=== PATIENT | female | born 1985 | race Caucasian/White ===

== ENCOUNTER 2017-04-08 12:40 | Outpatient (CLI) | payer MEDICAID, SELFPAY ==
[2017-04-08 13:14] VITALS: BMI 26.6
[2017-04-08] MEDS: Dextrose 5%-Lactated Ringers 1,000 ML 999 ML IV (13:25)
[2017-04-08 13:38] LABS: Hematocrit 35.8 % (37-47); Mean Corp Hgb Conc 33.5 g/gl (32-36); Mean Corpuscular Hgb 29.9 pg (27.0-32.0); Mean Corpuscular Volume 89.1 fL (81-99); Mean Platelet Vol. 11.6 fl (6.2-12.0); Platelet Count 160 K/mm3 (150-450); RBC Distribution Width CV 13.7 % (11.6-14.6); RBC Distribution Width SD 44.3 fl (35.1-43.9); Red Blood Count 4.02 M/mm3 (4.2-5.4); White Blood Count 9.1 K/mm3 (4.4-11.0)
[2017-04-08 13:39] LABS: Scan Indicated on CBC? Y/N NO
[2017-04-08 14:25] LABS: ALB/GLOB Ratio 0.8 RATIO (0.9-2.4); AST(SGOT) 38 U/L (15-37); Alanine Aminotransfer ALT/SGPT 42 U/L (12-78); Albumin, Serum 2.8 g/dL (3.4-5.0); Alkaline Phosphatase 114 U/L (45-117); Anion Gap 12 (5-15); BUN 8 mg/dL (7-18); Calcium,Total 9.3 mg/dL (8.5-10.1); Chloride 104 mmol/L (98-107); Creatinine, Serum 0.53 mg/dL (0.55-1.02); EST Glomerular Filtration Rate 141 mL/min (>60); Est Glom Filt Rate - Afr Amer 171 mL/min (>60); Globulin 3.7 g/dL (2.2-4.2); Glucose 72 mg/dL (70-110); Potassium 3.9 mmol/L (3.5-5.1); Protein, Total 6.5 g/dL (6.4-8.2); Sodium Level 135 mmol/L (136-145)
--- NOTE | 2017-04-08 21:15 | OB.TRI.NOTE ---
History of Present Illness Date of Service: 04/08/17 Was patient seen by the physician?: No Reason For Visit: FLUIDS Date of Service: 04/08/17 Final HARLEY: 04/21/17 Final HARLEY Source: US <20 weeks Gestational age: 38.1 History of Present Illness: 31yo para 3 with nausea and dehydration sent to for IV fluids. Home Medications Medication Instructions Recorded Ranitidine HCl [Zantac 75] 300 mg PO DAILY PRN 01/04/16 Vit No.130/Iron/FA 1 ea PO DAILY 10/13/16 [ Tablet] Calcium Carbonate [Tums] 750 mg PO Q6H PRN PRN 04/08/17 Ibuprofen 800 mg PO TID PRN #30 tab 04/19/17 Senna/Docusate Sodium [Senokot-S] 1 - 2 tablet PO DAILY PRN PRN 04/19/17 tablet Allergies pantoprazole [From Protonix] Adverse Reaction (Verified 04/18/17 13:30) HEADACHE NST - FHR Rate Baby A Baseline: 120 Variability:: Moderate Accelerations:: 15 x 15 Decelerations:: None NST Reactive:: Yes FHR Category:: Category I Uterine Activity:: 0/10 Impression/Plan Dx nausea without vomiting -Reactive NST -d/c home
== END 2017-04-08 15:05 | disposition home or self-care (01) ==
LOC: WPOUT 12:51 → WP 12:52
PROVIDERS: Family Provider Family Medicine; PCP Family Medicine; Visit Provider Obstetrics & Gynecology
DX: O26.893 Other specified pregnancy related conditions, third trimester (principal); O99.283 Endocrine, nutritional and metabolic diseases complicating pregnancy, third trimester; Z3A.38 38 weeks gestation of pregnancy
CPT/HCPCS: 96360; 36415; 59025; 59050; 80053; 85027; 99218; A4216; G0378

== ENCOUNTER → 2017-04-11 13:53 | Outpatient (CLI) | payer MEDICAID, SELFPAY ==
[2017-04-11 16:02] LABS: Hematocrit 38.5 % (37-47); Hemoglobin 12.9 g/dl (12.0-15.0); Mean Corp Hgb Conc 33.5 g/gl (32-36); Mean Corpuscular Hgb 30.3 pg (27.0-32.0); Mean Corpuscular Volume 90.4 fL (81-99); Mean Platelet Vol. 12.2 fl (6.2-12.0); Platelet Count 159 K/mm3 (150-450); RBC Distribution Width SD 45.4 fl (35.1-43.9); Red Blood Count 4.26 M/mm3 (4.2-5.4); White Blood Count 9.9 K/mm3 (4.4-11.0)
[2017-04-11 16:03] LABS: Protein, Urine (Random) 23.2 mg/dL (<11.9)
[2017-04-11 16:04] LABS: Scan Indicated on CBC? Y/N NO
[2017-04-11 16:14] LABS: ALB/GLOB Ratio 0.7 RATIO (0.9-2.4); AST(SGOT) 27 U/L (15-37); Alanine Aminotransfer ALT/SGPT 35 U/L (13-56); Albumin, Serum 2.8 g/dL (3.2-5.0); Alkaline Phosphatase 121 U/L (45-117); Amylase 59 U/L (25-115); Anion Gap 8 (5-15); BUN 8 mg/dL (7-18); BUN/Creat Ratio 12.1 RATIO (10-20); Calcium,Total 8.8 mg/dL (8.5-10.1); Chloride 107 mmol/L (98-107); Creatinine, Serum 0.66 mg/dL (0.55-1.02); EST Glomerular Filtration Rate 110 mL/min (>60); Est Glom Filt Rate - Afr Amer 134 mL/min (>60); Globulin 4.1 g/dL (2.2-4.2); Glucose 70 mg/dL (70-110); Lipase 132 U/L (73-393); Protein, Total 6.9 g/dL (6.4-8.2); Sodium Level 137 mmol/L (136-145); Uric Acid 5.7 mg/dL (2.6-6.0)
== END ==
PROVIDERS: Visit Provider Obstetrics & Gynecology
DX: O21.9 Vomiting of pregnancy, unspecified (principal); Z3A.00 Weeks of gestation of pregnancy not specified
CPT/HCPCS: 80053; 82150; 82570; 83690; 84156; 84550; 85027

== ENCOUNTER 2017-04-18 03:42 | Inpatient (IN) | payer MEDICAID, SELFPAY ==
[2017-04-18 04:14] VITALS: BMI 27.5
[2017-04-18] MEDS: Lactated Ringers 1,000 ML 50 ML IV (04:30)
[2017-04-18 04:51] LABS: Hematocrit 37.7 % (37-47); Hemoglobin 13.2 g/dl (12.0-15.0); Mean Corpuscular Hgb 30.8 pg (27.0-32.0); Mean Corpuscular Volume 88.1 fL (81-99); Mean Platelet Vol. 12.1 fl (6.2-12.0); Platelet Count 162 K/mm3 (150-450); RBC Distribution Width CV 13.6 % (11.6-14.6); RBC Distribution Width SD 42.4 fl (35.1-43.9); Red Blood Count 4.28 M/mm3 (4.2-5.4); White Blood Count 11.8 K/mm3 (4.4-11.0)
[2017-04-18 04:52] LABS: Scan Indicated on CBC? Y/N NO
--- NOTE | 2017-04-18 07:26 | PCM.PN.BLA ---
Progress Note LABOR PROGRESS NOTE Comfortable with epidural. No complaints. AVSS GEN - NAD, AAO x 3 FHR 120, moderate variability, + accelerations, no decelerations TOCO 2/10 min SVE 4/90/-2 A/P: 31yo @ 39 4/7wga in latent labor, Cat I FHR - status reassuring -Amniotomy performed with blood tinged fluid -Repeat exam in approximately 2 hours, continue in labor
[2017-04-18] MEDS: Acetaminophen 325 MG Tablet PO (07:35)
[2017-04-18] MEDS: Oxytocin 30 units/NS 500 ml 30 UNITS/500 ML IV.SOLN 334 UNITS IV (14:25)
--- NOTE | 2017-04-18 14:36 | PCM.OB.VAG ---
- Problem List (1) (spontaneous vaginal delivery) Status: Acute (2) 39 weeks gestation of Status: Acute Vaginal Delivery Maternal Presentation: - - Latent labor Amniotic Membrane Rupture Type: Artificial Rupture of Membrane time: 0725h 04/18/17 Amniotic Fluid Description: Clear Final HARLEY: 04/21/17 Final HARLEY Source: US <20 weeks Gestational age: 39 Weeks and 4 Days Date of Procedure: 04/18/17 Pre-Operative Diagnosis: 39 4/7wga, labor Post-Operative Diagnosis: 39 4/7wga, labor Surgery/ Procedure Performed: Spontaneous Vaginal Delivery Anesthesiologist: Wayne Apple Type of Anesthesia: Epidural Description of Procedure: Cervix FD/+3 on my arrival. Patient pushed with excellent maternal effort to deliver a vigorous male infant in direct OA over an intact perineum. The infant was placed on the maternal abdomen and further attended by nursery personnel. The cord was doubly clamped and cut at approximately 3 minutes of life. The placenta delivered spontaneously and appeared intact on inspection. An intrauterine exam was performed for training membranes with good uterine tone following. No evidence of hemorrhage. Sponge counts were correct x 2. Presentation: Vertex Placental Delivery Description: Spontaneous Placenta Disposition: [facility] Cord Vessel Description: 3 Vessels Nuchal Cord Compression: Without compression Cord Gases drawn per routine: ABG, VBG Cord Entanglement: None Drain: [place] to straight drain Estimated Blood Loss: 250 mL Infant A gender: Male (1 minute): 9 (5 minute): 9 Episiotomy Description: None Laceration: None Medications given after delivery: IV Pitocin Complications: None
--- NOTE | 2017-04-18 14:44 | DCINST_ITS ---
Discharge Diet: No Restrictions Discharge Activity: Return to Normal Activity, May not drive while taking narcotic pain medications., May Shower May resume sexual activity in: 6 weeks Call your doctor if your incision/area has: Continuous Slow Oozing, Sudden Increased Bleeding, Increased Pain/ Swelling, Increased Redness, Foul Smelling Discharge Additional Instructions: If you experience any of the following, contact your healthcare provider. * Bleeding that soaks a pad every hour for 2 hours * Fever 100.4 or higher * Unrelieved incision or abdominal pain * Swelling, redness, discharge or bleeding from your incision or episiotomy site * Your incision begins to separate * Problems urinating (including inability to urinate or burning while urinating) . * Visual changes * Severe headache * Flu-like symptoms * Pain or redness in one of both of your breasts * Pain, warmth, tenderness or swelling in your legs, especially the calf area * Frequent nausea and vomiting * Symptoms of depression or anxiety If you experience any of the following, call 911 or go to the nearest Emergency Room. * Chest pain * Problems breathing * Seizure activity * Partial or complete paralysis of a body part, slurred speech, weakness or drooping of the face, or a sudden inability to walk or hold your balance Allergies/Adverse Reactions: Allergies pantoprazole [From Protonix] Adverse Reaction (Verified 04/18/17 13:30) HEADACHE Medications to take at Discharge Ranitidine HCl [Zantac 75] 300 mg PO DAILY PRN 01/04/16 Vit No.130/Iron/FA [ Tablet] 1 ea PO DAILY 10/13/16 Calcium Carbonate [Tums] 750 mg PO Q6H PRN PRN 04/08/17 Ibuprofen 800 mg PO TID PRN #30 tab 04/19/17 Senna/Docusate Sodium [Senokot-S] 1 - 2 tablet PO DAILY PRN PRN tablet The following prescriptions were given: Ibuprofen 800 mg PO TID PRN #30 tab PRN Reason: Pain Orders to be completed after discharge: Electric breast pump Location: None Selected Please Follow Up With: Marsha Chanel MD When: 5-6 weeks for visit Primary Care Physician: Nestor Power III, MD [Primary Care Provider] -
[2017-04-18] MEDS: Oxytocin 30 units/NS 500 ml 30 UNITS/500 ML IV.SOLN 167 UNITS IV (15:42)
[2017-04-18 19:30] VITALS: BP 110/59; PULSE 83; RESP 14; TEMP 36.7
[2017-04-18 23:40] VITALS: BP 98/52; PULSE 80; RESP 14; TEMP 36.7
[2017-04-19] MEDS: Ibuprofen 600 MG Tablet PO ×3 (01:12→15:47)
[2017-04-19 02:15] VITALS: BP 98/52; PULSE 80; RESP 14; TEMP 36.7
[2017-04-19] MEDS: Senna/Docusate Sodium 1 Tablet PO (04:53)
[2017-04-19 05:00] VITALS: BP 126/73; PULSE 63; RESP 16; TEMP 36.8
[2017-04-19 07:00] VITALS: BP 130/67; PULSE 69; RESP 16; TEMP 37.3; O2SAT 98
--- NOTE | 2017-04-19 08:30 | PCM.PN.OB ---
Subjective: No complaints. Objective: avss - Physical Exam General: Alert, Oriented x3, Cooperative, No apparent distress HEENT: Atraumatic, Normocephalic Lungs: Normal air movement Cardiovascular: Regular rate, Regular Rhythm, Normal S1, Normal S2 Abdomen: Soft, Non Tender, Non-Distended, - - Fundus firm, nontender, lochia scant Extremities: No edema, No Calf Tenderness Neurological: Neuro grossly intact Psych/Mental Status: Normal Affect, Appropriate, Alert and oriented to time, place, person, mood and affect Vital Signs Temp Pulse Resp BP Pulse Ox 98.5 F 70 16 116/70 97 04/20/17 07:47 04/20/17 07:47 04/20/17 07:47 04/20/17 07:47 04/20/17 07:47 Oxygen Delivery Method Room Air Weight: 68.2 kg Body Mass Index (BMI) 27.5 Assessment/Plan 31yo PPD#1 s/p doing well. -A negative, infant Rh positive - for Rhogam -Rubella immune -Routine care
[2017-04-19] MEDS: Prenatal Vits Tablet 1 TABLET PO (11:31)
[2017-04-19 11:39] VITALS: BP 116/65; PULSE 80; RESP 20; TEMP 36.8
[2017-04-19 15:39] VITALS: BP 120/69; PULSE 77; RESP 17; TEMP 37.2; O2SAT 98
--- NOTE | 2017-04-19 16:45 | NURSING ---
1600 Mom requesting an electric breast pump and is insurance qualified. Pump given and instructed on it's use. Mom encouraged to call if any needs she may have with feeding. Pravin ESPINOZA
[2017-04-19 19:35] VITALS: BP 112/61; PULSE 88; RESP 18; TEMP 36.8; O2SAT 98
[2017-04-20 02:00] VITALS: BP 97/55; PULSE 82; RESP 16; TEMP 36.7
[2017-04-20] MEDS: Ibuprofen 600 MG Tablet PO (05:50)
[2017-04-20] MEDS: Senna/Docusate Sodium 1 Tablet PO (05:50)
[2017-04-20 07:47] VITALS: BP 116/70; PULSE 70; RESP 16; TEMP 36.9; O2SAT 97
--- NOTE | 2017-04-20 08:32 | PCM.PN.OB ---
Patient Problems: Active and Suspected Problems (Last Updated 04/18/17 @ 13:36 by Fernandez Moreno) 39 weeks gestation of (Acute) (spontaneous vaginal delivery) (Acute) Subjective: PPD#2 Doing well. Plans to go home today. Nursing and inc cramping when nursing. no concerns voiced otherwise. Objective: Sitting up on couch nursing. Spouse in room. - Physical Exam General: Alert, Oriented x3, Cooperative, No apparent distress HEENT: Atraumatic Neck: Supple Neurological: Cranial nerves II-XII grossly intact Psych/Mental Status: Normal Affect Vital Signs Temp Pulse Resp BP Pulse Ox 98.5 F 70 16 116/70 97 04/20/17 07:47 04/20/17 07:47 04/20/17 07:47 04/20/17 07:47 04/20/17 07:47 Oxygen Delivery Method Room Air Weight: 68.2 kg Body Mass Index (BMI) 27.5 Intake and Output for Last 24 Hours 04/18/17 04/19/17 04/20/17 23:59 23:59 23:59 Output Total 1100 / 1100 Balance -1100 / -1100 Assessment/Plan Active and Suspected Problems (Last Updated 04/18/17 @ 13:36 by Fernandez Moreno) 39 weeks gestation of (Acute) (spontaneous vaginal delivery) (Acute) PPD#2 Stable pp. Dischg home. RTO in 6 wk for pp check.
--- NOTE | 2017-04-20 11:16 | NURSING ---
1115 While rounding, Mom has her home pump paperwork completed and pump instructions given to parents. Mom encouraged to call if any questions or concerns with feedings following discharge. Pravin ESPINOZA
== END 2017-04-20 10:20 | disposition home or self-care (01) | DRG 373 ==
PROVIDERS: Admitting Provider Obstetrics & Gynecology; Family Provider Family Medicine; PCP Family Medicine; Visit Provider Obstetrics & Gynecology
DX: O26.23 Pregnancy care for patient with recurrent pregnancy loss, third trimester (principal); O23.43 Unspecified infection of urinary tract in pregnancy, third trimester; O99.62 Diseases of the digestive system complicating childbirth; K21.9 Gastro-esophageal reflux disease without esophagitis; O99.52 Diseases of the respiratory system complicating childbirth; J45.909 Unspecified asthma, uncomplicated; O99.113 Other diseases of the blood and blood-forming organs and certain disorders involving the immune mechanism complicating pregnancy, third trimester; R23.3 Spontaneous ecchymoses; O99.89 Other specified diseases and conditions complicating pregnancy, childbirth and the puerperium; R51 Headache; Z37.0 Single live birth; Z3A.39 39 weeks gestation of pregnancy
CPT/HCPCS: 59025; 59050; 85027; 85461; 86850; 86900; 90384; 99218; J7120; G0378; J2790

== ENCOUNTER → 2017-05-23 15:16 | Outpatient (CLI) | payer MEDICAID, SELFPAY ==
[2017-05-27 08:10] LABS: HPV APTIMA, High Risk Negative (Negative)
== END ==
PROVIDERS: Family Provider Family Medicine; PCP Family Medicine; Visit Provider Obstetrics & Gynecology
DX: Z12.4 Encounter for screening for malignant neoplasm of cervix (principal)
CPT/HCPCS: 88175; G0145

== ENCOUNTER 2017-06-09 05:28 | Day surgery (SDC) | payer MEDICAID, SELFPAY ==
--- NOTE | 2017-06-07 14:50 | EKG12_ITS ---
Test Reason : PRE OP Blood Pressure : / mmHG Vent. Rate : 055 BPM Atrial Rate : 055 BPM P-R Int : 130 ms QRS Dur : 096 ms QT Int : 424 ms P-R-T Axes : 060 044 058 degrees QTc Int : 405 ms Sinus bradycardia with sinus arrhythmia Incomplete right bundle branch block Borderline ECG Confirmed by TERRY FERRERA, GREG ([id number]), pictures editor DARY AMES ([id number]) on 06/09/2017 3:19:49 PM Referred By: Marsha Chanel Confirmed By:GREG STEWART MD
[2017-06-07 15:07] LABS: International Normalized Ratio 0.9; Prothrombin Time (Protime)PT. 12.6 SECONDS (11.7-14.9)
[2017-06-07 15:08] LABS: Partial Thromboplast Time 27.2 Seconds (24.1-36.2)
[2017-06-07 15:14] LABS: Hematocrit 41.3 % (37-47); Hemoglobin 13.5 g/dl (12.0-15.0); Mean Corp Hgb Conc 32.7 g/gl (32-36); Mean Corpuscular Hgb 29.3 pg (27.0-32.0); Mean Corpuscular Volume 89.6 fL (81-99); Platelet Count 245 K/mm3 (150-450); RBC Distribution Width CV 12.5 % (11.6-14.6); RBC Distribution Width SD 40.8 fl (35.1-43.9); Red Blood Count 4.61 M/mm3 (4.2-5.4)
[2017-06-07 15:15] LABS: Scan Indicated on CBC? Y/N NO
[2017-06-07 15:34] LABS: AST(SGOT) 43 U/L (15-37); Alanine Aminotransfer ALT/SGPT 89 U/L (13-56); Albumin, Serum 3.9 g/dL (3.2-5.0); Alkaline Phosphatase 60 U/L (45-117); Anion Gap 7 (5-15); BUN 15 mg/dL (7-18); Chloride 107 mmol/L (98-107); Creatinine, Serum 0.71 mg/dL (0.55-1.02); EST Glomerular Filtration Rate 100 mL/min (>60); Est Glom Filt Rate - Afr Amer 122 mL/min (>60); Globulin 3.5 g/dL (2.2-4.2); Glucose 77 mg/dL (74-106); Potassium 3.9 mmol/L (3.5-5.1); Protein, Total 7.4 g/dL (6.4-8.2); Sodium Level 140 mmol/L (136-145)
[2017-06-09] VITALS (8 sets, daily range): BP systolic 101–106; BP diastolic 62–75; PULSE 54–71; RESP 16; TEMP 36.1–36.7; O2SAT 99–100; BMI 23.2
[2017-06-09 05:45] LABS: Internal QC Validated? YES +Cl - CLEAR BKGD; Pregnancy, Urine Negative Negative
--- NOTE | 2017-06-09 07:15 | FALS_PTH ---
PATIENT: GABRIEL YUSUF LOC: [facility] – [place] U#:[id number] AGE/SX: 31/F ROOM: RE06/09/[address]: Dr. Marsha Lewis MD : [id number] BED: DIS: 06/09/2017 SPEC #: [id number] RECD: 06/09/17 10:32 STATUS: NEGRITO REClari #: [id number] ORESTES: 06/09/17 07:[address]: Marsha Meade DEPT: SURGICAL PATHOLOGY RECD BY: Juan Carlos Cuevas ENTERED: 06/09/17 11:32 SP TYPE: FALL TUBES OTHR DR: Dr. Nestor Power III, MD Tissues: Fallopian tube Procedures: Surgery Specimen Level II HEADER OPERATION: Laparoscopic salpingectomy PRE-OP DIAGNOSIS: Desire for sterilization TISSUE SUBMITTED: Bilateral fallopian tubes MICROSCOPIC DIAGNOSIS Bilateral fallopian tubes, salpingectomy: Bilateral fallopian tubes including fimbrial ends, no pathologic diagnosis. SJ:roby 06/10/17 MICROSCOPIC DESCRIPTION Slides are reviewed. GROSS DESCRIPTION Received is one container labeled with the patient's name and designated bilateral fallopian tubes. The specimen consists of two tubular pieces of pink-mir soft tissue consistent with bilateral fallopian tubes including fimbrial ends with the right identified with a suture. The average fallopian tube measures 5.5 cm in length and 0.5 cm in diameter. One fallopian tube is inked in black ink. Labor Relations Teacher sections of both fallopian tubes are submitted in one cassette. / RON/sp TC: 4 CPT: 01451 x2
[2017-06-09] MEDS: Bupivacaine 0.25% 30 ML Vial (07:58)
--- NOTE | 2017-06-09 08:01 | PCM.IMDPSTOP ---
Problem List (1) Sterilization Status: Acute (2) Status post bilateral salpingectomy Status: Acute Immediate Post-Op Note Date of Procedure: 06/09/17 Primary Surgeon/Physician: Marsha Chanel, typewriter ribbon winder: Vince Griffin Pre-Operative Diagnosis: multiparous, sterilization request Post-Operative Diagnosis: multiparous, sterilization request Surgery/Procedure Performed:: Laparoscopic bilateral salpingectomy Description of Surgical Findings:: Normal-appearing ovaries and tubes bilaterally. Normal uterus. Estimated Blood Loss: 3 cc Specimen's removed: Bilateral tubes Type of Anesthesia:: General, Local ASA Class: ASA1 Normal Healthy Patient - Admit VTE Documentation VTE Present on Admission: No VTE Mechan Device Prophylaxis: SCD's VTE Pharm Prophylaxis ordered?: No
--- NOTE | 2017-06-09 08:04 | PCM.OPRPT ---
Problem List (1) Sterilization Status: Acute (2) Status post bilateral salpingectomy Status: Acute Report of Operation Date of Procedure: 06/09/17 Pre-Operative Diagnosis: multiparous, sterilization request Post-Operative Diagnosis: multiparous, sterilization request Surgery/Procedure Performed:: Laparoscopic bilateral salpingectomy Description of Surgical Findings:: Normal-appearing ovaries and tubes bilaterally. Normal uterus. locomotive lubricating systems clerk: Vince Griffin Type of Anesthesia:: General, Local Anesthesiologist: eDrek Gao Specimen's removed: Bilateral tubes Estimated Blood Loss (mL): 3 cc Fluids Replaced: 100 mL Description of Procedure: Indications: Ms. Singh is a 31-year-old 7 para 4034 requesting sterilization. She is status post vaginal delivery approximately 7 weeks ago. She was counseled regarding contraception including male and female sterilization as well as reversible methods. Following discussion she opted to proceed with laparoscopic bilateral salpingectomy and declined other tubal procedure. Risks, benefits, indications were reviewed at length. Procedure: The patient was taken to the operating room and signed and was performed. She is placed in the dorsal supine position and induced under general anesthesia and intubated. She was then placed into dorsal lithotomy in the arms tucked at her sides. Examination under anesthesia was performed. The perineum and abdomen were prepped and draped in sterile fashion. Straight catheterization of the bladder was performed. She was placed into high lithotomy and a weighted speculum placed into the vagina. The cervix was grasped at the anterior cervical lip using a single-tooth tenaculum. The uterus sounded to 7 cm and a con uterine manipulator was placed and secured to the tenaculum. The speculum was removed. The patient was placed into low lithotomy and attention turned to the abdomen. A 1cm incision was made at the inferior umbilicus. Needle place with no aspirate however the hanging drop test was unsuccessful. The Veress needle was removed and trocar placed under laparoscopic guidance confirming entry into the abdomen. The abdomen was insufflated to 14 mmHg and the patient placed into Trendelenburg. Right and left lower quadrant incisions were made under transillumination and followed by 5 mm port placement at each site. The abdomen and pelvis were inspected and normal-appearing. Attention was turned to the left adnexa. The tube with fimbria was identified. the left mesosalpinx was clamped, coagulated and transected to the level of the uterine cornua and salpingectomy performed using the Enseal device. In similar fashion right salpingectomy was also performed. The tubes were removed via the ports. There was excellent hemostasis. The abdomen was desufflated the patient was given several deep breaths for further desufflation. The trochars were removed from the abdomen. The skin was closed using 4-0 Monocryl. 20 cc of quarter percent Sensorcaine was placed for additional analgesia. Steri-Strips were placed over the incision and followed by OpSite dressing. The patient was placed in high lithotomy and the tenaculum removed from the cervix along with a uterine manipulator. The patient was then placed into dorsal supine position, cans, extubated and transferred to the recovery room without complication. Sponge and needle counts were correct ?2. - Complications None - Admit VTE Documentation VTE Present on Admission: No VTE Mechan Device Prophylaxis: SCD's VTE Pharm Prophylaxis ordered?: No
--- NOTE | 2017-06-09 08:17 | PCM.DC ---
- Discharge Diagnoses Current Active Problems: Current Active and Chronic Problems Sterilization (Acute) Status post bilateral salpingectomy (Acute) Reason(s) for Visit for Discharge Instructions: Laparoscopic bilateral salpingectomy You will use the following diet at home:: No restrictions Discharge Activity: Return to Normal Activity, May not drive while taking narcotic pain medications., May Shower, - - No driving for 48-72 hours. May resume sexual activity in: 4 weeks Lifting Restrictions: 10 lb x 2 weeks Call your doctor if you observe: Fever of 101 or Higher, Inability to urinate, Inability to have a bowel movement, Using more than one pad per hour, Shortness of breath, Chest pain, Uncontrolled pain Remove Dressing in (days):: 1 - remove 24 hours after procedure. Remove steri strips after 3 days Cleanse incision/area with: Soap & Water Allergies/Adverse Reactions: Allergies pantoprazole [From Protonix] Adverse Reaction (Verified 06/02/17 13:07) HEADACHE Medications to take at Discharge Ranitidine HCl [Zantac 75] 300 mg PO DAILY PRN 01/04/16 Vit No.130/Iron/FA [ Tablet] 1 ea PO DAILY 10/13/16 Albuterol Inhaler [Ventolin Hfa (SP)] 1 - 2 puff INHALATION Q6H PRN PRN 06/02/17 Phenazopyridine HCl [Pyridium] 100 mg PO PRN PRN 06/02/17 Docusate Sodium [Colace] 100 mg PO BID PRN PRN #60 cap 06/09/17 Ibuprofen 600 mg PO TID PRN #30 tab 06/09/17 Oxycodone [Oxyir] 5 mg PO Q4H PRN PRN 4 Days #20 tablet 06/09/17 The following prescriptions were given: Oxycodone [Oxyir] 5 mg PO Q4H PRN PRN 4 Days #20 tablet PRN Reason: Pain Docusate Sodium [Colace] 100 mg PO BID PRN PRN #60 cap PRN Reason: Constipation Ibuprofen 600 mg PO TID PRN #30 tab PRN Reason: Pain Primary Care Physician: Nestor Power III, MD [Primary Care Provider] - Please Follow Up With: Marsha Chanel MD When: 2-4 weeks
== END 2017-06-09 10:07 | disposition home or self-care (01) ==
LOC: SDC 05:28 → AC 05:29
PROVIDERS: Anesthesiology; Family Provider Family Medicine; PCP Family Medicine; Visit Provider Obstetrics & Gynecology
PROC: (CPT 58661; principal; 2017-06-09 07:00)
DX: Z30.2 Encounter for sterilization (principal); I45.10 Unspecified right bundle-branch block; I47.1 Supraventricular tachycardia; J45.990 Exercise induced bronchospasm; K21.9 Gastro-esophageal reflux disease without esophagitis; Z86.69 Personal history of other diseases of the nervous system and sense organs; E16.2 Hypoglycemia, unspecified; N30.10 Interstitial cystitis (chronic) without hematuria; Z79.899 Other long term (current) drug therapy
CPT/HCPCS: 58661; 36415; 80048; 80076; 81025; 85027; 85610; 85730; 86850; 86870; 86900; 88302; 93005; J7120; C1760; J2405

== ENCOUNTER → 2017-06-17 13:53 | Outpatient (CLI) | payer MEDICAID, SELFPAY ==
[2017-06-17 16:20] LABS: ALB/GLOB Ratio 1.1 RATIO (0.9-2.4); AST(SGOT) 40 U/L (15-37); Alanine Aminotransfer ALT/SGPT 77 U/L (13-56); Albumin, Serum 3.9 g/dL (3.2-5.0); Alkaline Phosphatase 66 U/L (45-117); Anion Gap 9 (5-15); BUN 15 mg/dL (7-18); BUN/Creat Ratio 16.6 RATIO (10-20); Chloride 109 mmol/L (98-107); Creatinine, Serum 0.91 mg/dL (0.55-1.02); EST Glomerular Filtration Rate 76 mL/min (>60); Est Glom Filt Rate - Afr Amer 92 mL/min (>60); Globulin 3.6 g/dL (2.2-4.2); Glucose 89 mg/dL (74-106); Potassium 3.8 mmol/L (3.5-5.1); Protein, Total 7.5 g/dL (6.4-8.2); Sodium Level 144 mmol/L (136-145)
[2017-06-19 10:17] LABS: HEPATITIS B SURFACE AG Negative (Negative); Hep C Antibodies 0.1 s/co ratio (0.0-0.9)
== END ==
PROVIDERS: Visit Provider Obstetrics & Gynecology
DX: R74.0 Nonspecific elevation of levels of transaminase and lactic acid dehydrogenase [LDH] (principal)
CPT/HCPCS: 36415; 80053; 86803; 87340

== ENCOUNTER → 2017-07-26 11:03 | Outpatient (CLI) | payer MEDICAID, SELFPAY ==
--- NOTE | 2017-07-26 14:56 | PFTCOMP_ITS ---
COMPLETE PULMONARY FUNCTION TEST INTERPRETATION Brief HPI: Patient is a 31 year old female, currently under the care of Dr. Dinero, who presents to [facility] for complete pulmonary function tests secondary to diagnosis of cough. Respiratory therapist reports good effort and reproducible results. Interpretation: Forced expiration spirometry shows no large airways obstructive ventilatory defect with an FEV1 of 103% predicted. There is no significant bronchodilator response by ATS criteria. Spirograms are of good quality and plateau normally. The respiratory flow volume loop shows a normal pattern. Lung volumes by body plethysmography show a normal total lung capacity at 4.86 L , 105% predicted. All other lung volumes are within normal limits. Diffusion capacity by carbon monoxide is normal at 85% predicted. The airway resistance is normal. No previous pulmonary function tests were available for review. Impression: These pulmonary function tests are within normal limits. Consider bronchoprovocation study if asthma is a consideration.
== END ==
PROVIDERS: Family Provider Family Medicine; PCP Family Medicine; Visit Provider Otolaryngology Otolaryngology/Facial Plastic Surgery
DX: R06.02 Shortness of breath (principal); R05 Cough
CPT/HCPCS: 94060; 94726; 94729

== ENCOUNTER → 2017-09-28 12:25 | Outpatient (CLI) | payer MEDICAID, SELFPAY ==
[2017-09-28 14:23] LABS: Absolute Lymphocyte Count 2.41 X10^3/ul (0.83-4.51); Absolute Neutrophil Count 3.2 X10^3/uL (2.0-7.7); Basophil# 0.02 X10^3/uL; Basophil% 0.3 % (0-1); Eosinophil# 0.19 X10^3/uL; Hematocrit 41.1 % (37-47); Hemoglobin 14.1 g/dl (12.0-15.0); Lymphocyte # 2.41 X10^3/ul (4.0); Lymphocyte % 38.6 % (19-41); Mean Corp Hgb Conc 34.3 g/gl (32-36); Mean Corpuscular Hgb 29.5 pg (27.0-32.0); Mean Platelet Vol. 10.6 fl (6.2-12.0); Monocyte# 0.43 X10^3/uL; Monocyte% 6.9 % (0-10); Neutrophil # 3.18 X10^3/uL (2.7-7.7); Platelet Count 223 K/mm3 (150-450); RBC Distribution Width CV 12.3 % (11.6-14.6); RBC Distribution Width SD 38.4 fl (35.1-43.9); Red Blood Count 4.78 M/mm3 (4.2-5.4); White Blood Count 6.2 K/mm3 (4.4-11.0)
[2017-09-28 14:35] LABS: POSITIVE COUNT NO; POSITIVE DIFFERENTIAL NO; POSITIVE MORPHOLOGY NO
[2017-09-28 14:43] LABS: ALB/GLOB Ratio 1.1 RATIO (0.9-2.4); AST(SGOT) 20 U/L (15-37); Alanine Aminotransfer ALT/SGPT 26 U/L (13-56); Albumin, Serum 3.8 g/dL (3.2-5.0); Alkaline Phosphatase 56 U/L (45-117); Anion Gap 8 (5-15); BUN 19 mg/dL (7-18); BUN/Creat Ratio 28.4 RATIO (10-20); Calcium,Total 8.5 mg/dL (8.5-10.1); Chloride 108 mmol/L (98-107); Creatinine, Serum 0.67 mg/dL (0.55-1.02); EST Glomerular Filtration Rate 108 mL/min (>60); Est Glom Filt Rate - Afr Amer 131 mL/min (>60); Globulin 3.4 g/dL (2.2-4.2); Glucose 102 mg/dL (74-106); Potassium 3.6 mmol/L (3.5-5.1); Protein, Total 7.2 g/dL (6.4-8.2); Sodium Level 143 mmol/L (136-145)
== END ==
PROVIDERS: Family Provider Family Medicine; PCP Family Medicine; Visit Provider Family Medicine
DX: R94.5 Abnormal results of liver function studies (principal); J45.990 Exercise induced bronchospasm
CPT/HCPCS: 36415; 80053; 85025

== ENCOUNTER → 2017-11-22 10:19 | Outpatient (CLI) | payer MEDICAID, SELFPAY ==
[2017-11-22 12:18] LABS: Erythrocyte Sedimentation Rate 9 mm/hr (0-20)
[2017-11-22 12:34] LABS: CRP < 2.90 mg/L (0.0-3.0); Rheumatoid Factor < 10.0 IU/mL (<15); Thyroid Stim Hormone (TSH) 1.36 uIU/mL (0.358-3.74)
[2017-11-22 13:59] LABS: ALB/GLOB Ratio 1.1 RATIO (0.9-2.4); AST(SGOT) 20 U/L (15-37); Alanine Aminotransfer ALT/SGPT 26 U/L (13-56); Alkaline Phosphatase 52 U/L (45-117); Anion Gap 11 (5-15); BUN 17 mg/dL (7-18); BUN/Creat Ratio 24.4 RATIO (10-20); Chloride 109 mmol/L (98-107); EST Glomerular Filtration Rate 103 mL/min (>60); Est Glom Filt Rate - Afr Amer 124 mL/min (>60); Globulin 3.5 g/dL (2.2-4.2); Glucose 81 mg/dL (74-106); Potassium 4.2 mmol/L (3.5-5.1); Protein, Total 7.5 g/dL (6.4-8.2); Sodium Level 142 mmol/L (136-145)
[2017-11-22 14:25] LABS: Hematocrit 41.9 % (37-47); Hemoglobin 13.9 g/dl (12.0-15.0); Mean Corp Hgb Conc 33.2 g/gl (32-36); Mean Corpuscular Hgb 28.8 pg (27.0-32.0); Mean Corpuscular Volume 86.7 fL (81-99); Mean Platelet Vol. 10.3 fl (6.2-12.0); Platelet Count 247 K/mm3 (150-450); RBC Distribution Width CV 12.9 % (11.6-14.6); RBC Distribution Width SD 41.3 fl (35.1-43.9); Red Blood Count 4.83 M/mm3 (4.2-5.4); White Blood Count 6.5 K/mm3 (4.4-11.0)
[2017-11-22 14:30] LABS: Scan Indicated on CBC? Y/N NO
[2017-11-24 08:24] LABS: ANTINUCLEAR ANTIBODIES DIRECT Negative (Negative)
== END ==
PROVIDERS: Family Provider Family Medicine; PCP Family Medicine; Visit Provider Family Medicine
DX: M25.50 Pain in unspecified joint (principal); R94.5 Abnormal results of liver function studies
CPT/HCPCS: 36415; 80053; 84443; 85027; 85652; 86038; 86140; 86431

== ENCOUNTER → 2018-01-03 11:51 | Outpatient (CLI) | payer MEDICAID, SELFPAY ==
--- NOTE | 2018-01-03 11:59 | RAD_ITS ---
STUDY: X-RAY - SACRUM/COCCYX REASON FOR EXAM: Female, 32 years old. chronic back pain, has gotten worse since delivering last child 8 months ago TECHNIQUE: 3 view(s) of the sacrum and coccyx were obtained. COMPARISON: None. FINDINGS: Normal bilateral sacroiliac joints. Normal visualized sacral ala and fused sacral bodies. Normal sacrococcygeal junction with a normal angulation. Normal coccygeal segments. The presacral soft tissue structures are unremarkable. RAD/Sacrum-Coccyx min 2 Views IMPRESSION: Normal x-rays of the sacrum and coccyx. Electronically Signed: Rickey Lozano MD at 17:49 EDT , Service support ,
--- NOTE | 2018-01-03 12:00 | RAD_ITS ---
STUDY: X-RAY - LUMBAR SPINE REASON FOR EXAM: Female, 32 years old. chronic back pain, has gotten worse since delivering last child 8 months ago TECHNIQUE: 5 view(s) of the lumbar spine were obtained. COMPARISON: None FINDINGS: There is straightening of the normal lumbar lordosis. There is no substantial scoliosis. There is a normal alignment of the vertebrae. Normal vertebral bodies and endplates. Normal disc space heights. The soft tissue structures are unremarkable. RAD/L/S Spine Min 4 Views IMPRESSION: There is mild straightening of the normal lumbar lordosis. This can suggest back strain. Electronically Signed: Rickey Lozano MD at 16:48 EDT , Service support ,
== END ==
PROVIDERS: Family Provider Family Medicine; PCP Family Medicine; Referring Provider Family Medicine; Visit Provider Family Medicine
DX: M54.16 Radiculopathy, lumbar region (principal); M53.3 Sacrococcygeal disorders, not elsewhere classified
CPT/HCPCS: 72110; 72220

== ENCOUNTER → 2018-05-12 08:28 | Outpatient (CLI) | payer MEDICAID, SELFPAY ==
[2018-05-12 08:27] VITALS: BMI 27.5
== END ==
PROVIDERS: Family Provider Family Medicine; PCP Family Medicine; Referring Provider Otolaryngology Otolaryngology/Facial Plastic Surgery; Visit Provider Otolaryngology Otolaryngology/Facial Plastic Surgery
DX: J32.9 Chronic sinusitis, unspecified (principal)
CPT/HCPCS: 87070; 87077; 87205

== ENCOUNTER → 2018-05-30 15:21 | Outpatient (CLI) | payer MEDICAID, SELFPAY ==
[2018-05-12 08:27] VITALS: BMI 27.5
--- NOTE | 2018-05-30 16:00 | MRI_ITS ---
STUDY: MRI LUMBAR SPINE WITH AND WITHOUT CONTRAST REASON FOR EXAM: Female, 32 years old. LBP, RIGHT leg pain, episodes of bladder incontinence. TECHNIQUE: Standardized fat and water weighted pulse sequences were obtained in the sagittal and axial planes. Dotarem 10 IV was administered for the contrast portion of the examination. COMPARISON: January 03, 2018 lumbar spine x-ray FINDINGS: T12-L1: There is minimal disc space narrowing and endplate spondylosis. There is no significant disc herniation, central canal or foraminal stenosis. There is straightening of the normal lumbar lordosis. There is no substantial scoliosis. Normal conus medullaris that terminates at the T12 L1-2: There is minimal disc space narrowing and endplate spondylosis. There is no significant disc herniation, central canal or foraminal stenosis. L2-3: There is minimal disc space narrowing and endplate spondylosis. There is no significant disc herniation, central canal or foraminal stenosis. L3-4: There is minimal disc space narrowing and endplate spondylosis. There is no significant disc herniation, central canal or foraminal stenosis. L4-5: There is minimal disc space narrowing and endplate spondylosis. There is no significant disc herniation, central canal or foraminal stenosis. L5-S1: There is mild disc space narrowing and endplates spondylosis. There is a mild disc bulge with posterior annular fissure without significant central canal or foraminal stenosis. There is mild facet arthropathy. Normal visualized sacral ala. Normal visualized paraspinous soft tissue structures. MRI/Spine Lumbar W/WO Contrast IMPRESSION: L5/S1: Mild disc bulging and annular fissure. Electronically Signed: Norma Driver MD at 14:06 EDT Tel , Service support ,
== END ==
PROVIDERS: Family Provider Family Medicine; PCP Family Medicine; Referring Provider Family Medicine; Visit Provider Family Medicine
DX: R53.1 Weakness (principal)
CPT/HCPCS: 72158; A9575

== ENCOUNTER → 2018-07-11 | Outpatient (CLI) | payer MEDICAID, SELFPAY ==
[2018-06-27 08:45] VITALS: BMI 21.0
[2018-07-11 18:25] LABS: Vitamin B12 1336 pg/mL (211-911); Vitamin D,25 Hydroxy 17.1 ng/mL (29.95-100.01)
[2018-07-18 17:22] LABS: Vitamin B1, Thiamine 121.1 nmol/L (66.5-200.0)
== END | disposition home or self-care (01) ==
LOC: MFPLAB 16:29
PROVIDERS: Family Provider Family Medicine; PCP Family Medicine; Referring Provider Family Medicine; Visit Provider Family Medicine
DX: G62.9 Polyneuropathy, unspecified (principal); R53.83 Other fatigue
CPT/HCPCS: 36415; 82306; 82607; 84425

== ENCOUNTER → 2018-07-14 | Outpatient (CLI) | payer MEDICAID, SELFPAY ==
[2018-06-27 08:45] VITALS: BMI 21.0
== END | disposition home or self-care (01) ==
LOC: LABSPEC 17:05
PROVIDERS: Family Provider Family Medicine; PCP Family Medicine; Referring Provider Otolaryngology Otolaryngology/Facial Plastic Surgery; Visit Provider Otolaryngology Otolaryngology/Facial Plastic Surgery
DX: J02.9 Acute pharyngitis, unspecified (principal)
CPT/HCPCS: 87070; 87077

== ENCOUNTER → 2018-08-08 | Outpatient (CLI) | payer MEDICAID, SELFPAY ==
[2018-06-27 08:45] VITALS: BMI 21.0
[2018-08-08 14:45] LABS: Thyroid Stim Hormone (TSH) 2.52 uIU/mL (0.358-3.74)
== END | disposition home or self-care (01) ==
LOC: MFPLAB 12:23
PROVIDERS: Family Provider Family Medicine; PCP Family Medicine; Referring Provider Family Medicine; Visit Provider Family Medicine
DX: R23.2 Flushing (principal)
CPT/HCPCS: 36415; 84443

== ENCOUNTER → 2018-08-25 | Outpatient (CLI) | payer MEDICAID, SELFPAY ==
[2018-06-27 08:45] VITALS: BMI 21.0
--- NOTE | 2018-08-25 18:15 | MRI_ITS ---
HISTORY: Pain. Dislocation. Change in memory for 2 months. Left facial numbness. Right limb Numbness for 2 years. Pain urinating. Incontinence. Pain in head. Left cheek. Dyspareunia. N 94.1 Technique: Sagittal T1, coronal T2, coronal T1, and many axial series were obtained through the brain. 12 series. 335 images. No comparisons Findings: Brain volume is normal. No acute ischemia. Lazo-white white differentiation is normal. Ventricle size is normal. Flow is present within major central intracranial arteries. The left vertebral artery is dominant over the right. Paranasal sinuses and mastoid air cells are free of disease. No acute intracranial hemorrhage is perceived. MRI/Brain W/WO Contrast IMPRESSION: Normal. at 2009 Reported and signed by: Fede Magallon MD Electronically Signed: Fede Magallon MD at 20:08 EDT Tel , Service support ,
== END | disposition home or self-care (01) ==
LOC: MRI 17:35
PROVIDERS: Family Provider Family Medicine; PCP Family Medicine; Referring Provider Family Medicine; Visit Provider Family Medicine
DX: N94.10 Unspecified dyspareunia (principal)
CPT/HCPCS: 70553; A9575

== ENCOUNTER → 2018-10-10 | Outpatient (CLI) | payer MEDICAID, SELFPAY ==
[2018-06-27 08:45] VITALS: BMI 21.0
[2018-10-14 03:06] LABS: HPV Genotype 16, Aptima Negative (Negative)
[2018-10-16 08:20] LABS: HPV APTIMA, High Risk Positive (Negative); HPV Genotype 18,45 Aptima Negative (Negative)
== END | disposition home or self-care (01) ==
LOC: LABSPEC 13:36
PROVIDERS: Visit Provider Obstetrics & Gynecology
DX: Z12.4 Encounter for screening for malignant neoplasm of cervix (principal)
CPT/HCPCS: 87624; 88175; G0145

== ENCOUNTER → 2019-01-25 14:11 | Outpatient (CLI) | payer MEDICAID, SELFPAY ==
[2018-10-14 09:28] VITALS: BMI 21.0
--- NOTE | 2019-01-25 14:14 | BI_ITS ---
MAMMOGRAPHY - BILATERAL DIAGNOSTIC REASON FOR EXAM: Female, 33 years old. Right breast pain. Right milky discharge. PERTINENT HISTORY: Grandmother with breast cancer. TECHNIQUE: Digital bilateral breast jw (3D mammographic acquisition) in the CC and MLO projections. 2-D mediolateral oblique (MLO) and craniocaudad (CC) views of both breasts were obtained. CAD: Full Field Digital Mammography with Computer Added Detection was performed. COMPARISON: None. Baseline examination. FINDINGS: Breast Composition: The breasts are heterogeneously dense, which may obscure small masses. There are no dominant masses or suspicious calcifications. No other significant abnormalities are identified. BI/DIAG MAMM W/CAD, BILAT IMPRESSION: Negative diagnostic mammogram. With the patient's history of pain and discharge in the right breast, correlation with ultrasound is recommended. ASSESSMENT CATEGORY: BIRADS Category 0: Incomplete. Need additional imaging evaluation. A letter regarding these results will be sent to the patient by the facility within 30 days. Approximately 10% of breast cancers are not detected by mammography. A normal mammogram should not delay biopsy of a clinically suspicious abnormality. Electronically Signed: Santiago Pulido, at 15:41 EST , Service support ,
--- NOTE | 2019-01-25 14:14 | US_ITS ---
STUDY: ULTRASOUND BREAST - RIGHT REASON FOR EXAM: Female, 33 years old. Right breast lump and pain. TECHNIQUE: Axial and longitudinal images of the RIGHT breast were performed with a high resolution ultrasound transducer. # OF IMAGES: 55 COMPARISON: Comparison is made with prior mammogram done earlier today. FINDINGS: RIGHT Breast: There is a 6 mm x 7 mm x 5 mm hypoechoic nodule with echogenic hilum. This is at the 8:00 position the breast. This is in keeping with a small lymph node. There is also evidence of a 2 cm x 0.8 cm x 0.8 cm hypoechoic nodule with central echogenic hilum suggestive of an enlarged lymph node. This is at the 10:00 position in the breast. US/Breast Limited Unilateral IMPRESSION: The findings suggest left to benign-appearing lymph nodes at the 8:00 and 10:00 position respectively. ASSESSMENT CATEGORY: BIRADS Category 2: Benign. A letter regarding these results will be sent to the patient by the facility within 30 days. Electronically Signed: Santiago Pulido, at 15:54 EST , Service support ,
== END ==
PROVIDERS: Family Provider Family Medicine; PCP Family Medicine; Referring Provider Obstetrics & Gynecology; Visit Provider Obstetrics & Gynecology
DX: N63.11 Unspecified lump in the right breast, upper outer quadrant (principal)
CPT/HCPCS: 76642; 77062; 77066; G0279

== ENCOUNTER → 2019-01-27 10:57 | Outpatient (CLI) | payer MEDICAID, SELFPAY ==
[2018-10-14 09:28] VITALS: BMI 21.0
--- NOTE | 2019-01-27 11:19 | RAD_ITS ---
STUDY: X-RAY CHEST REASON FOR EXAM: Female, 33 years old. Cough TECHNIQUE: Frontal and lateral views of the chest COMPARISON: 06/26/2016 FINDINGS: The lungs are clear. There are no pleural effusions. There is no pneumothorax. The heart is normal in size. The visualized osseous structures are within normal limits. RAD/Chest PA and Lateral IMPRESSION: No acute thoracic pathology. Electronically Signed: Jonnathan Abel, at 12:02 EST Tel , Service support ,
[2019-01-27 11:32] LABS: Erythrocyte Sedimentation Rate 4 mm/hr (0-20)
[2019-01-27 11:33] LABS: Absolute Lymphocyte Count 2.03 X10^3/uL (0.83-4.51); Basophil# 0.04 X10^3/uL; Basophil% 0.5 % (0-1); Eosinophil# 0.28 X10^3/uL; Eosinophils% 3.6 % (0-5); Hematocrit 41.7 % (37-47); Hemoglobin 14.1 g/dL (12.0-15.0); Lymphocyte # 2.03 X10^3/ul (4.0); Lymphocyte % 25.9 % (19-41); Mean Corp Hgb Conc 33.8 g/dL (32-36); Mean Corpuscular Volume 85.6 fL (81-99); Mean Platelet Vol. 9.5 fl (6.2-12.0); Monocyte# 0.51 X10^3/uL; Monocyte% 6.5 % (0-10); NRBC Flagged by Analyzer 0 % (0-5); Neutrophil # 4.96 X10^3/uL (2.7-7.7); Neutrophil % 63.1 % (47-70); Platelet Count 249 K/mm3 (150-450); RBC Distribution Width CV 12.4 % (11.6-14.6); RBC Distribution Width SD 38.5 fl (35.1-43.9); Red Blood Count 4.87 M/mm3 (4.2-5.4); White Blood Count 7.9 K/mm3 (4.4-11.0)
[2019-01-29 20:15] LABS: EBV Acute VCA IgM < 36.0 U/mL (0.0-35.9); EBV Early Antigen IgG <9.0 U/mL (0.0-8.9)
== END ==
PROVIDERS: Family Provider Family Medicine; PCP Family Medicine; Referring Provider Otolaryngology Otolaryngology/Facial Plastic Surgery; Visit Provider Otolaryngology Otolaryngology/Facial Plastic Surgery
DX: R05 Cough (principal); R59.1 Generalized enlarged lymph nodes
CPT/HCPCS: 36415; 71046; 85025; 85652; 86663; 86664; 86665

== ENCOUNTER → 2019-02-01 11:42 | Outpatient (CLI) | payer MEDICAID, SELFPAY ==
[2019-01-30 08:49] VITALS: BMI 21.0
--- NOTE | 2019-02-01 11:44 | US_ITS ---
STUDY: ULTRASOUND BREAST - RIGHT REASON FOR EXAM: Female, 33 years old. The patient was scheduled for breast biopsy. TECHNIQUE: Axial and longitudinal images of the RIGHT breast were performed with a high resolution ultrasound transducer. # OF IMAGES: 8 COMPARISON: Comparison is made with prior ultrasound of the right breast dated January 25, 2019. FINDINGS: RIGHT Breast: Stable appearance of the 1.4 cm x 1 cm x 0.7 cm lymph node. The biopsy was not performed. US/Breast Limited Unilateral IMPRESSION: Biopsy was not performed. ASSESSMENT CATEGORY: BIRADS Category 2: Benign. A letter regarding these results will be sent to the patient by the facility within 30 days. Electronically Signed: Santiago Pulido, at 10:45 EST , Service support ,
== END ==
PROVIDERS: Family Provider Family Medicine; PCP Family Medicine; Referring Provider Surgery; Visit Provider Surgery
DX: R92.8 Other abnormal and inconclusive findings on diagnostic imaging of breast (principal)
CPT/HCPCS: 76642

== ENCOUNTER → 2019-04-07 | Outpatient (CLI) | payer MEDICAID, SELFPAY ==
[2019-01-30 08:49] VITALS: BMI 21.0
== END | disposition home or self-care (01) ==
PROVIDERS: PCP Family Medicine; Referring Provider Family Medicine; Visit Provider Family Medicine
DX: N39.0 Urinary tract infection, site not specified (principal)
CPT/HCPCS: 87086; 87088

== ENCOUNTER → 2019-05-22 08:29 | Outpatient (CLI) | payer MEDICAID, SELFPAY ==
[2019-01-30 08:49] VITALS: BMI 21.0
[2019-05-22 10:45] LABS: Vitamin D,25 Hydroxy 45.5 ng/mL
== END ==
PROVIDERS: PCP Family Medicine; Referring Provider Family Medicine; Visit Provider Family Medicine
DX: E55.9 Vitamin D deficiency, unspecified (principal)
CPT/HCPCS: 36415; 82306

== ENCOUNTER 2019-05-22 12:30 | Outpatient (RCR) | payer MEDICAID, SELFPAY ==
[2019-01-30 08:49] VITALS: BMI 21.0
--- NOTE | 2019-05-09 13:03 | HP.PTEVAL_ITS ---
Patient's Visit Information AMMERIST CARLITA YUSUF is a 33 year old F referred to Physical Therapy by Gualberto Colindres MD with a diagnosis of LUMBAR RADICULOPATHY. Date of Evaluation: 05/08/19 Physical Therapist: Mahad Samuels, PT, Cert MDT, OCS - Visit Plan Frequency: 2x /Week Duration: 4 Weeks Plan: PT INTERVENTION DLS -ABD/BACK,POSTURAL EX'S,LE FLEXABLITY,ENDURANCE EX'S - Subjective Findings: This 33 y/o female presents to physical therapy with lumbar radiculoapthy.Patient has had LBP and radicular symptoms right leg 2 1/2 years . Pain is described as ache with parathesia. Patient had MRI/x-rays 1 year ago. Patient has 5 childeren but through pregancey patient noticed increase pain.Patient location L-S region lower tailbone. Pain affects sleeping. Tried churopractor min improvement.Tried predisone helped minimal. Seen foot ankle DR recommended TENS unit which patient uses. Aggraveting factors standing,sitting,lifting son ,bending. Allevaiting factors nothing mild meds .\movemnt but extended walking makes symptoms worse. Coughing/sneezing -. Bowel/bladder -. C/O parathesia/tingling right leg .Patient plans to see DR GONZALEZ end of June. VOACTION: Medial Assisted. SOCIAL: 5 children - Pain Bilateral Back Pain Intensity (Out of 10): 4 Pain Intensity Range: 10 Right Lower Extremity Pain Intensity (Out of 10): 6 Pain Intensity Range: 10 - Objective POSTURE:mild foward posture. GAIT: mild foward posture reciprocal pattern. SYMMTRIES: align. PALPATION: tender S-I. MMT: quads/hams 4/5,hip flexion 4- /5,ankle 4/5,hip abd 4-/5. FLEXABILITY: hams mild tight. LUMBAR ROM: flexion WFL,extension min mild pain,side glides mild pain. MUSCULAR ENDURANCE: POOR UNABLE TO HOLD - Goals Goal 1:: Patient to be Independant with HEP Goal Time Frame: 4-6 Weeks Goal 2:: Patient improve posture/body mechansics to improve function Goal Time Frame: 4-6 Weeks Goal 3:: Patient improve lumbar ROM for function of recovery Goal Time Frame: 4-6 Weeks Goal 4:: Patient decrease back pain by 50% or > to improve function and ADL'S Goal Time Frame: 4-6 Weeks Goal 5:: Patient improve back owestry score by 5 points or> to improve function. Goal Time Frame: 4-6 Weeks - Rehabilitation Potential Physical Therapy Diagnosis: This patient has L-S pain with decrease core strength, decrease lumbar ROM for function of recover,weak core which impairs walking ,standing thus benifit from skilled PT Rehabilitation Potential: Good - Anticipated Interventions Patient/Client Instruction: Educate patient on: Condition, Plan of Care For the Purpose of:: To decrease pain, To increase ROM, To improve ability to perform ADL's, To improve health of tissue, To decrease soft tissue restriction, To increase flexibility/ROM, To reduce risk of recurrence, To improve ability to perform tasks related to life management Therapeutic Exercise to Include: Strength training, Endurance training, Postural training, Flexibilty training, Dynamic Lumbar Stabilization For the Purpose of:: To decrease pain, To increase ROM, To improve muscle performance and motor function, To increase tolerance to activity/condition/position, To improve ability of physical actions for home/community/work/leisure, To improve health of tissue, To decrease soft tissue restriction, To increase flexibility/ROM, To reduce risk of recurrence, To improve ability to perform tasks related to life management Thank you for the opportunity to evaluate your patient. For Medicare and Medicare HMO plans, please review the plan of care and approve it. It will need to be FAXED BACK to us at [phone] for Medicare purposes. For Medicare only, by signing this I certify the plan of care. Please let me know if there are questions or concerns regarding this plan of care. Physician Signature: Date:
--- NOTE | 2019-07-10 12:30 | HP.PTDCNRP_ITS ---
GABRIEL CARLITA YUSUF was seen in my office for initial evaluation on 05/08/19. The following Plan of Care was established for this patient: Initial Frequency: 2x /Week Initial Duration: 4 Weeks Patient/Client Instruction: Educate patient on: Condition, Plan of Care For the Purpose of:: To decrease pain, To increase ROM, To improve ability to perform ADL's, To improve health of tissue, To decrease soft tissue restriction, To increase flexibility/ROM, To reduce risk of recurrence, To improve ability to perform tasks related to life management Therapeutic Exercise to Include: Strength training, Endurance training, Postural training, Flexibilty training, Dynamic Lumbar Stabilization For the Purpose of:: To decrease pain, To increase ROM, To improve muscle performance and motor function, To increase tolerance to activit y/condition/position, To improve ability of physical actions for home/community/work/leisure, To improve health of tissue, To decrease soft tissue restriction, To increase flexibility/ROM, To reduce risk of recurrence, To improve ability to perform tasks related to life management This patient was last seen in our office 05/22/19. Pertinent comments regarding their Physical therapy will appear below: Patient seen for PT for lumbar radiculopathy for DLS,LE flexablity ,postural ex's thus is d/c to HEP admist of [facility] At this point I will be discontinuing this patient from physical therapy. I would be happy to see this patient again in the future if found appropriate by the physician. Thank you! Mahad Samuels, PT, Cert MDT, OCS
== END 2019-05-22 19:00 | disposition home or self-care (01) ==
LOC: PT 12:30
PROVIDERS: PCP Family Medicine; Referring Provider Family Medicine; Visit Provider Family Medicine
DX: M54.16 Radiculopathy, lumbar region (principal)
CPT/HCPCS: 97110; 97161

== ENCOUNTER → 2019-08-20 | Outpatient (CLI) | payer MEDICAID, SELFPAY ==
[2019-06-26 09:02] VITALS: BMI 22.8
--- NOTE | 2019-08-20 11:38 | STRESSREP ---
Stress Test Report Exercise stress test. 33-year-old lady with a history of palpitations and vasovagal syncope. Stress protocol: Resting EKG demonstrates normal sinus rhythm with a rate of 76 bpm normal intervals are noted resting blood pressure is 112/78 mmHg. The patient exercised according to the regular [facility] protocol for a total duration of 6 minutes and 19 seconds. The maximum heart rate attained was 153 bpm which was 82% of maximum predicted heart rate and a workload of 7.4 metabolic equivalents. The patient maintained sinus rhythm throughout the recording. No arrhythmias were noted. There were no ST or T wave changes noted at rest or during exercise to suggest ischemia. The test was terminated due to dyspnea and fatigue. The resting blood pressure was 112/78 with a peak blood pressure 118/70 mmHg. Conclusion: Exercise stress test with no arrhythmias noted at a moderate workload No angina noted. Good functional capacity.
== END | disposition home or self-care (01) ==
LOC: CVS 09:46
PROVIDERS: PCP Family Medicine; Referring Provider Internal Medicine Cardiovascular Disease; Visit Provider Internal Medicine Cardiovascular Disease
DX: R06.02 Shortness of breath (principal); Z87.898 Personal history of other specified conditions
CPT/HCPCS: 93017

== ENCOUNTER → 2019-09-04 09:52 | Outpatient (CLI) | payer MEDICAID, SELFPAY ==
[2019-06-26 09:02] VITALS: BMI 22.8
--- NOTE | 2019-09-04 09:55 | RAD_ITS ---
STUDY: X-RAY - CERVICAL SPINE REASON FOR EXAM: Female, 33 years old. Constant headache and neck stiffness TECHNIQUE: 5 view(s) of the cervical spine were obtained. COMPARISON: None FINDINGS: Normal anterior atlantoaxial articulation. Normal odontoid process. Normal cervical lordosis. Normal vertebral bodies and endplates. Normal disc space heights. Normal visualized intervertebral neuroforamina. The soft tissue structures are unremarkable. RAD/Cerv Spine 4 or 5 Views IMPRESSION: Normal x-ray examination of the visualized cervical spine. Electronically Signed: Garrett Nguyen MD at 10:27 EDT , Service support ,
== END ==
PROVIDERS: PCP Family Medicine; Referring Provider Family Medicine; Visit Provider Family Medicine
DX: M54.2 Cervicalgia (principal)
CPT/HCPCS: 72050

== ENCOUNTER → 2019-09-20 10:53 | Outpatient (CLI) | payer MEDICAID, SELFPAY ==
[2019-06-26 09:02] VITALS: BMI 22.8
--- NOTE | 2019-09-20 10:54 | US_ITS ---
STUDY: ULTRASOUND BREAST - RIGHT REASON FOR EXAM: Female, 33 years old. 6 month follow-up examination. TECHNIQUE: Axial and longitudinal images of the RIGHT breast were performed with a high resolution ultrasound transducer. # OF IMAGES: 19 COMPARISON: Comparison is made with prior examination dated February 01, 2019. FINDINGS: RIGHT Breast: There is a 1.4 cm x 0.7 cm x 0.7 cm lymph node with a central echogenic hilum in the axillary region of the breast. This is unchanged. US/Breast Limited Unilateral IMPRESSION: Stable appearance of the axillary lymph node. ASSESSMENT CATEGORY: BIRADS Category 2: Benign. A letter regarding these results will be sent to the patient by the facility within 30 days. Electronically Signed: Santiago Pulido, at 13:38 EDT , Service support ,
== END ==
PROVIDERS: PCP Family Medicine; Referring Provider Surgery; Visit Provider Surgery
DX: R92.8 Other abnormal and inconclusive findings on diagnostic imaging of breast (principal); Z09 Encounter for follow-up examination after completed treatment for conditions other than malignant neoplasm
CPT/HCPCS: 76642

== ENCOUNTER → 2019-10-09 10:50 | Outpatient (CLI) | payer MEDICAID, SELFPAY ==
[2019-10-09 10:50] VITALS: BMI 22.8
--- NOTE | 2019-10-09 10:51 | RAD_ITS ---
STUDY: X-RAY - LUMBAR SPINE REASON FOR EXAM: Female, 33 years old. pain lower back, NKI, sometimes radiates down legs TECHNIQUE: 4 view(s) of the lumbar spine were obtained. COMPARISON: Previous study of 01/03/2018 FINDINGS: Normal lumbar lordosis. There is no substantial scoliosis. There is a normal alignment of the vertebrae. Normal vertebral bodies and endplates. Normal disc space heights. The soft tissue structures are unremarkable. RAD/L/S Spine Min 4 Views IMPRESSION: Normal x-ray examination of the lumbar spine. Electronically Signed: Simone Martin MD at 16:59 EDT , Service support ,
--- NOTE | 2019-10-09 10:51 | RAD_ITS ---
STUDY: X-RAY - SACRUM/COCCYX REASON FOR EXAM: Female, 33 years old. states that her tailbone area has been extremely painful since child two years ago TECHNIQUE: 3 view(s) of the sacrum and coccyx were obtained. COMPARISON: None. FINDINGS: Normal bilateral sacroiliac joints. Normal visualized sacral ala and fused sacral bodies. Normal sacrococcygeal junction with a normal angulation. Normal coccygeal segments. 2 mild degenerative changes of the right hip joint. The presacral soft tissue structures are unremarkable. RAD/Sacrum-Coccyx min 2 Views IMPRESSION: Normal x-rays of the sacrum and coccyx. Mild degenerative changes of the right hip joint are incidentally noted. Electronically Signed: Simone Martin MD at 17:00 EDT , Service support ,
== END ==
PROVIDERS: PCP Family Medicine; Referring Provider Orthopaedic Surgery; Visit Provider Orthopaedic Surgery
DX: M54.5 Low back pain (principal); M53.3 Sacrococcygeal disorders, not elsewhere classified
CPT/HCPCS: 72110; 72220

== ENCOUNTER → 2019-10-23 | Outpatient (CLI) | payer MEDICAID, SELFPAY ==
[2019-10-23 15:31] VITALS: BMI 22.1
[2019-10-26 21:39] LABS: HPV APTIMA, High Risk Negative (Negative)
== END | disposition home or self-care (01) ==
LOC: LABSPEC 15:31
PROVIDERS: PCP Family Medicine; Visit Provider Obstetrics & Gynecology
DX: Z12.4 Encounter for screening for malignant neoplasm of cervix (principal)
CPT/HCPCS: 87624; 88175; G0145

== ENCOUNTER → 2020-01-31 17:29 | Outpatient (CLI) | payer MEDICAID, SELFPAY ==
[2019-10-23 15:31] VITALS: BMI 22.1
== END ==
PROVIDERS: PCP Family Medicine; Referring Provider Otolaryngology; Visit Provider Otolaryngology
DX: U07.1 COVID-19 (principal)
CPT/HCPCS: 87635; C9803; U0003

== ENCOUNTER → 2020-02-28 07:49 | Outpatient (CLI) | payer MEDICAID, SELFPAY ==
[2019-10-23 15:31] VITALS: BMI 22.1
--- NOTE | 2020-02-28 07:54 | US_ITS ---
STUDY: ULTRASOUND OF THE FEMALE PELVIS - COMPLETE REASON FOR EXAM: Female, 34 years old. RLQ PAIN LMP: 02/24/2020. TECHNIQUE: Transabdominal and Transvaginal TECHNICAL QUALITY: Adequate. COMPARISON: None. FINDINGS: The uterus is anteverted and is tilted to the right side of the pelvis. The uterus measures 8 cm x 5.4 cm x 4.3 cm. Normal uterine cervix. The endometrium measures 8 mm in thickness, and is hyperechoic. There is no demonstrated endometrial mass. There is no demonstrated myometrial mass. I.U.D. - The patient does not have an I.U.D. The right ovary is visualized. The right ovary measures 2.1 cm x 1.9 cm x 1.6 cm. There is no right ovarian cyst or ovarian mass. There is no visualized right adnexal mass or complex lesion. There is normal arterial and normal venous vascularity. The left ovary is visualized. The left ovary measures 3.2 cm x 2.3 cm x 2.2 cm. There is no left ovarian cyst or ovarian mass. There is no visualized left adnexal mass or complex lesion. There is normal arterial and normal venous vascularity. There is no fluid in the cul-de-sac. The pre void volume of the bladder was 366 ml. Polycystic ovary disease: No. US/Transvaginal Non- IMPRESSION: Normal female pelvis. Electronically Signed: Santiago Pulido, at 10:59 EST , Service support ,
== END ==
PROVIDERS: PCP Family Medicine; Referring Provider Family Medicine; Visit Provider Family Medicine
DX: R10.9 Unspecified abdominal pain (principal)
CPT/HCPCS: 76830; 76856; 93976

== ENCOUNTER → 2020-03-01 10:47 | Outpatient (CLI) | payer MEDICAID, SELFPAY ==
[2019-10-23 15:31] VITALS: BMI 22.1
--- NOTE | 2020-03-01 11:05 | US_ITS ---
STUDY: ABDOMINAL ULTRASOUND - RIGHT UPPER QUADRANT REASON FOR VISIT: Female, 34 years old rt sided abd pain TECHNIQUE: Ultrasound evaluation of the right upper quadrant was performed with real-time and static aviles-scale imaging. TECHNICAL QUALITY: Adequate. COMPARISON: None. FINDINGS: Liver: The liver measures 13.8 cm. There is normal echogenicity of the liver. The bile ducts are within normal limits. There is hepatic color flow. The direction of portal flow is hepatopetal. There is no demonstrated mass lesion. Gallbladder: Normal distended gallbladder. The gallbladder wall measures 1.9 mm. There is a negative sonographic Bailey''s sign. There is no pericholecystic fluid. There are no gallstones. Common Bile Duct (C.B.D.): The common bile duct measures 2.3 mm. Pancreas: Normal size of the head, body and tail of the pancreas. There is normal echogenicity of the pancreas. There is no demonstrated pancreatic mass or cyst. Right Kidney: Normal size of the right kidney. The right kidney measures 10.6 x 5.0 x 4.4 cm. Normal renal cortex. The right cortex measures 1.2 cm. There is no demonstrated renal mass or cyst. There is no right hydronephrosis. US/Abdomen Limited IMPRESSION: Normal right upper quadrant ultrasound examination. Electronically Signed: Aravind Vargas MD at 5:46 EST , Service support ,
== END ==
PROVIDERS: PCP Family Medicine; Referring Provider Family Medicine; Visit Provider Family Medicine
DX: R10.9 Unspecified abdominal pain (principal)
CPT/HCPCS: 76705

== ENCOUNTER → 2020-09-09 17:03 | Outpatient (CLI) | payer MEDICAID, SELFPAY ==
[2019-10-23 15:31] VITALS: BMI 22.1
--- NOTE | 2020-09-09 17:30 | MRI_ITS ---
STUDY: MRI LUMBAR SPINE WITHOUT CONTRAST REASON FOR EXAM: Female, 34 years old. DDD,radiculopathy TECHNIQUE: Standardized fat and water weighted pulse sequences were obtained in the sagittal and axial planes. COMPARISON: None FINDINGS: T12-L1: Normal endplates. Normal disc height, hydration and morphology. Normal bilateral facet joints. Normal central canal and bilateral lateral recesses. Normal bilateral intervertebral neural foramina. There is straightening of the normal lumbar lordosis. There is no substantial scoliosis. Normal conus medullaris that terminates at the T12. L1-2: Normal endplates. Normal disc height, hydration and morphology. Normal bilateral facet joints. Normal central canal and bilateral lateral recesses. Normal bilateral intervertebral neural foramina. L2-3: Normal endplates. Normal disc height, hydration and morphology. Normal bilateral facet joints. Normal central canal and bilateral lateral recesses. Normal bilateral intervertebral neural foramina. L3-4: Normal endplates. Normal disc height, hydration and morphology. Normal bilateral facet joints. Normal central canal and bilateral lateral recesses. Normal bilateral intervertebral neural foramina. L4-5: Moderate sized right paracentral and preforaminal protrusion produces a moderate spinal stenosis with the moderate right lateral recess stenosis with abutment of the right L5 nerve root but no neural foraminal stenosis. L5-S1: Small central disc protrusion produces mild spinal stenosis with mild bilateral lateral recess stenosis but no neural foraminal stenosis. Normal visualized sacral ala. Normal visualized paraspinous soft tissue structures. MRI/Spine Lumbar (Routine) IMPRESSION: Multilevel degenerative changes, as described above. Electronically Signed: Juan Carlos Arce MD at 9:28 EDT Tel , Service support ,
== END ==
PROVIDERS: PCP Family Medicine; Referring Provider Anesthesiology Pain Medicine; Visit Provider Anesthesiology Pain Medicine
DX: M51.17 Intervertebral disc disorders with radiculopathy, lumbosacral region (principal)
CPT/HCPCS: 72148

== ENCOUNTER → 2020-11-21 | Outpatient (CLI) | payer MEDICAID, SELFPAY | END | disposition home or self-care (01) | LOC: LABSPEC 08:35 | PROVIDERS: PCP Family Medicine; Referring Provider Otolaryngology; Visit Provider Otolaryngology | DX: Z11.59 Encounter for screening for other viral diseases (principal); Z03.818 Encounter for observation for suspected exposure to other biological agents ruled out | CPT/HCPCS: 87635; U0005; U0003 ==

== ENCOUNTER → 2021-02-17 09:18 | Outpatient (CLI) | payer MEDICAID, SELFPAY ==
--- NOTE | 2021-02-17 09:21 | RAD_ITS ---
STUDY: X-RAY - ESOPHAGUS (BARIUM SWALLOW) WITH FLUOROSCOPY REASON FOR EXAM: Female, 35 years old. REFLUX TECHNIQUE: 13 view(s) of the esophagus were obtained following swallowing of barium. FLUOROSCOPY TIME (if supplied): (23 seconds) minutes/seconds COMPARISON: None. FINDINGS: There is no demonstrated esophageal foreign body. There is no demonstrated stricture or mucosal abnormality. Normal gastroesophageal junction, without a demonstrated hiatal hernia. The patient ingested a 12 mm tablet of barium without any difficulty. Normal visualized aortic arch and descending thoracic aorta. Normal visualized pulmonary parenchyma. Normal visualized osseous structures of the thorax. RAD/Esophagus Dual Contrast IMPRESSION: Normal plain film x-ray examination (barium swallow) of the esophagus. Electronically Signed: Santiago Pulido MD at 10:09 EST , Service support ,
== END ==
PROVIDERS: PCP Family Medicine; Referring Provider Otolaryngology; Visit Provider Otolaryngology
DX: K21.9 Gastro-esophageal reflux disease without esophagitis (principal)
CPT/HCPCS: 74221

== ENCOUNTER 2021-02-21 04:30 | Emergency (ER) | payer MEDICAID, SELFPAY ==
[2021-02-21 04:31] VITALS: BP 99/69; PULSE 72; RESP 20; TEMP 36.8; O2SAT 96; BMI 22.4
--- NOTE | 2021-02-21 04:50 | EKG12_ITS ---
Test Reason : DYSRHYTHMIA Blood Pressure : / mmHG Vent. Rate : 083 BPM Atrial Rate : 083 BPM P-R Int : 138 ms QRS Dur : 092 ms QT Int : 390 ms P-R-T Axes : 069 056 069 degrees QTc Int : 458 ms Normal sinus rhythm Normal ECG Confirmed by TERRY FERRERA, GREG ([id number]), editor book FELICITAS HENRY ([id number]) on 02/23/2021 10:17:40 AM Referred By: MICHEL Confirmed By:GREG STEWART MD
--- NOTE | 2021-02-21 04:50 | CT_ITS ---
STUDY: CT BRAIN WITHOUT CONTRAST REASON FOR EXAM: Female, 35 years old. seizure RADIATION DOSAGE (If Supplied By Facility): CTDIvol = ( 44.99 ) mGy, DLP = ( 728.62 ) mGycm TECHNIQUE: Transaxial CT imaging of the brain was performed without administration of intravenous contrast material. Individualized dose optimization techniques were used for this CT. COMPARISON: MRI brain 08/25/2018. FINDINGS: Normal soft tissue structures. Normal calvarium. Normal size ventricles and extra-axial spaces for the patient''s age. Normal white matter tracts of the cerebral hemispheres. Normal basal ganglia and thalami. Normal brainstem. Normal cerebellum. There is no intracranial hemorrhage. There are no findings of an acute ischemic infarction. Normal visualized paranasal sinuses. CT/Brain/Head without Contrast IMPRESSION: There is no acute intracranial pathology. There is no significant interval change. Electronically Signed: Krupa Vang MD at 6:01 EST , Service support ,
--- NOTE | 2021-02-21 04:53 | CT_ITS ---
STUDY: CT CHEST, ABDOMEN T PELVIS WITH CONTRAST REASON FOR EXAM: Female, 35 years old. Chest pain -- left chest pain, LLQ/pelvis pain RADIATION DOSAGE (If Supplied By Facility): CTDIvol = ( 53.12 ) mGy, DLP = ( 290.30 ) mGycm TECHNIQUE: Transaxial imaging was performed following intravenous administration of IV 100mL Isovue-370. Multiplanar coronal and sagittal images were reformatted. Individualized dose optimization techniques were used for this CT. COMPARISON: CT abdomen pelvis 05/24/2014. FINDINGS: CHEST The lungs are normal. Small nodule in the right thyroid lobe. There is no demonstrated pleural abnormality. Normal heart and pericardium. Normal mediastinum. Normal hilar regions. Normal unenhanced pulmonary arteries. Normal aorta arch and descending thoracic aorta. Normal osseous structures. There is no demonstrated abnormality of the visualized upper abdomen. ABDOMEN The visualized lung bases are unremarkable. The visualized portions of the heart are within normal limits. Normal liver. Normal gallbladder and extrahepatic biliary system. Normal spleen. Normal pancreas. Normal bilateral adrenal glands. Normal right kidney. Normal left kidney. Normal visualized stomach. Fluid-filled small bowel in the pelvis. Normal colon. The appendix is visualized and appears normal. Normal abdominal aorta. Normal inferior vena cava. Normal retroperitoneum. Normal abdominal wall. Normal osseous structures. PELVIS Normal urinary bladder. Heterogeneous enhancement of the uterus. Normal right adnexa. Left ovary is enlarged measuring 5.5 x 3 x 3.4 cm and contains at least 4 low-attenuation lesion likely cysts, largest measures 2.3 x 1.7 x 2.2 cm and 2.5 x 2.6 x 2.5 cm. There is mild pelvic fluid. There is left periovarian fluid. Normal visualized small intestine. Normal visualized colon. There is no pelvic fluid. There is no pelvic lymphadenopathy or mass lesion. Normal visualized pelvic arteries. Normal abdominal wall. Normal osseous structures. CT/CT Chest, Abd, Pel w/Contrast IMPRESSION: There is no acute cardiopulmonary disease. Left ovarian cysts suspected with pelvic fluid. Nonobstructing small bowel ileus which may be reactive in nature to the left adnexa. There is no abscess, collection, perforation or obstruction. Small thyroid nodule. This can be further assessed with ultrasound as needed. Heterogeneous uterine enhancement, myomatous uterus suspected. Status Electronically Signed: Krupa Vang MD at 6:47 EST , Service support ,
--- NOTE | 2021-02-21 04:55 | EDS_ITS ---
HPI History of Present Illness Chief Complaint: Syncope Informant: patient and spouse/S.O. Narrative Narrative: Presents here multiple complaints. Here with significant other. States awaking from pain left lower quadrant pelvis reporting felt like she needs to use the restroom. She went to the restroom she sat down felt lightheaded. She called for a second other. Reported witnessed syncopal episode reported seizure activity for a minute. Reported she was post ictal for 4 to 5 minutes with confusion. Patient then reports left-sided chest pains. Denies recent illness or cough. History of salpingectomies bilaterally. Denies any ovarian issues. She reports a recent abnormal lump on the right side of her breast and was seen by Dr. Dawson, reported had plans for biopsy however reported was too close to an artery. States Covid hit and things were delayed. Reporting 5 pound weight loss the last couple months. No cancer histories. States had vasovagal syncope's when she was with her last child who is currently over 3 years old. Recently cleared by cardiology. She had a previous 30-day event monitor. Currently reports headache left-sided chest pain left lower abdomen/pelvic pain. She did not fall and hit her head per significant other was on the commode and was moving around and slumped forward. States potential seizure episode in the past however never placed on antiepileptics. Denies any allergies. Prior similar symptoms: No [facility] Medical History (Updated 02/21/21 @ 07:[address] Angel Chester, ) Asthma Dizziness Fatigue History of palpitations Incomplete right bundle branch block Interstitial cystitis Migraines Near syncope Other chest pain Premature atrial contractions SOB (shortness of breath) Supraventricular tachycardia, paroxysmal Vasovagal syncope Home Medications melatonin 10 mg capsule 10 mg PO HS PRN 10/09/19 [History Last Taken Unknown] buspirone 10 mg tablet 10 mg PO DAILY tab 09/16/20 [History Last Taken Unknown] ibuprofen 200 mg tablet 800 mg PO TID PRN tab 09/16/20 [History Last Taken Unknown] lamotrigine 200 mg tablet 200 mg PO DAILY tab 09/16/20 [History Last Taken Unknown] omeprazole 40 mg capsule,delayed release 40 mg PO DAILY 09/16/20 [History Last Taken Unknown] oxycodone-acetaminophen [Percocet] 1 tab PO Q6H PRN 3 Days #12 tab 02/21/21 [Rx Last Taken Unknown] Allergy/AdvReac Type Severity Reaction Status Date / Time No Known Allergies Allergy Verified 10/01/20 08:07 Family History Father Paroxysmal atrial fibrillation Grandmother Heart disease CAD (coronary artery disease) CABG Pacemaker Breast cancer Grandfather , Age 37 Myocardial infarction Mother Rheumatoid arthritis Glaucoma Surgical History History of cystoscopy History of dilatation and curettage History of esophagogastroduodenoscopy (EGD) History of salpingectomy History of wisdom tooth extraction Social History household members: spouse and children housing: house number of children: 5 current occupational status: employed 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 pets and animals: Yes pets and animals: cat(s) Smoking Status: Never smoker alcohol intake: never substance use type: does not use caffeine: Yes (occasional) what type of physical activity do you participate in: none seatbelt use: always do you feel safe at home: Yes ROS ROS ED Constitutional Constitutional ED: Denies chills, fever(s) or sweats Eyes Eyes: Denies change in vision ENT ENT ED: Denies dysphagia or sore throat Cardiovascular Cardiovascular: Reports chest pain; Denies leg edema, palpitations or racing heartbeat Respiratory/Chest Respiratory/Chest: Denies cough, dyspnea or dyspnea on exertion Gastrointestinal Gastrointestinal: Reports abdominal pain; Denies diarrhea, nausea or vomiting Genitourinary Genitourinary ED: Denies dysuria, hematuria or urinary frequency Musculoskeletal Musculoskeletal: Denies back pain, extremity pain or neck pain Integumentary Denies rash or wounds Neurologic Neurologic: Reports headache(s); Denies paresthesias or weakness EXAM Physical Exam Const Vital Signs: 02/21/21 04:31 02/21/21 04:37 02/21/21 05:37 Temperature 98.2 F Temperature Source Oral Pulse Rate 72 74 Respiratory Rate 20 H 17 Respiratory Effort Normal Respiratory Pattern Tachypnea Blood Pressure 99/69 107/72 Blood Pressure Mean 79 83 Pulse Ox 96 94 Oxygen Delivery Method Room Air 02/21/21 06:40 02/21/21 07:18 02/21/21 08:24 Temperature Temperature Source Pulse Rate 74 75 75 Respiratory Rate 21 H 16 16 Respiratory Effort Respiratory Pattern Blood Pressure 105/68 105/78 98/65 Blood Pressure Mean 80 87 Pulse Ox 100 100 100 Oxygen Delivery Method Room Air Room Air Positive well nourished and well developed Constitutional Narrative: Awake, answering questions, nontoxic General Appearance ED: well developed and NAD HEENT Reports moist mucous membranes normocephalic and atraumatic Eyes conjunctivae normal General Eye ED: Yes normal appearance of both eyes Neck no lymphadenopathy and supple Neck Narrative: No meningismus General: Negative for tenderness Chest Wall Chest: Negative for tenderness Resp normal respiratory effort and normal air movement Effort and Inspection: symmetric chest movement; Negative for respiratory distress Cardio regular rate, regular rhythm and no murmurs Peripheral Pulses: pulses 2+ throughout GI normal to inspection, nondistended, normoactive bowel sounds GI Narrative: Tenderness in the lower abdomen bilaterally, no guarding or rebound Palpation: Negative for guarding or rebound tenderness present Back/Spine no CVA tenderness and no thoracic nor lumbar tenderness Extremity normal to inspection General Extremety ED: Negative for edema or tenderness General Extremity: Negative for edema Neuro oriented x3 and no sensory deficits noted Sensorium / Orientation: awake and alert Skin no rashes or lesions noted and no wounds MDM MDM MDM Narrative Medical decision making narrative: Patient with multiple complaints. Initial pain left pelvic with syncope possible seizure. CT scan brain obtained shows no acute process. With her chest pains cardiac work-up EKG troponin x2 is negative. Reporting previous abnormal breast mass with weight loss, with her chest pains and abdominal pains CT chest abdomen pelvis obtained there is no masses noted. No PE. There was noted complex cyst left ovary from CT noting 2.2 cm and additional 2.5 cm with fluid. She was treated with fentanyl. Reevaluation calender tender left pelvic. hCG was negative. She will be sent for ultrasound to rule out torsion. Basic labs were normal. Discussed with patient significant other likely pain induced syncope. Patient signed out to oncoming physician, Dr. Gramajo. Lab Data Attestation: I reviewed the patient's lab results. Labs: Laboratory Results - last 24 hr 02/21/21 02/21/21 02/21/21 04:35 04:35 04:35 WBC 8.6 RBC 4.66 Hgb 13.6 Hct 39.9 MCV 85.6 MCH 29.2 MCHC 34.1 RDW Std Deviation 37.7 RDW Coeff of Víctor 12.1 Plt Count 273 MPV 10.0 Sodium 139 Potassium 3.6 Chloride 107 Carbon Dioxide 23.0 Anion Gap 9 BUN 15 Creatinine 0.87 Estim Creat Clear Calc 70.70 Est GFR (MDRD) Af Amer 95 Est GFR (MDRD) Non-Af 78 BUN/Creatinine Ratio 17.2 Glucose 121 H Calcium 9.1 Total Bilirubin 0.30 AST 16 ALT 22 Alkaline Phosphatase 40 L Troponin I High Sens < 3 L Total Protein 7.2 Albumin 3.8 Globulin 3.4 Albumin/Globulin Ratio 1.1 Serum , Qual NEGATIVE Urine Color Urine Clarity Urine pH Ur Specific [place] Urine Protein Urine Glucose (UA) Urine Ketones Urine Occult Blood Urine Nitrite Urine Bilirubin Urine Urobilinogen Ur Leukocyte Esterase Urine RBC Urine WBC Ur Squamous Epith Cells Urine Bacteria Urine Mucus 02/21/21 02/21/21 05:30 06:32 WBC RBC Hgb Hct MCV MCH MCHC RDW Std Deviation RDW Coeff of Víctor Plt Count MPV Sodium Potassium Chloride Carbon Dioxide Anion Gap BUN Creatinine Estim Creat Clear Calc Est GFR (MDRD) Af Amer Est GFR (MDRD) Non-Af BUN/Creatinine Ratio Glucose Calcium Total Bilirubin AST ALT Alkaline Phosphatase Troponin I High Sens 4 Total Protein Albumin Globulin Albumin/Globulin Ratio Serum , Qual Urine Color Yellow Urine Clarity Clear Urine pH 8.0 Ur Specific [place] 1.010 Urine Protein 15 H Urine Glucose (UA) Normal Urine Ketones Negative Urine Occult Blood 25 H Urine Nitrite Negative Urine Bilirubin Negative Urine Urobilinogen Normal Ur Leukocyte Esterase Negative Urine RBC 0 SEEN Urine WBC 0 SEEN Ur Squamous Epith Cells 0 SEEN Urine Bacteria 0 SEEN Urine Mucus 0 SEEN Radiography Diagnostic Testing: Clinical Impression(s) from Imaging Studies Brain CT 02/21/21 04:50 IMPRESSION: There is no acute intracranial pathology. There is no significant interval change. Electronically Signed: Krupa Vang MD at 6:01 EST , Service support , Chest/Abdomen/Pelvis CT 02/21/21 04:53 IMPRESSION: There is no acute cardiopulmonary disease. Left ovarian cysts suspected with pelvic fluid. Nonobstructing small bowel ileus which may be reactive in nature to the left adnexa. There is no abscess, collection, perforation or obstruction. Small thyroid nodule. This can be further assessed with ultrasound as needed. Heterogeneous uterine enhancement, myomatous uterus suspected. Status Electronically Signed: Krupa Vang MD at 6:47 EST , Service support , Transvaginal US 02/21/21 06:53 IMPRESSION: 7 mm endometrial cyst or early intrauterine gestational sac. Correlation with beta-hCG measurements is recommended. Dominant follicle of the left ovary. Electronically Signed: Juan Carlos Arce MD at 8:10 EST Tel , Service support , EKG Initial EKG: Attestation: I personally reviewed and interpreted this EKG as follows: Comments: Sinus rate of 83, no ST changes. Isolated T wave inversion in leads aVL, nonspecific. Discharge Plan Triage Chief Complaint: Syncope ED Provider: Angel Chester Dx/Rx/DC Orders Clinical Impression: Syncope, Chest pain, Ovarian cyst Instructions: Causes of Syncope, ED Chest Pain, Uncertain Cause, ED Ovarian Cyst Prescriptions: New oxycodone-acetaminophen [Percocet] 5-325 mg tablet 1 tab PO Q6H PRN (Reason: pain) 3 Days Qty: 12 RF: 0 No Action melatonin 10 mg capsule 10 mg PO HS PRN (Reason: Sleep) RF: 0 lamotrigine 200 mg tablet 200 mg PO DAILY RF: 0 buspirone 10 mg tablet 10 mg PO DAILY RF: 0 omeprazole 40 mg capsule,delayed release(DR/EC) 40 mg PO DAILY RF: 0 ibuprofen 200 mg tablet 800 mg PO TID PRN (Reason: Pain) RF: 0 Primary Care Provider: Vinny Foster Referrals: Vinny Foster MD [Primary Care Provider] - Raisa Galeas DO [STAFF PHYSICIAN] - 3-5 Days Disposition Disposition: Home, Self Care Discharge Date/Time: 02/21/21 08:25
[2021-02-21 04:56] LABS: Hematocrit 39.9 % (37-47); Hemoglobin 13.6 g/dL (12.0-15.0); Mean Corp Hgb Conc 34.1 g/dL (32-36); Mean Corpuscular Hgb 29.2 pg (27.0-32.0); Mean Corpuscular Volume 85.6 fL (81-99); Platelet Count 273 K/mm3 (150-450); RBC Distribution Width CV 12.1 % (11.6-14.6); RBC Distribution Width SD 37.7 fl (35.1-43.9); Red Blood Count 4.66 M/mm3 (4.2-5.4); White Blood Count 8.6 K/mm3 (4.4-11.0)
[2021-02-21] MEDS: fentaNYL 100 MCG/2 ML Ampul 50 MCG IV ×2 (04:56→07:10)
[2021-02-21] MEDS: Ondansetron 4 MG/2 ML Vial IV (04:56)
[2021-02-21] MEDS: 0.9% Normal Saline 1,000 ML 1000 ML IV (04:56)
[2021-02-21 05:03] LABS: Internal QC Validated? YES +Cl - CLEAR BKGD; Pregnancy, Serum, hCG Quali. NEGATIVE Negative
[2021-02-21 05:11] LABS: ALB/GLOB Ratio 1.1 RATIO (0.9-2.4); AST(SGOT) 16 U/L (15-37); Alanine Aminotransfer ALT/SGPT 22 U/L (13-56); Albumin, Serum 3.8 g/dL (3.2-5.0); Alkaline Phosphatase 40 U/L (45-117); Anion Gap 9 (5-15); BUN 15 mg/dL (7-18); BUN/Creat Ratio 17.2 RATIO (10-20); Calcium,Total 9.1 mg/dL (8.5-10.1); Chloride 107 mmol/L (98-107); Creatinine, Serum 0.87 mg/dL (0.55-1.02); EST Glomerular Filtration Rate 78 mL/min (>60); Est Glom Filt Rate - Afr Amer 95 mL/min (>60); Globulin 3.4 g/dL (2.2-4.2); Glucose 121 mg/dL (74-106); Potassium 3.6 mmol/L (3.5-5.1); Protein, Total 7.2 g/dL (6.4-8.2); Sodium Level 139 mmol/L (136-145); Troponin-I HS < 3 pg/mL (3.0-54.0)
[2021-02-21 05:37] VITALS: BP 107/72; PULSE 74; RESP 17; O2SAT 94
[2021-02-21 05:41] LABS: Bacteria 0 SEEN /hpf (None Seen); Mucous, Urine 0 SEEN /hpf (<or=2+); Red Blood Cells-Urine 0 SEEN /hpf (0-5); Squamous Epithelial Cells - UA 0 SEEN /hpf (5-10); White Blood Cells 0 SEEN /hpf (0-5)
[2021-02-21 05:42] LABS: Color, Urine Yellow (Yellow); Glucose, Dipstick Normal (Normal); Ketone-Dipstick Negative (Negative); Leukocyte Esterase-Dipstick Negative /ul (Negative); Nitrite-Dipstick Negative (Negative); Occult Blood-Urine 25 /ul (Negative); Protein-Dipstick 15 mg/dl (Negative); Urine Bilirubin Dipstick Negative (Negative); Urine Clarity Clear (Clear); Urine Urobilinogen Normal (Normal)
[2021-02-21 06:40] VITALS: BP 105/68; PULSE 74; RESP 21; O2SAT 100
--- NOTE | 2021-02-21 06:53 | US_ITS ---
STUDY: ULTRASOUND TRANSVAGINAL CLINICAL: Female, 35 years old. left ovarian cyst -- r/o torsion TECHNIQUE: Transvaginal COMPARISON: CT earlier today, ultrasound 02/28/2020 FINDINGS: Normal uterine size measuring 8.9 x 5.3 x 4.9 cm in maximal craniocaudal dimension. There are no myometrial masses. Normal endometrial thickness measuring 6 mm. 7 mm round anechoic mass with increased transmission within the endometrium consistent with a endometrial cyst or possibly an early gestational sac. Clinical correlation is recommended.. Normal uterine cervix. Normal right ovary, measuring 3.0 x 1.8 x 1.4 cm. There are multiple follicles without a dominant cyst. Normal left ovary, measuring 6.0 x 3.6 x 3.1 cm. There are multiple follicles with a dominant cyst. There is no free fluid in the pelvis. Polycystic ovary disease: No. US/Transvaginal Non- IMPRESSION: 7 mm endometrial cyst or early intrauterine gestational sac. Correlation with beta-hCG measurements is recommended. Dominant follicle of the left ovary. Electronically Signed: Juan Carlos Arce MD at 8:10 EST Tel , Service support ,
[2021-02-21 06:58] LABS: Troponin-I HS 4 pg/mL (3.0-54.0)
[2021-02-21 07:18] VITALS: BP 105/78; PULSE 75; RESP 16; O2SAT 100
[2021-02-21 08:24] VITALS: BP 98/65; PULSE 75; RESP 16; O2SAT 100
== END 2021-02-21 08:25 | disposition home or self-care (01) ==
LOC: ED 05:10
PROVIDERS: Emergency Provider Emergency Medicine; PCP Family Medicine
DX: R55 Syncope and collapse (principal); N83.202 Unspecified ovarian cyst, left side; R07.89 Other chest pain; J45.909 Unspecified asthma, uncomplicated
CPT/HCPCS: 70450; 71260; 74177; 76830; 80053; 81001; 84484; 84703; 85027; 93005; 93976; 96361; 96374; 96375; 96376; 99284; J7030; Q9967; A4216; J2405

== ENCOUNTER → 2021-02-26 10:08 | Outpatient (CLI) | payer MEDICAID, SELFPAY ==
[2021-02-26 12:17] LABS: Absolute Lymphocyte Count 2.47 X10^3/uL (0.83-4.51); Absolute Neutrophil Count 5.1 X10^3/uL (2.0-7.7); Basophil# 0.04 X10^3/uL; Basophil% 0.5 % (0-1); Eosinophil# 0.32 X10^3/uL; Eosinophils% 3.8 % (0-5); Hematocrit 41.1 % (37-47); Hemoglobin 13.7 g/dL (12.0-15.0); Lymphocyte # 2.47 X10^3/ul (0.83-4.51); Lymphocyte % 29.7 % (19-41); Mean Corp Hgb Conc 33.3 g/dL (32-36); Mean Corpuscular Hgb 29.3 pg (27.0-32.0); Mean Corpuscular Volume 87.8 fL (81-99); Mean Platelet Vol. 9.8 fl (6.2-12.0); Monocyte# 0.41 X10^3/uL; Monocyte% 4.9 % (0-10); NRBC Flagged by Analyzer 0 % (0-5); Neutrophil # 5.06 X10^3/uL (2.7-7.7); Neutrophil % 60.7 % (47-70); Platelet Count 286 K/mm3 (150-450); RBC Distribution Width CV 12.4 % (11.6-14.6); RBC Distribution Width SD 39.9 fl (35.1-43.9); Red Blood Count 4.68 M/mm3 (4.2-5.4); White Blood Count 8.3 K/mm3 (4.4-11.0)
[2021-02-26 12:41] LABS: ALB/GLOB Ratio 1.1 RATIO (0.9-2.4); AST(SGOT) 17 U/L (15-37); Alanine Aminotransfer ALT/SGPT 20 U/L (13-56); Albumin, Serum 3.8 g/dL (3.2-5.0); Alkaline Phosphatase 36 U/L (45-117); Anion Gap 4 (5-15); BUN 16 mg/dL (7-18); BUN/Creat Ratio 21.5 RATIO (10-20); Calcium,Total 9.2 mg/dL (8.5-10.1); Chloride 107 mmol/L (98-107); Creatinine, Serum 0.74 mg/dL (0.55-1.02); EST Glomerular Filtration Rate 94 mL/min (>60); Est Glom Filt Rate - Afr Amer 113 mL/min (>60); Globulin 3.4 g/dL (2.2-4.2); Glucose 85 mg/dL (74-106); Potassium 4.1 mmol/L (3.5-5.1); Protein, Total 7.2 g/dL (6.4-8.2); Sodium Level 138 mmol/L (136-145)
[2021-02-26 12:51] LABS: Vitamin D,25 Hydroxy 24.2 ng/mL
== END ==
PROVIDERS: PCP Family Medicine; Referring Provider Family Medicine; Visit Provider Nurse Practitioner Family
DX: R10.9 Unspecified abdominal pain (principal); E55.9 Vitamin D deficiency, unspecified
CPT/HCPCS: 36415; 80053; 82306; 85025

== ENCOUNTER → 2021-03-03 10:51 | Outpatient (CLI) | payer MEDICAID, SELFPAY ==
--- NOTE | 2021-03-03 10:53 | RAD_ITS ---
HISTORY: Abdominal pain EXAMINATION/TECHNIQUE: XR Abdomen W/ Decub and/or Erect Views: Flat and upright frontal views of abdomen COMPARISON: None FINDINGS: LINES AND TUBES: None. BOWEL GAS PATTERN: Non-obstructive. No pathologic bowel or stomach distention. FREE AIR: None visualized. ORGANOMEGALY: Not seen. CALCIFICATIONS: Small calcified pelvic phleboliths noted. LOWER CHEST: No acute pathology. BONES AND SOFT TISSUES: No acute pathology. RAD/Abd Inc Decub and/or Erect IMPRESSION: Unremarkable abdominal series. at 0219 Reported and signed by: Dario Mi MD Electronically Signed: Dario Mi MD at 2:18 EST Tel , Service support ,
== END ==
PROVIDERS: PCP Family Medicine; Referring Provider Family Medicine; Visit Provider Family Medicine
DX: R10.9 Unspecified abdominal pain (principal)
CPT/HCPCS: 74019

== ENCOUNTER 2021-03-07 04:47 | Emergency (ER) | payer MEDICAID, SELFPAY ==
[2021-03-07 04:51] VITALS: BP 119/72; PULSE 83; RESP 17; TEMP 36.2; O2SAT 99; BMI 23.4
--- NOTE | 2021-03-07 05:00 | CT_ITS ---
STUDY: CT ABDOMEN AND PELVIS WITH CONTRAST REASON FOR EXAM: Female, 35 years old. pain RADIATION DOSAGE (If Supplied By Facility): CTDIvol = ( 11.32 ) mGy, DLP = ( 291.43 ) mGycm TECHNIQUE: Transaxial images were obtained from the dome of the diaphragm to the symphysis pubis without oral contrast. IV 100mL Isovue-370 was administered. Sagittal and coronal images were reconstructed. Individualized dose optimization techniques were used for this CT. COMPARISON: None. FINDINGS: The visualized lung bases are unremarkable. The visualized portions of the heart are within normal limits. Normal liver. Normal gallbladder and extrahepatic biliary system. Normal spleen. Normal pancreas. Normal bilateral adrenal glands. Normal right kidney. Normal left kidney. Normal visualized stomach. Normal small intestine. Normal colon. The appendix is visualized and appears normal. Normal abdominal aorta. Normal inferior vena cava. Normal retroperitoneum. Normal urinary bladder. Unremarkable uterus. Recently ruptured left ovarian follicle with rim enhancement measuring 1.9 x 2.6 cm. Trace left adnexal free fluid. Normal abdominal wall. Normal osseous structures. CT/Abdomen/Pelvis W IV Cont ONLY IMPRESSION: Recently ruptured left ovarian follicle with enhancement as above. Trace left adnexal free fluid. Remainder is unremarkable. Electronically Signed: Randall Eastman DO at 5:42 EST Tel , Service support ,
--- NOTE | 2021-03-07 05:01 | EDS_ITS ---
HPI HPI - GI History of Present Illness Chief Complaint: Abd Pain Narrative Narrative: Patient presents with right-sided abdominal pain that she has had for over 2 weeks. She relates history that 3 weeks ago she was seen in the emergency department as she was having left-sided pain. She was told that it may have been from an ovarian cyst. She followed up with [facility] and they thought that it was not necessarily due to ovarian cyst. A week later after her emergency department visit she developed right-sided abdominal pain. 4 to 5 days ago she developed nausea and vomiting and started a clear liquid diet. That improved until this morning when she vomited without any blood in her emesis. She denies any dysuria or hematuria. Past abdominal surgical history includes bilateral tubal ligation via laparoscopy. She denies any exacerbating or alleviating factors but the pain is in her right lower quadrant and goes up and across the epigastrium. She states she think that she was diagnosed with an ileus on her last CT scan. [facility] Medical History (Updated 03/07/21 @ 06:08 by Sage Moreno MD) Asthma Dizziness Fatigue History of palpitations Incomplete right bundle branch block Interstitial cystitis Migraines Near syncope Other chest pain Premature atrial contractions SOB (shortness of breath) Supraventricular tachycardia, paroxysmal Vasovagal syncope Home Medications buspirone 10 mg tablet 10 mg PO DAILY tab 09/16/20 [History Last Taken Unknown] lamotrigine 200 mg tablet 200 mg PO DAILY tab 09/16/20 [History Last Taken Unknown] omeprazole 40 mg capsule,delayed release 40 mg PO DAILY 09/16/20 [History Last Taken Unknown] dicyclomine 20 mg PO TID PRN #14 tab 03/07/21 [Rx Last Taken Unknown] ondansetron 4 mg PO Q8H PRN #10 tab 03/07/21 [Rx Last Taken Unknown] Allergy/AdvReac Type Severity Reaction Status Date / Time No Known Allergies Allergy Verified 03/07/21 04:56 Family History Father Paroxysmal atrial fibrillation Grandmother Heart disease CAD (coronary artery disease) CABG Pacemaker Breast cancer Grandfather , Age 37 Myocardial infarction Mother Rheumatoid arthritis Glaucoma Surgical History History of cystoscopy History of dilatation and curettage History of esophagogastroduodenoscopy (EGD) History of salpingectomy History of wisdom tooth extraction Social History household members: spouse and children housing: house number of children: 5 current occupational status: employed 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 HEENT: No sore throat. No neck pain. No loss of vision. No rhinorrhea. Cardiovascular: No chest pain. No palpitations. No pedal edema. Respiratory: No cough, no shortness of breath. Abdominal: Right-sided abdominal pain. Positive nausea. Positive vomiting. Genitourinary: No dysuria. No hematuria. Musculoskeletal: No myalgias. No arthralgias. Neurologic: No headaches. No dizziness. No lightheadedness. Skin: No rash. No change in color. Psychiatric: No depression. No anxiety. EXAM Physical Exam Narrative Exam Narrative: Afebrile. Vital signs noted. HEENT: Normocephalic. Atraumatic. PERRL, EOMI. Neck soft and supple. No point tenderness or step off. Cardiovascular: Regular rate and rhythm. No murmurs, rubs, or gallops appreciated. Respiratory: No tachypnea. Lungs clear to auscultation bilaterally. Gastrointestinal: Abdomen soft, mild tenderness right flank, with normoactive bowel sounds. No rebound or guarding. Negative Bailey sign. Neurological: Awake. Alert. Nonfocal, nonlateralizing. Skin: No rash. Normal color. No pallor. Musculoskeletal: No pedal edema. Full range of motion extremities. Const Vital Signs: 03/07/21 04:51 Temperature 97.2 F L Temperature Source Oral Pulse Rate 83 Respiratory Rate 17 Blood Pressure 119/72 Blood Pressure Mean 87 Pulse Ox 99 Oxygen Delivery Method Room Air MDM MDM MDM Narrative Medical decision making narrative: As she has active bowel sounds I do not feel that she has an ileus. I will review her prior records. Comprehensive work-up was pursued. She was administered morphine and ondansetron along with a bolus of normal saline intravenously. I will obtain a CBC, CMP, lipase, along with CT imaging with IV contrast. Serum will be obtained although she states that she had her fallopian tubes removed. CBC shows normal white count of 8.3, hemoglobin stable at 13.6. Her CMP is grossly unremarkable. Lipase low at 72. Serum is negative. Her CT of the abdomen and pelvis shows a ruptured ovarian cyst with a small amount of adnexal free fluid. The remainder of the CT scan is unremarkable. I am unsure as to the cause of her right-sided abdominal pain. She had refused the morphine and Zofran that I had ordered for her. At this point in time, I feel she can be discharged safely home with follow-up. She describes more feeling of constipation like she has to have a bowel movement but cannot. She is going to try [id number] [id number] as needed. I did write her a prescription for Zofran ODT's, and Bentyl to take as needed for abdominal cramping. At this point in time, she will be discharged to follow-up with her primary care physician and gastroenterology. Return instructions were reviewed. Disposition is discharged home in stable condition. Lab Data Attestation: I reviewed the patient's lab results. Labs: Laboratory Results - last 24 hr 03/07/21 03/07/21 03/07/21 04:48 04:48 05:05 WBC 8.3 RBC 4.68 Hgb 13.6 Hct 40.1 MCV 85.7 MCH 29.1 MCHC 33.9 RDW Std Deviation 37.7 RDW Coeff of Víctor 12.0 Plt Count 319 MPV 9.5 Immature Gran % (Auto) 0.400 Neut % (Auto) 54.3 Lymph % (Auto) 34.8 [place] % (Auto) 5.9 Eos % (Auto) 4.1 Baso % (Auto) 0.5 Absolute Neuts (auto) 4.5 Absolute Lymphs (auto) 2.87 Nucleated RBC % 0 Sodium 139 Potassium 3.5 Chloride 106 Carbon Dioxide 24.0 Anion Gap 9 BUN 9 Creatinine 0.79 Estim Creat Clear Calc 77.86 Est GFR (MDRD) Af Amer 106 Est GFR (MDRD) Non-Af 88 BUN/Creatinine Ratio 11.4 Glucose 100 Calcium 9.0 Total Bilirubin 0.60 AST 17 ALT 24 Alkaline Phosphatase 38 L Total Protein 7.3 Albumin 4.0 Globulin 3.3 Albumin/Globulin Ratio 1.2 Lipase 72 L Serum , Qual NEGATIVE Urine Color Urine Clarity Urine pH Ur Specific [place] Urine Protein Urine Glucose (UA) Urine Ketones Urine Occult Blood Urine Nitrite Urine Bilirubin Urine Urobilinogen Ur Leukocyte Esterase Urine RBC Urine WBC Ur Squamous Epith Cells Urine Bacteria Urine Mucus 03/07/21 05:05 WBC RBC Hgb Hct MCV MCH MCHC RDW Std Deviation RDW Coeff of [place] Plt Count MPV Immature Gran % (Auto) Neut % (Auto) Lymph % (Auto) [place] % (Auto) Eos % (Auto) Baso % (Auto) Absolute Neuts (auto) Absolute Lymphs (auto) Nucleated RBC % Sodium Potassium Chloride Carbon Dioxide Anion Gap BUN Creatinine Estim Creat Clear Calc Est GFR (MDRD) Af Amer Est GFR (MDRD) Non-Af BUN/Creatinine Ratio Glucose Calcium Total Bilirubin AST ALT Alkaline Phosphatase Total Protein Albumin Globulin Albumin/Globulin Ratio Lipase Serum , Qual Urine Color Yellow Urine Clarity Clear Urine pH 6.0 Ur Specific [place] 1.015 Urine Protein 30 H Urine Glucose (UA) Normal Urine Ketones 50 H Urine Occult Blood 150 H Urine Nitrite Negative Urine Bilirubin Negative Urine Urobilinogen 1 H Ur Leukocyte Esterase 100 H Urine RBC 0-5 SEEN Urine WBC 0-5 SEEN Ur Squamous Epith Cells 0-5 SEEN Urine Bacteria 1+ Urine Mucus 2+ Radiography Diagnostic Testing: Clinical Impression(s) from Imaging Studies Abdomen/Pelvis CT 03/07/21 05:00 IMPRESSION: Recently ruptured left ovarian follicle with enhancement as above. Trace left adnexal free fluid. Remainder is unremarkable. Electronically Signed: Randall Eastman DO at 5:42 EST Tel , Service support , Discharge Plan Triage Chief Complaint: Abd Pain ED Provider: Sage Moreno Dx/Rx/DC Orders Clinical Impression: Abdominal pain, Nausea & vomiting Instructions: ED Abdominal Pain Unkn Cause Fem, ED Diet for Vomiting or ... Prescriptions: New dicyclomine 20 mg tablet 20 mg PO TID PRN (Reason: cramps) Qty: 14 RF: 0 ondansetron 4 mg tablet,disintegrating 4 mg PO Q8H PRN (Reason: nausea and vomiting) Qty: 10 RF: 0 No Action lamotrigine 200 mg tablet 200 mg PO DAILY RF: 0 buspirone 10 mg tablet 10 mg PO DAILY RF: 0 omeprazole 40 mg capsule,delayed release(DR/EC) 40 mg PO DAILY RF: 0 Primary Care Provider: Vinny Foster Referrals: Vinny Foster MD [Primary Care Provider] - 03/11/21 Disposition Disposition: Home, Self Care
[2021-03-07] MEDS: 0.9% Normal Saline 1,000 ML 1000 ML IV (05:11)
[2021-03-07 05:16] LABS: Absolute Lymphocyte Count 2.87 X10^3/uL (0.83-4.51); Absolute Neutrophil Count 4.5 X10^3/uL (2.0-7.7); Basophil# 0.04 X10^3/uL; Basophil% 0.5 % (0-1); Eosinophil# 0.34 X10^3/uL; Eosinophils% 4.1 % (0-5); Hematocrit 40.1 % (37-47); Hemoglobin 13.6 g/dL (12.0-15.0); Lymphocyte # 2.87 X10^3/ul (0.83-4.51); Lymphocyte % 34.8 % (19-41); Mean Corp Hgb Conc 33.9 g/dL (32-36); Mean Corpuscular Hgb 29.1 pg (27.0-32.0); Mean Corpuscular Volume 85.7 fL (81-99); Mean Platelet Vol. 9.5 fl (6.2-12.0); Monocyte# 0.49 X10^3/uL; Monocyte% 5.9 % (0-10); NRBC Flagged by Analyzer 0 % (0-5); Neutrophil # 4.48 X10^3/uL (2.7-7.7); Neutrophil % 54.3 % (47-70); Platelet Count 319 K/mm3 (150-450); RBC Distribution Width SD 37.7 fl (35.1-43.9); Red Blood Count 4.68 M/mm3 (4.2-5.4); White Blood Count 8.3 K/mm3 (4.4-11.0)
[2021-03-07 05:27] LABS: Color, Urine Yellow (Yellow); Glucose, Dipstick Normal (Normal); Internal QC Validated? YES +Cl - CLEAR BKGD; Ketone-Dipstick 50 mg/dl (Negative); Leukocyte Esterase-Dipstick 100 /ul (Negative); Nitrite-Dipstick Negative (Negative); Occult Blood-Urine 150 /ul (Negative); Pregnancy, Serum, hCG Quali. NEGATIVE Negative; Protein-Dipstick 30 mg/dl (Negative); Specific Gravity, Urine 1.015 (1.002-1.030); Urine Bilirubin Dipstick Negative (Negative); Urine Clarity Clear (Clear); Urine Urobilinogen 1 mg/dl (Normal)
[2021-03-07 05:29] LABS: ALB/GLOB Ratio 1.2 RATIO (0.9-2.4); AST(SGOT) 17 U/L (15-37); Alanine Aminotransfer ALT/SGPT 24 U/L (13-56); Alkaline Phosphatase 38 U/L (45-117); Anion Gap 9 (5-15); BUN 9 mg/dL (7-18); BUN/Creat Ratio 11.4 RATIO (10-20); Chloride 106 mmol/L (98-107); Creatinine, Serum 0.79 mg/dL (0.55-1.02); EST Glomerular Filtration Rate 88 mL/min (>60); Est Glom Filt Rate - Afr Amer 106 mL/min (>60); Estimated Creatinine Clearance 77.86 ml/min; Globulin 3.3 g/dL (2.2-4.2); Glucose 100 mg/dL (74-106); Lipase 72 U/L (73-393); Potassium 3.5 mmol/L (3.5-5.1); Protein, Total 7.3 g/dL (6.4-8.2); Sodium Level 139 mmol/L (136-145)
[2021-03-07 05:40] LABS: Bacteria 1+ /hpf (None Seen); Red Blood Cells-Urine 0-5 SEEN /hpf (0-5); Squamous Epithelial Cells - UA 0-5 SEEN /hpf (5-10); White Blood Cells 0-5 SEEN /hpf (0-5)
[2021-03-07 05:41] LABS: Mucous, Urine 2+ /hpf (<or=2+)
[2021-03-07 06:25] VITALS: BP 124/74; PULSE 81; RESP 16; O2SAT 99
== END 2021-03-07 06:25 | disposition home or self-care (01) ==
PROVIDERS: Emergency Provider Emergency Medicine; PCP Family Medicine
DX: R10.9 Unspecified abdominal pain (principal); R11.2 Nausea with vomiting, unspecified; N83.291 Other ovarian cyst, right side; Z87.440 Personal history of urinary (tract) infections
CPT/HCPCS: 74177; 80053; 81001; 83690; 84703; 85025; 96360; 99283; J7030; Q9967; A4216; J2405

== ENCOUNTER 2021-03-17 09:23 | Outpatient (CLI) | payer MEDICAID, SELFPAY ==
--- NOTE | 2021-03-17 09:26 | BI_ITS ---
MAMMOGRAPHY - BILATERAL DIAGNOSTIC REASON FOR EXAM: Female, 35 years old. Palpable lump in the right periareolar region. PERTINENT HISTORY: Grandmother with breast cancer. TECHNIQUE: Digital bilateral breast jw (3D mammographic acquisition) in the CC and MLO projections. 2-D mediolateral oblique (MLO) and craniocaudad (CC) views of both breasts were obtained. CAD: Full Field Digital Mammography with Computer Added Detection was performed. COMPARISON: Comparison is made with prior study dated 01/25/2019. FINDINGS: Breast Composition: The breasts are heterogeneously dense, which may obscure small masses. There are no dominant masses or suspicious calcifications. Stable small benign-appearing bilateral axillary lymph nodes. No other significant abnormalities are identified. There has been no significant change since the prior study. BI/DIAG MAMM W/CAD, BILAT IMPRESSION: Stable bilateral diagnostic mammogram. With the patient''s history of a palpable lump in the right breast, correlation with ultrasound is recommended. ASSESSMENT CATEGORY: BIRADS Category 0: Incomplete. Need additional imaging evaluation. A letter regarding these results will be sent to the patient by the facility within 30 days. Approximately 10% of breast cancers are not detected by mammography. A normal mammogram should not delay biopsy of a clinically suspicious abnormality. Electronically Signed: Santiago Pulido MD at 10:24 EST , Service support ,
--- NOTE | 2021-03-17 09:26 | US_ITS ---
STUDY: ULTRASOUND BREAST - RIGHT REASON FOR EXAM: Female, 35 years old. Palpable lump left breast. TECHNIQUE: Axial and longitudinal images of the RIGHT breast were performed with a high resolution ultrasound transducer. # OF IMAGES: 16 COMPARISON: Comparison is made with prior mammogram done earlier in the day as well as prior ultrasound of the right breast dated 09/20/2019. FINDINGS: RIGHT Breast: The palpable area along the lateral aspect of the right breast was examined by ultrasound. No sonographic abnormality is seen. Incidental note is made of a 8 mm x 6 mm x 4 mm lymph node at the 9 o''clock position of the breast at 8 cm from nipple. US/Breast Limited Unilateral IMPRESSION: No significant abnormality is seen. ASSESSMENT CATEGORY: BIRADS Category 2: Benign. A letter regarding these results will be sent to the patient by the facility within 30 days. Electronically Signed: Santiago Pulido MD at 15:31 EST , Service support ,
== END 2021-03-17 23:59 | disposition short-term general hospital (02) ==
PROVIDERS: PCP Family Medicine; Referring Provider Obstetrics & Gynecology; Visit Provider Obstetrics & Gynecology
DX: N63.11 Unspecified lump in the right breast, upper outer quadrant (principal)
CPT/HCPCS: 76642; 77062; 77066; G0279

== ENCOUNTER 2021-04-02 15:34 | Outpatient (CLI) | payer MEDICAID, SELFPAY | END 2021-04-02 23:59 | disposition short-term general hospital (02) | LOC: LABSPEC 15:35 | PROVIDERS: PCP Family Medicine; Visit Provider Otolaryngology | DX: Z20.822 Contact with and (suspected) exposure to COVID-19 (principal) | CPT/HCPCS: 87635; U0003; U0005 ==

== ENCOUNTER 2021-06-02 13:49 | Day surgery (SDC) | payer MEDICAID, SELFPAY ==
[2021-06-02] VITALS (7 sets, daily range): BP systolic 95–114; BP diastolic 65–74; PULSE 69–79; RESP 14–18; TEMP 36.5–36.8; O2SAT 97–100; BMI 21.2
[2021-06-02] MEDS: Lactated Ringers 1,000 ML 15 ML IV (14:08)
--- NOTE | 2021-06-02 14:45 | IMM_PTH ---
PATIENT: GABRIEL YUSUF LOC: EN U#:[id number] AGE/SX: 35/F ROOM: RE06/02/[address]: Dr. Jairo Bob DO : 1985 BED: DIS: 06/02/2021 SPEC #: [id number] RECD: 06/03/21 13:50 STATUS: NEGRITO REQ #: [id number] ORESTES: 06/02/21 14:[address]: Jairo Bob DEPT: IMMUNOHISTOCHEMISTRY RECD BY: Alexsandra Sue ENTERED: 06/03/21 13:50 SP TYPE: IMMUNO OTHR DR: Dr. Vinny Foster MD Tissues: B - Stomach, NOS Procedures: H Pylori (initial) PHYSICIAN & INSTITUTION [place] [id number] SPECIMEN INFORMATION: Tissue Source: B ? Gastric body biopsy Clinical Info: GERD, intestinal angina, ischemic colitis Specimen Number: [id number] CPT code: 03833 METHODOLOGY: Deparaffinized sections of prefer/formalin-fixed tissue or PAP/DQ stained slides are incubated with monoclonal/polyclonal antibodies/oligonucleotide probes. Localization is made via biotin free immunoperoxidase method. Appropriate controls are performed and reacted as expected. Results on target cell population are indicated in the following table: RESULTS: ANTIBODY / CLONE RESULT Block B H Pylori (polyclonal) negative These tests were developed and their performance characteristics determined by [facility]. They may not have been cleared or approved by the U.S. Food and Drug Administration. The FDA has determined that such clearance or approval is not necessary. INTERPRETATION: B. Gastric body, biopsy: Negative for Helicobacter pylori organisms. SJ:arie 06/04/2021
--- NOTE | 2021-06-02 14:45 | EGD_PTH ---
PATIENT: GABRIEL YUSUF LOC: EN U#:[id number] AGE/SX: 35/F ROOM: RE06/02/[address]: Dr. Jairo Bob DO : 1985 BED: DIS: 06/02/2021 SPEC #: [id number] RECD: 06/02/21 15:53 STATUS: NEGRITO RM #: [id number] ORESTES: 06/02/21 14:[address]: Jairo Bob DEPT: SURGICAL PATHOLOGY RECD BY: Rachid Padgett ENTERED: 06/03/21 09:40 SP TYPE: EGD BIOPSY OT DR: Dr. Vinny Foster MD Tissues: A - Duodenum, NOS B - Gastric mucous membrane C - Esophagus, NOS Procedures: Special Stain Group II Surgery Specimen Level IV Alcian Blue/PAS (control) HEADER OPERATION: EGD (MAC) with Serrato placement PRE-OP DIAGNOSIS: GERD, intestinal angina, ischemic colitis TISSUE SUBMITTED: A ? Duodenum biopsy, B ? Gastric body biopsy, C ? Distal esophagus biopsy MICROSCOPIC DIAGNOSIS A. Duodenum, biopsy: Fragments of duodenal mucosa with Kallie gland hyperplasia. B. Gastric body, biopsy: Minimal gastritis. See microscopic description and comment. C. Distal esophagus, biopsy: Fragments of gastroesophageal mucosa with mild chronic inflammation. Intestinal metaplasia (goblet cell metaplasia) not identified. See comment. SJ:arie 06/04/2021 COMMENT B. The results of immunohistochemistry for Helicobacter pylori will be reported separately ([id number]). C. Alcian blue/PAS stain with matched control is used in the evaluation of the specimen. MICROSCOPIC DESCRIPTION Slides are reviewed. B. The specimen shows fragments of gastric mucosa with chronic inflammatory cell infiltrates in the lamina propria consisting of lymphocytes and plasma cells, consistent with minimal chronic gastritis. GROSS DESCRIPTION A - Received in fixative is one container labeled with the patient's name and designated duodenum biopsy. The specimen consists of multiple irregular fragments of light mir soft tissue that in aggregate measure 1 x 0.3 x 0.1 cm. The specimen is totally submitted in one cassette. B - Received in fixative is one container labeled with the patient's name and designated gastric body biopsy. The specimen consists of two irregular fragments of light mir soft tissue that in aggregate measure 0.6 x 0.3 x 0.1 cm. The specimen is totally submitted in one cassette. C - Received in fixative is one container labeled with the patient's name and designated distal esophagus biopsy. The specimen consists of multiple irregular fragments of light mir soft tissue that in aggregate measure 1 x 0.3 x 0.1 cm. The specimen is totally submitted in one cassette. / SJ:rg 06/03/2021 TC:3 CPT: 95102 x3, 39278
--- NOTE | 2021-06-02 15:12 | PCM.HP.BLA ---
History and Physical Date of Admission: 06/02/21 35 F who presents to the office today for Reports that prior to ED presentation she had gotten her COVID booster several days prior and felt it was related to this. Presented to [facility] ED 02.22.21 for evaluation of left sided abdominal pain, she got up to go to the bathroom, lost consciousness and went to ED. [facility] ED felt it was related to ovarian follicle rupture, OBGYN did not feel this was related. Following initial presentation, she had difficulty with nausea with emesis, bloating, abdominal cramping, constipation (typically has 2-3 normal consistency BM) and a bad taste in her mouth. Presented again 03.07.21 for evaluation of right sided abdominal pain with onset two weeks prior and nausea vomiting starting 4-5 days prior to presentation. Workup performed and felt she was having difficulty with constipation, OTC miralax recommended and discharged. Since second ED presentation symptoms have gotten better nausea, reflux (coughing and frequently clearing throat), continued change in BM, weight loss of 11lbs since (typical weight 125lbs) without eating habit changes save 3-4 days of being on liquid diet. Takes omeprazole 40mg QD with varying effectiveness. Famotidine and protonix also attempted in the past and has found omeprazole to be most effective. EGD performed with Summa r/t nausea and vomiting with finding of healed Kiera Jackson tear. History of laproscopic tubal ligation early 2017. CT abd/pel 03.07.21 found recently ruptured ovarian follicle with left adnexal free fluid. Barium swallow performed 02.17.21 with no abnormal findings. ROS Const Constitutional: Positive for headache(s) and weight change ENT ENT: Positive for tinnitus and headache(s) Resp Respiratory: Positive for cough Cardio Cardiology: Positive for leg pain with exertion Gastro GI: Positive for abdominal pain, bloating, heartburn, excessive flatus and nausea/dyspepsia Genitourinary-Female: Positive for urinary incontinence, urinary frequency and urinary urgency Musc Musculoskeletal: Positive for back pain, sciatica, leg pain at night and leg pain with exertion Neuro Neurology: Positive for headache(s) Psych Psychiatric: Positive for anxiety Endo Endocrine: Positive for weight change Exam Const General: cooperative and comfortable Nutritional Appearance: average body habitus and well nourished HENMT Head: normal to inspection Ears: hearing grossly normal bilaterally Nose: external nose normal Face and sinus: normal facial exam Mouth: oral mucosae normal Throat: posterior oropharynx normal Eyes General: appearance normal, both eyes and all related structures Neck Neck: normal visual inspection Chest Chest palpation & inspection: normal inspection of the chest and normal palpation of entire chest wall Resp Effort & Inspection: normal respiratory effort Auscultation: Bilateral: Clear to Auscultation Cardio Palpation: normal PMI Rate: regular rate Rhythm: regular rhythm GI Inspection: normal to inspection Auscultation: normal bowel sounds Percussion: normal to percussion Palpation: no hepatosplenomegaly Skin General: no rashes or lesions noted Neuro General: patient alert Extrem General: normal to inspection Psych Affect: normal affect Quality Reporting Tobacco Screening ([facility] 138) Smoking Status: Never smoker Assessment and Plan Assessment and Plan (1) GERD (gastroesophageal reflux disease): Status: Acute Orders: Orders: EGD Today Plan - Dr. Gill Friend, DO: Patient says that her gastroesophageal reflux disease is pretty bad and has been like this for a long time. She did have an endoscopy 10 years ago and at that time which did show mild reflux disease. Currently now she is on twice a day PPI therapy and it does help her symptoms but she still gets breakthrough symptoms. She does not know she has a hiatal hernia and if she has been assessed for this. (2) Intestinal angina: Status: Acute Plan - Dr. Gill Friend, DO: I believe that the abdominal pain and cramping that she does get on occasion. This is a intestinal migraines. This is very common and can result in ischemic colitis. Her risk factors are her low blood pressure and being a menstruating female. When she took her blood pressure when this happened it was in the 70s which would explain the consequential diarrhea afterwards. I will give her as needed Levsin therapy to prevent a reoccurrence of ischemic colitis. (3) Ischemic colitis: Status: Acute Plan - Dr. Gill Friend, DO: She is not have any abdominal pain at this time. She does get on occasion and it typically does not last very long. She will need to take dicyclomine or Levsin on a as needed basis when she gets the symptoms prevent a reoccurrence of severe ischemic colitis. I have re-examined the patient. There are no clinical changes since date of exam.
--- NOTE | 2021-06-02 16:13 | OP.EGD_ITS ---
Patient Name: Silvestre Elise Procedure Date: 06/02/2021 3:15 PM Date of : 1985 Age: 35 Procedure: Upper GI endoscopy Indications: Functional Dyspepsia, Heartburn Providers: Jairo Bob DO Medicines: See the Anesthesia note for documentation of the administered medications Patient Profile: This is a 35 year old female. Refer to note in patient chart for documentation of history and physical. Patient has symptoms. Complications: No immediate complications. Procedure: Pre-Anesthesia Assessment: - Prior to the procedure, a History and Physical was performed, and patient medications and allergies were reviewed. The patient is competent. The risks and benefits of the procedure and the sedation options and risks were discussed with the patient. All questions were answered and informed consent was obtained. Patient identification and proposed procedure were verified by the physician in the pre-procedure area. Mental Status Examination: alert and oriented. Airway Examination: normal oropharyngeal airway and neck mobility. Respiratory Examination: clear to auscultation. CV Examination: normal. Prophylactic Antibiotics: The patient does not require prophylactic antibiotics. Prior Anticoagulants: The patient has taken no previous anticoagulant or antiplatelet agents. ASA Grade Assessment: II - A patient with mild systemic disease. After reviewing the risks and benefits, the patient was deemed in satisfactory condition to undergo the procedure. The anesthesia plan was to use moderate sedation / analgesia (conscious sedation). Immediately prior to administration of medications, the patient was re-assessed for adequacy to receive sedatives. The heart rate, respiratory rate, oxygen saturations, blood pressure, adequacy of pulmonary ventilation, and response to care were monitored throughout the procedure. The physical status of the patient was re-assessed after the procedure. After obtaining informed consent, the endoscope was passed under direct vision. Throughout the procedure, the patient's blood pressure, pulse, and oxygen saturations were monitored continuously. The gastroscope was introduced through the mouth, and advanced to the second part of duodenum. The upper GI endoscopy was accomplished without difficulty. The patient tolerated the procedure well. Moderate Sedation: Moderate (conscious) sedation was administered by the endoscopy nurse and supervised by the endoscopist. The patient's oxygen saturation, heart rate, blood pressure and response to care were monitored. Total physician intraservice time was 15 minutes. Scope In: 3:26:46 PM Scope Out: 3:38:44 PM Total Procedure Duration Time 0 hours 11 minutes 58 seconds Findings: LA Grade A (one or more mucosal breaks less than 5 mm, not extending between tops of 2 mucosal folds) esophagitis with no bleeding was found 37 to 38 cm from the incisors. Biopsies were taken with a cold forceps for histology. Verification of patient identification for the specimen was done. Estimated blood loss was minimal. The BAUER capsule with delivery system was introduced through the mouth and advanced into the esophagus, such that the BAUER pH capsule was positioned 40 cm from the incisors, which was 6 cm proximal to the GE junction. Suction was applied to the well of the BAUER pH capsule to suck in the adjacent mucosa of the esophagus using the external vacuum pump set at a minimum vacuum pressure of 550 mmHg for 30 seconds. The BAUER pH capsule was then deployed by depressing the plunger on top of the handle to advance the locking pin into the mucosa, thereby attaching the capsule to the esophagus. The plunger was then rotated a quarter turn clockwise to release the capsule from the delivery system. The delivery system was then withdrawn. Endoscopy was utilized for probe placement and diagnostic evaluation. The entire examined stomach was normal. Biopsies were taken with a cold forceps for histology. Verification of patient identification for the specimen was done. Estimated blood loss was minimal. The second portion of the duodenum was normal. Biopsies were taken with a cold forceps for histology. Verification of patient identification for the specimen was done. Estimated blood loss was minimal. Impression: - LA Grade A reflux esophagitis. Biopsied. - Normal stomach. Biopsied. - Normal second portion of the duodenum. Biopsied. - The BAUER pH capsule was positioned 40 cm from the incisors, which was 6 cm proximal to the GE junction. Recommendation: - Discharge patient to home. - Resume previous diet. - Continue present medications. - Await pathology results. Procedure Code(s): --- Professional --- 43056, Esophagogastroduodenoscopy, flexible, transoral; with biopsy, single or multiple 88729, 59, Moderate sedation services provided by the same physician or other qualified health care process manager performing the diagnostic or therapeutic service that the sedation supports, requiring the presence of an independent trained observer to assist in the monitoring of the patient's level of consciousness and physiological status; initial 15 minutes of intraservice time, patient age 5 years or older CPT copyright 2017 [employer]. All rights reserved. The codes documented in this report are preliminary and upon certified medical records coder review may be revised to meet current compliance requirements. Jairo Bob DO 06/02/2021 4:13:07 PM This report has been signed electronically. Number of Addenda: 1 Note Initiated On: 06/02/2021 3:15 PM Addendum Number: 1 Addendum Date: 12/09/2021 6:21:16 AM MAC was used as sedation for this procedure. Jairo Bob DO 12/09/2021 6:21:21 AM This report has been signed electronically.
--- NOTE | 2021-06-02 16:14 | OP.CCLET_ITS ---
12/09/2021 Vinny Foster [address] [place] [address] Re : Upper GI endoscopy procedure for [facility] Dear Dr. Foster This procedure was performed on Wednesday, June 02, 2021. My impressions and recommendations are as follows: Impressions : - LA Grade A reflux esophagitis. Biopsied. - Normal stomach. Biopsied. - Normal second portion of the duodenum. Biopsied. - The BAUER pH capsule was positioned 40 cm from the incisors, which was 6 cm proximal to the GE junction. Recommendations : - Discharge patient to home. - Resume previous diet. - Continue present medications. - Await pathology results. My findings are described in the full procedure note, which is enclosed. If I can be of further assistance, please feel free to contact me at . Sincerely, Jairo Bob, 06/02/2021 4:13:07 PM This report has been signed electronically.
--- NOTE | 2021-06-10 12:37 | EX.PCM.PN.GI ---
Subjective Subjective 35 yo female underwent Serrato ambulatory pH monitoring for c/o acid reflux not always controlled with PPI Objective Data Objective Data Serrato pH capsule was placed on esophagus during upper endoscopy on 06/02/21 On the worst day, the acid exposure time was 0.9% (normal is <4.4%), Demeester score was 4.3 (normal <=14.72) Symptom Association Probability (SAP) indicates regurgitation (98.1) is likely correlated with reflux, but heartburn and chest pain are not Vital Signs: Vital Signs Assessment & Plan Assessment/Plan (1) GERD (gastroesophageal reflux disease): PLAN: Serrato ambulatory pH study is negative Charges/Coding Procedures Gastroenterology CF Procedures [id number]: 23923 G-esoph reflx tst w/electrod
== END 2021-06-02 23:59 | disposition home or self-care (01) ==
LOC: EN 13:51 → AC 13:52
PROVIDERS: PCP Family Medicine; Referring Provider Family Medicine; Visit Provider Internal Medicine Gastroenterology
PROC: 0DJ08ZZ Inspection of Upper Intestinal Tract, Via Natural or Artificial Opening Endoscopic (ICD-10-PCS; CPT 43235; principal; 2021-06-02 14:40)
DX: K29.70 Gastritis, unspecified, without bleeding (principal); K55.1 Chronic vascular disorders of intestine; K21.00 Gastro-esophageal reflux disease with esophagitis, without bleeding; F41.9 Anxiety disorder, unspecified; Z87.440 Personal history of urinary (tract) infections; J45.909 Unspecified asthma, uncomplicated; Z79.899 Other long term (current) drug therapy
CPT/HCPCS: 43239; 91035; 88305; 88313; 88342; J7120; J2405

== ENCOUNTER 2021-06-30 08:35 | Outpatient (CLI) | payer MEDICAID, SELFPAY ==
[2021-06-30 09:26] LABS: Erythrocyte Sedimentation Rate 1 mm/hr (0-30)
[2021-06-30 09:34] LABS: CRP < 2.90 mg/L (0.0-3.0)
[2021-07-01 16:10] LABS: Endomysial Antibody IgA Negative (Negative)
[2021-07-01 21:08] LABS: Immunoglobulin A 173 mg/dL (87-352); t-Transglutaminase IgA <2 U/mL (0-3)
== END 2021-06-30 23:59 | disposition home or self-care (01) ==
LOC: LAB 08:36
PROVIDERS: PCP Family Medicine; Referring Provider Nurse Practitioner Adult Health; Visit Provider Nurse Practitioner Adult Health
DX: R10.9 Unspecified abdominal pain (principal); R19.8 Other specified symptoms and signs involving the digestive system and abdomen
CPT/HCPCS: 36415; 82784; 83516; 85652; 86140; 86255

== ENCOUNTER 2021-08-04 14:00 | Outpatient (CLI) | payer MEDICAID, SELFPAY ==
[2021-08-04 15:35] LABS: Absolute Lymphocyte Count 2.72 X10^3/uL (0.83-4.51); Absolute Neutrophil Count 4.8 X10^3/uL (2.0-7.7); Basophil# 0.05 X10^3/uL; Basophil% 0.6 % (0-1); Eosinophil# 0.38 X10^3/uL; Eosinophils% 4.6 % (0-5); Hematocrit 41.7 % (37-47); Hemoglobin 13.8 g/dL (12.0-15.0); Lymphocyte # 2.72 X10^3/ul (0.83-4.51); Lymphocyte % 32.7 % (19-41); Mean Corp Hgb Conc 33.1 g/dL (32-36); Mean Corpuscular Hgb 29.1 pg (27.0-32.0); Mean Platelet Vol. 10.6 fl (6.2-12.0); Monocyte# 0.37 X10^3/uL; Monocyte% 4.4 % (0-10); NRBC Flagged by Analyzer 0 % (0-5); Neutrophil # 4.78 X10^3/uL (2.7-7.7); Neutrophil % 57.3 % (47-70); Platelet Count 290 K/mm3 (150-450); RBC Distribution Width CV 12.3 % (11.6-14.6); Red Blood Count 4.74 M/mm3 (4.2-5.4); White Blood Count 8.3 K/mm3 (4.4-11.0)
[2021-08-04 16:02] LABS: ALB/GLOB Ratio 1.3 RATIO (0.9-2.4); AST(SGOT) 18 U/L (15-37); Alanine Aminotransfer ALT/SGPT 22 U/L (13-56); Alkaline Phosphatase 40 U/L (45-117); Anion Gap 6 (5-15); BUN 13 mg/dL (7-18); BUN/Creat Ratio 18.9 RATIO (10-20); Calcium,Total 8.5 mg/dL (8.5-10.1); Chloride 108 mmol/L (98-107); Creatinine, Serum 0.69 mg/dL (0.55-1.02); EST Glomerular Filtration Rate 102 mL/min (>60); Est Glom Filt Rate - Afr Amer 124 mL/min (>60); Globulin 3.1 g/dL (2.2-4.2); Glucose 98 mg/dL (74-106); Magnesium 2.3 mg/dL (1.6-2.6); Potassium 3.6 mmol/L (3.5-5.1); Protein, Total 7.1 g/dL (6.4-8.2); Sodium Level 141 mmol/L (136-145); Thyroid Stim Hormone (TSH) 1.24 uIU/mL (0.358-3.74)
== END 2021-08-04 23:59 | disposition home or self-care (01) ==
LOC: MFPLAB 14:03
PROVIDERS: PCP Family Medicine; Referring Provider Family Medicine; Visit Provider Family Medicine
DX: R03.1 Nonspecific low blood-pressure reading (principal)
CPT/HCPCS: 36415; 80053; 83735; 84443; 85025

== ENCOUNTER → 2021-09-08 | Outpatient (CLI) | payer MEDICAID, SELFPAY ==
--- NOTE | 2021-09-08 13:11 | PCM.TILTTABL ---
Staff Staff: Lisa Zurita and - (Iqra Whitman) Summary Protocol: 70 Degree Upright Tilt Pre Test Resting HR: 78 Pre Test Resting BP: 125/72 Minimum Test HR: 76 Maximum Test HR: 91 Minimum Test BP: 104/70 Maximum Test BP: 120/68 Reason for Test Termination: Reached Maximum Test Time Physician Tilt Table Report Patient's Physicians Primary Care Physician: Vinny Foster Software Sales Executive: Dave Bell Indications/Diagnosis: Dizziness; orthostatic hypotension Procedure Comments: The patient was brought to the tilt table laboratory and laid supine on the tilt table. The patient was awake and alert and warm and dry. The resting heart rate was 78 bpm with a resting blood pressure 125/72 mmHg. The cardiac rhythm was normal sinus rhythm. The patient was placed in the 70 degree upright tilt table position for approximately 30 minutes. The patient remained alert and oriented and warm and dry. The minimal heart rate was 76 bpm with a minimal blood pressure of 104/70 mmHg and a maximal heart rate of 91 bpm with a maximal blood pressure of 120/68 mmHg. The cardiac rhythm remains normal sinus rhythm. The patient was reported as dizzy when first stood up . The patient subsequently noted little lightheaded . The patient subsequently had no other symptoms reported. The patient did not lose consciousness. The patient was returned to the supine position. The patient was monitored in the supine position. The patient remained alert and oriented and warm and dry. The patient had a concluding heart rate of 75 bpm with a concluding blood pressure of 118/71 mmHg. The cardiac rhythm remained normal sinus rhythm. The patient was subsequently deemed stable and was released from the tilt table laboratory. Summary: 70 degree upright tilt table study considered negative for reproducible vasovagal/neurocardiogenic near syncope/syncope. This note was generated using a voice recognition system and there may be incorrect words, spelling or punctuation that were not noted when reviewing the office note prior to saving.
[2021-09-08 13:18] VITALS: BP 104/70; BP 120/68; BP 125/72
== END | disposition home or self-care (01) ==
PROVIDERS: PCP Family Medicine; Referring Provider Family Medicine; Visit Provider Family Medicine
DX: I95.1 Orthostatic hypotension (principal)
CPT/HCPCS: 93660; J7040; A4216

== ENCOUNTER → 2022-02-11 | Outpatient (CLI) | payer MEDICAID, SELFPAY ==
[2022-02-19 13:21] LABS: HPV APTIMA, High Risk Negative (Negative)
== END | disposition home or self-care (01) ==
LOC: LABSPEC 11:45
PROVIDERS: PCP Family Medicine; Visit Provider Obstetrics & Gynecology
DX: Z12.4 Encounter for screening for malignant neoplasm of cervix (principal)
CPT/HCPCS: 87624; 88175; G0145

== ENCOUNTER → 2022-03-23 | Outpatient (CLI) | payer MEDICAID, SELFPAY ==
--- NOTE | 2022-03-23 08:56 | US_ITS ---
STUDY: ULTRASOUND BREAST - RIGHT REASON FOR EXAM: Female, 36 years old. Right breast lump. TECHNIQUE: Axial and longitudinal images of the RIGHT breast were performed with a high resolution ultrasound transducer. # OF IMAGES: 72 COMPARISON: Comparison is made with prior mammogram done earlier in the day as well as prior sonogram of the right breast dated 03/17/2021. FINDINGS: RIGHT Breast: The right axillary region as well as the mid lateral aspect of the right breast was examined by ultrasound. There is a 6 mm x 2 mm x 12 mm benign-appearing right axillary lymph node. No other IMPRESSION: Small benign appearing right axillary lymph node. ASSESSMENT CATEGORY: BIRADS Category 2: Benign. A letter regarding these results will be sent to the patient by the facility within 30 days. Electronically Signed: Santiago Pulido MD at 16:05 EST , STUDY: ULTRASOUND BREAST - LEFT REASON FOR EXAM: Female, 36 years old. Left axillary lump. TECHNIQUE: Axial and longitudinal images of the LEFT breast were performed with a high resolution ultrasound transducer. # OF IMAGES: 72 COMPARISON: Comparison is made with prior mammogram done earlier in the day. FINDINGS: LEFT Breast: The axillary region of the left breast was examined with ultrasound. Incidental note is made of a 4 mm x 7 mm x 2 mm benign-appearing left axillary lymph node. US/Breast Limited Unilateral IMPRESSION: 4 mm x 7 mm x 2 mm benign-appearing left axillary lymph node. ASSESSMENT CATEGORY: BIRADS Category 2: Benign. A letter regarding these results will be sent to the patient by the facility within 30 days. Electronically Signed: Santiago Pulido MD at 16:06 EST ,
--- NOTE | 2022-03-23 08:56 | BI_ITS ---
MAMMOGRAPHY - BILATERAL DIAGNOSTIC REASON FOR EXAM: Female, 36 years old. Right breast lump. PERTINENT HISTORY: Grandmother with breast cancer. TECHNIQUE: Digital bilateral breast jw (3D mammographic acquisition) in the CC and MLO projections. 2-D mediolateral oblique (MLO) and craniocaudad (CC) views of both breasts were obtained. CAD: Full Field Digital Mammography with Computer Added Detection was performed. COMPARISON: Comparison is made with prior study dated 09/04/2021 and 01/25/2019. FINDINGS: Breast Composition: The breasts are heterogeneously dense, which may obscure small masses. There are no dominant masses or suspicious calcifications. Stable small benign-appearing bilateral axillary lymph nodes. No other significant abnormalities are identified. There has been no significant change since the prior study. BI/DIAG MAMM W/CAD, BILAT IMPRESSION: Stable bilateral diagnostic mammogram. With the patient''s history of a right breast lump, correlation with ultrasound is recommended. ASSESSMENT CATEGORY: BIRADS Category 0: Incomplete. Need additional imaging evaluation. A letter regarding these results will be sent to the patient by the facility within 30 days. Approximately 10% of breast cancers are not detected by mammography. A normal mammogram should not delay biopsy of a clinically suspicious abnormality. Electronically Signed: Santiago Pulido MD at 11:41 EST ,
== END | disposition home or self-care (01) ==
PROVIDERS: PCP Family Medicine; Visit Provider Obstetrics & Gynecology
DX: R92.2 Inconclusive mammogram (principal); N63.10 Unspecified lump in the right breast, unspecified quadrant
CPT/HCPCS: 77062; 76642; 77066; G0279

== ENCOUNTER → 2022-04-27 | Outpatient (CLI) | payer MEDICAID, SELFPAY ==
[2022-04-27 15:54] LABS: Basophil# 0.05 X10^3/uL; Basophil% 0.6 % (0-1); Eosinophil# 0.48 X10^3/uL; Eosinophils% 5.4 % (0-5); Hematocrit 42.5 % (37-47); Lymphocyte % 33.6 % (19-41); Mean Corp Hgb Conc 32.9 g/dL (32-36); Mean Corpuscular Volume 88.2 fL (81-99); Mean Platelet Vol. 10.1 fl (6.2-12.0); Monocyte% 4.5 % (0-10); NRBC Flagged by Analyzer 0 % (0-5); Neutrophil # 4.98 X10^3/uL (2.7-7.7); Neutrophil % 55.6 % (47-70); Platelet Count 284 K/mm3 (150-450); RBC Distribution Width CV 12.6 % (11.6-14.6); Red Blood Count 4.82 M/mm3 (4.2-5.4); White Blood Count 8.9 K/mm3 (4.4-11.0)
[2022-04-27 16:29] LABS: ALB/GLOB Ratio 1.2 RATIO (0.9-2.4); AST(SGOT) 16 U/L (15-37); Alanine Aminotransfer ALT/SGPT 19 U/L (13-56); Albumin, Serum 3.9 g/dL (3.2-5.0); Alkaline Phosphatase 39 U/L (45-117); Anion Gap 4 (5-15); BUN 13 mg/dL (7-18); BUN/Creat Ratio 14.7 RATIO (10-20); Calcium,Total 9.1 mg/dL (8.5-10.1); Chloride 108 mmol/L (98-107); Creatinine, Serum 0.88 mg/dL (0.55-1.02); EST Glomerular Filtration Rate 76 mL/min (>60); Est Glom Filt Rate - Afr Amer 92 mL/min (>60); Globulin 3.2 g/dL (2.2-4.2); Glucose 106 mg/dL (74-106); Iron 71 ug/dL (50-170); Iron Binding Capacity,Total 338 ug/dL (250-450); Magnesium 2.1 mg/dL (1.6-2.6); Potassium 4.3 mmol/L (3.5-5.1); Protein, Total 7.1 g/dL (6.4-8.2); Sodium Level 139 mmol/L (136-145); Thyroid Stim Hormone (TSH) 1.87 uIU/mL (0.358-3.74)
== END | disposition home or self-care (01) ==
LOC: LAB 15:15
PROVIDERS: PCP Family Medicine; Visit Provider Physician Assistant Medical
DX: R00.0 Tachycardia, unspecified (principal); R07.9 Chest pain, unspecified; R55 Syncope and collapse
CPT/HCPCS: 36415; 80053; 83540; 83550; 83735; 84443; 85025

== ENCOUNTER → 2022-05-24 | Outpatient (CLI) | payer MEDICAID, SELFPAY ==
--- NOTE | 2022-05-24 07:52 | ECHOD_ITS ---
Reason For Study: CP Procedure This was a 2D Doppler, Color Flow transthoracic echocardiogram. Exam performed in department. Left Ventricle Normal LV size. Left ventricular systolic function is normal. The estimated ejection fraction is 60 %. Normal diastology for age. No regional wall motion abnormalities noted. Right Ventricle Normal RV size. Normal systolic function. Atria Normal left atrium. Normal right atrium. Mitral Valve Normal mitral valve. Tricuspid Valve Normal tricuspid valve. Aortic Valve Normal aortic valve. Trisinus/trileaflet aortic valve. Pulmonic Valve Normal pulmonic valve. Great Vessels Normal aortic root. Pericardium/Pleural No pericardial effusion. MMode/2D Measurements & Calculations LVIDd: 4.2 cm IVSd: 0.81 cm Ao root diam: 2.6 cm LVIDs: 3.1 cm LVPWd: 0.82 cm FS: 26.3 % LAV(MOD-sp4): 24.9 ml LVAd ap4: 20.7 cm2 SV(MOD-sp4): 30.2 ml LVLd ap4: 6.3 cm EDV(MOD-sp4): 54.9 ml EDV(sp4-el): 57.5 ml LVAs ap4: 12.4 cm2 LVLs ap4: 5.2 cm ESV(MOD-sp4): 24.7 ml ESV(sp4-el): 24.9 ml EF(MOD-sp4): 55.0 % EF(sp4-el): 56.7 % SV(sp4-el): 32.6 ml LA A4 area: 12.2 cm2 LA dimension(2D): 3.0 cm RA A4 area: 6.2 cm2 Time Measurements MV dec time: 0.14 sec Doppler Measurements & Calculations MV E max cory: 87.5 cm/sec Lat Peak E' Cory: 13.2 cm/sec Med Peak E' Cory: 13.4 cm/sec MV A max cory: 72.7 cm/sec E/E' lat: 6.6 E/E' med: 6.6 MV E/A: 1.2 MV V2 max: 105.9 cm/sec Ao V2 max: 119.0 cm/sec MV max P.5 mmHg MV dec slope: 653.7 cm/sec2 Ao max P.7 mmHg MV V2 mean: 72.8 cm/sec Ao V2 mean: 84.7 cm/sec MV mean P.3 mmHg Ao mean P.2 mmHg MV V2 VTI: 25.8 cm Ao V2 VTI: 25.6 cm AV (velocity ratio): 0.65 LV V1 max: 84.1 cm/sec PA V2 max: 78.7 cm/sec LV V1 max P.8 mmHg PA V2 mean: 55.2 cm/sec LV V1 mean P.6 mmHg LV V1 mean: 59.9 cm/sec LV V1 VTI: 16.7 cm ECHO/Echo Complete Interpretation Summary Normal LV size. Left ventricular systolic function is normal. The estimated ejection fraction is 60 %. Structurally normal valves. Ordering Physician: Fatmata Esquivel Referring Physician: Fatmata Esquivel Performed By: Thelma Giraldo RCS
== END | disposition home or self-care (01) ==
LOC: CVS 07:50
PROVIDERS: PCP Family Medicine; Referring Provider Physician Assistant Medical; Visit Provider Physician Assistant Medical
DX: R00.0 Tachycardia, unspecified (principal); R07.9 Chest pain, unspecified; R55 Syncope and collapse
CPT/HCPCS: 93225; 93226; 93306

== ENCOUNTER → 2022-06-29 | Outpatient (CLI) | payer MEDICAID, SELFPAY ==
--- NOTE | 2022-06-29 10:24 | US_ITS ---
INDICATION: pelvic pain EXAMINATION: Ultrasound US Pelvis Non OB Complete With Transvaginal Imaging TECHNIQUE: Transabdominal and transvaginal pelvic ultrasound was performed. Grayscale, spectral waveform, and color flow Doppler evaluation of the adnexa. COMPARISON: None. FINDINGS: UTERUS: Anteverted. The uterus measures 8.5 x 5.2 x 4.6 cm. There is no uterine mass. The endometrial stripe measures 7 mm in AP diameter which is within normal limits. RIGHT OVARY: Measures 2.6 x 2.2 cm. Non-enlarged, normal echogenicity. There is normal arterial inflow and venous outflow present in the right ovary. LEFT OVARY: Measures 2.4 x 2.9 x 1.4 cm. Non-enlarged, normal echogenicity. There is normal arterial inflow and venous outflow present in the left ovary. FREE FLUID: None. US/Pelvic w/ Transvaginal IMPRESSION: Normal pelvic ultrasound. Electronically Signed: Daneil Proctor MD at 17:55 EDT ,
== END | disposition home or self-care (01) ==
LOC: US 10:24
PROVIDERS: PCP Family Medicine; Visit Provider Obstetrics & Gynecology
DX: R10.2 Pelvic and perineal pain (principal)
CPT/HCPCS: 76830; 76856

== ENCOUNTER → 2022-11-30 | Outpatient (CLI) | payer MEDICAID, SELFPAY ==
[2022-11-30 13:22] LABS: Amphetamine Urine VISTA NEGATIVE (<1000 ng/mL); Barbiturate Urine VISTA NEGATIVE (< 200 ng/mL); Benzodiazepine Urine VISTA NEGATIVE (< 200 ng/mL); Cocaine Urine VISTA NEGATIVE (< 300 ng/mL); Ecstacy Urine VISTA NEGATIVE (< 500 ng/mL); Methadone Urine VISTA NEGATIVE (< 300 ng/mL); PCP Urine VISTA NEGATIVE (< 25 ng/mL); THC Urine VISTA NEGATIVE (< 50 ng/mL); Vista UDS pH Range 5
== END | disposition home or self-care (01) ==
LOC: LAB 12:40
PROVIDERS: PCP Family Medicine; Referring Provider Nurse Practitioner Psychiatric/Mental Health; Visit Provider Nurse Practitioner Psychiatric/Mental Health
DX: F19.10 Other psychoactive substance abuse, uncomplicated (principal)
CPT/HCPCS: 80307

== ENCOUNTER → 2023-03-01 | Outpatient (CLI) | payer MEDICAID, SELFPAY ==
--- NOTE | 2023-03-01 11:40 | RAD_ITS ---
STUDY: X-RAY - CERVICAL SPINE REASON FOR EXAM: Female, 37 years old. Numbness in left arm, and neck pain TECHNIQUE: 5 view(s) of the cervical spine were obtained. COMPARISON: 09/04/2019 FINDINGS: Normal anterior atlantoaxial articulation. Normal odontoid process. There is straightening of the normal cervical lordosis. Normal vertebral bodies and endplates. Focal disc space narrowing at C5/C6 consistent with degenerative disc disease. Normal visualized intervertebral neuroforamina. The soft tissue structures are unremarkable. RAD/Cerv Spine 4 or 5 Views IMPRESSION: Focal degenerative disc disease at C5/C6 with straightening of the normal lordotic curvature. MRI may be useful. Electronically Signed: Juan Carlos Arce MD at 20:23 EST ,
== END | disposition home or self-care (01) ==
LOC: MTRAD 11:34
PROVIDERS: PCP Family Medicine; Referring Provider Family Medicine; Visit Provider Family Medicine
DX: M54.2 Cervicalgia (principal)
CPT/HCPCS: 72050

== ENCOUNTER → 2023-04-05 | Outpatient (CLI) | payer MEDICAID, SELFPAY ==
--- NOTE | 2023-04-05 08:12 | MRI_ITS ---
HISTORY: LEFT SIDED NECK PAIN, LEFT ARM NUMBNESS/PAIN, HEADACHE. TECHNIQUE: Multiplanar and multisequence MR images of the cervical spine were obtained without contrast. 265 images. COMPARISON: XR 03/01/2023. FINDINGS: VERTEBRAE: Vertebral body heights maintained. Mild degenerative endplate changes of C3-4, C4-5, and C5-6. No other significant bone marrow signal abnormality. VERTEBRAL ALIGNMENT: Straightening of the cervical lordosis without anterior or posterior subluxation. SPINAL CORD: Cervical cord signal and morphology within normal limits. SOFT TISSUES: No prevertebral fluid collection. INTERVERTEBRAL DISCS: C2-3: No significant posterior disc protrusion, central canal stenosis, or foraminal narrowing. C3-4, C4-5: Mild posterior disc bulge osteophyte complexes resulting in minimal narrowing of the thecal sac. No significant foraminal narrowing. C5-6: Large left paracentral disc protrusion resulting in mild flattening of the left ventral cord, moderate central canal stenosis, left traversing and exiting nerve root impingement, and moderate left foraminal narrowing. C6-7: Mild central disc protrusion with annular fissure resulting in mild central canal stenosis. No significant foraminal narrowing. C7-T1: No significant posterior disc protrusion, central canal stenosis, or foraminal narrowing. MRI/Spine Cervical (Routine) IMPRESSION: Large left paracentral disc protrusion of C5-6 resulting in mild cord impingement, left nerve root impingement, moderate spinal canal stenosis, and moderate left foraminal narrowing. Mild central disc protrusion of C6-7 resulting in mild spinal canal stenosis. Electronically Signed: Myah Overton MD at 9:45 EST ,
--- OUTSIDE RECORDS SUMMARY | 2023-04-05 08:33 | XMS RPT_ITS | CCD ---
Author Name Unknown Address [address] [place] [address] Organization [facility] Care Team Providers Care Optical Instruments Supervisor Name Role Phone Carol Myles Unavailable Kamila Wharton RN Unavailable Unavailable Kamila Wharton RN Unavailable Unavailable Carol Myles Unavailable Kamila Wharton RN Unavailable Unavailable MALLORY ESCALANTE Primary Care Unavailable JODI ZAMAN Referring Unavailable MALLORY ESCALANTE Primary Care Unavailable Allergies Allergy Classification Reported Allergen(s) Allergy Type Date of Onset Reaction(s) Facility (6 sources) pantoprazole drug allergy 7 headache, Unknown [facility] Work Phone: (1 source) Omeprazole; Translations: [OMEPRAZOLE MAGNESIUM] Drug Allergy 5 [facility] Repository Medications Completed/Discontinued Medications Medication Drug Class(es) Dates Sig (Normalized) Sig (Original) 200 actuat albuterol 0.09 mg/actuat metered dose inhaler (4 sources) beta2-Adrenergic Agonist Start: 11-13-2016 VENTOLIN HFA 108 (90 Base) MCG/ACT AERS uinhale 2 puffs every 4 hours as needed ALBUTEROL SULFATE [id number] Kamila Wharton RN Problems Active Problems Problem Classification Problem Date Documented Date Episodic/Chronic Cardiac dysrhythmias (10 sources) Premature atrial contraction; Translations: [Paroxysmal supraventricular tachycardia] Onset: 10-21-2016 10-21-2016 Chronic Conduction disorders (4 sources) Other right bundle-branch block; Translations: [Other right bundle-branch block] Onset: 11-13-2016 11-13-2016 Chronic Past or Other Problems Problem Classification Problem Date Documented Da te Episodic/Chronic Conditions associated with dizziness or vertigo (3 sources) Dizziness; Translations: [Dizziness and giddiness] Onset: 11-18-2016 11-18-2016 Episodic Nonspecific chest pain (5 sources) Chest pain; Translations: [Other chest pain] Onset: 10-21-2016 10-21-2016 Episodic Syncope (3 sources) Near syncope; Translations: [Syncope and collapse] Onset: 11-18-2016 11-18-2016 Episodic Results Test Name Value Interpretation Reference Range Facil ity Vital Signs Date Time Vital Sign Value Performing Clinician Scott piñay 11-18-2016 14:34-0400 BMI (Body Mass Index) 21.76 kg/m2 Carol Dillard [employer] [facility] Work Phone: 11-18-2016 14:34-0400 BP Diastolic 42 mm[Hg] [facility] Work Phone: 11-18-2016 14:34-0400 BP Diastolic 60 mm[Hg] [facility] Work Phone: 11-18-2016 14:34-0400 BP Systolic 100 mm[Hg] [facility] Work Phone: 11-18-2016 14:34-0400 BP Systolic 110 mm[Hg] [facility] Work Phone: 11-18-2016 14:34-0400 Height 157.48 cm [facility] Work Phone: 11-18-2016 14:34-0400 Pulse (Heart Rate) 80 /min [facility] Work Phone: 11-18-2016 14:34-0400 Respiratory Rate 20 /min [facility] Work Phone: 11-18-2016 14:34-0400 Weight 53.98 kg [facility] Work Phone: Encounters Encounter Date Encounter Type Care Provider Facility Start: 03-15-2023 End: 03-15-2023 ambulatory [facility] Facility:[facility] Procedures Date Procedure Procedure Detail Performing Clinician Start: 11-18-2016 End: 12-08-2016 Echocardiography Jerrell Burt MD Start: 11-18-2016 End: 11-18-2016 Follow Up Appt 4 months Michelle Bautista Start: 11-18-2016 End: 11-18-2016 MMM Jerrell Burt MD Plan of Treatment Date Care Activity Detail Author Start: 03-28-2017 End: 03-28-2017 Appointment Appointment [facility] Work Phone: Start: 11-18-2016 End: 11-18-2016 Appointment Appointment [facility] Work Phone: Start: 11-18-2016 End: 11-18-2016 Echocardiography Echocardiogram (complete) [facility] Work Phone: Start: 11-18-2016 End: 11-18-2016 Follow Up Appt 4 months Follow Up Appt 4 months [facility] Work Phone: Start: 11-18-2016 End: 11-18-2016 MMM MMM [facility] Work Phone: Start: 10-27-2016 End: 10-27-2016 Appointment Appointment [facility] Work Phone: Payers Date Payer Category Payer Medicaid [id number] Progress note 03-15-2023 Note Date & Type Note Facility 03-15-2023 Note HNO ID: [id number] Author: Shonda Fowler RDMS Service: ? Author Type: Optical Goods Drill Operator Type: Progress Notes Filed: 03/15/2023 2:41 PM Note Text: Radiology Service Progress Note PATIENT NAME: Silvestre Elise DATE OF SERVICE: March 15, 2023 TIME: 2:41 PM PATIENT IDENTITY VERIFICATION COMPLETED USING TWO (2) IDENTIFIERS: Name and Date of confirmed by patient verbally. FALL SCREENING: Has the patient had 2 falls in the last year or 1 fall with injury or currently using an Ambulatory Assistive Device (Walker, Cane, Wheelchair, Crutches, etc.)? No PATIENT GENDER DATA: Female. status: : No status: NO. PATIENT RELEVANT IMPLANT DATA REVIEWED: Not Applicable RADIOLOGY DEPARTMENT: Ultrasound PERIPHERAL IV DATA: Not applicable SIGNED BY: Shonda Fowler RDMS March 15, 2023 2:[address] [facility] Progress note 03-15-2023 Note Date & Type Note Facility 03-15-2023 Note HNO ID: [id number] Author: Angelina Mccray Mammo Tech Service: ? Author Type: Optical Goods Drill Operator Type: Progress Notes Filed: 03/15/2023 1:33 PM Note Text: Radiology Service Progress Note PATIENT NAME: Silvestre Elise DATE OF SERVICE: March 15, 2023 TIME: 1:14 PM PATIENT IDENTITY VERIFICATION COMPLETED USING TWO (2) IDENTIFIERS: Name and Date of confirmed by patient verbally. FALL SCREENING: Has the patient had 2 falls in the last year or 1 fall with injury or currently using an Ambulatory Assistive Device (Walker, Cane, Wheelchair, Crutches, etc.)? No PATIENT GENDER DATA: Female. status: : No status: NO. PATIENT RELEVANT IMPLANT DATA REVIEWED: Not Applicable RADIOLOGY DEPARTMENT: Mammography PERIPHERAL IV DATA: Not applicable SIGNED BY: Dayanna Mosher March 15, 2023 1:[address] [facility] Progress note 01-20-2021 Note Date & Type Note Facility 01-20-2021 Note HNO ID: [id number] Author: Maggie Gonzalez MD Service: ? Author Type: Physician Type: Progress Notes Filed: 01/20/2021 2:35 PM Note Text: SPINE SURGERY NEW PATIENT PCP: Mallory Escalante MD REFERRING PROVIDER: None SUBJECTIVE HISTORY OF PRESENT ILLNESS: Silvestre Elise is a 35 year old female presenting with spouse. She is here with the complaint of R lateral leg pain, she says she had back pain a couple of years ago giving , it has since then started to radiate to the lateral part of the R leg. She says the pain is constant, it is worse with activity. She has done multiple injections, the first injection she said helped for about 5 months. The other injections since that time have not offered as much relief. CHIEF COMPLAINT: R leg pain PRECIPITATING EVENT: None DURATION OF SYMPTOMS: Greater Than 1 Year PAIN EVALUATION No data found in the last 1 encounters. AMBULATORY STATUS: Independent Community Distances ANTIPLATELET OR ANTICOAGULATION STATUS: No PREVIOUS CONSERVATIVE TREATMENTS: Epidural Blocks: Date(s) unknown PREVIOUS SPINAL SURGERY: None ACTIVE PROBLEM LIST Migraine Without Aura Attention Deficit Disorder Without Mention of Hyperactivity S/P Leep Pmdd (Premenstrual Dysphoric Disorder) IUD (Intrauterine Device) in Place Chronic Interstitial Cystitis Exercise-Induced Asthma Extrinsic Asthma Allergic Rhinitis Anxiety Gastritis Due to Nonsteroidal Anti-Inflammatory Drug (Nsaid) Irritable Bowel Syndrome With Diarrhea Bipolar II Disorder (Hcc) History of Labor History of Loop Electrosurgical Excision Procedure (Leep) of Cervix Affecting in First Trimester Rh Negative Status During in First Trimester History of Hypoglycemia History of Bipolar Disorder History of Chronic Cystitis Incomplete Right Bundle Branch Block (Rbbb) Pre-Syncope Premature Atrial Contraction Paroxysmal Supraventricular Tachycardia (Hcc) Encounter for Sterilization PAST MEDICAL HISTORY Diagnosis Date - Abnormal glandular Papanicolaou smear of cervix 10/2005 Abn. Pap smear (cervix) - Acute asthmatic bronchitis 06/07/2014 - Bipolar 2 disorder (HCC) 04/01/2015 - Bipolar II disorder (HCC) 04/10/2015 - Exercise-induced asthma 06/18/2014 - Hypoglycemia - Hypoglycemia, unspecified - Interstitial cystitis 11/2013 - PMDD (premenstrual dysphoric disorder) 12/14/2012 - Pneumonia - Sleep disorder - Surveillance of previously prescribed intrauterine contraceptive device 01/12/08 Mirena - Tinea versicolor 10/06/2009 PAST SURGICAL HISTORY Procedure Laterality Date - COLPOSCOPY (VAGINOSCOPY) Colposcopy - CYSTOSCOPY Interstitial cystitis - LEEP PROCEDURE ([employer])_*[place] 2007 Severe squamous dysplasia (JESSI 3) - PAST SURGICAL HISTORY OF Mole, right axilla, benign - SALPINGECTOMY 06/09/2017 Laparoscopic bilateral--[facility] FAMILY HISTORY Problem Relation Age of Onset - Heart Father - Miscarriages / Stillbirths Maternal Grandfather 34 - Heart Maternal Grandmother - Hypertension Maternal Grandmother - Diabetes Maternal Grandmother - Lipids Maternal Grandmother - Arthritis Maternal Grandmother Hands - other (pacemaker) Maternal Grandmother - Breast Cancer Paternal Grandmother - Arthritis Paternal Grandmother Unknown type- hands like claws - Diabetes Maternal Uncle - Diabetes Paternal Aunt - other (neurofibromatosis) Son Social History Tobacco Use - Smoking status: Never Smoker - Smokeless tobacco: Never Used Substance Use Topics - Alcohol use: Yes Comment: 2-3 drinks per year, not while - Drug use: No ALLERGIES Allergen Reactions - Prilosec [Omeprazol* Intolerance Headache MEDICATIONS: lamoTRIgine (LAMICTAL) 200 mg tablet busPIRone (BUSPAR) 10 mg tablet omeprazole (PRILOSEC) 40 mg capsule Take by mouth. vit/iron fum/folic ac ( VITAMIN ORAL) Take by mouth once daily. RANITIDINE HCL (ZANTAC ORAL) Take by mouth as needed. albuterol HFA (VENTOLIN HFA) 90 mcg/actuation inhaler Inhale 2 Puffs as instructed every 4 hours as needed for Wheezing/Shortness of Breath. REVIEW OF SYSTEMS: PAIN ASSESSMENT: See HPI. GENERAL: Denies fever, chills malaise and weight loss. HEENT: No recent change in vision or hearing. CARDIOVASCULAR: Denies chest pain, history of A-fib, valvular disease, or pacemaker/ICD. RESPIRATORY: Denies SOB, sputum production, and hemoptysis. GI: Denies GI ulcers, inflammatory disease, or liver disease. : Denies change in frequency or urgency, kidney disease, and burning with urination. MUSCULOSKELETAL: Positive for See HPI SKIN: Denies rash or itching. PSYCHOLOGICAL: Denies uncontrolled depression or anxiety. NEURO: Denies CVA, seizures, headaches. ENDOCRINE: Denies diabetes, thyroid disease. HEMATOLOGY/LYMPHOLOGY: Denies cancer, bleeding or clotting disorders, anemia,and DVT's. ALLERGIC/IMMUNOLOGICAL: Denies risks for (more content not included)... [facility] Progress note 01-20-2021 Note Date & Type Note Facility 01-20-2021 Note HNO ID: [id number] Author: RT Jason(R) Service: ? Author Type: Technologist Type: Progress Notes Filed: 01/20/2021 11:31 AM Note Text: Radiology Service Progress Note PATIENT NAME: Silvestre Elise DATE OF SERVICE: January 20, 2021 TIME: 11:29 AM PATIENT IDENTITY VERIFICATION COMPLETED USING TWO (2) IDENTIFIERS: Name and Date of confirmed by patient verbally and Name and Date of confirmed by identification band. FALL SCREENING: Has the patient had 2 falls in the last year or 1 fall with injury or currently using an Ambulatory Assistive Device (Walker, Cane, Wheelchair, Crutches, etc.)? No PATIENT GENDER DATA: Female. status: : No status: NO. PATIENT RELEVANT IMPLANT DATA REVIEWED: Not Applicable RADIOLOGY DEPARTMENT: General X-ray: Exam(s) Completed: Spine X-Ray(s): Lumbar AP / LAT / L5-S1 / FLEX-EXT PERIPHERAL IV DATA: Not applicable SIGNED BY: RT Jason(R) January 20, 2021 11:29 AM [facility] Summary Purpose Family History No Family History Records FoundNo Family History Records FoundNo Family History Records FoundNo Family History Records Found Advance Directives No Advanced Directives Records FoundNo Advanced Directives Records FoundNo Advanced Directives Records FoundNo Advanced Directives Records Found Additional Source Comments INFORMATION SOURCE (unrecogn ized section and content) DATE CREATED AUTHOR AUTHOR'S ORGANIZ ATION 01/21/[address] [facility] DATE CREATED AUTHOR AUTHOR'S ORGANIZ ATION 07/22/2021 [facility] DATE CREATED AUTHOR AUTHOR'S ORGANIZ ATION 03/16/[address] [facility] FOR RECORDS PERTAINING TO PATIENTS WHO ARE OR HAVE BEEN ENROLLED IN A CHEMICAL DEPENDENCY/SUBSTANCEABUSE PROGRAM, SOME INFORMATION MAY BE OMITTED. This clinical summary was aggregated from multiple sources. Caution should be exercised in using it in the provision of clinical care. This summary normalizes information from multiple sources, and as a consequence, information in this document may materially change the coding, format and clinical context of patient data. In addition, data may be omitted in some cases. CLINICAL DECISIONS SHOULD BE BASED ON THE PRIMARY CLINICAL RECORDS. [employer] provides no warranty or guarantee of the accuracy or completeness of information in this document.
== END | disposition home or self-care (01) ==
LOC: MRI 08:09
PROVIDERS: PCP Family Medicine; Referring Provider Orthopaedic Surgery; Visit Provider Orthopaedic Surgery
DX: M50.222 Other cervical disc displacement at C5-C6 level (principal)
CPT/HCPCS: 72141

== ENCOUNTER → 2023-04-13 | Outpatient (CLI) | payer MEDICAID, SELFPAY ==
--- NOTE | 2023-04-13 16:25 | RAD_ITS ---
EXAM: XR LEFT HAND COMPLETE, 3 OR MORE VIEWS CLINICAL INDICATION: Left hand injury TECHNIQUE: Frontal, lateral and oblique views of the left hand. COMPARISON: No relevant prior studies available. FINDINGS: BONES/JOINTS: Unremarkable. No acute fracture. No subluxation. Normal alignment. Preservation of the joint space. No sclerotic or destructive changes observed. SOFT TISSUES: Unremarkable. No soft tissue swelling or gas. No radiopaque foreign body. RAD/Hand Min 3 Views IMPRESSION: Negative left hand x-rays. Electronically Signed: Talon Batista MD at 17:03 EST ,
--- OUTSIDE RECORDS SUMMARY | 2023-04-13 16:44 | XMS RPT_ITS | CCD ---
Author Name Unknown Address [address] [place] [address] Organization [facility] Care Team Providers Care Enrober Name Role Phone Carol Myles Unavailable Kamila [...] Omeprazole; Translations: [OMEPRAZOLE MAGNESIUM] Drug Allergy 5 [facility] Repository Medications Completed/Discontinued Medications Medication Drug Class(es) Dates Sig (Normalized) Sig (Original) 200 actuat albuterol 0.09 mg/actuat metered dose inhaler (4 sources) beta2-Adrenergic Agonist Start: 11-13-2016 VENTOLIN HFA 108 (90 Base) MCG/ACT AERS uinhale 2 puffs every 4 hours as needed ALBUTEROL SULFATE [id number] Kamila Wharton RN Problems Active Problems Problem [...] (Body Mass Index) 21.76 kg/m2 Carol Dillard [employer] [facility] Work Phone: 11-18-2016 14:34-0400 BP [...] End: 03-15-2023 ambulatory [facility] Facility:[facility] Procedures Date Procedure Procedure Detail Performing Clinician Start: 11-18-2016 End: 12-08-2016 Echocardiography eJrrell Burt MD Start: 11-18-2016 End: 11-18-2016 Follow Up Appt 4 months Michelle Bautista Start: 11-18-2016 End: 11-18-2016 MMM Jerrell Burt MD Plan of Treatment Date Care Activity Detail Author Start: 03-28-2017 End: 03-28-2017 Appointment Appointment [facility] Work Phone: Start: 11-18-2016 End: 11-18-2016 Appointment Appointment [facility] Work Phone: Start: 11-18-2016 End: 11-18-2016 Echocardiography Echocardiogram (complete) [facility] Work Phone: Start: 11-18-2016 End: 11-18-2016 Follow Up Appt 4 months Follow Up Appt 4 months [facility] Work Phone: Start: 11-18-2016 End: 11-18-2016 MMM MMM [facility] Work Phone: Start: 10-27-2016 End: 10-27-2016 Appointment Appointment [facility] Work Phone: Payers Date Payer Category Payer Medicaid [id number] Progress note 03-15-2023 Note Date & Type Note Facility 03-15-2023 Note HNO ID: [id number] Author: Shonda Fowler RDMS Service: ? Author Type: Nurse Sitter Type: Progress Notes Filed: 03/15/2023 2:41 PM [...] Fowler RDMS March 15, 2023 2:41 PM [facility] Progress note 03-15-2023 Note Date & Type Note Facility 03-15-2023 Note HNO ID: [id number] Author: Angelina Mccray Mammo Tech Service: ? Author Type: Nurse Sitter Type: Progress Notes Filed: 03/15/2023 1:33 PM [...] Dayanna Mosher March 15, 2023 1:14 PM [facility] Progress note 01-20-2021 Note Date & Type Note Facility 01-20-2021 Note HNO ID: [id number] Author: Maggie Gonzalez MD Service: ? Author [...] - CYSTOSCOPY Interstitial cystitis - LEEP PROCEDURE ([employer]EEP [employer] O[employer] DEPT)_*[place] 2007 Severe squamous dysplasia (JESSI 3) - PAST SURGICAL HISTORY OF Mole, right axilla, benign - SALPINGECTOMY 06/09/2017 Laparoscopic bilateral--[facility] FAMILY HISTORY Problem Relation Age of [...] Denies risks for (more content not included)... [facility] Progress note 01-20-2021 Note Date & Type Note Facility 01-20-2021 Note HNO ID: [id number] Author: RT Jason(R) Service: ? Author Type: [...] RT Jason(R) January 20, 2021 11:29 AM [facility] Summary Purpose Family History No Family History Records FoundNo Family History Records FoundNo Family History Records FoundNo Family History Records Found Advance Directives No Advanced Directives Records FoundNo Advanced Directives Records FoundNo Advanced Directives Records FoundNo Advanced Directives Records Found Additional Source Comments INFORMATION SOURCE (unrecogn ized section and content) DATE CREATED AUTHOR AUTHOR'S ORGANIZ ATION 01/21/2021 [facility] l DATE CREATED AUTHOR AUTHOR'S ORGANIZ ATION 07/22/2021 [facility] DATE CREATED AUTHOR AUTHOR'S ORGANIZ ATION 03/16/2023 [facility] FOR RECORDS PERTAINING TO PATIENTS WHO [...] BE BASED ON THE PRIMARY CLINICAL RECORDS. [employer] provides no warranty or guarantee of the accuracy or completeness of information in this document.
== END | disposition home or self-care (01) ==
LOC: MTRAD 16:24
PROVIDERS: PCP Family Medicine; Referring Provider Family Medicine; Visit Provider Family Medicine
DX: S69.90XA Unspecified injury of unspecified wrist, hand and finger(s), initial encounter (principal)
CPT/HCPCS: 73130

== ENCOUNTER 2023-07-05 08:30 | Outpatient (RCR) | payer MEDICAID, SELFPAY ==
--- NOTE | 2023-06-07 16:43 | HP.PTEVAL_ITS ---
Patient's Visit Information Visit Information Visit Information: AMMERCARLOS YUSUF is a 37 year old F referred to Physical Therapy by BRANDO GUZMAN with a diagnosis of CERVICAL VERTEBRAL FUSION. Date of Evaluation: 06/07/23 Physical Therapist: Mahad Samuels, PT, Cert MDT, OCS Visit Plan Frequency: 2x /Week Duration: 4 Weeks Plan: S/P CERVICAL FUSION C5-6 May OKAY FULL ROM ,5-10# WEIGHT RESTRICTION 15-20# ON June PT INNERVATIONS CERVICAL ROM ,POSTURAL EX'S ,POSTURE TRAINING , STRENGTHENING BUE AND CERVICAL ISOMETRICS Subjective Subjective: This 37 y/o female presents physical therapy with cervical fusion C5-6 with plate/screw May 15 at [facility] done by Dr Guzman. Patient d/c to next day. Patient seen last Tuesday with cervical ROM and weight restriction 5-10# and 15 -20# next tuesdayJune 12. Medication percocet and muscle relaxer. Patient had immediate relief with arm pain and paresthesia . Prior to surgery cervical pain in left arm with weakness . No PT or pain injection. Patient return to work. Patient has chronic FLORES occiput. Denies dizziness/tinnitus. Patient symptoms can affects pain. Patient surgery causes impairments with job and ADLS. Patient goals to decrease . 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 Pain Bilateral Lower Extremity: Pain Intensity (Out of 10): 3 Pain Intensity Range: 10 Comment: STIFFNESS Objective Objective: POSTURE: mild forward posture NEURO: denies paresthesia/tingling improved from surgery ,reflexes C5-6-7 2/3 PALPATION: tender UT/levator AROM: BUE WFL STRENGTH: 4/5 ,shoulders 4-/5 CERVICAL ROM: flexion min loss ,lateral flexion min/mod loss ,rotation min/mod loss ,extension min/mod loss Special Tests C/S Radiculapathy - Left Upper limb tension test: Negative C/S Radiculapathy - Right Upper limb tension test: Negative Balance/Special Test Scores Oswestry Neck Score: 28 Goals Goal 1:: Patient to be I with HEP for cervical spine Goal Time Frame: 4-6 Weeks Goal 2:: Patient to demonstrate 60% improvement with function and ADLS Goal Time Frame: 4-6 Weeks Goal 3:: Patient to improve cervical ROM for function of recovery and driving to turn neck and job demands Goal Time Frame: 4-6 Weeks Goal 4:: Patient to improve neck oswestry score by 5 points to improve QOL and function Goal Time Frame: 4-6 Weeks Goal 5:: Patient be able to perform ADL and job demands without limitations. Goal Time Frame: 4-6 Weeks Rehabilitation Potential Physical Therapy Diagnosis: This patient has cervical fusion with plate and sc rew C5-6 May 15 at [facility] with decrease cervical ROM ,weakness and pain impairs ADLS and job demands thus benefit from skilled PT Rehabilitation Potential: Good Anticipated Interventions Patient/Client Instruction: Educate patient on: Condition and Plan of Care For the Purpose of:: To decrease pain, To increase ROM, To improve muscle performance and motor function, To improve ability to perform ADL's, To increase tolerance to activity/condition/position, To improve ability of physical actions for home/community/work/leisure, To improve gait and locomotor functions, To decrease soft tissue restriction, To increase flexibility/ROM and To improve tolerance to ADL's Therapeutic Exercise to Include: Strength training, Postural training, Flexibilty training, Active ROM and Scapular Strength/Stabilization Comment: BUE For the Purpose of:: To decrease pain, To increase ROM, To improve muscle performance and motor function, To improve ability to perform ADL's, To increase tolerance to activity/condition/position, To improve ability of physical actions for home/community/work/leisure, To improve health of tissue, To decrease soft tissue restriction and To increase flexibility/ROM Text: Thank you for the opportunity to evaluate your patient. For Medicare and Medicare HMO plans, please review the plan of care and approve it. It will need to be FAXED BACK to us at [phone] for Medicare purposes. For Medicare only, by signing this I certify the plan of care. Please let me know if there are questions or concerns regarding this plan of care. Physician Signature: Date:
--- NOTE | 2023-07-05 08:59 | HP.PTDCSUM ---
Discharge Summary D/C summary: It has been my pleasure to treat AMMERIST CARLITA YUSUF referred by BRANDO GUZMAN, with the diagnosis of CERVICAL VERTEBRAL FUSION for a total of 6 visit(s). Discharge Date: 07/05/23 Please see the following information for a summary of their discharge status. Subjective Subjective: Doing well able to do ex's on own Pain Bilateral Lower Extremity: Pain Intensity (Out of 10): 1 Overall Improvement % Improvement: 90 Objective Objective/Function: POSTURE: mild forward posture NEURO: denies paresthesia/tingling improved from surgery ,reflexes C5-6-7 2/3 PALPATION: tender UT/levator AROM: BUE WFL STRENGTH: 4/5 ,shoulders 4/5 CERVICAL ROM: flexion WGFL loss ,lateral flexion min loss ,rotation WFL loss ,extension min loss ( progressed well) Goals Goal 1:: Patient to be I with HEP for cervical spine Goal Progress: Goal Met Goal 2:: Patient to demonstrate 60% improvement with function and ADLS Goal Progress: Goal Met Goal 3:: Patient to improve cervical ROM for function of recovery and driving to turn neck and job demands Goal Progress: Goal Met Goal 4:: Patient to improve neck oswestry score by 5 points to improve QOL and function Goal Progress: Goal Met Goal 5:: Patient be able to perform ADL and job demands without limitations. Goal Progress: Goal Met Plan Plan: D/C D/C Information Discharge Comments: HEP d/c sentence: If there are questions or concerns regarding this patient's physical therapy, please feel free to call me at [phone]. Thank you for the referral of this patient. Sincerely, Mahad Samuels, PT, Cert MDT, OCS Balance/Gait/Functional tests Balance/Special Test Scores Oswestry Neck Score: 3 Improvement % Improvement: 90
== END 2023-07-05 19:00 | disposition home or self-care (01) ==
LOC: PT 08:30
PROVIDERS: PCP Family Medicine
DX: M43.22 Fusion of spine, cervical region (principal)
CPT/HCPCS: 97110; 97140; 97162

== ENCOUNTER → 2023-10-11 | Outpatient (CLI) | payer MEDICAID, SELFPAY ==
--- NOTE | 2023-10-11 16:52 | US_ITS ---
STUDY: ULTRASOUND OF THE FEMALE PELVIS - COMPLETE REASON FOR EXAM: Female, 37 years old. RLQ pain LMP: TECHNIQUE: Transabdominal and transvaginal TECHNICAL QUALITY: Adequate. COMPARISON: June 29, 2022. FINDINGS: The uterus is anteverted and is in a midline position. The uterus measures 8.7 x 5.4 x 4.1 cm. Normal uterine cervix. The endometrium measures 3 mm in thickness, and is hyperechoic. There is no demonstrated endometrial mass. There is no demonstrated myometrial mass. I.U.D. - The patient does not have an I.U.D. tiny nabothian cyst in the lower uterine segment The right ovary is visualized. The right ovary measures 2.6 x 1.9 x 1.9 cm. There is a cyst measuring 1.5 x 1.2 x 0.8 cm. There is no visualized right adnexal mass or complex lesion. There is normal arterial and normal venous vascularity. The left ovary is visualized. The left ovary measures 3 x 1.9 x 1.7 cm. There is a cyst measuring 1.1 x 1 x 0.8 cm. There is no visualized left adnexal mass or complex lesion. There is normal arterial and normal venous vascularity. There is mild fluid in the cul-de-sac. US/Pelvic (Non ) IMPRESSION: Small bilateral ovarian cysts. Mild fluid in the cul-de-sac possibly due to recent ovulation. Electronically Signed: Dorian Bryan MD at 22:20 EDT ,
== END | disposition home or self-care (01) ==
LOC: US 16:49
PROVIDERS: PCP Family Medicine; Referring Provider Obstetrics & Gynecology; Visit Provider Obstetrics & Gynecology
DX: R10.31 Right lower quadrant pain (principal)
CPT/HCPCS: 76856

== ENCOUNTER → 2023-11-01 | Outpatient (CLI) | payer MEDICAID, SELFPAY ==
[2023-11-01 10:54] LABS: Absolute Lymphocyte Count 2.63 X10^3/uL (0.83-4.51); Absolute Neutrophil Count 5.8 X10^3/uL (2.0-7.7); Basophil# 0.05 X10^3/uL; Basophil% 0.5 % (0-1); Eosinophil# 0.39 X10^3/uL; Eosinophils% 4.1 % (0-5); Hematocrit 41.5 % (37-47); Hemoglobin 13.8 g/dL (12.0-15.0); Lymphocyte # 2.63 X10^3/ul (0.83-4.51); Lymphocyte % 27.8 % (19-41); Mean Corp Hgb Conc 33.3 g/dL (32-36); Mean Corpuscular Hgb 28.8 pg (27.0-32.0); Mean Corpuscular Volume 86.6 fL (81-99); Mean Platelet Vol. 9.3 fl (6.2-12.0); Monocyte# 0.54 X10^3/uL; Monocyte% 5.7 % (0-10); NRBC Flagged by Analyzer 0 % (0-5); Neutrophil % 61.5 % (47-70); Platelet Count 279 K/mm3 (150-450); RBC Distribution Width CV 12.7 % (11.6-14.6); RBC Distribution Width SD 40.2 fl (35.1-43.9); Red Blood Count 4.79 M/mm3 (4.2-5.4); White Blood Count 9.5 K/mm3 (4.4-11.0)
[2023-11-01 11:37] LABS: AST(SGOT) 12 U/L (15-37); Alanine Aminotransfer ALT/SGPT 17 U/L (13-56); Albumin, Serum 3.7 g/dL (3.2-5.0); Alkaline Phosphatase 41 U/L (45-117); Anion Gap 4 (5-15); BUN 13 mg/dL (7-18); BUN/Creat Ratio 17.1 RATIO (10-20); Bilirubin, Direct 0.09 mg/dL (0.00-0.30); Calcium,Total 8.9 mg/dL (8.5-10.1); Chloride 108 mmol/L (98-107); Cholesterol 209 mg/dL (200); Creatinine, Serum 0.76 mg/dL (0.55-1.02); EST Glomerular Filtration Rate 90 mL/min (>60); Est Glom Filt Rate - Afr Amer 109 mL/min (>60); Globulin 3.5 g/dL (2.2-4.2); Glucose 88 mg/dL (74-106); High Density Lipoprotein 55 mg/dL; Magnesium 2.2 mg/dL (1.6-2.6); Potassium 4.4 mmol/L (3.5-5.1); Protein, Total 7.2 g/dL (6.4-8.2); Sodium Level 138 mmol/L (136-145); Triglycerides 84 mg/dL; Very Low Density Lipoprotein 17 mg/dL (5-40)
== END | disposition home or self-care (01) ==
LOC: LAB 10:33
PROVIDERS: PCP Family Medicine; Referring Provider Nurse Practitioner Gerontology; Visit Provider Nurse Practitioner Gerontology
DX: R06.09 Other forms of dyspnea (principal); Z82.49 Family history of ischemic heart disease and other diseases of the circulatory system
CPT/HCPCS: 36415; 80048; 80061; 80076; 83735; 84443; 85025

== ENCOUNTER → 2023-11-15 | Outpatient (CLI) | payer MEDICAID, SELFPAY | END | disposition home or self-care (01) | LOC: PSN 06:56 | PROVIDERS: PCP Family Medicine; Referring Provider Nurse Practitioner Gerontology; Visit Provider Nurse Practitioner Gerontology | DX: R06.09 Other forms of dyspnea (principal) | CPT/HCPCS: 94060; 94726; 94729 ==

== ENCOUNTER → 2024-04-23 | Outpatient (CLI) | payer MEDICAID, SELFPAY ==
[2024-04-26 16:08] LABS: HPV APTIMA, High Risk Negative (Negative)
== END | disposition home or self-care (01) ==
LOC: LABSPEC 11:10
PROVIDERS: PCP Family Medicine; Referring Provider Obstetrics & Gynecology; Visit Provider Obstetrics & Gynecology
DX: N89.8 Other specified noninflammatory disorders of vagina (principal); Z12.4 Encounter for screening for malignant neoplasm of cervix
CPT/HCPCS: 87070; 87205; 87624; 88175; G0145

== ENCOUNTER 2024-05-01 09:18 | Outpatient (CLI) | payer MEDICAID, SELFPAY ==
--- NOTE | 2024-05-01 09:20 | US_ITS ---
PROCEDURE: BREAST LIMITED UNILATERAL REASON FOR EXAM: Palpable lump in the right axilla and lateral aspect of the right breast. COMPARISON: Comparison is made with prior mammogram done earlier in the day and prior sonogram dated March 15, 2023. TECHNIQUE: Targeted right breast ultrasound. FINDINGS: RIGHT: Ultrasound targeted to the lateral half at the right breast. The breast tissue appears sonographically normal. No cyst, solid mass, or suspicious shadowing. US/Breast Limited Unilateral IMPRESSION: No mass lesion seen. BI-RADS 2: BENIGN. RECOMMEND ANNUAL MAMMOGRAPHIC SCREENING. Reading Location: [place] [id number]
--- NOTE | 2024-05-01 09:20 | BI_ITS ---
PROCEDURE: DIAG MAMM W/CAD, BILAT REASON FOR EXAM: F, Age 38 y/o, right breast lump. TECHNIQUE: Bilateral screening digital breast tomosynthesis with 2D and 3D images. Computer aided detection. COMPARISON: Prior exam(s) dating back to comparison is made with prior outside examination dated March 15 2023.. FINDINGS: There are scattered areas of fibroglandular density. No suspicious masses, areas of developing architectural distortion, or suspicious calcifications. With the patient's history of a palpable lump in the right breast, correlation with ultrasound recommended. BI/DIAG MAMM W/CAD, BILAT IMPRESSION: BI-RADS 0: INCOMPLETE - NEED ADDITIONAL IMAGING EVALUATION. Follow-up code: Sonographic follow-up. The patient will be notified of the results by letter. Reading Location: [place] [id number]
== END 2024-05-01 23:59 | disposition home or self-care (01) ==
LOC: OPBI 09:20
PROVIDERS: PCP Family Medicine; Referring Provider Obstetrics & Gynecology; Visit Provider Obstetrics & Gynecology
DX: N63.10 Unspecified lump in the right breast, unspecified quadrant (principal); R92.8 Other abnormal and inconclusive findings on diagnostic imaging of breast
CPT/HCPCS: 77062; 76642; 77066; G0279

== ENCOUNTER → 2024-06-15 | Outpatient (CLI) | payer OTHER, SELFPAY ==
--- NOTE | 2024-06-15 07:27 | CT_ITS ---
PROCEDURE: LIMITED CHEST CT CARDIAC ONLY REASON FOR EXAM: FAMILY HX OF CAD, DIEHL TECHNIQUE: Prone and supine chest CT without contrast, high resolution CT (HRCT) protocol. Coronal and Sagittal reconstruction series were provided. One or more dose reduction techniques were used (e.g., Automated exposure control, adjustment of the mA and/or kV according to patient size, use of iterative reconstruction technique). COMPARISON: None FINDINGS: Hardware: None Lymph nodes: No mediastinal hilar or axillary lymphadenopathy. Heart and Vasculature: Normal heart size. No pericardial effusion. Coronary Artery Calcifications: Absent Lungs and Airways: The lungs are normally expanded and clear. No septal thickening nodules or abnormal pulmonary opacities. Pleura: Unremarkable Upper Abdomen: Unremarkable Bones: Bone windows are unremarkable. CT/Limited Chest CT Cardiac Only IMPRESSION: Coronary artery calcification (CAC) is is absent Reading Location: [place] [id number]
--- NOTE | 2024-06-15 13:05 | CA.SCORE ---
Calcium Scoring Date of Study:: 06/15/24 Indications Indications: Dyspnea on exertion Coronary Calcium Scoring: High-resolution Computed Tomographic imaging of the chest was performed on [06/15/2024], with particular attention paid to the coronary arteries. Images from the examination were analyzed for the presence and extent of coronary artery calcification , using coronary calcium quantification software. The patient tolerated the procedure well and there were no complications. The results of the coronary calcification analysis are provided below. Findings Coronary Artery Left Main (LM): 0 Left Anterior Descending (LAD): 0 Left Circumflex (LCX): 0 Right Coronary Artery (RCA): 0 Total Agatston Score: 0 Percentile Rankinth Calcium Scoring Interpretation: Different methods to categorize the overall amount of coronary plaque. Overall amount CAC SIS Visual of coronary plaque P1 Mild -100 <2 1-2 vessels with mild amount of plaque P2 Moderate 101-300 3-4 1-2 vessels with moderate amount, 3 vessels with mild amount of plaque P3 Severe 301-999 5-7 3 vessels with moderate amount, 1 vessel with severe amount of plaque P4 Extensive >1000 >8 2-3 vessels with severe amount of plaque Conclusion: No atherosclerotic plaquing noted
== END | disposition home or self-care (01) ==
LOC: CT 07:25
PROVIDERS: PCP Family Medicine; Referring Provider Nurse Practitioner Family; Visit Provider Nurse Practitioner Family
DX: R06.09 Other forms of dyspnea (principal); Z82.49 Family history of ischemic heart disease and other diseases of the circulatory system
CPT/HCPCS: 75571; 76380

== ENCOUNTER → 2024-06-18 | Outpatient (CLI) | payer OTHER, SELFPAY | END | disposition home or self-care (01) | LOC: SL 15:16 | PROVIDERS: PCP Family Medicine; Visit Provider Nurse Practitioner Family | DX: G47.10 Hypersomnia, unspecified (principal) | CPT/HCPCS: 95806 ==

== ENCOUNTER 2024-06-22 08:12 | Outpatient (CLI) | payer OTHER, SELFPAY ==
[2024-06-22 10:27] LABS: Absolute Neutrophil Count 3.7 X10^3/uL (2.0-7.7); Basophil# 0.07 X10^3/uL; Eosinophil# 0.39 X10^3/uL; Eosinophils% 5.4 % (0-5); Hematocrit 41.9 % (37-47); Hemoglobin 14.2 g/dL (12.0-15.0); Lymphocyte % 36.3 % (19-41); Mean Corp Hgb Conc 33.9 g/dL (32-36); Mean Corpuscular Hgb 29.2 pg (27.0-32.0); Mean Platelet Vol. 10.4 fl (6.2-12.0); Monocyte# 0.33 X10^3/uL; Monocyte% 4.6 % (0-10); NRBC Flagged by Analyzer 0 % (0-5); Neutrophil # 3.74 X10^3/uL (2.7-7.7); Neutrophil % 52.3 % (47-70); Platelet Count 309 K/mm3 (150-450); RBC Distribution Width CV 12.6 % (11.6-14.6); RBC Distribution Width SD 39.8 fl (35.1-43.9); Red Blood Count 4.87 M/mm3 (4.2-5.4); White Blood Count 7.2 K/mm3 (4.4-11.0)
[2024-06-22 11:11] LABS: ALB/GLOB Ratio 1.7 RATIO (0.9-2.4); AST(SGOT) 19 U/L (<=31); Alanine Aminotransfer ALT/SGPT 13 U/L (<=34); Albumin, Serum 4.3 g/dL (3.5-5.0); Alkaline Phosphatase 39 U/L (35-104); Anion Gap 13 (5-15); BUN 13 mg/dL (4-19); BUN/Creat Ratio 16.8 RATIO (10-20); Calcium,Total 9.3 mg/dL (7.6-11.0); Carbon Dioxide 20.5 mmol/L (21.0-32.0); Chloride 105 mmol/L (98-108); Creatinine, Serum 0.75 mg/dL (0.70-1.20); EST Glomerular Filtration Rate 103 (>60); Globulin 2.5 g/dL (2.2-4.2); Glucose 93 mg/dL (70-99); Potassium 4.2 mmol/L (3.3-5.1); Protein, Total 6.8 g/dL (5.9-8.4); Sodium Level 139 mmol/L (133-145); Total Bilirubin 0.27 mg/dL (0.00-1.30)
[2024-06-22 11:12] LABS: Vitamin D,25 Hydroxy 19.7 ng/mL (30-100)
== END 2024-06-22 23:59 | disposition home or self-care (01) ==
LOC: MFPLAB 08:13
PROVIDERS: PCP Family Medicine; Referring Provider Family Medicine; Visit Provider Family Medicine
DX: I47.10 Supraventricular tachycardia, unspecified (principal); E55.9 Vitamin D deficiency, unspecified
CPT/HCPCS: 36415; 80053; 82306; 83735; 84443; 85025

== ENCOUNTER → 2024-09-19 | Outpatient (CLI) | payer OTHER, SELFPAY ==
[2024-09-19 09:19] LABS: Follicle Stimulating Hormone 3.9 mIU/mL
[2024-09-19 10:12] LABS: CORTISOL AM 17.60 ug/dL (6.02-18.40)
== END | disposition home or self-care (01) ==
LOC: LAB 07:02
PROVIDERS: PCP Family Medicine
DX: R23.2 Flushing (principal)
CPT/HCPCS: 36415; 82533; 83001; 83002

== ENCOUNTER → 2024-12-20 | Outpatient (CLI) | payer OTHER, SELFPAY ==
[2024-12-20 15:07] LABS: Hematocrit 38.9 % (37-47); Hemoglobin 13.2 g/dL (12.0-15.0); Mean Corp Hgb Conc 33.9 g/dL (32-36); Mean Corpuscular Volume 86.1 fL (81-99); Mean Platelet Vol. 9.9 fl (6.2-12.0); Platelet Count 300 K/mm3 (150-450); RBC Distribution Width CV 12.5 % (11.6-14.6); RBC Distribution Width SD 39.6 fl (35.1-43.9); Red Blood Count 4.52 M/mm3 (4.2-5.4); White Blood Count 8.6 K/mm3 (4.4-11.0)
[2024-12-20 15:53] LABS: Anion Gap 9 (5-15); BUN 11 mg/dL (4-19); BUN/Creat Ratio 15.1 RATIO (10-20); Calcium,Total 8.8 mg/dL (7.6-11.0); Carbon Dioxide 24.4 mmol/L (21.0-32.0); Chloride 103 mmol/L (98-108); Glucose 85 mg/dL (70-99); Potassium 4.0 mmol/L (3.3-5.1)
== END | disposition home or self-care (01) ==
LOC: MTLAB 11:35
PROVIDERS: PCP Family Medicine; Referring Provider Urology; Visit Provider Urology
DX: Z01.818 Encounter for other preprocedural examination (principal)
CPT/HCPCS: 36415; 80048; 85027

== ENCOUNTER 2024-12-27 06:34 | Day surgery (SDC) | payer OTHER, SELFPAY ==
--- NOTE | 2024-12-17 14:28 | PAT.ANE_ITS ---
Pre-Assessment Diagnosis/Proposed Procedure Planned Operative Procedure(s): Cysto, Possible biopsy with fulguration. Possible Industry-distention Anesthesia History Anesthesia History - respiratory therapy director: Anesthesia History - respiratory therapy director Hx Hospitalization No 12/17/24 14:17 Any Problems With Anesthesia Yes: SLOW TO AWAKEN 12/17/24 14:17 Cholinesterase deficiency No 12/17/24 14:17 You/Your Family Experience No 12/17/24 14:17 fever (hyperthermia) with Relationship Recent Exposure to Contagious No 04/01/23 14:09 Disease Does patient have nerve No 12/17/24 14:17 stimulator Patient instructed to have device shut off --Does patient have Pacemaker or ICD? When Was Last Pacemaker Check QUESTION #4 FULL TEXT: You/Your Family Experience fever (hyperthermia) with Anesthesia Last Oral Intake Last Oral intake: Last Oral Intake NPO since Meds taken in AM with sips of water? Meds patient instructed to take am of surgery PONV PONV - respiratory therapy director: PONV - respiratory therapy director Female Yes 12/17/24 14:17 HX of Motion Sickness No 12/17/24 14:17 HX of N/V After Surgery No 12/17/24 14:17 Non-Smoker Yes 12/17/24 14:17 Duration of Surgery greater No 12/17/24 14:17 than 60 minutes Number of Risk Factors 2 12/17/24 14:17 PONV Score Moderate Risk 12/17/24 14:17 Height & Weight Height & Weight: Anesthesia: Height & Weight Height 5 ft 2 in 12/03/24 08:59 Respiratory Assessment Respiratory Assessment - respiratory therapy director: Respiratory Tract Infection Hx - respiratory therapy director Hx Respiratory Tract Infection No 12/17/24 14:17 STOP Sleep Apnea STOP Sleep Apnea - respiratory therapy director: STOP Sleep Apnea - respiratory therapy director Hx Hypertension No 12/17/24 14:17 Hx Sleep Apnea No 12/17/24 14:17 CPAP BIPAP Do you snore loudly (louder No 12/17/24 14:17 than talking or can be heard Do you often feel tired/ No 12/17/24 14:17 fatigued/ sleepy during daytime? Has anyone observed you stop No 12/17/24 14:17 breathing during sleep? STOP Results Negative 12/17/24 14:17 QUESTION #5 FULL TEXT : Do you snore loudly (louder than talking or can be heard through closed doors)? Tobacco Use History Tobacco Use History - respiratory therapy director: Tobacco Use History - respiratory therapy director Tobacco Use Smoking Status Never smoker 12/17/24 14:17 Hx Tobacco Use No 12/17/24 14:17 Years Smoking Packs Smoked per Day Smoking Cessation Date was within the last 15 years Hx Smoking Cessation Date Hx Smoking Cessation Counseling Hematologic Medial History Hematologic Hx - respiratory therapy director: Hematologic Medical Hx - medical affairs manager Hx of Blood Transfusion No 12/17/24 14:17 Hx of Transfusion in last 3 No 12/17/24 14:17 Months Date of Last Transfusion (if within last 3 months) Ever experience any problems No 12/17/24 14:17 with transfusion(s)? Specify any problems Hx of Preganancy in last 3 No 12/17/24 14:17 Months Nurse Filling Out Transfusion VCHRISTIN 12/17/24 14:17 & Questions: Date: 12/17/24 12/17/24 14:17 Time: 14:18 12/17/24 14:17 Patient unable to answer at this time (ie. confused, unrespo /Reproduction History /Reproductive History - respiratory therapy director: /Reproductive Hx- respiratory therapy director Hx Now Yes 12/17/24 14:17 Gestational Age (in weeks): EDC: Hx Hx Para Hx Section SAB No 12/17/24 14:17 COUNTS INCLUDE 234 BEDS AT THE [facility] Medical History (Updated 12/17/24 @ 14:16 by Margarita Holdre) Wears glasses Injury of head and neck Gastric reflux History of Holter monitoring Mixed incontinence Nocturia Interstitial cystitis (chronic) with hematuria Dyspareunia, female Interstitial cystitis Hematuria Chronic right lower quadrant pain Wears contact lenses Anxiety Back pain History of IBS Non-smoker History of pain when walking Cardiology follow-up encounter History of echocardiogram Hypotension History of stress test Ischemic colitis Intestinal angina Vasovagal syncope Interstitial cystitis Asthma Migraines Fatigue History of palpitations Incomplete right bundle branch block Supraventricular tachycardia, paroxysmal Other chest pain Premature atrial contractions Near syncope Dizziness Home Medications ?Medication ?Instructions ?Recorded ?Last Taken ?Type lamotrigine 100 mg tablet 100 mg PO QDAY 04/30/24 Unkn own History propranolol 20 mg tablet 20 mg PO DAILY #90 tabs 12/06 Unknown Rx famotidine 20 mg tablet (Acid 20 mg PO DAILY 12/17/24 Unknown History Controller) Allergy/AdvReac Type Severity Reaction Status Date / Time No Known Allergies Allergy Verified 12/17/24 14:08 Family History Father Paroxysmal atrial fibrillation Alcoholism Grandmother Heart disease CAD (coronary artery disease) CABG Pacemaker Breast cancer Grandfather , Age 37 Myocardial infarction Mother Rheumatoid arthritis Glaucoma Arthritis Depression Surgical History (Updated 12/17/24 @ 14:20 by Margarita Holder) Hx of cervical spine surgery H/O LEEP History of wisdom tooth extraction History of esophagogastroduodenoscopy (EGD) History of cystoscopy History of dilatation and curettage History of salpingectomy Social History household members: spouse and children housing: house number of children: 5 current occupational status: employed 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 Sinus rhythm-RSR in V1?nondiagnostic. Stress test pertinent findings: August 20, 2019. Patient achieved a workload of 7.4 METS. No arrhythmias at a moderate workload. No angina. Echo (EF%) pertinent findings: May 24, 2022. EF is 60%. No aortic stenosis noted. Consult pertinent findings: April 30, 2024. Roof TAR HEATER-C. 1. Lightheadedness-occurs in warm weather/or hot shower. Improved with staying hydrated. Continue current medical therapy. 2. Near syncope-denies any recurring episodes. 3. Tachycardia-this is by history. Latest Holter demonstrated sinus rhythm. Continue propranolol therapy, hydration, compression stockings and adding salt to diet. 4. Dyspnea on exertion-latest echo with a EF of 60% and normal valves. This appears stable. 5. Fatigue-no significant findings on lab testing. Patient is not anemic and TSH was normal. Proceed with polysomnogram to rule out sleep apnea. 6. Family history of CAD-due to family history of CAD, previously been recommended to undergo a coronary calcium score. This has not been completed by the patient. Additional pertinent findings: Holter monitor. May 24, 2022. Sinus rhythm baseline. No ectopy noted. Diary noted dizziness and lightheadedness, rapid heart rate, shortness of breath which correlated with tachycardia. Recommendation Anesthesia Recommendation Anesthesia recommendation: OPTIMIZED for anesthesia
[2024-12-27] VITALS (8 sets, daily range): BP systolic 95–104; BP diastolic 63–72; PULSE 70–89; RESP 10–16; TEMP 36.1–36.4; O2SAT 97–100; BMI 22.9
--- OUTSIDE RECORDS SUMMARY | 2024-12-27 06:41 | XMS RPT_ITS | CCD ---
Author Organization [facility] Care Team Providers Care Wool Hat Hydraulicker Name Role Phone Carol Myles Unavailable Akiko RN, Kamila Billings Unavailable Unavailable Akiko RN, Kamila Billings Unavailable Unavailable Carol Myles Unavailable Akiko ESPINOZA, Kamila Billings Unavailable Unavailable Dr. Mallory Foster Primary Care Provider Dr. Mallory Foster Referring Provider Dr. Jairo Bob Attending Provider [phone] Dr. Jairo Bob Other Provider Dionisio LEAD COOK, DOTTIE Martinez Attending Provider [phone] Dr. Mallory Foster Primary Care Provider [phone] Dr. Mallory Foster Referring Provider Dr. Jairo Bob Attending Provider [phone] Mallory Foster Other Provider Dr. Dave Bell Attending Provider [phone] Mallory Foster Primary Care Provider [phone] Dr. Mallory Foster Referring Provider Dr. Raisa Galeas Attending Provider [phone] Dr. Mallory Foster Primary Care Provider [phone] Dr. Mallory Foster Referring Provider Dr. Raisa Galeas Attending Provider [phone] [place], [place] Fatmata Martinez Attending Provider Dr. Jerrell Burt Attending Provider Dr. Mallory Foster Primary Care Provider [phone] Dr. Mallory Foster Referring Provider Dr. Mallory Foster Primary Care Provider [phone] Dr. Mallory Foster Referring Provider Rick LEAD COOK, LEAD COOK-C Montse Attending Provider Dr. Mallory Foster Primary Care Provider [phone] Dr. Mallory Foster Referring Provider Dr. Raisa Galeas Attending Provider Frank LEAD COOK, LEAD COOK-C Mallory Vicente Attending Provider Dr. Bijan George Attending Provider [phone] Mallory Foster MD Primary Care Provider MALLORY FOSTER Primary Care Unavailable MAGGIE GUZMAN Referring Unava ilMALLORY Urena Primary Care Unavailable AMENA DALTON Referring Unavailable MALLORY FOSTER Primary Care Unavailable JORGE BARBOZA Attending Unava ilDr. Mallory Urena Primary Care Provider [phone] Dr. Mallory Foster Referring Provider [phone] Bijan George Attending Provider [phone] Mallory Foster MD Primary Care Provider KRISTYN GUZMANRMAwa Attending Unavail able MALLORY FOSTER Primary Care Unavailable MAGGIE GUZMAN Attending Unavail able MALLORY FOSTER Primary Care Unavailable MALLORY FOSTER Primary Care Unavailable MALLORY FOSTER Primary Care Unavailable IQRA BAGLEY Referring Unavailable MALLORY FOSTER Primary Care Unavailable MAGGIE GUZMAN Attending Unavail able MALLORY FOSTER Primary Care Unavailable ИВАН AJ Referring Unavailable MALLORY FOSTER Primary Care Unavailable MAGGIE GUZMAN Referring Unavail able MALLORY FOSTER Primary Care Unavailable AMENA DALTON Referring Unavailable Kristin FERRERA, Dr. Mallory Gregory Primary Care Provider Kristin FERRERA, Dr. Mallory Gregory Referring Provider [phone] Dr. Raisa Galeas DO Attending Provider Alverto Aguilar DO, Dr. Kline Referring Provider Roof LEAD COOK-C, Mallory Vicente Attending Provider Roof LEAD COOK-C, Mallory H Referring Provider [phone] Roof LEAD COOK-C, Mallory Vicente Other Provider Javed FERRERA, Dr. Allan Attending Provider Kristin FERRERA, Dr. Mallory Gregory Attending Provider [phone] Kristin FERRERA, Dr. Mallory Gregory Primary Care Provider Roof LEAD COOK-C, Mallory Vicente Attending Provider Kristin FERRERA, Dr. Mallory Gregory Referring Provider [phone] [facility] LEAD COOK-C, Kalen Attending Provider [facility] LEAD COOK-C, Kalen Referring Provider Kristin FERRERA, Dr. Mallory Gregory Primary Care Physician [facility] LEAD COOK-C, Kalen Attending Physician Kristin FERRERA, Dr. Mallory Gregory Referring Provider [phone] Deanna FERRERA, Dr. Brumfield Attending Physician Raisa Galeas Referring UnavailRaisa Michelle Attending UnavailMallory Garner Primary Care Unavailable Mallory Foster Referring Unavailable Mallory Foster Attending Unavailable Mallory Foster Primary Care Unavailable Brissa Huerta Attending Unavailable Brissa Huerta Referring Unavailable Mallory Foster Primary Care Unavailable Mallory Foster Primary Care Unavailable LaraorrowKalen Referring Unavailable LaraorrowKalen Attending Unavailable Mallory Foster Referring Unavailable Brissa Huerta Attending Unavailable Schinner, Mallory E Primary Care Unavailable Schinner, Mallory E Primary Care Unavailable Schinner, Mallory E Referring Unavailable Brissa Huerta Attending Unavailable Kristin, Mallory E Primary Care Unavailable Brissa Huerta Attending Unavailable Roof, Mallory H Referring Unavailable Roof, Mallory H Consulting Unavailable Schinner, Mallory E Primary Care Unavailable Jerrell Burt Attending Unavailable Schinner, Mallory E Referring Unavailable Schinner, Mallory E Primary Care Unavailable Vande Raisa Aguilar Attending Unavailabl e Schinner, Mallory E Referring Unavailable Roof, Mallory H Attending Unavailable Schinner, Mallory E Primary Care Unavailable Roof, Mallory H Attending Unavailable Schinner, Mallory E Primary Care Unavailable Roof, Mallory H Referring Unavailable Roof, Mallory H Attending Unavailable Schinner, Mallory E Primary Care Unavailable Brissa Huerta Attending Unavailable Brissa Huerta Referring Unavailable Schinner, Mallory E Primary Care Unavailable Raisa Galeas Referring Unavailabl e Vine Raisa Aguilar Attending Unavailabl e Schinsara, Mallory E Primary Care Unavailable Allergies Allergy Classification Reported Allergen(s) Allergy Type Date of Onset Reaction(s) Facility (6 sources) pantoprazole drug allergy 7 headache, Unknown [facility] Work Phone: (5 sources) Omeprazole; Translations: [OMEPRAZOLE MAGNESIUM] Drug Allergy 5 Intolerance [facility] Work Phone: Medications Current Medications Medication Drug Class(es) Dates Sig (Normalized) Sig (Original) acetaminophen 325 mg / oxyCODONE hydrochloride 5 mg oral tablet (17 sources) Opioid Agonist Start: 05-17-2023 End: 05-24-2023 take 1 tablet by mouth every six hours as needed oxyCODONE-acetami nophen (PERCOCET) 5-325 mg tablet Indications: Status post cervical spinal fusion Take 1 tablet by mouth every 6 hours as needed for up to 7 days. 28 tablet 0 05/17/2023 05/24/2023 Active Start: 05-13-2016 End: 05-13-2016 Oxycodone-Acetaminophen 1 TA BLET tablet Discontinued 1 {tbl} PO EVERY 4 HOURS NEEDED as needed for Pain 10 0 May 13, 2016 12:33pm May 13, 2016 12:35pm Start: 05-13-2016 End: 05-13-2016 take 1 tablet by mouth every four hours as needed Oxycodone-Acetaminophen Discontinued 1 TABLET PO EVERY 4 HOURS NEEDED May 13, 2016 12:33pm May 13, 2016 12:35pm Comment on above: Take 1 tablet by indira every 6 hours as needed for up to 7 days. benzocaine 6 mg / menthol 10 mg oral lozenge (1 source) Standardized Chemical Allergen Start: 4 End: benzocaine-menthol (CHLORASEPTIC) 6-10 mg lozenges Use 1 Lozenge as instructed every 2 hours as needed for up to 7 days. 30 Lozenge 0 05/17/2023 05/24/2023 Active Comment on above: Use 1 Lozenge as ins tructed every 2 hours as needed for up to 7 days. calcium ascorbate 500 mg oral tablet (1 source) Start: 5 take 1 tablet by mouth once daily gabapentin 100 mg oral capsule (20 sources) Anti-epileptic Agent Start: 4 End: 4 take 1 capsule by mouth twice daily gabapentin (NEURONTIN) 100 mg capsule Take 1 capsule by mouth two times a day for 90 days. 60 capsule 2 06/28/2023 Active Start: 03-01-2023 End: 04-19-2023 gabapentin (NEURONTIN) 100 m g capsule Start: 09-16-2020 End: 10-01-2020 take 1 capsule by mouth at bedtime Gabapentin 100 mg capsule Discontinued 100 mg PO AT BEDTIME September 16, 2020 12:00am October 01, 2020 8:08am Comment on above: Take 1 capsule by mo [facility] two times a day for 90 days. lamoTRIgine 100 mg oral tablet (20 sources) Mood Stabilizer, Anti-epileptic Agent Start: 04-30-2024 take 1 tablet by mouth once daily Start: 10-25-2023 End: 12-03-2024 Lamotrigine 200 mg tablet Discontinued 100 mg PO DAILY October 25, 2023 8:49am December 03, 2024 8:58am Start: 02-21-2023 take 50 mg by mouth once daily Lamotrigine Active 50 MG PO DAILY February 21, 2023 3:01pm Start: 01-12-2021 take 50 mg by mouth once daily LAMOTRIGINE ORAL Take 50 mg by mouth once daily. 01/12/2021 Active Start: 01-12-2021 End: 10-25-2023 Lamotrigine 200 mg tablet Discontinued 50 mg PO DAILY February 21, 2023 3:01pm October 25, 2023 8:50am Start: 09-16-2020 End: 02-21-2023 take 1 tablet by mouth once daily Lamotrigine 200 mg tablet Discontinued 200 mg PO DAILY September 16, 2020 12:00am February 21, 2023 3:01pm Start: 06-26-2019 End: 09-16-2020 take 1 tablet by mouth once daily Lamotrigine (Lamictal) 100 mg tablet Discontinued 100 mg PO DAILY June 26, 2019 12:00am September 16, 2020 3:33pm Comment on above: Take 50 mg by mouth once daily. methocarbamol 750 mg oral tablet (3 sources) Muscle Relaxant Start: End: take 1 tablet by mouth three times daily methocarbamol (ROBAXIN-750) 750 mg tablet Take 1 tablet by mouth three times a day. 90 tablet 0 05/17/2023 06/16/2023 Active Start: 02-20-2023 End: 04-19-2023 methocarbamol (ROBAXIN) 500 mg tablet Comment on above: Take 1 tablet by indira th three times a day. methylPREDNISolone (17 sources) Corticosteroid Start: 05-18-2023 End: 05-24-2023 methylPREDNISolone (MEDROL, THOMPSON,) 4 mg Dose-Pack Take as directed on packaging. 21 tablet 0 05/18/2023 05/24/2023 Active Start: 10-14-2018 End: 01-30-2019 take 1 tablet by mouth once Methylprednisolone (Medrol (Thompson)) 4 mg tablets,dose pack Discontinued 0 PO per package directions 21 0 October 14, 2018 12:00am January 30, 2019 9:47am PO PER PKG DIR Comment on above: Take as directed on packaging. mupirocin 0.02 mg/mg topical ointment (4 sources) RNA Synthetase Inhibitor Antibacterial Start: End: mupirocin (BACTROBAN) 2 % ointment Apply 1/2 ointment with a cotton swap in each nostril 2x daily for five days preop 22 g 0 04/15/2023 05/16/2023 Active Comment on above: Apply 1/2 ointment with a cotton swap in each nostril 2x daily for five days preop omeprazole 40 mg delayed release oral capsule (20 sources) Proton Pump Inhibitor Start: End: 3 take 1 capsule by mouth once daily as needed Comment on above: Take by mouth. Take 40 mg by mouth once daily. propranolol hydrochloride 20 mg oral tablet (20 sources) beta-Adrenergic Lyudmila Start: End: 5 take 1 tablet by mouth once daily Start: 10-25-2023 End: 10-25-2023 take 1 tablet by mouth twice daily Propranolol 20 mg tablet Discontinued 20 mg PO TWICE A DAY October 25, 2023 12:00am October 25, 2023 8:50am Start: 03-01-2023 End: 07-21-2023 take 1 tablet by mouth once daily Propranolol 20 mg tablet Discontinued 20 mg PO DAILY 10 02July 07, 2023 8:06am July 21, 2023 11:36am Start: 06-09-2022 End: 02-21-2023 take 1 tablet by mouth once daily Propranolol 20 mg tablet Discontinued 20 mg PO DAILY 10 02June 09, 2022 12:00am February 21, 2023 3:01pm Comment on above: Take 20 mg by mouth once daily. Completed/Discontinued Medications Medication Drug Class(es) Dates Sig (Normalized) Sig (Original) [id number] actuat albuterol 0.09 mg/actuat metered dose inhaler (20 sources) beta2-Adrenergic Agonist Start: 10-14-2018 End: 01-30-2019 Albuterol Sulfate (Proair Hfa) 90 mcg/actuation HFA aerosol inhaler Discontinued 2 NMA INHALATION EVERY 6 HOURS 8 0 October 14, 2018 12:00am January 30, 2019 9:47am administer with spacer Start: 10-14-2018 End: 01-30-2019 take 1 puff(s) by inhalation every six hours Albuterol Sulfate (Proair Hfa) 90 mcg/actuation HFA aerosol inhaler Discontinued 2 PUFF INHALATION EVERY 6 HOURS 8 October 14, 2018 12:00am January 30, 2019 9:47am administer with spacer Start: 06-02-2017 End: 01-30-2019 Albuterol Sulfate 1 INHALER inhaler Discontinued 1 - 2 NMA INHALATION EVERY 6 HOURS NEEDED as needed for Sob &/Or Wheezing June 02, 2017 12:00am January 30, 2019 9:47am Start: 06-02-2017 End: 01-30-2019 take 1 puff(s) by inhalation every six hours as needed Albuterol Sulfate Discontinued 1 - 2 PUFF INHALATION EVERY 6 HOURS NEEDED June 02, 2017 12:00am January 30, 2019 9:47am Start: 11-13-2016 VENTOLIN HFA 1 08 (90 Base) MCG/ACT AERS uinhale 2 puffs every 4 hours as needed ALBUTEROL SULFATE [id number] Kamila Wharton RN Start: 11-13-2016 VENTOLIN HFA 1 08 (90 Base) MCG/ACT AERS uinhale 2 puffs every 4 hours as needed ALBUTEROL SULFATE [id number] Kamila Wharton RN Start: 07-08-2015 End: 04-19-2023 take 2 puff(s) by inhalation every four hours as needed for wheezing albuterol HFA (VENTOLIN HFA) 90 mcg/actuation inhaler Indications: Acute asthmatic bronchitis Inhale 2 Puffs as instructed every 4 hours as needed for Wheezing/Shortness of Breath. 1 Inhaler 5 07/08/2015 04/19/2023 Discontinued Comment on above: Inhale 2 Puffs as in structed every 4 hours as needed for Wheezing/Shortness of Breath. 24 hr buPROPion hydrochloride 150 mg extended release oral tablet (16 sources) Aminoketone Start: 019 End: take 1 tablet by mouth every twenty-four hours Bupropion Hcl 150 mg tablet extended release 24 hr Discontinued PO 30 0 January 30, 2019 1:00am June 26, 2019 9:04am busPIRone hydrochloride 10 mg oral tablet (20 sources) Start: End: take 1 tablet by mouth twice daily Buspirone 10 mg tablet Discontinued 10 mg PO TWICE A DAY March 11, 2023 1:00am July 21, 2023 9:28am Start: 09-16-2020 End: 02-21-2023 take 1 tablet by mouth once daily Buspirone 10 mg tablet Discontinued 10 mg PO DAILY September 16, 2020 12:00am February 21, 2023 3:01pm Start: 01-30-2019 End: 10-09-2019 Buspirone 10 mg tablet Disco ntinued PO 60 0 January 30, 2019 1:00am October 09, 2019 10:54am Start: 01-30-2019 End: 10-09-2019 Buspirone Discontinued PO 60 January 30, 2019 1:00am October 09, 2019 10:54am Comment on above: Take 10 mg by mouth once daily. cyclobenzaprine hydrochloride 5 mg oral tablet (16 sources) Muscle Relaxant Start: 2019 End: 2020 take 1 tablet by mouth at bedtime Cyclobenzaprine 5 mg tablet Discontinued 5 mg PO AT BEDTIME October 09, 2019 12:00am September 16, 2020 3:33pm dicyclomine hydrochloride 20 mg oral tablet (16 sources) Anticholinergic Start: 2020 End: 2021 take 1 tablet by mouth three times daily as needed Dicyclomine 20 mg tablet Discontinued 20 mg PO THREE TIMES A DAY as needed for cramps 14 0 March 07, 2021 7:07am April 28, 2021 11:18am docusate sodium 100 mg oral capsule (16 sources) Start: 2017 End: 2018 take 1 capsule by mouth twice daily as needed for constipation Docusate Sodium 100 MG capsule Discontinued 100 mg PO TWICE DAILY NEEDED as needed for Constipation 60 0 June 09, 2017 12:00am June 27, 2018 8:48am famotidine 20 mg oral tablet (16 sources) Histamine-2 Receptor Antagonist Start: 2018 End: 2019 take 1 tablet by mouth once daily as needed Famotidine (Pepcid) 20 mg tablet Discontinued 20 mg PO DAILY as needed January 30, 2019 1:00am October 09, 2019 10:54am hyoscyamine sulfate 0.125 mg sublingual tablet (20 sources) Start: 2024 End: 2024 take 1 tablet under the tongue once as needed Hyoscyamine Sulfate 0.125 mg tablet, sublingual Discontinued 0.125 mg SL ONCE as needed April 30, 2024 11:07am December 03, 2024 8:58am Start: 03-01-2023 End: 04-30-2024 Hyoscyamine Sulfate 0.125 mg tablet, sublingual Discontinued mg SL as needed October 25, 2023 8:48am April 30, 2024 11:08am Start: 03-01-2023 Hyoscyamine Holcomb lfate Active MG SL March 01, 2023 1:00am Start: 03-01-2023 Hyoscyamine Holcomb lfate Active MG SL March 01, 2023 12:00am Start: 06-30-2021 End: 02-21-2023 take 1 tablet by mouth three times daily as needed Hyoscyamine Sulfate 0.125 mg tablet Discontinued 0.125 mg PO THREE TIMES A DAY as needed for dyspepsia 90 1 January 21, 2022 1:47pm February 21, 2023 3:01pm Comment on above: Take 0.125 mg by indira th as needed. Hyoscyamine Sulfate 0.125 mg tablet, sublingual (4 sources) Start: 3 End: 4 Hyoscyamine Sulfate 0.125 mg tablet, sublingual Discontinued mg SL March 01, 2023 1:00am October 25, 2023 8:50am ibuprofen 600 mg oral tablet (20 sources) Nonsteroidal Anti-inflammatory Drug Start: 2 End: 3 take 1 tablet by mouth every eight hours as needed for pain Ibuprofen 600 mg tablet Discontinued 600 mg PO Q8H as needed for Pain April 28, 2021 1:00am February 21, 2023 3:00pm Start: 06-09-2017 End: 06-27-2018 take 1 tablet by mouth three times daily as needed for pain Ibuprofen 600 MG tablet Discontinued 600 mg PO THREE TIMES A DAY as needed for Pain 30 0 June 09, 2017 8:11am June 27, 2018 8:48am Start: 05-13-2016 End: 05-13-2016 take 1 tablet by mouth three times daily as needed for pain Ibuprofen (Motrin) 800 MG tablet Discontinued 800 mg PO THREE TIMES A DAY as needed for Pain 30 0 May 13, 2016 12:32pm May 13, 2016 12:35pm levonorgestrel 0.614585 mg/hr intrauterine system (7 sources) Progestin, Progestin-containing Intrauterine Device Start: 11-13-2016 End: 11-18-2016 MIRENA (52 MG) 20 MCG/24HR IUD as directed LEVONORGESTREL [id number] Kamila Wharton RN Start: 11-13-2016 End: 11-18-2016 MIRENA (52 MG) 20 MCG/24HR I UD as directed LEVONORGESTREL [id number] Jerrell Burt MD Start: 11-13-2016 MIRENA (52 MG) 20 MCG/24HR IUD as directed LEVONORGESTREL [id number] Kamila Wharton RN 50/50 release 24 hr methylphenidate hydrochloride 10 mg extended release oral capsule (8 sources) Central Nervous System Stimulant Start: 02-07-2023 End: 07-21-2023 Methylphenidate Hcl (Ritalin La) 10 mg capsule,ER biphasic 50-50 Discontinued 10 mg PO DAILY 0 February 21, 2023 1:00am July 21, 2023 9:28am 30 actuat mometasone furoate 0.11 mg/actuat dry powder inhaler (7 sources) Corticosteroid Start: 11-13-2016 End: 11-18-2016 take 1 puff(s) by inhalation once daily ASMANEX 30 METERED DOSES 110 MCG/INH AEPB inhale 1 puff daily MOMETASONE FUROATE [id number] Kamila Wharton RN Start: 11-13-2016 End: 11-18-2016 take 1 puff(s) by inhalation once daily ASMANEX 30 METERED DOSES 110 MCG/INH AEPB inhale 1 puff daily MOMETASONE FUROATE [id number] Jerrell Burt MD Start: 11-13-2016 take 1 puff(s) by in halation once daily ASMANEX 30 METERED DOSES 110 MCG/INH AEPB inhale 1 puff daily MOMETASONE FUROATE [id number] Kamila Wharton RN naproxen sodium 220 mg oral capsule (7 sources) Nonsteroidal Anti-inflammatory Drug Start: 03-11-2023 End: 04-30-2024 take 1 capsule by mouth twice daily as needed Naproxen Sodium (Aleve) 220 mg capsule Discontinued 220 mg PO TWICE A DAY as needed March 11, 2023 1:00am April 30, 2024 11:08am Drug Treatment Unknown - unknown (1 source) No information available. ondansetron 4 mg disintegrating oral tablet (16 sources) Serotonin-3 Receptor Antagonist Start: 03-07-2021 End: 04-28-2021 take 1 tablet by mouth every eight hours as needed for nausea and vomiting Ondansetron 4 mg tablet,disintegrati ng Discontinued 4 mg PO Q8H as needed for nausea and vomiting 10 0 March 07, 2021 1:00am April 28, 2021 11:18am oxyCODONE hydrochloride 5 mg oral tablet (16 sources) Opioid Agonist Start: 06-09-2017 End: 06-27-2018 take 1 tablet by mouth every four hours as needed for pain Oxycodone 5 MG tablet Discontinued 5 mg PO EVERY 4 HOURS NEEDED as needed for Pain 20 4 0 June 09, 2017 12:00am June 27, 2018 8:49am Encounter for sterilization Encounter for sterilization phenazopyridine hydrochloride 100 mg oral tablet (20 sources) Start: 01-30-2019 End: 09-16-2020 take 1 tablet by mouth three times daily as needed Phenazopyridine (Pyridium) 100 mg tablet Discontinued 100 mg PO THREE TIMES A DAY as needed January 30, 2019 1:00am September 16, 2020 3:33pm Start: 06-02-2017 End: 06-27-2018 Phenazopyridine 100 MG table t Discontinued 100 mg PO NEEDED as needed for burning June 02, 2017 12:00am June 27, 2018 8:49am Start: 11-13-2016 take 1 tablet by indira th three times daily as needed PYRIDIUM 200 MG TABS One tablet by mouth three times daily as needed PHENAZOPYRIDINE HCL [id number] Kamila Wharton RN Vit No.013-Cneo-Uju ic (11 sources) Start: 10-13-2016 End: 06-27-2018 Vit No.729-Qzkv-Aqx ic Discontinued 1 EACH PO DAILY October 13, 2016 4:16pm June 27, 2018 8:49am Start: 10-13-2016 End: 06-27-2018 Vit No.135-Dyro-Zlw ic Discontinued 1 EACH PO DAILY October 12, 2016 11:00pm June 27, 2018 7:49am Start: 10-13-2016 End: 06-27-2018 Vit No.461-Pfvq-Bve ic Discontinued 1 EACH PO DAILY October 13, 2016 12:00am June 27, 2018 8:49am Vit No.898-Piaq-Krlla 1 EACH tablet (5 sources) Start: 10-13-2016 End: 06-27-2018 take 1 tablet by mouth once daily Vit No.608-Xycp-Acoth 1 EACH tablet Discontinued 1 NMA PO DAILY October 13, 2016 12:00am June 27, 2018 8:49am Start: 10-13-2016 End: 06-27-2018 take 1 tablet by mouth once daily Vit No.873-Mnqy-Foqgs 1 EACH tablet Discontinued 1 NMA PO DAILY October 13, 2016 12:00am June 27, 2018 8:49am VIT-DSS-FE CBN-FA (3 sources) Start: 11-18-2016 take 1 tablet by indira th every twenty-four hours AD TABS One tablet by mouth daily VIT-DSS-FE CBN-FA Jerrell Burt MD vit/iron fum/folic ac ( VITAMIN ORAL) (4 sources) End: 04-19-2023 vit/iron fum/folic ac ( VITAMIN ORAL) Take by mouth once daily. 0 04/19/2023 Discontinued vit/iro n fum/folic ac ( VITAMIN ORAL) Take by mouth once daily. 0 Active Comment on above: Take by mouth once d aily. raNITIdine 150 mg oral tablet (20 sources) Histamine-2 Receptor Antagonist Start: 9 End: 9 take 2 tablets by mouth once daily as needed Ranitidine Hcl 150 mg tablet Discontinued 300 mg PO DAILY as needed June 27, 2018 12:00am January 30, 2019 9:47am Start: 06-27-2018 End: 01-30-2019 take 300 mg by mouth once daily Ranitidine Hcl Discont inued 300 MG PO DAILY June 27, 2018 12:00am January 30, 2019 9:47am Start: 06-27-2018 End: 01-30-2019 take 300 mg by mouth once daily Ranitidine Hcl Discont inued 300 MG PO DAILY June 27, 2018 12:00am January 30, 2019 9:47am Start: 11-18-2016 take 1 tablet by indira th twice daily ZANTAC 150 MG TABS One tablet by mouth twice daily RANITIDINE HCL [id number] Jerrell Burt MD Start: 01-04-2016 End: 06-27-2018 take 4 tablets by mouth once daily as needed Ranitidine Hcl 75 MG tablet Discontinued 300 mg PO DAILY as needed for Indigestion January 04, 2016 12:00am June 27, 2018 8:49am Start: 01-04-2016 End: 06-27-2018 take 300 mg by mouth once daily Ranitidine Hcl Discont inued 300 MG PO DAILY January 04, 2016 12:00am June 27, 2018 8:49am End: 04-19-2023 RANITIDINE HCL (ZANTAC ORAL) Take by mouth as needed. 0 04/19/2023 Discontinued RANITIDINE HCL ( ZANTAC ORAL) Take by mouth as needed. 0 Active Comment on above: Take by mouth as nee ded. sucralfate 1000 mg oral tablet (20 sources) Aluminum Complex Start: 06-30-2021 End: 02-11-2022 take 1 tablet by mouth at bedtime Sucralfate 1 gram tablet Discontinued 1 g PO before meals and at bedtime 120 0 June 30, 2021 12:00am February 11, 2022 10:12am Start: 06-16-2021 End: 06-30-2021 take 1 mL by mouth 1 hour(s) before mealtime Sucralfate 100 mg/mL suspension Discontinued 10 mL PO before meals 1000 0 June 16, 2021 12:00am June 30, 2021 8:29am take one hour before meals on an empty stomach and two hours away from other medications. Start: 06-16-2021 End: 06-30-2021 take 1 mL by mouth 1 hour(s) before mealtime Sucralfate Discontinued 10 ML PO before meals 1000 June 16, 2021 12:00am June 30, 2021 8:29am take one hour before meals on an empty stomach and two hours away from other medications. triamcinolone acetonide 0.055 mg/actuat metered dose nasal spray (16 sources) Corticosteroid Start: 06-27-2018 End: 01-30-2019 Triamcinolone Acetonide (Nasacort) 55 mcg aerosol,spray Discontinued 2 NMA INTRANASAL DAILY June 27, 2018 12:00am January 30, 2019 9:47am Start: 06-27-2018 End: 01-30-2019 Triamcinolone Acetonide (Kane acort) 55 mcg aerosol,spray Discontinued 2 SPRAY INTRANASAL DAILY June 27, 2018 12:00am January 30, 2019 9:47am Problems Active Problems Problem Classification Problem Date Documented Da te Episodic/Chronic Abdominal pain (20 sources) Abdominal pain; Translations: [Unspecified abdominal pain] Episodic Comment on above: [place] Anxiety disorders (20 sources) Anxiety; Translations: [Anxiety disorder, unspecified] Onset: 0 Resolved: 3 02-18-2015 Chronic Asthma (20 sources) Exercise-induced asthma; Translations: [Exercise induced bronchospasm] Onset: 5 Resolved: 5 06-18-2014 Chronic Blindness and vision defects (16 sources) Disorder of vision; Translations: [Unspecified visual loss] 04-28-2021 Chronic Cardiac dysrhythmias (20 sources) Premature atrial contraction; Translations: [Paroxysmal supraventricular tachycardia] Onset: 7 10-21-2016 Chronic Cardiac dysrhythmias (20 sources) Tachycardia; Translations: [Tachycardia, unspecified] Onset: 4 04-27-2022 Episodic Conditions associated with dizziness or vertigo (20 sources) Dizziness; Translations: [Dizziness and giddiness] Onset: 7 11-18-2016 Episodic Conduction disorders (20 sources) Other right bundle-branch block; Translations: [Incomplete right bundle branch block] Onset: 7 11-13-2016 Chronic Contraceptive and procreative management (20 sources) Patient encounter status; Translations: [Encounter for sterilization] Onset: 4 06-19-2018 Episodic Disorders usually diagnosed in infancy, childhood, or adolescence (17 sources) Attention deficit hyperactivity disorder, predominantly inattentive type; Translations: [Other specified behavioral and emotional disorders with onset usually occurring in childhood and adolescence] Onset: 9 08-22-2008 Chronic Esophageal disorders (20 sources) Gastroesophageal reflux disease; Translations: [Gastro-esophageal reflux disease without esophagitis] Onset: 4 Chronic Gastritis and duodenitis (20 sources) Gastritis; Translations: [Gastritis, unspecified, without bleeding] Onset: 5 Episodic Genitourinary symptoms and ill-defined conditions (3 sources) Incontinence; Translations: [Mixed incontinence] Onset: 5 12-03-2024 Chronic Genitourinary symptoms and ill-defined conditions (20 sources) H/O: urinary disease; Translations: [Personal history of other diseases of urinary system] Onset: 6 03-10-2021 Episodic Headache; including migraine (17 sources) Migraine without aura; Translations: [Migraine without aura] Onset: 5 01-20-2005 Chronic Headache; including migraine (16 sources) Frequent headache; Translations: [Frequent headaches] 04-28-2021 Episodic Malaise and fatigue (8 sources) Fatigue; Translations: [Other fatigue] 04-30-2024 Episodic Mood disorders (20 sources) Premenstrual dysphoric disorder; Translations: [Premenstrual dysphoric disorder] Onset: 3 12-14-2012 Chronic Nausea and vomiting (16 sources) Nausea and vomiting; Translations: [Nausea with vomiting, unspecified] 03-15-2021 Episodic Nonspecific chest pain (20 sources) Chest pain; Translations: [Other chest pain] Onset: 7 10-21-2016 Episodic Other connective tissue disease (1 source) Other muscle spasm; Translations: [Muscle spasms of neck] Onset: 4 Episodic Other connective tissue disease (5 sources) H/O: back problem; Translations: [Personal history of other diseases of the musculoskeletal system and connective tissue] 04-28-2021 Episodic Other female genital disorders (2 sources) Pain in female genitalia on intercourse; Translations: [Unspecified dyspareunia] 12-03-2024 Chronic Other gastrointestinal disorders (17 sources) Irritable bowel syndrome with diarrhea; Translations: [Irritable bowel syndrome with diarrhea] Onset: 5 02-25-2015 Chronic Other gastrointestinal disorders (15 sources) Altered bowel function; Translations: [Other specified symptoms and signs involving the digestive system and abdomen] 06-30-2021 Episodic Other gastrointestinal disorders (3 sources) Other specified symptoms and signs involving the digestive system and abdomen; Translations: [Other symptoms involving digestive system] Episodic Other lower respiratory disease (8 sources) Dyspnea on exertion; Translations: [Other forms of dyspnea] 04-30-2024 Episodic Other nervous system disorders (1 source) Other acute postprocedural pain; Translations: [Post-op pain] Onset: Episodic Other and delivery including normal (16 sources) Vaginal delivery; Translations: [Encounter for full-term uncomplicated delivery] 06-19-2018 Episodic Other upper respiratory disease (16 sources) Seasonal allergy; Translations: [Other seasonal allergic rhinitis] 04-28-2021 Chronic Other upper respiratory disease (17 sources) Allergic rhinitis; Translations: [Allergic rhinitis, unspecified] Onset: 5 08-19-2014 Chronic Ovarian cyst (20 sources) Cyst of ovary; Translations: [Unspecified ovarian cyst, unspecified side] 02-21-2021 Episodic Peripheral and visceral atherosclerosis (20 sources) Ischemic colitis; Translations: [Vascular disorder of intestine, unspecified] Chronic Residual codes; unclassified (8 sources) Hypersomnia; Translations: [Hypersomnia, unspecified] 04-30-2024 Chronic Residual codes; unclassified (1 source) Hypersomnia, unspecified; Translations: [Hypersomnia, unspecified] Onset: Chronic Residual codes; unclassified (16 sources) Gestation period, 39 weeks; Translations: [39 weeks gestation of ] 06-19-2018 Episodic Residual codes; unclassified (16 sources) History of palpitations; Translations: [Personal history of other specified conditions] 06-27-2018 Episodic Residual codes; unclassified (1 source) H/O Spinal surgery; Translations: [Other specified postprocedural states] 04-02-2024 Episodic Residual codes; unclassified (1 source) Other specified postprocedural states; Translations: [S/P spinal surgery] Onset: 01-20-202 5 Episodic Residual codes; unclassified (8 sources) Family history of coronary arteriosclerosis; Translations: [Family history of ischemic heart disease and other diseases of the circulatory system] 04-30-2024 Episodic Spondylosis; intervertebral disc disorders; other back problems (20 sources) Other intervertebral disc displacement, lumbar region; Translations: [Herniation of intervertebral disc of lumbar spine] 10-01-2020 Chronic Spondylosis; intervertebral disc disorders; other back problems (10 sources) Cervical disc disorder with radiculopathy; Translations: [Cervical disc disorder with radiculopathy, unspecified cervical region] Onset: 04-14-2023 Episodic Syncope (20 sources) Near syncope; Translations: [Vasovagal syncope] Onset: 7 11-18-2016 Episodic Unclassified (11 sources) H/O: back problem; Translations: [History of back problems] 04-28-2021 Unclassified (1 source) Supraventricular tachycardia, unspecified; Translations: [Supraventricular tachycardia, unspecified] Onset: Urinary tract infections (20 sources) Chronic interstitial cystitis; Translations: [Interstitial cystitis (chronic) without hematuria] Onset: 11-09-2013 Chronic Urinary tract infections (16 sources) Urinary tract infectious disease; Translations: [Urinary tract infection, site not specified] 04-28-2021 Episodic Past or Other Problems Problem Classification Problem Date Documented Date Episodic/Chronic Adjustment disorders (5 sources) Adjustment disorder with depressed mood; Translations: [Adjustment disorder with depressed mood] Onset: 08-22-2008 Resolved: 12-14-2012 12-14-2012 Chronic Mycoses (10 sources) Pityriasis versicolor; Translations: [Pityriasis versicolor] Onset: 07-26-2005 Resolved: 08-19-2014 08-19-2014 Episodic Nonmalignant breast conditions (20 sources) Breast lump; Translations: [Unspecified lump in unspecified breast] Onset: 06-18-2024 04-28-2021 Episodic Other complications of (17 sources) Previous operation to cervix affecting ; Translations: [Maternal care for other abnormalities of cervix, first trimester] Onset: 01-01-2016 03-10-2021 Episodic Other complications of (17 sources) RhD negative; Translations: [Other specified related conditions, first trimester] Onset: 01-01-2016 03-10-2021 Episodic Other connective tissue disease (13 sources) History of cervical spine fusion; Translations: [Arthrodesis status] Onset: 05-16-2023 05-16-2023 Episodic Other connective tissue disease (1 source) Arthrodesis status; Translations: [Status post cervical spinal fusion] Onset: 05-16-2023 Episodic Other diseases of kidney and ureters (5 sources) Renal mass; Translations: [Other specified disorders of kidney and ureter] Onset: 11-09-2013 Resolved: 06-07-2014 06-07-2014 Chronic Other female genital disorders (17 sources) History of premature labor; Translations: [Personal history of pre-term labor] Onset: 01-01-2016 03-10-2021 Episodic Other female genital disorders (1 source) Other specified noninflammatory disorders of vagina; Translations: [Other specified noninflammatory disorders of vagina] Onset: 05-09-2024 Episodic Other lower respiratory disease (2 sources) Other forms of dyspnea; Translations: [Other forms of dyspnea] Onset: 06-22-2024 Episodic Other nutritional; endocrine; and metabolic disorders (17 sources) H/O: endocrine disorder; Translations: [Personal history of other endocrine, nutritional and metabolic disease] Onset: 01-01-2016 03-10-2021 Episodic Residual codes; unclassified (17 sources) History of loop electrosurgical excision procedure; Translations: [Other specified postprocedural states] Onset: 08-10-2012 08-10-2012 Episodic Residual codes; unclassified (1 source) Flushing; Translations: [Flushing] Onset: 09-26-2024 Episodic Residual codes; unclassified (1 source) Family history of ischemic heart disease and other diseases of the circulatory system; Translations: [Family history of ischemic heart disease and other diseases of the circulatory system] Onset: 06-22-2024 Episodic Screening and history of mental health and substance abuse codes (17 sources) H/O: manic depressive disorder; Translations: [Personal history of other mental and behavioral disorders] Onset: 01-01-2016 03-10-2021 Episodic Results Test Name Value Interpretation Reference Range Facility Office Visit Reporton 2024 Office Visit Report [facility] [address] [place] [address] OFFICE VISIT Date of Service: 12/21/24 MR#: [id number] Acct: [id number] Patient: SILVESTRE ELISE Rep #: [id number] : 1985 Provider: Dr. Brissa Dyson i, MD Age/Sex: 38/F Location: [facility] [place] Status: Signed Intake Vital Signs 12/03/24 08:59 Height 5 ft 2 in Weight: 125 lb BMI 22.8 BP 106/81 H Pulse 71 Intake Visit Reasons: urine drop off Chief Complaint: new patient- IC and urinary frequency, history and physical exam Allergies No Known Allergies Allergy (Verified 12/17/24 14:08) Nurse's Note: patient dropped off urine sample for Preop UA and CTS Results POC UA Auto w/o Microscopy Office Urine Color Last Edit by Elaine Taylor on 12/21/24 12:48 Office Urine Clarity Last Edit by Elaine Taylor on 12/21/24 12:48 Office Urine Glucose Negative Last Edit by Elaine Taylor on 12/21/24 12:48 Office Urine Ketones Negative Last Edit by Elaine Taylor on 12/21/24 12:48 Office Urine Bilirubin Negative Last Edit by Elaine Taylor on 12/21/24 12:48 Office Urine Urobilinogen 0.2 mg/dL Last Edit by Elaine Taylor on 12/21/24 12:48 Off Ur Spec Howe 1.025 Last Edit by Elaine Taylor on 12/21/24 12:48 Office Urine pH 5.5 Last Edit by Elaine Taylor on 12/21/24 12:48 Office Urine Protein Negative Last Edit by Elaine Taylor on 12/21/24 12:48 Office Urine Blood Large Last Edit by Elaine Taylor on 12/21/24 12:48 Office Urine Blood Hemolyzed Negative Last Edit by Elaine Taylor on 12/21/24 12:48 Office Urine Nitrate Negative Last Edit by Elaine Taylor on 12/21/24 12:48 Off Ur Leukocytes Negatve Last Edit by Elaine Taylor on 12/21/24 12:48 Assessment and Plan Assessment and Plan Orders: Orders POC UA Auto w/o Microscopy 12/21/24 N39.46 - Mixed incontinence 12/24/24 1213 Date Brissa Segura Signature: Date (if applicable) CC: Normal [facility] Basic Metabolic Profile (BMP )on 12-20-2024 BUN/CRE 15.1 RATIO Normal - [facility] Comment on above: Performed By: #### L 500.2500, L100.0500 ####[facility] [address] [place], [address] Calcium [Mass/Vol] 8.8 mg/dL Normal 7.6-11.0 [facility] Comment on above: Performed By: #### L 500.2500, L100.0500 ####[facility] [address] [place], [address] Chloride [Moles/Vol] 103 mmol/L Normal 98-108 [facility] Comment on above: Performed By: #### L 500.2500, L100.0500 ####[facility] [address] [place], [address] CO2 [Moles/Vol] 24.4 mmol/L Normal 21.0-32.0 [facility] Comment on above: Performed By: #### L 500.2500, L100.0500 ####[facility] [address] [place], [address] Creatinine [Mass/Vol] 0.73 mg/dL Normal 0.70-1.20 [facility] Comment on above: Performed By: #### L 500.2500, L100.0500 ####[facility] [address] [place], [address] GAP 9 Normal 5-15 [facility] Comment on above: Performed By: #### L 500.2500, L100.0500 ####[facility] [address] [place], [address] GFR/1.73 sq M.predicted among non-blacks MDRD (S/P/Bld) [Vol rate/Area] 107 mL/min/{1.73_m2} Normal >60 [facility] Comment on above: Result Comment: mL/m in/1.73m2 CKD-EPI Creatinine Equation (2020) Performed By: #### L 500.2500, L100.0500 ####[facility] [address] [place], [address] Glucose [Mass/Vol] 85 mg/dL Normal 70-99 [facility] Comment on above: Performed By: #### L 500.2500, L100.0500 ####[facility] [address] [place], [address] Potassium [Moles/Vol] 4.0 mmol/L Normal 3.3-5.1 [facility] Comment on above: Performed By: #### L 500.2500, L100.0500 ####[facility] [address] [place], [address] Sodium [Moles/Vol] 136 mmol/L Normal 133-145 [facility] Comment on above: Performed By: #### L 500.2500, L100.0500 ####[facility] [address] [place], [address] Urea nitrogen [Mass/Vol] 11 mg/dL Normal 4-19 [facility] Comment on above: Performed By: #### L 500.2500, L100.0500 ####[facility] [address] [place], [address] CBC-Complete Blood Cnt No Di ffon 12-20-2024 Erythrocyte distribution width (RBC) [Ratio] 12.5 % Normal 11.6-14.6 [facility] Comment on above: Performed By: #### L 500.2500, L100.0500 #### [facility] [address] [place], [address] Hematocrit (Bld) [Volume fraction] 38.9 % Normal 37-47 [facility] Comment on above: Performed By: #### L 500.2500, L100.0500 #### [facility] [address] [place], [address] Hemoglobin (Bld) [Mass/Vol] 13.2 g/dL Normal 12.0-15.0 [facility] Comment on above: Performed By: #### L 500.2500, L100.0500 #### [facility] [address] [place], [address] MCH (RBC) [Entitic mass] 29.2 pg Normal 27.0-32.0 [facility] Comment on above: Performed By: #### L 500.2500, L100.0500 #### [facility] [address] [place], [address] MCHC (RBC) [Mass/Vol] 33.9 g/dL Normal 32-36 [facility] Comment on above: Performed By: #### L 500.2500, L100.0500 #### [facility] [address] [place], [address] MCV (RBC) [Entitic vol] 86.1 fL Normal 81-99 [facility] Comment on above: Performed By: #### L 500.2500, L100.0500 #### [facility] [address] [place], [address] Platelet mean volume (Bld) [Entitic vol] 9.9 fL Normal 6.2-12.0 [facility] Comment on above: Performed By: #### L 500.2500, L100.0500 #### [facility] [address] [place], [address] Platelets (Bld) [#/Vol] 300 10*3/uL Normal 150-450 [facility] Comment on above: Performed By: #### L 500.2500, L100.0500 #### [facility] [address] [place], [address] RBC (Bld) [#/Vol] 4.52 10*6/uL Normal 4.2-5.4 [facility] Comment on above: Performed By: #### L 500.2500, L100.0500 #### [facility] [address] [place], [address] RDW SD 39.6 fl Normal 35.1-43.9 [facility] Comment on above: Performed By: #### L 500.2500, L100.0500 #### [facility] [address] [place], [address] WBC (Bld) [#/Vol] 8.6 10*3/uL Normal 4.4-11.0 [facility] Comment on above: Performed By: #### L 500.2500, L100.0500 #### [facility] [address] [place], [address] MR/PATCHINMAYon 12-17-2024 MR/PAT.KIMBERLY [facility] Medical Records Department [address] [address] PAT - Anesthesia 12/17/24 1428 MR#: [id number] Acct: [id number] Name: SILVESTRE ELISE Rep #: [id number] : 1985 38 From: Derek Gao MD PCP: Dr. Mallory Foster MD Status:PRE [facility] Y Race: C Location: [facility] [place] Pre-Assessment Diagnosis/Proposed Procedure Planned Operative Procedure(s): Cysto, Possible biopsy with fulguration. Possible Hudson-distention Anesthesia History Anesthesia History - purchasing buyer: Anesthesia History - purchasing buyer Hx Hospitalization No 12/17/24 14:17 Any Problems With Anesthesia Yes: SLOW TO AWAKEN 12/17/24 14:17 Cholinesterase deficiency No 12/17/24 14:17 You/Your Family Experience No 12/17/24 14:17 fever (hyperthermia) with Relationship Recent Exposure to Contagious No 04/01/23 14:09 Disease Does patient have nerve No 12/17/24 14:17 stimulator Patient instructed to have device shut off --Does patient have Pacemaker or ICD? When Was Last Pacemaker Check QUESTION #4 FULL TEXT: You/Your Family Experience fever (hyperthermia) with Anesthesia Last Oral Intake Last Oral intake: Last Oral Intake NPO since Meds taken in AM with sips of water? Meds patient instructed to take am of surgery PONV PONV - purchasing buyer: PONV - purchasing buyer Female Yes 12/17/24 14:17 HX of Motion Sickness No 12/17/24 14:17 HX of N/V After Surgery No 12/17/24 14:17 Non-Smoker Yes 12/17/24 14:17 Duration of Surgery greater No 12/17/24 14:17 than 60 minutes Number of Risk Factors 2 12/17/24 14:17 PONV Score Moderate Risk 12/17/24 14:17 Height Weight Height Weight: Anesthesia: Height Weight Height 5 ft 2 in 12/03/24 08:59 Respiratory Assessment Respiratory Assessment - purchasing buyer: Respiratory Tract Infection Hx - purchasing buyer Hx Respiratory Tract Infection No 12/17/24 14:17 STOP Sleep Apnea STOP Sleep Apnea - purchasing buyer: STOP Sleep Apnea - purchasing buyer Hx Hypertension No 12/17/24 14:17 Hx Sleep Apnea No 12/17/24 14:17 CPAP BIPAP Do you snore loudly (louder No 12/17/24 14:17 than talking or can be heard Do you often feel tired/ No 12/17/24 14:17 fatigued/ sleepy during daytime? Has anyone observed you stop No 12/17/24 14:17 breathing during sleep? STOP Results Negative 12/17/24 14:17 QUESTION #5 FULL TEXT : Do you snore loudly (louder than talking or can be heard through closed doors)? 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 Specify any problems Hx of Preganancy in last 3 No 12/17/24 14:17 Months Nurse Filling Out Transfusion VCHRISTIN 12/17/24 14:17 Questions: Date: 12/17/24 12/17/24 14:17 Time: 14:18 12/17/24 14:17 Patient unable to answer at this time (ie. confused, unrespo /Reproduction History /Reproductive History - purchasing buyer: /Reproductive Hx- purchasing buyer Hx Now Yes 12/17/24 14:17 Gestational Age (in weeks): EDC: Hx Hx Para Hx Section SAB No 12/17/24 14:17 [facility] Medical History (Updated 12/17/24 @ 14:16 by Margarita Holder) Wears glasses Injury of head and neck Gastric reflux History of Holter monitoring Mixed incontinence Nocturia Interstitial cystitis (chronic) with hematuria Dyspareunia, female Interstitial cystitis Hematuria Chronic right lower quadrant pain Wears contact lenses Anxiety Back pain History of IBS Non-smoker History of pain when walking Cardiology follow-up encounter History of echocardiogram Hypotension History of stress test Ischemic colitis Intestinal angina Vasovagal syncope Interstitial cystitis Asthma Migraines Fatigue History of palpitations Incomplete right bundle branch block Supraventricular tachycardia, paroxysmal Other chest pain Premature atrial contractions Near syncope Dizziness Home Medications ???Medication ???Instructions ???Recorded ???Last Taken ??? (more content not included)... Normal [facility] - Chemistry and C hemistry - challengeOrdered By: Brissa Huerta on 12-03-2024 Bilirubin Ql (U) Small (1+) [facility] Glucose Ql (U) Negative [facility] Ketones Ql (U) Negative [facility] pH (U) 5.5 [pH] [facility] Specific gravity (U) [Rel density] 1.025 [facility] Urobilinogen (U) [Mass/Vol] 0.9763345 mg/dL [facility] - Hematology and Cell countsOrdered By: Brissa Huerta on 12-03-2024 Hemoglobin Ql (U) Moderate [facility] - UrinalysisOrder ed By: Brissa Huerta on 12-03-2024 Nitrite Ql (U) Negative [facility] Protein Ql (U) Trace [facility] MR/BMSArielleKali 12-03-2024 MR/BMSArielleUNRULY [facility] [address], [address] [place] [address] OFFICE VISIT Date of Service: 12/03/24 MR#: [id number] Acct: [id number] Name: SILVESTRE ELISE Rep #: [id number] : 1985 Provider: Dr. Brissa Dyson i, MD Age/Sex: 38/F [place] [facility] [place] Status: Signed Intake Vital Signs 04/30/24 10:00 12/03/24 08:59 Height 5 ft 2 in 5 ft 2 in Weight: 125 lb BMI 22.8 BP 106/81 H Pulse 71 Intake Visit Reasons: urinary frequency Chief Complaint: new patient- IC and urinary frequency, history and physical exam Commercial Illustrator Required: No Accompanied by: self Is patient in pain?: Yes (heavy tenderness in her pelvis constantly. ) Pain scale (1-10): 5 Allergies No Known Allergies Allergy (Verified 12/03/24 08:58) Medications ???Medication ???Instructions ???Recorded ???Confirmed ???Type omeprazole 40 mg capsule,delayed 40 mg PO DAILY PRN 03/01/23 History release lamotrigine 100 mg tablet 100 mg PO QDAY 04/30/24 12/03/24 H istory propranolol 20 mg tablet 20 mg PO DAILY #90 tabs 07/20/24 0 12/03/24 Rx ascorbate calcium (vitamin C) 500 500 mg PO QDAY 12/03/24 12/03/24 History mg tablet Nurse's Note: diagnosed with IC several years ago and has never followed a urologist. Having hematuria on Dip at PCP office. urinary frequency. Bladder scan PVR 2CC PFSH Medical History (Updated 12/03/24 @ 09:[address] Brissa Huerta MD) Mixed incontinence Nocturia Interstitial cystitis (chronic) with hematuria Dyspareunia, female Interstitial cystitis Hematuria Chronic right lower quadrant pain Wears contact lenses Anxiety Back pain History of IBS Non-smoker History of pain when walking Cardiology follow-up encounter History of echocardiogram Hypotension History of stress test Ischemic colitis Intestinal angina Vasovagal syncope Interstitial cystitis Asthma Migraines Fatigue History of palpitations Incomplete right bundle branch block Supraventricular tachycardia, paroxysmal Other chest pain Premature atrial contractions Near syncope Dizziness Surgical History H/O LEEP History of wisdom tooth extraction History of esophagogastroduodenoscopy (EGD) History of cystoscopy History of dilatation and curettage History of salpingectomy Family History Father Paroxysmal atrial fibrillation Alcoholism Grandmother Heart disease CAD (coronary artery disease) CABG Pacemaker Breast cancer Grandfather , Age 37 Myocardial infarction Mother Rheumatoid arthritis Glaucoma Arthritis Depression Social History household members: spouse and children housing: house number of children: 5 current occupational status: employed 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 She is here for evaluation and management of interstitial cystitis. She was diagnosed with this and management previously by who has since left. This was at [facility], she was seen once at the [facility], did not have a great experience with it. She has had hydrodistention, instillations etc. She was on one previous oral medication for the frequency, but she is not great with pills. She had DMSO, other instillations and even did them on her own at home. She has blood on dipstick but not visible. She has issues with urgency and frequency. She has been following IC diet elimination. She reports that her symptoms are not as bad as they were previously. She is voiding at least 10 times during the day, 1-2 or more times at night. Was tested for sleep apnea that was negative. 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 She has lots of pain when she works and is not able to void when she needs to. 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 There is urge incontinence where she cannot make it to the bathroom. There is stress incontinence with cough, laugh, sneeze, lifting, etc. She is using liner pads in 24 hours. She has had no urinary tract infections in the last year. She has not had visible blood in her urine. She is sexually active. There is pain with intercourse. She has chronic continuous right lower pinpoint abdominal pain. Fallopian tubes have been removed, she doesn't know if it is scar tissue, intercourse increases this pain. There is no sensation of vaginal bulging (more content not included)... Normal [facility] No Panel InformationOrdered By: Brissa Huerta on 12-03-2024 Urine Bacteria None Seen [facility] Urine Leukocytes Negatve [facility] Urine Microscopic RBC See comment [facility] Comment on above: 0-2 Urine Microscopic WBC None Seen [facility] Urine Non-Hemolyzed Blood Negative [facility] FSH and LHon 09-19-2024 FSH 3.9 mIU/mL Normal [facility] Comment on above: Order Comment: Order Date: 09/18/24 Order Info: 0553-1 - FSH Result Comment: FEMA LE: Follicular: 1.4 - 18.1 mIU/mL Midcycle: 3.4 - 33.4 mIU/mL Luteal: 1.5 - 9.1 mIU/mL Post Menopause: 23.0 - 116.3 mIU/mL MALE: 1.4 - 18.1 mIU/mL Performed By: #### L 3100.5055 #### [facility] [address] [place], [address] LH 15.9 mIU/mL Normal [facility] Comment on above: Order Comment: Order Date: 09/18/24 Order Info: 0553-1 - FSHLH Result Comment: FEMA LE: Follicular: 1.9-12.5 mIU/mL Midcycle: 8.7-76.3 mIU/mL Luteal: 0.5-16.9 mIU/mL Post Menopause: 15.9-54.0 mIU/mL MALE: 20-70 Years: 1.5-9.3 mIU/mL >70 Years: 3.1-34.6 mIU/mL Performed By: #### L 3100.5055 #### [facility] [address] [place], [place], [address] L509.6001on 09-19-2024 CORTISOL 17.60 ug/dL Normal 6.02-18.40 [facility] Comment on above: Order Comment: Order Date: 09/18/24Order Info: 0553-1 - FSHLH Performed By: #### L 509.6001 ####[facility] [id number] [place], [address] LH ser/plasOrdered By: Kalen Wright on 09-19-2024 Lutropin Qn 15.9 m[IU]/mL [facility] Comment on above: FEMALE:Follicular: 1 .9-12.5 mIU/mLMidcycle: 8.7-76.3 mIU/mLLuteal: 0.5-16.9 mIU/mLPost Menopause: 15.9-54.0 mIU/mLMALE:20-70 Years: 1.5-9.3 mIU/mL>70 Years: 3.1-34.6 mIU/mL Serum or plasma cortisol checo surement (mass/volume)Ordered By: Kalen Wright on 09-19-2024 Cortisol [Mass/Vol] 17.60 ug/dL 6.02-18.40 [facility] Absolute lymphocyte countOrd ered By: Mallory Foster on 06-22-2024 Lymphocytes Auto (Unsp spec) [#/Vol] 2.60 10*3/uL 0.83-4.51 [facility] Absolute neutrophil countOrd ered By: Mallory Foster on 06-22-2024 Neutrophils (Bld) [#/Vol] 3.7 10*3/uL 2.0-7.7 [facility] Anion gap in Serum or Plasma Ordered By: Mallory Foster on 06-22-2024 Anion gap [Moles/Vol] 13 mmol/L 5-15 [facility] Automated lymphocyte count a s percentage of total leukocytesOrdered By: Mallory Foster on 06-22-2024 Lymphocytes/100 WBC Auto (Unsp spec) 36.3 % 19- [facility] BUN/creatinine ratioOrdered By: Mallory Foster on 06-22-2024 Urea nitrogen/Creatinine [Mass ratio] 16.8 mg/mg 10- [facility] Basophil percentageOrdered B y: Mallory Foster on 06-22-2024 Basophils/100 WBC (Bld) 1.0 % 0-1 [facility] Bilirubin, totalOrdered By: Mallory Foster on 06-22-2024 Bilirubin [Mass/Vol] 0.27 mg/dL 0.00-1.30 [facility] CBC W/Diff, Automatedon 06-12 Absolute Lymph 2.60 X10 3/uL Normal 0.83-4.51 [facility] Comment on above: Order Comment: Order Date: 06/22/24 Order Info: 0184-1 - CBCD Performed By: #### L 500.4050, L501.5200, L100.0100, L501.9520 #### [facility] [address] [place], [address] Absolute Neut 3.7 X10 3/uL Normal 2.0-7.7 [facility] Comment on above: Order Comment: Order Date: 06/22/24 Order Info: 0184-1 - CBCD Performed By: #### L 500.4050, L501.5200, L100.0100, L501.9520 #### [facility] [address] [place], [address] Basophils/100 WBC (Bld) 1.0 % Normal 0-1 [facility] Comment on above: Order Comment: Order Date: 06/22/24 Order Info: 0184-1 - CBCD Performed By: #### L 500.4050, L501.5200, L100.0100, L501.9520 #### [facility] [address] [place], [address] Eosinophils/100 WBC (Bld) 5.4 % High 0-5 [facility] Comment on above: Order Comment: Order Date: 06/22/24 Order Info: 0184-1 - CBCD Performed By: #### L 500.4050, L501.5200, L100.0100, L501.9520 #### [facility] [address] [place], [address] Erythrocyte distribution width (RBC) [Ratio] 12.6 % Normal 11.6-14.6 [facility] Comment on above: Order Comment: Order Date: 06/22/24 Order Info: 0184-1 - CBCD Performed By: #### L 500.4050, L501.5200, L100.0100, L501.9520 #### [facility] [address] [place], [address] Hematocrit (Bld) [Volume fraction] 41.9 % Normal 37-47 [facility] Comment on above: Order Comment: Order Date: 06/22/24 Order Info: 0184-1 - CBCD Performed By: #### L 500.4050, L501.5200, L100.0100, L501.9520 #### [facility] [address] [place], [address] Hemoglobin (Bld) [Mass/Vol] 14.2 g/dL Normal 12.0-15.0 [facility] Comment on above: Order Comment: Order Date: 06/22/24 Order Info: 0184-1 - CBCD Performed By: #### L 500.4050, L501.5200, L100.0100, L501.9520 #### [facility] [address] [place], [address] IG% 0.400 Normal 0.0-0.9 [facility] Comment on above: Order Comment: Order Date: 06/22/24 Order Info: 0184-1 - CBCD Result Comment: IG% - Immature Granulocytes (promyelocytes, myelocytes and metamyelocytes) > 1% indicates that a LEFT SHIFT is Present. Performed By: #### L 500.4050, L501.5200, L100.0100, L501.9520 #### [facility] [address] [place], [address] Lymphocytes/100 WBC (Bld) 36.3 % Normal 19-41 [facility] Comment on above: Order Comment: Order Date: 06/22/24 Order Info: 0184- - CBCD Performed By: #### L 500.4050, L501.5200, L100.0100, L501.9520 #### [facility] [address] [place], [address] MCH (RBC) [Entitic mass] 29.2 pg Normal 27.0-32.0 [facility] Comment on above: Order Comment: Order Date: 06/22/24 Order Info: 0184-1 - CBCD Performed By: #### L 500.4050, L501.5200, L100.0100, L501.9520 #### [facility] [address] [place], [address] MCHC (RBC) [Mass/Vol] 33.9 g/dL Normal 32-36 [facility] Comment on above: Order Comment: Order Date: 06/22/24 Order Info: 0184-1 - CBCD Performed By: #### L 500.4050, L501.5200, L100.0100, L501.9520 #### [facility] [address] [place], [address] MCV (RBC) [Entitic vol] 86.0 fL Normal 81-99 [facility] Comment on above: Order Comment: Order Date: 06/22/24 Order Info: 0184-1 - CBCD Performed By: #### L 500.4050, L501.5200, L100.0100, L501.9520 #### [facility] [address] [place], [address] Monocytes/100 WBC (Bld) 4.6 % Normal 0-10 [facility] Comment on above: Order Comment: Order Date: 06/22/24 Order Info: 0184-1 - CBCD Performed By: #### L 500.4050, L501.5200, L100.0100, L501.9520 #### [facility] [address] [place], [address] Neutrophils/100 WBC (Bld) 52.3 % Normal 47-70 [facility] Comment on above: Order Comment: Order Date: 06/22/24 Order Info: 0184-1 - CBCD Performed By: #### L 500.4050, L501.5200, L100.0100, L501.9520 #### [facility] [address] [place], [address] Nucleated RBC (Bld) [#/Vol] 0 10*3/uL Normal 0-5 [facility] Comment on above: Order Comment: Order Date: 06/22/24 Order Info: 0184-1 - CBCD Performed By: #### L 500.4050, L501.5200, L100.0100, L501.9520 #### [facility] [address] [place], [address] Platelet mean volume (Bld) [Entitic vol] 10.4 fL Normal 6.2-12.0 [facility] Comment on above: Order Comment: Order Date: 06/22/24 Order Info: 0184-1 - CBCD Performed By: #### L 500.4050, L501.5200, L100.0100, L501.9520 #### [facility] [address] [place], [address] Platelets (Bld) [#/Vol] 309 10*3/uL Normal 150-450 [facility] Comment on above: Order Comment: Order Date: 06/22/24 Order Info: 0184-1 - CBCD Performed By: #### L 500.4050, L501.5200, L100.0100, L501.9520 #### [facility] [address] [place], [address] RBC (Bld) [#/Vol] 4.87 10*6/uL Normal 4.2-5.4 [facility] Comment on above: Order Comment: Order Date: 06/22/24 Order Info: 0184-1 - CBCD Performed By: #### L 500.4050, L501.5200, L100.0100, L501.9520 #### [facility] [address] [place], [address] RDW SD 39.8 fl Normal 35.1-43.9 [facility] Comment on above: Order Comment: Order Date: 06/22/24 Order Info: 0184-1 - CBCD Performed By: #### L 500.4050, L501.5200, L100.0100, L501.9520 #### [facility] [address] [place], [address] WBC (Bld) [#/Vol] 7.2 10*3/uL Normal 4.4-11.0 [facility] Comment on above: Order Comment: Order Date: 06/22/24 Order Info: 0184-1 - CBCD Performed By: #### L 500.4050, L501.5200, L100.0100, L501.9520 #### [facility] [address] [place], [address] Carbon dioxide, total [Moles /volume] in Central venous bloodOrdered By: Mallory Foster on 06-22-2024 CO2 [Moles/Vol] 20.5 mmol/L Low 21.0-32.0 [facility] Chloride assayOrdered By: Le Foster on 06-22-2024 Chloride [Moles/Vol] 105 mmol/L 98-108 [facility] Comprehensive Metabolic Prof ilon 06-22-2024 Albumin [Mass/Vol] 4.3 g/dL Normal 3.5-5.0 [facility] Comment on above: Order Comment: Order Date: 06/22/24 Order Info: 0786-1 - CMP Order Info: [id number] - MG Order Info: 301-3 - TSH Performed By: #### L 500.4050, L501.5200, L100.0100, L501.9520 #### [facility] [address] [place], [address] Albumin/Globulin [Mass ratio] 1.7 {ratio} Normal 0.9-2.4 [facility] Comment on above: Order Comment: Order Date: 06/22/24 Order Info: 0786-1 - CMP Order Info: [id number] - MG Order Info: 301-3 - TSH Performed By: #### L 500.4050, L501.5200, L100.0100, L501.9520 #### [facility] [address] [place], [address] ALK PHOS 39 U/L Normal 35-104 [facility] Comment on above: Order Comment: Order Date: 06/22/24 Order Info: 0786-1 - CMP Order Info: [id number] - MG Order Info: 3016-3 - TSH Performed By: #### L 500.4050, L501.5200, L100.0100, L501.9520 #### [facility] [address] [place], [address] ALT [Catalytic activity/Vol] 13 U/L Normal <=34 [facility] Comment on above: Order Comment: Order Date: 06/22/24 Order Info: 0786-1 - CMP Order Info: [id number] - MG Order Info: 3016-3 - TSH Performed By: #### L 500.4050, L501.5200, L100.0100, L501.9520 #### [facility] [address] [place], [address] AST [Catalytic activity/Vol] 19 U/L Normal <=31 [facility] Comment on above: Order Comment: Order Date: 06/22/24 Order Info: 0786-1 - CMP Order Info: [id number] - MG Order Info: 3015-3 - TSH Performed By: #### L 500.4050, L501.5200, L100.0100, L501.9520 #### [facility] [address] [place], [address] Bilirubin [Mass/Vol] 0.27 mg/dL Normal 0.00-1.30 [facility] Comment on above: Order Comment: Order Date: 06/22/24 Order Info: 0786-1 - CMP Order Info: [id number] - MG Order Info: 3015-3 - TSH Performed By: #### L 500.4050, L501.5200, L100.0100, L501.9520 #### [facility] [address] [place], [address] BUN/CRE 16.8 RATIO Normal 10-20 [facility] Comment on above: Order Comment: Order Date: 06/22/24 Order Info: 0786-1 - CMP Order Info: [id number] - MG Order Info: 301-3 - TSH Performed By: #### L 500.4050, L501.5200, L100.0100, L501.9520 #### [facility] [address] [place], [address] Calcium [Mass/Vol] 9.3 mg/dL Normal 7.6-11.0 [facility] Comment on above: Order Comment: Order Date: 06/22/24 Order Info: 0786-1 - CMP Order Info: [id number] - MG Order Info: 3015-3 - TSH Performed By: #### L 500.4050, L501.5200, L100.0100, L501.9520 #### [facility] [address] [place], [address] Chloride [Moles/Vol] 105 mmol/L Normal 98-108 [facility] Comment on above: Order Comment: Order Date: 06/22/24 Order Info: 0786-1 - CMP Order Info: [id number] - MG Order Info: 3 - TSH Performed By: #### L 500.4050, L501.5200, L100.0100, L501.9520 #### [facility] [address], [address] CO2 [Moles/Vol] 20.5 mmol/L Low 21.0-32.0 [facility] Comment on above: Order Comment: Order Date: 06/22/24 Order Info: 0786-1 - CMP Order Info: [id number] - MG Order Info: 3013 - TSH Performed By: #### L 500.4050, L501.5200, L100.0100, L501.9520 #### [facility] [address] [place], [address] Creatinine [Mass/Vol] 0.75 mg/dL Normal 0.70-1.20 [facility] Comment on above: Order Comment: Order Date: 06/22/24 Order Info: 0786-1 - CMP Order Info: [id number] - MG Order Info: 3016-3 - TSH Performed By: #### L 500.4050, L501.5200, L100.0100, L501.9520 #### [facility] [address] [place], [address] GAP 13 Normal 5-15 [facility] Comment on above: Order Comment: Order Date: 06/22/24 Order Info: 0786-1 - CMP Order Info: [id number] - MG Order Info: 3 - TSH Performed By: #### L 500.4050, L501.5200, L100.0100, L501.9520 #### [facility] [address] [place], [address] GFR/1.73 sq M.predicted among non-blacks MDRD (S/P/Bld) [Vol rate/Area] 103 mL/min/{1.73_m2} Normal >60 [facility] Comment on above: Order Comment: Order Date: 06/22/24 Order Info: 0786-1 - CMP Order Info: [id number] - MG Order Info: 3 - TSH Result Comment: mL/m in/1.73m2 CKD-EPI Creatinine Equation (2020) Performed By: #### L 500.4050, L501.5200, L100.0100, L501.9520 #### [facility] [address] [place], [address] Globulin (S) [Mass/Vol] 2.5 g/dL Normal 2.2-4.2 [facility] Comment on above: Order Comment: Order Date: 06/22/24 Order Info: 0786-1 - CMP Order Info: [id number] - MG Order Info: 3 - TSH Performed By: #### L 500.4050, L501.5200, L100.0100, L501.9520 #### [facility] [address] [place], [address] Glucose [Mass/Vol] 93 mg/dL Normal 70-99 [facility] Comment on above: Order Comment: Order Date: 06/22/24 Order Info: 0786-1 - CMP Order Info: [id number] - MG Order Info: 3015-3 - TSH Performed By: #### L 500.4050, L501.5200, L100.0100, L501.9520 #### [facility] [address] [place], [address] Potassium [Moles/Vol] 4.2 mmol/L Normal 3.3-5.1 [facility] Comment on above: Order Comment: Order Date: 06/22/24 Order Info: 07-1 - CMP Order Info: [id number] - MG Order Info: 3015-3 - TSH Performed By: #### L 500.4050, L501.5200, L100.0100, L501.9520 #### [facility] [address] [place], [address] Sodium [Moles/Vol] 139 mmol/L Normal 133-145 [facility] Comment on above: Order Comment: Order Date: 06/22/24 Order Info: 07-1 - CMP Order Info: [id number] - MG Order Info: 3015-3 - TSH Performed By: #### L 500.4050, L501.5200, L100.0100, L501.9520 #### [facility] [address] [place], [address] T PROT 6.8 g/dL Normal 5.9-8.4 [facility] Comment on above: Order Comment: Order Date: 06/22/24 Order Info: 0786-1 - CMP Order Info: [id number] - MG Order Info: 3015-3 - TSH Performed By: #### L 500.4050, L501.5200, L100.0100, L501.9520 #### [facility] [address] [place], [address] Urea nitrogen [Mass/Vol] 13 mg/dL Normal 4-19 [facility] Comment on above: Order Comment: Order Date: 06/22/24 Order Info: 0786-1 - CMP Order Info: [id number] - MG Order Info: 3015-3 - TSH Performed By: #### L 500.4050, L501.5200, L100.0100, L501.9520 #### [facility] [address] [place], [address] Eosinophil percentageOrdered By: Mallory Foster on 06-22-2024 Eosinophils/100 WBC (Bld) 5.4 % High 0-5 [facility] Erythrocyte distribution wid th (RBC) [Ratio]Ordered By: Mallory Foster on 06-22-2024 Erythrocyte distribution width (RBC) [Entitic vol] 39.8 fL 35.1-43.9 [facility] Erythrocyte distribution wid th ratioOrdered By: Mallory Foster on 06-22-2024 Erythrocyte distribution width (RBC) [Ratio] 12.6 % 11.6-14.6 [facility] Erythrocyte distribution wid th standard deviationOrdered By: Mallory Foster on 06-22-2024 Erythrocyte distribution width (RBC) [Ratio] 39.8 fl 35.1-43.9 [facility] GFR/1.73 sq M.predicted igles[place] g non-blacks MDRD (S/P/Bld) [Vol rate/Area]Ordered By: Mallory Foster on 06-22-2024 Estimated GFR (MDRD) Non-Af Amer [address] >[address] [facility] Comment on above: mL/min/1.73m2 CKD-EP I Creatinine Equation (2020) Glomerular filtration rate ( GFR) estimation/1.73 sq m using serum, plasma, or whole bOrdered By: Mallory Foster on 06-22-2024 GFR/1.73 sq M.predicted among non-blacks MDRD (S/P/Bld) [Vol rate/Area] 103 mL/min/{1.73_m2} >60 [facility] Comment on above: mL/min/1.73m2 CKD-EP I Creatinine Equation (2020) Hematocrit Auto (Bld) [Volum e fraction]Ordered By: Mallory Foster on 06-22-2024 Hematocrit (Bld) [Volume fraction] 41.9 % 37-47 [facility] Hemoglobin measurementOrdere d By: Mallory Foster on 06-22-2024 Hemoglobin (Bld) [Mass/Vol] 14.2 g/dL 12.0-15.0 [facility] Immature granulocytes/100 WB C Auto (Bld)Ordered By: Mallory Foster on 06-22-2024 Immature granulocytes/100 WBC (Bld) 0.400 % 0.0-0.9 [facility] Comment on above: IG% - Immature Granu locytes (promyelocytes, myelocytes and metamyelocytes) > 1% indicates that a LEFT SHIFT is Present. Laboratory - Chemistry and C hemistry - challengeOrdered By: Mallory Foster on 06-22-2024 AST [Catalytic activity/Vol] 19 U/L <32 [facility] Lymphocytes Auto (Unsp spec) [#/Vol]Ordered By: Mallory Foster on 06-22-2024 Lymphocytes (Bld) [#/Vol] 2.60 10*3/uL 0.83-4.51 [facility] Lymphocytes/100 WBC Auto (Un sp spec)Ordered By: Mallory Foster on 06-22-2024 Lymphocytes/100 WBC (Bld) 36.3 % 19-41 [facility] MCV (mean corpuscular volume ) determinationOrdered By: Mallory Foster on 06-22-2024 MCV (RBC) [Entitic vol] 86.0 fL 81-99 [facility] Magnesiumon 06-22-2024 Magnesium [Mass/Vol] 2.0 mg/dL Normal 1.5-2.2 [facility] Comment on above: Order Comment: Order Date: 06/22/24 Order Info: 0786-1 - CMP Order Info: [id number] - MG Order Info: 3016-3 - TSH Performed By: #### L 500.4050, L501.5200, L100.0100, L501.9520 #### [facility] [address] [place] [address], [id number] Magnesium (Unsp spec) [Mass/ Vol]Ordered By: Mallory Foster on 06-22-2024 Magnesium [Mass/Vol] 2.0 mg/dL 1.5-2.2 [facility] Magnesium measurement (mass/ volume)Ordered By: Mallory Foster on 06-22-2024 Magnesium (Unsp spec) [Mass/Vol] 2.0 mg/dL 1.5-2.2 [facility] Mean corpuscular hemoglobin (MCH) determinationOrdered By: Mallory Foster on 06-22-2024 MCH (RBC) [Entitic mass] 29.2 pg 27.0-32.0 [facility] Mean corpuscular hemoglobin concentration (MCHC) determinationOrdered By: Mallory Foster on 06-22-2024 MCHC (RBC) [Mass/Vol] 33.9 g/dL 32-36 [facility] Mean platelet volume determi nationOrdered By: Mallory Foster on 06-22-2024 Platelet mean volume (Bld) [Entitic vol] 10.4 fL 6.2-12.0 [facility] Monocyte percentageOrdered B y: Mallory Foster on 06-22-2024 Monocytes/100 WBC (Bld) 4.6 % 0-10 [facility] Neutrophil percentageOrdered By: Mallory Foster on 06-22-2024 Neutrophils/100 WBC (Bld) 52.3 % 47-70 [facility] Nucleated red blood cell per centageOrdered By: Mallory Foster on 06-22-2024 Nucleated RBC/100 WBC (Bld) [Ratio] 0 % 0-5 [facility] Platelet countOrdered By: Le Foster on 06-22-2024 Platelets (Bld) [#/Vol] 309 10*3/uL 150-450 [facility] Potassium (Unsp spec) [Mass/ Vol]Ordered By: Mallory Foster on 06-22-2024 Potassium [Moles/Vol] 4.2 mmol/L 3.3-5.1 [facility] Potassium measurement (mass/ volume)Ordered By: Mallory Foster on 06-22-2024 Potassium (Unsp spec) [Mass/Vol] 4.2 mmol/L 3.3-5.1 [facility] RBC Auto (Bld) [#/Vol]Ordere d By: Mallory Foster on 06-22-2024 RBC (Bld) [#/Vol] 4.87 10*6/uL 4.2-5.4 [facility] Serum creatinine measurement (mass/volume)Ordered By: Mallory Foster on 06-22-2024 Creatinine [Mass/Vol] 0.75 mg/dL 0.70-1.20 [facility] Serum globulin measurementOr dered By: Mallory Foster on 06-22-2024 Globulin (S) [Mass/Vol] 2.5 g/dL 2.2-4.2 [facility] Serum glucose measurement (m ass/volume)Ordered By: Mallory Foster on 06-22-2024 Glucose [Mass/Vol] 93 mg/dL 70-99 [facility] Serum or plasma alanine pro otransferase (ALT) measurementOrdered By: Mallory Foster on 06-22-2024 ALT [Catalytic activity/Vol] 13 U/L <35 [facility] Serum or plasma albumin crista urement (mass/volume)Ordered By: Mallory Foster on 06-22-2024 Albumin [Mass/Vol] 4.3 g/dL 3.5-5.0 [facility] Serum or plasma albumin/glob ulin mass ratioOrdered By: Mallory Foster on 06-22-2024 Albumin/Globulin [Mass ratio] 1.7 {ratio} 0.9-2.4 [facility] Serum or plasma alkaline jose sphatase measurementOrdered By: Mallory Foster on 06-22-2024 ALP [Catalytic activity/Vol] 39 U/L 35-104 [facility] Serum or plasma calcium crista urement (mass/volume)Ordered By: Mallory Foster on 06-22-2024 Calcium [Mass/Vol] 9.3 mg/dL 7.6-11.0 [facility] Serum or plasma urea nitroge n measurement (mass/volume)Ordered By: Mallory Foster on 06-22-2024 Urea nitrogen [Mass/Vol] 13 mg/dL 4-19 [facility] Sodium levelOrdered By: Mallory Foster on 06-22-2024 Sodium [Moles/Vol] 139 mmol/L 133-145 [facility] TSH DL <= 0.005 mIU/L QnOrde red By: Mallory Foster on 06-22-2024 Thyroid Stimulating Hormone (TSH) 2.040 uIU/mL 0.300-4.[address] [facility] TSH Qn 2.040 uIU/mL 0.300-4.[address] [facility] Thyroid Stim Hormone (TSH)on 06-22-2024 TSH 2.040 uIU/mL Normal 0.300-4.[address] [facility] Comment on above: Order Comment: Order Date: 06/22/24 Order Info: 0786-1 - CMP Order Info: [id number] - MG Order Info: 3016-3 - TSH Performed By: #### L 500.4050, L501.5200, L100.0100, L501.9520 #### [facility] [address] [place], [address] Total proteinOrdered By: Chance Foster on 06-22-2024 Protein [Mass/Vol] 6.8 g/dL 5.9-8.4 [facility] Vitamin D, 25-hydroxyOrdered By: Mallory Foster on 06-22-2024 Vitamin D 25-Hydroxy 19.7 ng/mL Low 30-100 [facility] Comment on above: Vitamin D StatusDefi ciency: <20 ng/mL (50nmol/L)Insufficiency: 20-30 ng/mL (50-75 nmol/L)Sufficiency: 30-100 ng/mL (75-250 nmol/L)Toxicity: >100 ng/mL (>250 nmol/L) Vitamin D,25 Hydroxyon 06-22 Vitamin D 25-OH 19.7 ng/mL Low 30-100 [facility] Comment on above: Order Comment: Order Date: 06/22/24Order Info: 0786-1 - CMPOrder Info: 78331-4 - MGOrder Info: 3016-3 - TSH Result Comment: Rose Marie min D Status Deficiency: <20 ng/mL (50nmol/L) Insufficiency: 20-30 ng/mL (50-75 nmol/L) Sufficiency: 30-100 ng/mL (75-250 nmol/L) Toxicity: >100 ng/mL (>250 nmol/L) Performed By: #### L 506.1001 ####[facility] [address] [place], [address] White blood cell (WBC) count Ordered By: Mallory Foster on 06-22-2024 WBC (Bld) [#/Vol] 7.2 10*3/uL 4.4-11.0 [facility] Coronary Angiography CTon Coronary Angiography CT [facility] Imaging Services [address] [address] 06/15/24 1305 MR#: [id number] Acct: [id number] Name: SILVESTRE ELISE Rep #: [id number] : 1985 38 From: Jerrell Burt MD PCP: Dr. Mallory Foster MD Status:REG CLI Y Location: CT Calcium Scoring Date of Study:: 06/15/24 Indications Indications: Dyspnea on exertion Coronary Calcium Scoring: High-resolution Computed Tomographic imaging of the chest was performed on [06/15/2024], with particular attention paid to the coronary arteries. Images from the examination were analyzed for the presence and extent of coronary artery calcification , using coronary calcium quantification software. The patient tolerated the procedure well and there were no complications. The results of the coronary calcification analysis are provided below. Findings Coronary Artery Left Main (LM): 0 Left Anterior Descending (LAD): 0 Left Circumflex (LCX): 0 Right Coronary Artery (RCA): 0 Total Agatston Score: 0 Percentile Rankinth Calcium Scoring Interpretation: Different methods to categorize the overall amount of coronary plaque. Overall amount CAC SIS Visual of coronary plaque P1 Mild -100 <2 1-2 vessels with mild amount of plaque P2 Moderate 101-300 3-4 1-2 vessels with moderate amount, 3 vessels with mild amount of plaque P3 Severe 301-999 5-7 3 vessels with moderate amount, 1 vessel with severe amount of plaque P4 Extensive >1000 >8 2-3 vessels with severe amount of plaque Conclusion: No atherosclerotic plaquing noted 06/15/24 1306 Date Jerrell Burt MD Cosigner Signature (if applicable): Date CC: DOTTIE Marie; Dr. Jerrell Burt MD; Dr. Mallory Foster MD Signed Normal [facility] Limited Chest CT Cardiac Onl yo 06-15-[address] Cardiac Only [facility] Imaging Services [address] [place] [address] Limited Chest CT Cardiac Only MR#: [id number] Acct: [id number] Name: SILVESTRE ELISE Rep #: [id number] : 1985 F 38 From: Santiago bonner MD PCP: Dr. Mallory Foster MD Status: REG CLI Study: Limited Chest CT Cardiac Only Date of Exam: Exam# [id number] Ordering Dr: Mallory Marie NP LEAD COOK-C PROCEDURE: LIMITED CHEST CT CARDIAC ONLY REASON FOR EXAM: FAMILY HX OF CAD, DIEHL TECHNIQUE: Prone and supine chest CT without contrast, high resolution CT (HRCT) protocol. Coronal and Sagittal reconstruction series were provided. One or more dose reduction techniques were used (e.g., Automated exposure control, adjustment of the mA and/or kV according to patient size, use of iterative reconstruction technique). COMPARISON: None FINDINGS: Hardware: None Lymph nodes: No mediastinal hilar or axillary lymphadenopathy. Heart and Vasculature: Normal heart size. No pericardial effusion. Coronary Artery Calcifications: Absent Lungs and Airways: The lungs are normally expanded and clear. No septal thickening nodules or abnormal pulmonary opacities. Pleura: Unremarkable Upper Abdomen: Unremarkable Bones: Bone windows are unremarkable. CT/Limited Chest CT Cardiac Only IMPRESSION: Coronary artery calcification (CAC) is is absent Reading Location: [place] [address] CC: LEAD COOK-C Mallory Marie; Dr. Mallory Foster MD Director Of Gift Planning: Signed Normal [facility] Breast Limited Unilateralon 05-01-2024 Breast Limited Unilateral [facility] Imaging Services [address] [place], [place] [address] Breast Limited Unilateral MR#: [id number] Acct: [id number] Name: SILVESTRE ELISE Rep #: [id number] : 1985 F 38 From: Santiago bonner MD PCP: Dr. Mallory Foster MD Status: REG CLI Study: Breast Limited Unilateral Date of Exam: Exam# [id number] Ordering Dr: Raisa Galeas DO PROCEDURE: BREAST LIMITED UNILATERAL REASON FOR EXAM: Palpable lump in the right axilla and lateral aspect of the right breast. COMPARISON: Comparison is made with prior mammogram done earlier in the day and prior sonogram dated March 15, 2023. TECHNIQUE: Targeted right breast ultrasound. FINDINGS: RIGHT: Ultrasound targeted to the lateral half at the right breast. The breast tissue appears sonographically normal. No cyst, solid mass, or suspicious shadowing. US/Breast Limited Unilateral IMPRESSION: No mass lesion seen. BI-RADS 2: BENIGN. RECOMMEND ANNUAL MAMMOGRAPHIC SCREENING. Reading Location: [place] [address] CC: Dr. Raisa Galeas DO; Dr. Mallory Foster MD Director Of Gift Planning: Signed Normal [facility] DIAG MAMM W/CAD, BILATon DIAG MAMM W/CAD, BILAT [facility] Imaging Services [address] [place] [id number] DIAG MAMM W/CAD, BILAT MR#: [id number] Acct: [id number] Name: SILVESTRE ELISE Rep #: [id number] : 1985 F 38 From: Santiago bonner MD PCP: Dr. Mallory Foster MD Status: [facility] CLI Study: DIAG MAMM W/CAD, BILAT Date of Exam: 05/01/24 Exam# [id number] Ordering Dr: Raisa Galeas DO PROCEDURE: DIAG MAMM W/CAD, BILAT REASON FOR EXAM: F, Age 38 y/o, right breast lump. TECHNIQUE: Bilateral screening digital breast tomosynthesis with 2D and 3D images. Computer aided detection. COMPARISON: Prior exam(s) dating back to comparison is made with prior outside examination dated March 15 2023.. FINDINGS: There are scattered areas of fibroglandular density. No suspicious masses, areas of developing architectural distortion, or suspicious calcifications. With the patient's history of a palpable lump in the right breast, correlation with ultrasound recommended. BI/DIAG MAMM W/CAD, BILAT IMPRESSION: BI-RADS 0: INCOMPLETE - NEED ADDITIONAL IMAGING EVALUATION. Follow-up code: Sonographic follow-up. The patient will be notified of the results by letter. Reading Location: [place] [address] CC: Dr. Raisa Galeas DO; Dr. Mallory Foster MD Director Of Gift Planning: Signed Normal [facility] Cardiology Visit Reporton Cardiology Visit Report [facility] [address] [place] [address] OFFICE VISIT Date of Service: 04/30/24 MR#: [id number] Acct: [id number] Name: SILVESTRE ELISE Rep #: [id number] : 1985 Provider: DOTTIE shaffer Age/Sex: 38/F Location: [facility] [place] Status: Signed HPI HPI History of Present Illness Details: Silvestre Elise is a 38 year old female who presents here today for a cardiovascular follow up. She has a history of palpitations, supraventricular ectopy, and vasovagal syncope. She had a 30 day event monitor which did not demonstrate anything significant. Stress test in 2019 was negative for ischemia at a high workload. She did undergo a tilt study in 2021 which was negative. She denies chest, arm, jaw, or neck discomfort. She acknowledges intermittent palpitations that are not long-lasting. She describes this as a flutter.. She denies bilateral lower extremity edema. She denies claudication. She states shortness of breath with activity. She denies shortness of breath at rest, orthopnea, or PND. She denies chronic cough. She denies significant, sudden weight gain. She acknowledges lightheadedness she denies dizziness, near-syncope, or syncope. She denies blood in urine, blood in stool, or epistaxis. He denies fever with chills. She denies myalgia. She states fatigue. Her exercise level has remained stable. Her raises concerns for possible sleep apnea due to witnessed breathing issues during sleep. Intake Vital Signs 03/01/23 08:55 04/23/24 08:50 04/30/24 10:00 04/30/24 10:17 Height 5 ft 2 in 5 ft 2 in 5 ft 2 in Weight: 126 lb 125 lb BMI 23.0 22.8 BP 138/82 H 101/69 118/86 H Blood Pressure Location Lt brachial Lt brachial Position Sitting Standing Respiration 16 Pulse 78 93 Pulse Source NIBP NIBP Intake Visit Reasons: 1 Y FU Commercial Illustrator Required: No Is patient in pain?: No Allergies No Known Allergies Allergy (Verified 04/30/24 10:06) Medications ???Medication ???Instructions ???Recorded ???Confirmed ???Type omeprazole 40 mg capsule,delayed 40 mg PO DAILY PRN 03/01/23 History release lamotrigine 200 mg tablet 100 mg PO DAILY 10/25/23 04/30/24 History propranolol 20 mg tablet 20 mg PO DAILY 10/25/23 04/30/24 H istory hyoscyamine sulfate 0.125 mg 0.125 mg sublingual ONCE PRN 04/3004/30/24 History sublingual tablet lamotrigine 100 mg tablet 100 mg PO QDAY 04/30/24 04/30/24 H istory Ejection fraction %: 60 Have you fallen in the past year?: No PFSH Medical History Chronic right lower quadrant pain Wears contact lenses Anxiety Back pain History of IBS Non-smoker History of pain when walking Cardiology follow-up encounter History of echocardiogram Hypotension History of stress test Ischemic colitis Intestinal angina Vasovagal syncope Interstitial cystitis Asthma Migraines Fatigue History of palpitations Incomplete right bundle branch block Supraventricular tachycardia, paroxysmal Other chest pain Premature atrial contractions Near syncope Dizziness Surgical History H/O LEEP History of wisdom tooth extraction History of esophagogastroduodenoscopy (EGD) History of cystoscopy History of dilatation and curettage History of salpingectomy Family History Father Paroxysmal atrial fibrillation Alcoholism Grandmother Heart disease CAD (coronary artery disease) CABG Pacemaker Breast cancer Grandfather , Age 37 Myocardial infarction Mother Rheumatoid arthritis Glaucoma Arthritis Depression Social History household members: spouse and children housing: house number of children: 5 current occupational status: employed 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 suspects that pt has JAZMIN); Negative for weakness Eyes Eyes: Negative for change in vision ENT ENT: Positive for headache(s); Negative for dizziness or balance problems Cardio Chest Pain: No Palpitations: Yes (Infrequently, doesn't last long) feels like its: other (fluttering) Edema: None Muscle aches with walking: None Resp Respiratory: Positive for SOB with activity and snoring; Negative for SOB at rest or SOB orthopnea SOB lying down GI GI: Negative nausea or heartburn (more content not included)... Normal [facility] Genital Culture Comprehensiv billie 04-26-2024 VAC Reason for Exam: vag inal discharge Normal vaginal enid isolated. No yeast, Gardnerella, Neisseria or beta-hemolytic Streptococcus isolated. Normal [facility] Comment on above: Performed By: #### M 100.3200, M1, L7400.0280 ####[facility] [address] [place], [place], [id number] PAP IG HPV APTIMA 16/18,45on 04-26-2024 ADEQ Comment Normal . [facility] Comment on above: Order Comment: Speci men Comment: [id number] Comment: Source.............CervixSpecimen Comment: No. of containers..01 ThinPrep Vial Result Comment: Sati sfactory for evaluation. Endocervical and/or squamous metaplastic cells (endocervical component) are present. Performed By: #### M 100.3200, M1, L7400.0280 ####[facility] [address] [place], [address] COMM . Normal [address] [facility] Comment on above: Order Comment: Speci men Comment: [id number] Comment: Source.............CervixSpecimen Comment: No. of containers..01 ThinPrep Vial Performed By: #### M 100.3200, M100, L7400.0280 ####[facility] [address] [place], [address] COMMENT Comment Normal . [facility] Comment on above: Order Comment: Speci men Comment: [id number] Comment: Source.............CervixSpecimen Comment: No. of containers..01 ThinPrep Vial Result Comment: This liquid based ThinPrep(R) pap test was screened with the use of an image guided system. Performed By: #### M 100.3200, M1, L7400.0280 ####[facility] [address] [place], [address] DIAG Comment Normal . [facility] Comment on above: Order Comment: Speci men Comment: [id number] Comment: Source.............CervixSpecimen Comment: No. of containers..01 ThinPrep Vial Result Comment: NEGA TIVE FOR INTRAEPITHELIAL LESION OR MALIGNANCY. Performed By: #### M 100.3200, M100, L7400.0280 ####[facility] [address] [place], [address] HPV APTIMA, HR Negative Normal Negative [facility] Comment on above: Order Comment: Speci men Comment: [id number] Comment: Source.............CervixSpecimen Comment: No. of containers..01 ThinPrep Vial Result Comment: This nucleic acid amplification test detects fourteen high- risk HPV types (16,18,31,33,35,39,45,51,52,56,58,59,66,68) without differentiation. Performed By: #### M 100.3200, M100.1999, L7400.0280 ####[facility] [address] [place], [address] HPV Karely Rfx Comment Normal . [facility] Comment on above: Order Comment: Speci men Comment: [id number] Comment: Source.............CervixSpecimen Comment: No. of containers..01 ThinPrep Vial Result Comment: Crit erjerod not met, HPV Genotype not performed. Performed at: - [address] [id number] Photo Booth Operator: Elvia Escobar MD, Phone: [phone] Performed at: = - [facility] [id number] Photo Booth Operator: Elvia Escobar MD, Phone: [phone] Performed By: #### M 100.3200, , L7400.0280 ####[facility] [address] [place], [place], [address] PAPSMR Comment Normal . [facility] Comment on above: Order Comment: Speci men Comment: [id number] Comment: Source.............CervixSpecimen Comment: No. of containers..01 ThinPrep Vial Result Comment: The Pap smear is a screening test designed to aid in the detection of premalignant and malignant conditions of the uterine cervix. It is not a diagnostic procedure and should not be used as the sole means of detecting cervical cancer. Both false-positive and false-negative reports do occur. Performed By: #### M 100.3200, M100.1999, L7400.0280 ####[facility] [address] [place], [address] PERFORM Comment Normal . [facility] Comment on above: Order Comment: Speci men Comment: [id number] Comment: Source.............CervixSpecimen Comment: No. of containers..01 ThinPrep Vial Result Comment: Kaylan Watson, Health Screener (ASCP) Performed By: #### M 100.3200, M100.2000, L7400.0280 ####[facility] [address] [place], [address] Management Architect Cyto stain Nom (C vx/Vag) [ID]Ordered By: Raisa Aguilar on 04-23-2024 Pap Smear Performed By Comment . [facility] Comment on above: Sebastien Watson, Cytot echnologist (ASCP) Cytology report Cyto stain D oc (Cvx/Vag)Ordered By: Raisa Aguilar on 04-23-2024 Thin Prep Pap Smear Comment . [facility] Comment on above: The Pap smear is a s creening test designed to aid in thedetection of premalignant and malignant conditions of theuterine cervix. It is not a diagnostic procedure andshould not be used as the sole means of detecting cervicalcancer. Both false-positive and false-negative reports dooccur. Cytology report Cyto stain.t hin prep Doc (Cvx/Vag)Ordered By: Raisa Aguilar on 04-23-2024 HPV Genotype Special Info Comment . [facility] Comment on above: Criteria not met, HP V Genotype not performed.Performed at: - [address] [id number] Director: Elvia Escobar MD, Phone: [phone] at: = - [facility] [id number] Director: Elvia Escobar MD, Phone: [phone] Genital cultureOrdered By: Petra Aguilar on 04-23-[address] [facility] Gram Stainon 04-23-2024 GS Reason for Exam: vag inal discharge Gram Stain 3+ Gram variable niya 3+ Gram positive rods Score =4 Interpretation: 0-3 Normal, 4-6 Intermediate, 7-[address] [facility] Comment on above: Performed By: #### M 100.3200, M100.1999, L7400.0280 ####[facility] [address] [place], [address] Gram stainOrdered By: Juan Miguel Aguilar on 04-23-2024 Microscopic observation Gram stain Nom (Unsp spec) [facility] HPV 16+18+31+33+35+39+45+51+ 52+56+58+59+66+68 DNA Probe+sig amp Ql (Cvx)Ordered By: Raisa Aguilar on 04-23-2024 Human Papillomavirus High Risk Negative Negative [facility] Comment on above: This nucleic acid am plification test detects fourteen high- risk HPV types (16,18,31,33,35,39,45,51,52,56,58,59,66,68)without differentiation. Image-guided ThinPrep PapOrd ered By: Raisa Aguilar on 04-23-2024 Pap Smear Note Comment . [facility] Comment on above: This liquid based Th inPrep(R) pap test was screened withthe use of an image guided system. Image-guided liquid-based Pa pOrdered By: Raisa Aguilar on 04-23-2024 Pap Smear Diagnosis Comment . [facility] Comment on above: NEGATIVE FOR INTRAEP ITHELIAL LESION OR MALIGNANCY. Youth Pastor Office Visit Reporton 04-23-2024 Youth Pastor Office Visit Report [facility] [address], [address] [place] [address] OFFICE VISIT Date of Service: 04/23/24 MR#: [id number] Acct: [id number] Name: SILVESTRE ELISE Rep #: [id number] : 1985 Provider: Dr. Raisa Connell DO Age/Sex: 38/F Location[place] [facility] [place] Status: Signed Intake Vital Signs 02/21/23 13:58 07/21/23 09:24 10/25/23 08:27 04/23/24 08:50 Height 5 ft 2 in 5 ft 2 in 5 ft 2 in 5 ft 2 in Weight: 126 lb BMI 23.0 BP 138/82 H Intake Visit Reasons: Annual ([employer]) Commercial Illustrator Required: No Is patient in pain?: No Allergies No Known Allergies Allergy (Verified 04/23/24 08:47) Medications ???Medication ???Instructions ???Recorded ???Confirmed ???Type omeprazole 40 mg capsule,delayed 40 mg PO DAILY PRN 03/01/23 History release naproxen sodium 220 mg capsule 220 mg PO BID PRN 03/11/23 5 History (Aleve) hyoscyamine sulfate 0.125 mg mg sublingual PRN 10/25/23 5 History sublingual tablet lamotrigine 200 mg tablet 100 mg PO DAILY 10/25/23 04/23/24 History propranolol 20 mg tablet 20 mg PO DAILY 10/25/23 04/23/24 H istory Post menopausal: No Patient : No : No PFSH Medical History Chronic right lower quadrant pain Wears contact lenses Anxiety Back pain History of IBS Non-smoker History of pain when walking Cardiology follow-up encounter History of echocardiogram Hypotension History of stress test Ischemic colitis Intestinal angina Vasovagal syncope Interstitial cystitis Asthma Migraines Fatigue History of palpitations Incomplete right bundle branch block Supraventricular tachycardia, paroxysmal Other chest pain Premature atrial contractions Near syncope Dizziness Surgical History H/O LEEP History of wisdom tooth extraction History of esophagogastroduodenoscopy (EGD) History of cystoscopy History of dilatation and curettage History of salpingectomy Family History Father Paroxysmal atrial fibrillation Alcoholism Grandmother Heart disease CAD (coronary artery disease) CABG Pacemaker Breast cancer Grandfather , Age 37 Myocardial infarction Mother Rheumatoid arthritis Glaucoma Arthritis Depression Social History (Updated 04/23/24 @ 08:54 by Alyssia Velásquez) household members: spouse and children housing: house number of children: 5 current occupational status: employed 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 Last PAP:2021 History of abnormal PAP: yes, h/o leep Last mammogram: 2022- [facility] for lump History of abnormal mammogram: yes. Colon cancer screening: due 44 Other preventative health care screenings: followed by pcp Female Reproductive History Cycle Length: 21-35 Bleeding Duration: 5 Questions: metorrhagia: No, sexually active: Yes, dyspareunia: No and PCB: No Menopausal Symptoms: No hot flashes, No night sweats, No weight change, No mood changes, No difficulty concentrating, No sleep problems and No change in libido ROS Const Constitutional: Reports as per HPI; Denies fatigue, increased appetite, poor appetite, night sweats, weight gain or weight loss Cardio Card: Denies chest pain Resp Resp: Denies cough or dyspnea GI GI: Reports as per HPI; Denies abdominal pain, bloating, constipation, nausea or vomiting : Reports as per HPI and other; Denies difficulty voiding, dysuria, hematuria, hot flashes, nipple discharge, pelvic pain, prolapse symptoms, urinary frequency, urinary incontinence, urinary urgency, vaginal discharge, vaginal dryness, vaginal odor or vaginal pruritus Skin Skin/Breast: Denies changing lesions, breast mass, breast pain, breast skin changes or nipple discharge Psych Psych: Denies anxiety, change in libido, depression or difficulty concentrating Exam Const General: cooperative, healthy appearing, comfortable, no acute distress, well developed and well groomed HENNY Head: normal to inspection and normocephalic Ears: hearing grossly normal bilaterally and externa (more content not included)... Normal [facility] Service comment (Unsp spec) [Interp]Ordered By: aRisa Aguilar on 04-23-2024 Pap Smear Comment (3) . . [facility] Martha 04-02-2024 CNPN Telephone (NEAD[facility]) GOSIARONDELFINO Tacos ([id number]) 1985 F Date Time Provider Department 04/02/24 MAGGIE GUZMAN NEAD[facility] During your visit today, we recorded the following information about you: Kassidy Rivera 04/02/2024 8:33 AM Signed Pt phoned re appt tomorrow 04/03. Pt asking if imaging is needed prior to appt. Pt thought a test was needed, but orders are not placed. Please call and advise marcelino. Pt phone#[phone] Иван Aj PA-C 04/02/2024 8:39 AM Signed Called patient at 8:37 AM. XR cervical spine ordered placed and patient aware. She was appreciative of the call. Иван Aj PA-C April 02, 2024 8:38 AM Allergies As of Date: 04/02/2024 (No Known Allergies) Date Reviewed: 09/27/2023 Reviewed by: Celi Albrecht MA - Fully Assessed Reason for Visit: Orders [681] Appointment [186] Primary Visit Diagnosis:S/P spinal surgery [Z98.890] Order(s):XR CERV GENERAL 2V AP/LAT [4499408] Order #: [id number] FUTURE Prescriptions as of 04/02/2024 - gabapentin (NEURONTIN) 100 mg capsule Take 1 capsule by mouth two times a day for 90 days. - hyoscyamine (LEVSIN) 0.125 mg tablet Take 0.125 mg by mouth as needed. - propranolol (INDERAL) 20 mg tablet Take 20 mg by mouth once daily. - LAMOTRIGINE ORAL Take 50 mg by mouth once daily. - busPIRone (BUSPAR) 10 mg tablet Take 10 mg by mouth once daily. - omeprazole (PRILOSEC) 40 mg capsule Take 40 mg by mouth once daily. Problem List As Of Date 04/02/2024 Noted Resolved COMMON MIGRAINE [346.1] 01/20/2005 Pityriasis versicolor [B36.0] 07/26/2005 08/19/2014 Adjustment disorder with depressed mood [F43.21]08/22/2008 12/14/2012 ATTN DEFICIT NONHYPERACT [F98.8] 08/22/2008 Anxiety [F41.9] 05/28/2009 12/14/2012 Tinea versicolor [B36.0] 10/06/2009 08/19/2014 S/P LEEP [Z98.890] 08/10/2012 PMDD (premenstrual dysphoric disorder) [F32.81] 12/14/2012 IUD (intrauterine device) in place [Z97.5] 07/13/2013 Chronic interstitial cystitis [N30.10] 11/09/2013 Right renal mass [N28.89] 11/09/2013 06/07/2014 Acute asthmatic bronchitis [J45.909] 06/07/2014 08/19/2014 Exercise-induced asthma [J45.990] 06/18/2014 Extrinsic asthma [J45.909] 08/19/2014 Allergic rhinitis [J30.9] 08/19/2014 Anxiety [F41.9] 02/18/2015 Gastritis due to nonsteroidal anti-inflammatory* 5 Irritable bowel syndrome with diarrhea [K58.0] 02/25/2015 Bipolar II disorder (HCC) [F31.81] 04/10/2015 History of labor [Z87.51] 01/01/2016 History of loop electrosurgical excision proced*01/01/2016 Rh negative status during in first tr*01/01/2016 History of hypoglycemia [Z86.39] 01/01/2016 History of bipolar disorder [Z86.59] 01/01/2016 History of chronic cystitis [Z87.448] 01/01/2016 Incomplete right bundle branch block (RBBB) [I4*09/08/2017 Pre-syncope [R55] 09/08/2017 Premature atrial contraction [I49.1] 09/08/2017 Paroxysmal supraventricular tachycardia (HCC) [*09/08/2017 Encounter for sterilization [Z30.2] 09/08/2017 Tachycardia [R00.0] 04/19/2023 GERD (gastroesophageal reflux disease) [K21.9] 04/19/2023 Status post cervical spinal fusion [Z98.1] 05/16/2023 Encounter Status:Closed by SANA ИВАН on 04/02/24 [facility] XR CERVICAL 2V AP/LATon 03-15 XR CERVICAL 2V AP/LAT * * *Final Report* * * DATE OF EXAM: Apr 02 2024 11:30AM [id number] - XR CERVICAL 2V AP/LAT / PROCEDURE REASON: S/P spinal surgery * * * * Physician Interpretation * * * * EXAM TITLE: XR CERVICAL 2V AP/LAT EXAM DATE/TIME: 04/02/2024 11:30 AM COMPARISON: X-ray cervical spine on 09/20/2023 CLINICAL INDICATION/HISTORY: Postop. TECHNIQUE: AP and lateral views of the cervical spine are presented. FINDINGS: No fractures or subluxations are noted. Status post C5-C6 anterior spinal fusion, with disc spacer/bone grafting in place The disc spaces are well preserved. There is no significant osteophyte formation. The prevertebral soft tissues are normal. IMPRESSION: Status post C5-C6 anterior spinal fusion. Director Of Gift Planning: TD Transcribe Date/Time: Apr 02 2024 4:32P Dictated by : ZOYA HERNANDEZ MD This examination was interpreted and the report reviewed and electronically signed by: ZOYA HERNANDEZ MD on Apr 02 2024 4:34PM EST [id number] Normal [facility] XR Cervical spine AP and Lat eralon 04-02-2024 IMPRESSION: Status p ost C5-C6 anterior spinal fusion. Director Of Gift Planning: PSCB Transcribe Date/Time: Apr 02 2024 4:32P Dictated by : ZOYA HERNANDEZ MD This examination was interpreted and the report reviewed and electronically signed by: ZOYA HERNANDEZ MD on Apr 02 2024 4:34PM EST DIVISION OF RADIOLOGY * * *Final Report* * * DATE OF EXAM: Apr 02 2024 11:30AM [id number] - XR CERVICAL 2V AP/LAT / PROCEDURE REASON: S/P spinal surgery * * * * Physician Interpretation * * * * EXAM TITLE: XR CERVICAL 2V AP/LAT EXAM DATE/TIME: 04/02/2024 11:30 AM COMPARISON: X-ray cervical spine on 09/20/2023 CLINICAL INDICATION/HISTORY: Postop. TECHNIQUE: AP and lateral views of the cervical spine are presented. FINDINGS: No fractures or subluxations are noted. Status post C5-C6 anterior spinal fusion, with disc spacer/bone grafting in place The disc spaces are well preserved. There is no significant osteophyte formation. The prevertebral soft tissues are normal. DIVISION OF RADIOLOGY Provider, Sadie Luna [facility] - 04/02/2024 * * *Final Report* * * DATE OF EXAM: Apr 02 2024 11:30AM [id number] - XR CERVICAL 2V AP/LAT / PROCEDURE REASON: S/P spinal surgery * * * * Physician Interpretation * * * * EXAM TITLE: XR CERVICAL 2V AP/LAT EXAM DATE/TIME: 04/02/2024 11:30 AM COMPARISON: X-ray cervical spine on 09/20/2023 CLINICAL INDICATION/HISTORY: Postop. TECHNIQUE: AP and lateral views of the cervical spine are presented. FINDINGS: No fractures or subluxations are noted. Status post C5-C6 anterior spinal fusion, with disc spacer/bone grafting in place The disc spaces are well preserved. There is no significant osteophyte formation. The prevertebral soft tissues are normal. IMPRESSION IMPRESSION: Status post C5-C6 anterior spinal fusion. Director Of Gift Planning: TD Transcribe Date/Time: Apr 02 2024 4:32P Dictated by : ZOAY HERNANDEZ MD This examination was interpreted and the report reviewed and electronically signed by: ZOYA HERNANDEZ MD on Apr 02 2024 4:34PM [facility] Radiology Study observation (narrative) [facility] XR Cervical spine AP and Lat eralOrdered By: Ccf Provider on 04-02-2024 [facility] CNOVon 09-27-2023 CNOV Office Visit (NSFRVW ) SILVESTRE ELISE ([id number]) 1985 F Date Time Provider Department 09/27/23 11:40 AM MAGGIE GUZMAN NSFRVW During your visit today, we recorded the following information about you: Temperature Pulse Blood pressure Weight 97.4 degrees 71/minute 106/65 56.2 kg Height 1.575 m Maggie Guzman MD 09/27/2023 11:32 AM Signed 09/22/2023 PROMIS Global Health Physical Health Summary Physical health: Good Everyday physical activity, ability: Completely Fatigue: Moderate Pain level: 2 General health: Good Social activities/roles, ability: Good Physical Health T-Score 47.7 (Good) Physical Health Percentile 41 PROMIS Global Health Mental Health Summary Quality of life: Good Mental health (mood,thinking): Very good Social satisfaction: Very good Emotional problems (anxious,depressed): Sometimes Mental Health T-Score 48.3 (Very Good) Mental Health Percentile 43 PHQ-9 Score: 3(Minimal Depression) PHQ-9 Self-Harm: Not at all PROMIS Physical Function T-Score 44(Mild Dysfunction) PROMIS Physical Function Percentile 27 PROMIS Pain Interference T-Score 53(Within Normal Limits) PROMIS Pain Interference Percentile 38 Percentiles provide an indication of how a patient's score ranks in relation to the [place] general population. > 31st percentile is within normal limits or better *< 31st percentile is at least ? SD worse than population, which may be clinically relevant < 16th percentile is at least 1 SD worse than population and warrants attention SPINE SURGERY FOLLOW UP This is an in-person visit. SERVICE DATE: 09/27/2023 SURGERY DATE: 05/16/2023 Silvestre Elise is a pleasant 37-year-old female is here in spine surgery clinic for 4 months post operative follow up. She underwent C5-C6 anterior cervical discectomy, allograft and instrumented fusion on 05/16/2023. Prior to surgery she was complaining of neck pain radiating down the left shoulder and ending over the thumb. Her pain is aggravated by neck movement and activity. She also noticed numbness over left thumb, index, middle finger area. Numbness was constant. Numbness is more bothersome than pain. Since surgery her neck and arm pain completely improved. Numbness also improved. She noticed some right upper extremity pain after surgery which was improved during last clinic visit. She had minimal swallowing difficulty after surgery which improved with Medrol Dosepak. Today she states doing better. She occasionally minimal neck pain. Still has very minimal numbness denies weakness. Denies swallowing difficulty. ANTIPLATELET OR ANTICOAGULATION STATUS: No Patient Entered Questionnaires 04/13/2023 05/31/2023 09/22/2023 Spine Questions Pain Location: Neck Neck Neck Pain Duration: 3-6 months Pain over last 6 months: Every day or nearly every day in the past 6 months Symptoms from neck/cervical spine: Yes Yes Yes Employment Status: Working now Working now Involved in law suit/legal claim: No 04/13/2023 09/22/2023 Neck Questionnaires Benzel Modified CRIS Score 15 (Mild Myelopathy Symptoms) 16 (Mild Myelopathy Symptoms) PROMIS Score Percentiles 04/13/2023 09/22/2023 Physical Health Physical Function Percentile 18* 27* Sleep Percentile 14 21* Fatigue Percentile 16* 8 Pain Interference Percentile 8 38 04/13/2023 09/22/2023 PROMIS SOCIAL ROLE SCORE Social Role Satisfaction Percentile 31 31 04/13/2023 09/22/2023 PROMIS Global Health Scale Physical Health Percentile 22* 41 Mental Health Percentile 34 43 Percentiles provide an indication of how the patient's score ranks in relation to the general population. Higher percentile rankings indicate better function/quality of life. 50th percentile is the average of the general population and indicates half of respondents had a worse score. Descriptive Summary for PROMIS Physical Function T-score = 44 (Percentile 27) Little difficulty - Walk more than a mile (1.6 km). Little difficulty - Do chores such as vacuuming or yard work. Depression Screenin10/21/2010 04/13/2023 09/22/2023 PHQ-9 Score 11 7 3 10/21/2010 04/13/2023 09/22/2023 PHQ-9 Self-harm Question Question 9 Not at all Not at all Not at all PHQ-9 Self-Harm (Item 9) response options: 0 Not at all 1 Several days 2 More than half the days 3 Nearly every day PHQ-9 Levels: 0-4 No to mild depression 5-9 Mild depression 10-14 Moderate depression 15-19 Moderately severe depression 20-27 Severe depression PHYSICAL EXAM: LMP 05/04/2023 (Approximate) GENERAL APPEARANCE: Well nourished, well developed, and no apparent distress. NEURO PSYCH: Patient oriented to person, place, and time. Mood pleasant. Benign affect. MUSCULOSKELETAL VISUAL INSPECTION CERVICAL: Anterior cervical scar is healthy THORACIC: WNL LUMBAR: WNL MOTOR: 5/5 in all muscle groups. (more content not included)... Normal [facility] XR CERVICAL 2V AP/LATon 07-0 XR CERVICAL 2V AP/LAT * * *Final Report* * * DATE OF EXAM: Sep 20 2023 1:33PM [id number] - XR CERVICAL 2V AP/LAT / PROCEDURE REASON: Cervical vertebral fusion * * * * Physician Interpretation * * * * EXAMINATION / TECHNIQUE: XR CERVICAL 2V AP/LAT HISTORY: PT STATES FUSION IN MAY OF 2023 POST OP FILMS TODAYS VISIT Cervical vertebral fusion COMPARISON: 06/28/2023. RESULT: Counting reference: Craniocervical junction. Anatomic Variants: None. Status post C5-C6 ACDF with intact hardware. Vertebral body heights, sagittal alignment, and disc spaces are unchanged. Prevertebral soft tissues are normal. IMPRESSION: Postoperative changes without complication. Director Of Gift Planning: PSCB Transcribe Date/Time: Sep 25 2023 1:07P Dictated by : DANTE PRATT MD This examination was interpreted and the report reviewed and electronically signed by: DANTE PRATT MD on Sep 25 2023 1:08PM EST [id number] Normal [facility] Martha 07-13-2023 CNPN Telephone (NIQ) SILVESTRE ELISE ([id number]) 1985 F Date Time Provider Department 07/13/23 MAGGIE GUZMAN NIQ During your visit today, we recorded the following information about you: Nicole Kassidy 07/13/2023 1:45 PM Signed [facility] summary scanned to chart Selena Olea RN 07/13/2023 2:22 PM Signed noted Allergies As of Date: 07/13/2023 (No Known Allergies) Date Reviewed: 05/31/2023 Reviewed by: Celi Albrecht MA - Fully Assessed Reason for Visit: Director Of Corporate Strategy - Other [3602] Prescriptions as of 07/13/2023 - gabapentin (NEURONTIN) 100 mg capsule Take 1 capsule by mouth two times a day for 90 days. - hyoscyamine (LEVSIN) 0.125 mg tablet Take 0.125 mg by mouth as needed. - propranolol (INDERAL) 20 mg tablet Take 20 mg by mouth once daily. - LAMOTRIGINE ORAL Take 50 mg by mouth once daily. - busPIRone (BUSPAR) 10 mg tablet Take 10 mg by mouth once daily. - omeprazole (PRILOSEC) 40 mg capsule Take 40 mg by mouth once daily. Problem List As Of Date 07/13/2023 Noted Resolved COMMON MIGRAINE [346.1] 01/20/2005 Pityriasis versicolor [B36.0] 07/26/2005 08/19/2014 Adjustment disorder with depressed mood [F43.21]08/22/2008 12/14/2012 ATTN DEFICIT NONHYPERACT [F98.8] 08/22/2008 Anxiety [F41.9] 05/28/2009 12/14/2012 Tinea versicolor [B36.0] 10/06/2009 08/19/2014 S/P LEEP [Z98.890] 08/10/2012 PMDD (premenstrual dysphoric disorder) [F32.81] 12/14/2012 IUD (intrauterine device) in place [Z97.5] 07/13/2013 Chronic interstitial cystitis [N30.10] 11/09/2013 Right renal mass [N28.89] 11/09/2013 06/07/2014 Acute asthmatic bronchitis [J45.909] 06/07/2014 08/19/2014 Exercise-induced asthma [J45.990] 06/18/2014 Extrinsic asthma [J45.909] 08/19/2014 Allergic rhinitis [J30.9] 08/19/2014 Anxiety [F41.9] 02/18/2015 Gastritis due to nonsteroidal anti-inflammatory* 5 Irritable bowel syndrome with diarrhea [K58.0] 02/25/2015 Bipolar II disorder (HCC) [F31.81] 04/10/2015 History of labor [Z87.51] 01/01/2016 History of loop electrosurgical excision proced*01/01/2016 Rh negative status during in first tr*01/01/2016 History of hypoglycemia [Z86.39] 01/01/2016 History of bipolar disorder [Z86.59] 01/01/2016 History of chronic cystitis [Z87.448] 01/01/2016 Incomplete right bundle branch block (RBBB) [I4*09/08/2017 Pre-syncope [R55] 09/08/2017 Premature atrial contraction [I49.1] 09/08/2017 Paroxysmal supraventricular tachycardia (HCC) [*09/08/2017 Encounter for sterilization [Z30.2] 09/08/2017 Tachycardia [R00.0] 04/19/2023 GERD (gastroesophageal reflux disease) [K21.9] 04/19/2023 Status post cervical spinal fusion [Z98.1] 05/16/2023 Encounter Status:Closed by SELENA OLEA on 07/13/23 [facility] SILVESTRE ELISE ([id number]) 1985 F Date Time Provider Department 06/28/23 [facility] During your visit today, we recorded the following information about you: Amena Dalton, GREEN INSPECTOR.RADIO ENGINEERING TEACHER 06/28/2023 3:53 PM Signed Spoke with Silvestre over the phone and updated her regarding cervical x-ray imaging. States her left arm numbness is about the same, she continues to work with therapy. Discussed starting gabapentin for which she is receptive to, will start 100 mg twice daily, prescription sent to her pharmacy. Advised to continue monitoring her symptoms and if they continue to worsen or do not improve to contact the office to further discuss. She verbalizes understanding and is grateful for the call. Amena Dalton APRN.RADIO ENGINEERING TEACHER Allergies As of Date: 06/28/2023 (No Known Allergies) Date Reviewed: 05/31/2023 Reviewed by: Celi Albrecht MA - Fully Assessed Order(s):gabapentin (NEURONTIN) 100 mg capsuleTake 1 capsule by mouth two times a day for 90 days.Disp: 60 capsuleRfl: 2 Prescriptions as of 06/28/2023 - gabapentin (NEURONTIN) 100 mg capsule Take 1 capsule by mouth two times a day for 90 days. - hyoscyamine (LEVSIN) 0.125 mg tablet Take 0.125 mg by mouth as needed. - propranolol (INDERAL) 20 mg tablet Take 20 mg by mouth once daily. - LAMOTRIGINE ORAL Take 50 mg by mouth once daily. - busPIRone (BUSPAR) 10 mg tablet Take 10 mg by mouth once daily. - omeprazole (PRILOSEC) 40 mg capsule Take 40 mg by mouth once daily. Problem List As Of Date 06/28/2023 Noted Resolved COMMON MIGRAINE [346.1] 01/20/2005 Pityriasis versicolor [B36.0] 07/26/2005 08/19/2014 Adjustment disorder with depressed mood [F43.21]08/22/2008 12/14/2012 ATTN DEFICIT NONHYPERACT [F98.8] 08/22/2008 Anxiety [F41.9] 05/28/2009 12/14/2012 Tinea versicolor [B36.0] 10/06/2009 08/19/2014 S/P LEEP [Z98.890] 08/10/2012 PMDD (premenstrual dysphoric disorder) [F32.81] 12/14/2012 IUD (intrauterine device) in place [Z97.5] 07/13/2013 Chronic interstitial cystitis [N30.10] 11/09/2013 Right renal mass [N28.89] 11/09/2013 06/07/2014 Acute asthmatic bronchitis [J45.909] 06/07/2014 08/19/2014 Exercise-induced asthma [J45.990] 06/18/2014 Extrinsic asthma [J45.909] 08/19/2014 Allergic rhinitis [J30.9] 08/19/2014 Anxiety [F41.9] 02/18/2015 Gastritis due to nonsteroidal anti-inflammatory* 5 Irritable bowel syndrome with diarrhea [K58.0] 02/25/2015 Bipolar II disorder (HCC) [F31.81] 04/10/2015 History of labor [Z87.51] 01/01/2016 History of loop electrosurgical excision proced*01/01/2016 Rh negative status during in first tr*01/01/2016 History of hypoglycemia [Z86.39] 01/01/2016 History of bipolar disorder [Z86.59] 01/01/2016 History of chronic cystitis [Z87.448] 01/01/2016 Incomplete right bundle branch block (RBBB) [I4*09/08/2017 Pre-syncope [R55] 09/08/2017 Premature atrial contraction [I49.1] 09/08/2017 Paroxysmal supraventricular tachycardia (HCC) [*09/08/2017 Encounter for sterilization [Z30.2] 09/08/2017 Tachycardia [R00.0] 04/19/2023 GERD (gastroesophageal reflux disease) [K21.9] 04/19/2023 Status post cervical spinal fusion [Z98.1] 05/16/2023 Prescriptions ordered this encounter Disp Refills Start End GABAPENTIN 100 MG CAPSULE 60 c* 2 06/28/2023 09/26/2023 Route: ORAL Sig: Take 1 capsule by mouth two times a day for 90 days. Encounter Status:Closed by AMENA DALTON on 06/28/23 [facility] XR CERVICAL 2V AP/LATon 04- XR CERVICAL 2V AP/LAT * * *Final Report* * * DATE OF EXAM: Jun 28 2023 12:27PM WRX [id number] - XR CERVICAL 2V AP/LAT / PROCEDURE REASON: Status post cervical spinal fusion * * * * Physician Interpretation * * * * EXAM TITLE: XR CERVICAL 2V AP/LAT EXAM DATE/TIME: 06/28/2023 12:27 PM COMPARISON: X-ray cervical spine on 05/16/2023 CLINICAL INDICATION/HISTORY: Cervical spinal fusion. TECHNIQUE: AP and lateral views of the cervical spine are presented. FINDINGS: Status post C5-C6 anterior spinal fusion, with disc spacer in place. The surgical hardware appears intact. There is no significant osteophyte formation. The disc spaces are maintained. The prevertebral soft tissues are normal. IMPRESSION: Status post C5-C6 anterior spinal fusion. Director Of Gift Planning: PSCB Transcribe Date/Time: Jun 28 2023 3:02P Dictated by : ZOYA HERNANDEZ MD This examination was interpreted and the report reviewed and electronically signed by: ZOYA HERNANDEZ MD on Jun 28 2023 3:04PM EST [id number] Normal [facility] Cervical spine AP and Lat [facility] SILVESTRE ELISE ([id number]) 1985 F Date Time Provider Department 06/27/23 MAGGIE GUZMAN During your visit today, we recorded the following information about you: Adriana Pena 06/27/2023 4:08 PM Signed Patient calling she is 6 weeks post-op, is experiencing numbness in her left arm and neck, states sensation is returning. She can be reached at [phone] Amena Dalton, JUAN FRANCISCO.RADIO ENGINEERING TEACHER 06/27/2023 4:29 PM Signed Spoke with Ms Elise over the phone, states she has been experiencing left arm numbness and tingling as well as neck pain similar to prior before surgery. She is approximately 6 weeks postoperative from C5-6 ACDF. She states she has been progressing well and all her symptoms were resolved. While at work on this previous she went to sit on a chair which was lower than what she thought and landed harder than anticipated, jolting her. States she developed the neck pain and left arm tingling and numbness gradually after that. She has been taking all with some relief. States the pain is not as severe as it was prior to surgery but was concerned given that the symptoms had completely resolved. She denies other symptoms, no fevers, chills, shortness of breath, incisional drainage. States she is still able to do everything, is back to work and taking care of her kids without issue. Cervical x-ray ordered. Encouraged to continue using Tylenol, avoid NSAIDs, heat and ice as needed. She verbalizes understanding is thankful for the call. Amena Dalton APRN.RADIO ENGINEERING TEACHER Allergies As of Date: 06/27/2023 (No Known Allergies) Date Reviewed: 05/31/2023 Reviewed by: Celi Albrecht MA - Fully Assessed Primary Visit Diagnosis:Status post cervical spinal fusion [Z98.1] Order(s):XR CERV GENERAL 2V AP/LAT [[id number]] Order #: [id number] FUTURE Prescriptions as of 06/27/2023 - hyoscyamine (LEVSIN) 0.125 mg tablet Take 0.125 mg by mouth as needed. - propranolol (INDERAL) 20 mg tablet Take 20 mg by mouth once daily. - LAMOTRIGINE ORAL Take 50 mg by mouth once daily. - busPIRone (BUSPAR) 10 mg tablet Take 10 mg by mouth once daily. - omeprazole (PRILOSEC) 40 mg capsule Take 40 mg by mouth once daily. Problem List As Of Date 06/27/2023 Noted Resolved COMMON MIGRAINE [346.1] 01/20/2005 Pityriasis versicolor [B36.0] 07/26/2005 08/19/2014 Adjustment disorder with depressed mood [F43.21]08/22/2008 12/14/2012 ATTN DEFICIT NONHYPERACT [F98.8] 08/22/2008 Anxiety [F41.9] 05/28/2009 12/14/2012 Tinea versicolor [B36.0] 10/06/2009 08/19/2014 S/P LEEP [Z98.890] 08/10/2012 PMDD (premenstrual dysphoric disorder) [F32.81] 12/14/2012 IUD (intrauterine device) in place [Z97.5] 07/13/2013 Chronic interstitial cystitis [N30.10] 11/09/2013 Right renal mass [N28.89] 11/09/2013 06/07/2014 Acute asthmatic bronchitis [J45.909] 06/07/2014 08/19/2014 Exercise-induced asthma [J45.990] 06/18/2014 Extrinsic asthma [J45.909] 08/19/2014 Allergic rhinitis [J30.9] 08/19/2014 Anxiety [F41.9] 02/18/2015 Gastritis due to nonsteroidal anti-inflammatory* 5 Irritable bowel syndrome with diarrhea [K58.0] 02/25/2015 Bipolar II disorder (HCC) [F31.81] 04/10/2015 History of labor [Z87.51] 01/01/2016 History of loop electrosurgical excision proced*01/01/2016 Rh negative status during in first tr*01/01/2016 History of hypoglycemia [Z86.39] 01/01/2016 History of bipolar disorder [Z86.59] 01/01/2016 History of chronic cystitis [Z87.448] 01/01/2016 Incomplete right bundle branch block (RBBB) [I4*09/08/2017 Pre-syncope [R55] 09/08/2017 Premature atrial contraction [I49.1] 09/08/2017 Paroxysmal supraventricular tachycardia (HCC) [*09/08/2017 Encounter for sterilization [Z30.2] 09/08/2017 Tachycardia [R00.0] 04/19/2023 GERD (gastroesophageal reflux disease) [K21.9] 04/19/2023 Status post cervical spinal fusion [Z98.1] 05/16/2023 Encounter Status:Closed by AMENA DALTON on 06/27/23 [facility] Valeri 05-31-2023 CNOV Office Visit (NSFRVW ) BRESILVESTRE GREENE ([id number]) 1985 F Date Time Provider Department 05/31/23 11:20 AM MAGGIE GUZMAN NSFRVW During your visit today, we recorded the following information about you: Pulse Blood pressure Weight 82/minute 99/63 57.2 kg Maggie Guzman MD 05/31/2023 12:38 PM Signed SPINE SURGERY FOLLOW UP This is an in-person visit. SERVICE DATE: 05/31/2023 SURGERY DATE: 05/16/2023 Sherlyncarlos Elise is a pleasant 37-year-old female is here in spine surgery clinic for 2 week post operative follow up. She underwent C5-C6 anterior cervical discectomy, allograft and instrumented fusion on 05/16/2023. Prior to surgery she was complaining of neck pain radiating down the left shoulder and ending over the thumb. Her pain is aggravated by neck movement and activity. She also noticed numbness over left thumb, index, middle finger area. Numbness was constant. Numbness is more bothersome than pain. Since surgery her neck and arm pain completely improved. Numbness also completely improved. She noticed some right upper extremity pain after surgery which is improved now. She had minimal swallowing difficulty after surgery which improved with Medrol Dosepak. Today she states doing better. She has minimal neck pain. PAIN EVALUATION 05/31/2023 0815 05/31/2023 1059 Pain Level: 3 3 Pain Location: Neck Neck Description: Aching;Dull Aching Duration Amount of Time: 4 -- Duration Units: Days Unknown Frequency: Continuous Intermittent Intervention/Comfort measure: Medication;Relaxation;David w support -- Comments: Due to post-op -- Aggravating Factors: Intermittent Alleviating Factors: Medications ANTIPLATELET OR ANTICOAGULATION STATUS: No Patient Entered Questionnaires 04/13/2023 05/31/2023 Spine Questions Pain Location: Neck Neck Pain Duration: 3-6 months Pain over last 6 months: Every day or nearly every day in the past 6 months Symptoms from neck/cervical spine: Yes Yes Employment Status: Working now Involved in law suit/legal claim: No 04/13/2023 Neck Questionnaires Benzel Modified CRIS Score 15 (A lower score indicates increased pain and issues.) 04/13/2023 05/31/2023 Spine Questions Pain Location: Neck Neck Pain Duration: 3-6 months Pain over last 6 months: Every day or nearly every day in the past 6 months Symptoms from neck/cervical spine: Yes Yes Employment Status: Working now Involved in law suit/legal claim: No 04/13/2023 Neck Questionnaires Benzel Modified CRIS Score 15 (A lower score indicates increased pain and issues.) PROMIS Score Percentiles 04/13/2023 Physical Health Physical Function Percentile 18* Sleep Percentile 14 Fatigue Percentile 16* Pain Interference Percentile 8 04/13/2023 PROMIS SOCIAL ROLE SCORE Social Role Satisfaction Percentile 31 04/13/2023 Physical Health Physical Function Percentile 18* Sleep Percentile 14 Fatigue Percentile 16* Pain Interference Percentile 8 04/13/2023 PROMIS SOCIAL ROLE SCORE Social Role Satisfaction Percentile 31 Percentiles provide an indication of how the patient's score ranks in relation to the general population. Higher percentile rankings indicate better function/quality of life. 50th percentile is the average of the general population and indicates half of respondents had a worse score. Depression Screenin04/13/2023 10/21/2010 08/12/2010 PHQ-9 Score 7 11 10 08/12/2010 10/21/2010 04/13/2023 PHQ-9 Self-harm Question Question 9 Not at all Not at all Not at all 08/12/2010 10/21/2010 04/13/2023 PHQ-9 Score 10 11 7 08/12/2010 10/21/2010 04/13/2023 PHQ-9 Self-harm Question Question 9 Not at all Not at all Not at all PHQ-9 Self-Harm (Item 9) response options: 0 Not at all 1 Several days 2 More than half the days 3 Nearly every day PHQ-9 Levels: 0-4 No to mild depression 5-9 Mild depression 10-14 Moderate depression 15-19 Moderately severe depression 20-27 Severe depression PHYSICAL EXAM: BP 99/63 Pulse 82 Wt 57.2 kg (126 lb) LMP 05/04/2023 (Approximate) SpO2 99% BMI 23.05 kg/m? GENERAL APPEARANCE: Well nourished, well developed, and no apparent distress. NEURO PSYCH: Patient oriented to person, place, and time. Mood pleasant. Benign affect. MUSCULOSKELETAL VISUAL INSPECTION CERVICAL: Incision is healing well. No drainage. THORACIC: WNL LUMBAR: WNL MOTOR: 5/5 in all muscle groups. SENSORY: Normal sensory exam GAIT: Normal. REFLEXES: +2 to bilateral U/L extremities. DATA REVIEW [facility] records independently reviewed Images independently reviewed with the patient ASSESSMENT/PLAN Silvestre Balderrama Gosia is a pleasant 37-year-old female is here in spine surgery clinic for 2 week post operative follow up. She underwent C5-C6 anterior cervical discectomy, allograft and instrumented fusion on 05/16/2023. Prior to surgery (more content not included)... [facility]2023 [facility] Telephone (NIQ) RUBENLeisaSILVESTRE ([id number]) 1985 F Date Time Provider Department 05/18/23 MAGGIE GUZMAN During your visit today, we recorded the following information about you: Reyna Angelo 05/18/2023 8:21 AM Signed Patient called stating she had surgery on 05/15 and is not able to go 6 hours between pain pills. Per patient, she ended up in the ED yesterday where she was given a valium and a lidocaine patch. Patient says that she woke up today with the worst headache and difficulty swallowing. Please give her a call at [phone]. Selena Olea RN 05/18/2023 1:10 PM Signed Spoke to pt Advised medrol sent to pharmacy She states that symptoms are slightly improved this afternoon . Advised if any worsening of difficulty swallowing or mobilizing secretions to seek evaluation in the ED She is agreeable Allergies As of Date: 05/18/2023 (No Known Allergies) Date Reviewed: 05/18/2023 Reviewed by: Philomena House, OLGA - Fully Assessed Reason for Visit: Post op complications [2636] Order(s):methylPREDNISolone (MEDROL, THOMPSON,) 4 mg Dose-PackTake as directed on packaging.Disp: 21 tabletRfl: 0 Prescriptions as of 05/18/2023 - methylPREDNISolone (MEDROL, THOMPSON,) 4 mg Dose-Pack Take as directed on packaging. - oxyCODONE-acetaminophen (PERCOCET) 5-325 mg tablet Take 1 tablet by mouth every 6 hours as needed for up to 7 days. - benzocaine-menthol (CHLORASEPTIC) 6-10 mg lozenges Use 1 Lozenge as instructed every 2 hours as needed for up to 7 days. - methocarbamol (ROBAXIN-750) 750 mg tablet Take 1 tablet by mouth three times a day. - hyoscyamine (LEVSIN) 0.125 mg tablet Take 0.125 mg by mouth as needed. - propranolol (INDERAL) 20 mg tablet Take 20 mg by mouth once daily. - LAMOTRIGINE ORAL Take 50 mg by mouth once daily. - busPIRone (BUSPAR) 10 mg tablet Take 10 mg by mouth once daily. - omeprazole (PRILOSEC) 40 mg capsule Take 40 mg by mouth once daily. Problem List As Of Date 05/18/2023 Noted Resolved COMMON MIGRAINE [346.1] 01/20/2005 Pityriasis versicolor [B36.0] 07/26/2005 08/19/2014 Adjustment disorder with depressed mood [F43.21]08/22/2008 12/14/2012 ATTN DEFICIT NONHYPERACT [F98.8] 08/22/2008 Anxiety [F41.9] 05/28/2009 12/14/2012 Tinea versicolor [B36.0] 10/06/2009 08/19/2014 S/P LEEP [Z98.890] 08/10/2012 PMDD (premenstrual dysphoric disorder) [F32.81] 12/14/2012 IUD (intrauterine device) in place [Z97.5] 07/13/2013 Chronic interstitial cystitis [N30.10] 11/09/2013 Right renal mass [N28.89] 11/09/2013 06/07/2014 Acute asthmatic bronchitis [J45.909] 06/07/2014 08/19/2014 Exercise-induced asthma [J45.990] 06/18/2014 Extrinsic asthma [J45.909] 08/19/2014 Allergic rhinitis [J30.9] 08/19/2014 Anxiety [F41.9] 02/18/2015 Gastritis due to nonsteroidal anti-inflammatory* 5 Irritable bowel syndrome with diarrhea [K58.0] 02/25/2015 Bipolar II disorder (HCC) [F31.81] 04/10/2015 History of labor [Z87.51] 01/01/2016 History of loop electrosurgical excision proced*01/01/2016 Rh negative status during in first tr*01/01/2016 History of hypoglycemia [Z86.39] 01/01/2016 History of bipolar disorder [Z86.59] 01/01/2016 History of chronic cystitis [Z87.448] 01/01/2016 Incomplete right bundle branch block (RBBB) [I4*09/08/2017 Pre-syncope [R55] 09/08/2017 Premature atrial contraction [I49.1] 09/08/2017 Paroxysmal supraventricular tachycardia (HCC) [*09/08/2017 Encounter for sterilization [Z30.2] 09/08/2017 Tachycardia [R00.0] 04/19/2023 GERD (gastroesophageal reflux disease) [K21.9] 04/19/2023 Status post cervical spinal fusion [Z98.1] 05/16/2023 Prescriptions ordered this encounter Disp Refills Start End METHYLPREDNISOLONE 4 MG TABLETS IN A* 21 t* 0 05/18/2023 05/24/2023 Sig: Take as directed on packaging. Encounter Status:Closed by NICKIE MCKEON on 05/18/23 Normal [facility] ED NOTEon 05-18-2023 ED NOTE HNO ID: [id number] Author: MOJGAN HUNTER RN Service: Emergency Medicine Author Type: Registered Nurse Type: ED Notes Filed: 05/19/2023 09:07 Note Text: Patient Call Back Information How are you doing ? better Did we appropriately manage your pain? Yes Did you understand your discharge instructions? Yes Did you get your prescriptions filled? Yes Were you able to make a follow-up appointment with your physician? Yes Were you comfortable during your stay here? Yes Did a member of the ER nursing team round on you during your visit? Yes You will receive a patient satisfaction survey in the mail in the nest 2 weeks, please take the time to fill out the survey as your input from your ER visit is very important to us. Yes Can we do anything else to help you? No [facility] ED NOTE HNO ID: [id number] Author: TAVIA FERRARO RN Service: Emergency Medicine Author Type: Registered Nurse Type: ED Notes Filed: 05/18/2023 03:30 Note Text: Patient discharge instructions given to patient. Patient educated on discharge instructions. Patient denied having questions at this time regarding discharge instructions. Patient discharged home at this time with patient's spouse. Patient's spouse driving patient home. [facility] ED NOTE HNO ID: [id number] Author: TAVIA FERRARO RN Service: Emergency Medicine Author Type: Registered Nurse Type: ED Notes Filed: 05/18/2023 03:26 Note Text: Patient informed about the name of the medication(s), what the medication(s) is(are) for, and what to expect with/from med administration. Patient given opportunity to ask questions. Medication(s) include: Percocet. [facility] ED NOTE HNO ID: [id number] Author: TAVIA FERRARO RN Service: Emergency Medicine Author Type: Registered Nurse Type: ED Notes Filed: 05/18/2023 01:43 Note Text: Patient informed about the name of the medication(s), what the medication(s) is(are) for, and what to expect with/from med administration. Patient given opportunity to ask questions. Medication(s) include: Valium, Lidocaine Patch. [facility] ED NOTE HNO ID: [id number] Author: PHILOMENA HOUSE, OLGA Service: Emergency Medicine Author Type: Registered Nurse Type: ED Notes Filed: 05/18/2023 01:00 Note Text: Pt to ED with c/o I had surgery at [facility] on Tuesday, and I can't get my pain under control tonight percocet at 2330, and 1900. [facility] ED PROV NOTEon 05-18-2023 ED PROV NOTE HNO ID: [id number] Author: JORGE BARBOZA MD Service: Emergency Medicine Author Type: Physician Type: ED Provider Notes Filed: 05/18/2023 03:42 Note Text: ED Provider Note Patient Name: Silvestre Elise : 1985 SERVICE DATE: 05/18/23 History Patient presents with: post surgical pain Patient is status post postop day 1, of C5/6, anterior cervical discectomy and fusion, presents to the emergency department for concerns over postoperative pain control, and muscle spasm. Patient notes surgery went without complications, however she had some delay in getting her pain medications, and taking them appropriately. Patient was discharged home with Percocet, Robaxin, however she was afraid to take them together secondary to complications, or side effects. Patient took 2 doses of Percocet this evening, the last 1 approximately 1130, and she notes her pain is just unbearable. Patient denies any fever. Patient denies any neurologic complaints, focal weakness, numbness or tingling of upper extremities. Patient even had COVID preoperatively paresthesias, and radiculopathy her left upper extremity which has since resolved. Patient does not take blood thinners. There is no falls traumas injuries there is no fever. Neck Pain Pain location: R side Quality: Stiffness and cramping Pain severity: Mild Onset quality: Gradual Timing: Intermittent Progression: Worsening Chronicity: New Relieved by: Nothing Worsened by: Twisting Ineffective treatments: percocet. Associated symptoms: no fever, no numbness, no paresis, no tingling and no weakness PAST MEDICAL HISTORY Diagnosis Date Abnormal glandular Papanicolaou smear of cervix 10/2005 Abn. Pap smear (cervix) Acute asthmatic bronchitis 06/07/2014 Bipolar 2 disorder (HCC) 04/01/2015 Bipolar II disorder (HCC) 04/10/2015 Exercise-induced asthma 06/18/2014 Hypoglycemia Hypoglycemia, unspecified Interstitial cystitis 11/2013 PMDD (premenstrual dysphoric disorder) 12/14/2012 Pneumonia Sleep disorder Surveillance of previously prescribed intrauterine contraceptive device 01/12/08 Mirena Tinea versicolor 10/06/2009 PAST SURGICAL HISTORY Procedure Laterality Date COLONOSCOPY SCREENING COLPOSCOPY CERVIX UPPER/ADJACENT VAGINA Colposcopy CYSTOSCOPY Interstitial cystitis EGD W/O BRSH SPEC VARICIES INJ x 2 LEEP PROCEDURE ([facility])_*[place] 2007 Severe squamous dysplasia (JESSI 3) SALPINGECTOMY 06/09/2017 Laparoscopic bilateral--[facility] FAMILY HISTORY Problem Relation Age of Onset Heart Father Heart Maternal Grandmother Hypertension Maternal Grandmother Diabetes Maternal Grandmother Lipids Maternal Grandmother Arthritis Maternal Grandmother Hands other (pacemaker) Maternal Grandmother Miscarriages / Stillbirths Maternal Grandfather 34 Breast Cancer Paternal Grandmother Arthritis Paternal Grandmother Unknown type- hands like claws other (neurofibromatosis) Son Diabetes Maternal Uncle Diabetes Paternal Aunt Anesthesia Problems No Family History Social History Tobacco Use Smoking status: Never Smokeless tobacco: Never Vaping Use Vaping Use: Never used Substance and Sexual Activity Alcohol use: Not Currently Comment: 2-3 drinks per year Drug use: No Sexual activity: Yes Partners: Male control/protection: I.U.D. ALLERGIES No Known Allergies Review of Systems Constitutional: Negative for fever. Gastrointestinal: Negative for nausea and vomiting. Musculoskeletal: Positive for neck pain and neck stiffness. Neurological: Negative for tingling, weakness and numbness. All other systems reviewed and are negative. Physical Exam Vitals [05/18/23 0055] BP Pulse Temp Temp src Resp SpO2 Weight Height 132/73 77 36.7 ?C (98 ?F) Temporal 16 100 % 57.6 kg (126 lb 14.4 oz) 1.575 m (5' 2) Physical Exam Vitals and nursing note reviewed. Constitutional: General: She is not in acute distress. Appearance: Normal appearance. She is not ill-appearing or toxic-appearing. HENT: Head: Normocephalic and atraumatic. Mouth/Throat: Mouth: Mucous membranes are dry. Pharynx: No oropharyngeal exudate or posterior oropharyngeal erythema. Eyes: General: Right eye: No discharge. Left eye: No discharge. Extraocular Movements: Extraocular movements intact. Pupils: Pupils are equal, round, and reactive to light. Neck: Comments: Spasm over the right-sided neck muscles, specifically over the trapezius, there is no abnormal masses, the anterior incision appears intact, there is Steri-Strips covering the wound, however there is no surrounding erythema, discharge Pulmonary: Effort: No respiratory distress. Musculoskeletal: General: No swelling, tenderness or signs of injury. Cervical back: Neck supple. No rigidity. Right lower leg: No edema. Left lower leg: No edema. Comments: Patient upper extremities, patient has good range of motion, no dr (more content not included)... Normal [facility] Martha 05-17-2023 CNPN Telephone (NIQ) SILVESTRE ELISE ([id number]) 1985 F Date Time Provider Department 05/17/23 MAGGIE GUZMAN NI During your visit today, we recorded the following information about you: Adriana Pena 05/17/2023 2:22 PM Signed Patient calling states she waited almost 3 hours for her medication all that was given to her was the Percocet. She is asking to please phone in the other 3 medications to [facility] as they are on their way home at this time. Asking to please phone into: [facility] in [place] [phone] Allergies As of Date: 05/17/2023 (No Known Allergies) Date Reviewed: 05/16/2023 Reviewed by: Yosef Hernandes, RN - Fully Assessed Order(s):benzocaine-menthol (CHLORASEPTIC) 6-10 mg lozengesUse 1 Lozenge as instructed every 2 hours as needed for up to 7 days.Disp: 30 LozengeRfl: 0 methocarbamol (ROBAXIN-750) 750 mg tabletTake 1 tablet by mouth three times a day.Disp: 90 tabletRfl: 0 Prescriptions as of 05/17/2023 - oxyCODONE-acetaminophen (PERCOCET) 5-325 mg tablet Take 1 tablet by mouth every 6 hours as needed for up to 7 days. - benzocaine-menthol (CHLORASEPTIC) 6-10 mg lozenges Use 1 Lozenge as instructed every 2 hours as needed for up to 7 days. - methocarbamol (ROBAXIN-750) 750 mg tablet Take 1 tablet by mouth three times a day. - hyoscyamine (LEVSIN) 0.125 mg tablet Take 0.125 mg by mouth as needed. - propranolol (INDERAL) 20 mg tablet Take 20 mg by mouth once daily. - LAMOTRIGINE ORAL Take 50 mg by mouth once daily. - busPIRone (BUSPAR) 10 mg tablet Take 10 mg by mouth once daily. - omeprazole (PRILOSEC) 40 mg capsule Take 40 mg by mouth once daily. Problem List As Of Date 05/17/2023 Noted Resolved COMMON MIGRAINE [346.1] 01/20/2005 Pityriasis versicolor [B36.0] 07/26/2005 08/19/2014 Adjustment disorder with depressed mood [F43.21]08/22/2008 12/14/2012 ATTN DEFICIT NONHYPERACT [F98.8] 08/22/2008 Anxiety [F41.9] 05/28/2009 12/14/2012 Tinea versicolor [B36.0] 10/06/2009 08/19/2014 S/P LEEP [Z98.890] 08/10/2012 PMDD (premenstrual dysphoric disorder) [F32.81] 12/14/2012 IUD (intrauterine device) in place [Z97.5] 07/13/2013 Chronic interstitial cystitis [N30.10] 11/09/2013 Right renal mass [N28.89] 11/09/2013 06/07/2014 Acute asthmatic bronchitis [J45.909] 06/07/2014 08/19/2014 Exercise-induced asthma [J45.990] 06/18/2014 Extrinsic asthma [J45.909] 08/19/2014 Allergic rhinitis [J30.9] 08/19/2014 Anxiety [F41.9] 02/18/2015 Gastritis due to nonsteroidal anti-inflammatory* 5 Irritable bowel syndrome with diarrhea [K58.0] 02/25/2015 Bipolar II disorder (HCC) [F31.81] 04/10/2015 History of labor [Z87.51] 01/01/2016 History of loop electrosurgical excision proced*01/01/2016 Rh negative status during in first tr*01/01/2016 History of hypoglycemia [Z86.39] 01/01/2016 History of bipolar disorder [Z86.59] 01/01/2016 History of chronic cystitis [Z87.448] 01/01/2016 Incomplete right bundle branch block (RBBB) [I4*09/08/2017 Pre-syncope [R55] 09/08/2017 Premature atrial contraction [I49.1] 09/08/2017 Paroxysmal supraventricular tachycardia (HCC) [*09/08/2017 Encounter for sterilization [Z30.2] 09/08/2017 Tachycardia [R00.0] 04/19/2023 GERD (gastroesophageal reflux disease) [K21.9] 04/19/2023 Status post cervical spinal fusion [Z98.1] 05/16/2023 Prescriptions ordered this encounter Disp Refills Start End BENZOCAINE 6 MG-MENTHOL 10 MG LOZENG* 30 L* 0 05/17/2023 05/24/2023 Route: MUCOUS MEM Sig: Use 1 Lozenge as instructed every 2 hours as needed for up to 7 days. METHOCARBAMOL 750 MG TABLET 90 t* 0 05/17/2023 06/16/2023 Route: ORAL Sig: Take 1 tablet by mouth three times a day. Medications Discontinued During This Encounter Prescriptions - benzocaine-menthol (CHLORASEPTIC) 6-10 mg lozenges (Discontinued) Use 1 Lozenge as instructed every 2 hours as needed for up to 7 days. Encounter Status:Closed by CHECO WHITAKER on 05/17/23 [facility] SILVESTRE ELISE ([id number]) 1985 F Date Time Provider Department 04/21/23 MAGGIE GUZMAN SPSNAV During your visit today, we recorded the following information about you: Hazel Dominique OCCA 04/21/2023 2:20 PM Signed Received outside imaging report from [facility] on 04/21/23. Sent to be scanned. CHADD Brewer April 21, 2023 2:20 PM Allergies As of Date: 04/21/2023 (No Known Allergies) Date Reviewed: 04/19/2023 Reviewed by: Iqra Bagley PA-C - Fully Assessed Reason for Visit: outside imaging report [Other] Prescriptions as of 04/21/2023 - hyoscyamine (LEVSIN) 0.125 mg tablet Take 0.125 mg by mouth as needed. - mupirocin (BACTROBAN) 2 % ointment Apply 1/2 ointment with a cotton swap in each nostril 2x daily for five days preop - propranolol (INDERAL) 20 mg tablet Take 20 mg by mouth once daily. - LAMOTRIGINE ORAL Take 50 mg by mouth once daily. - busPIRone (BUSPAR) 10 mg tablet Take 10 mg by mouth once daily. - omeprazole (PRILOSEC) 40 mg capsule Take 40 mg by mouth once daily. Problem List As Of Date 04/21/2023 Noted Resolved COMMON MIGRAINE [346.1] 01/20/2005 Pityriasis versicolor [B36.0] 07/26/2005 08/19/2014 Adjustment disorder with depressed mood [F43.21]08/22/2008 12/14/2012 ATTN DEFICIT NONHYPERACT [F98.8] 08/22/2008 Anxiety [F41.9] 05/28/2009 12/14/2012 Tinea versicolor [B36.0] 10/06/2009 08/19/2014 S/P LEEP [Z98.890] 08/10/2012 PMDD (premenstrual dysphoric disorder) [F32.81] 12/14/2012 IUD (intrauterine device) in place [Z97.5] 07/13/2013 Chronic interstitial cystitis [N30.10] 11/09/2013 Right renal mass [N28.89] 11/09/2013 06/07/2014 Acute asthmatic bronchitis [J45.909] 06/07/2014 08/19/2014 Exercise-induced asthma [J45.990] 06/18/2014 Extrinsic asthma [J45.909] 08/19/2014 Allergic rhinitis [J30.9] 08/19/2014 Anxiety [F41.9] 02/18/2015 Gastritis due to nonsteroidal anti-inflammatory* 5 Irritable bowel syndrome with diarrhea [K58.0] 02/25/2015 Bipolar II disorder (HCC) [F31.81] 04/10/2015 History of labor [Z87.51] 01/01/2016 History of loop electrosurgical excision proced*01/01/2016 Rh negative status during in first tr*01/01/2016 History of hypoglycemia [Z86.39] 01/01/2016 History of bipolar disorder [Z86.59] 01/01/2016 History of chronic cystitis [Z87.448] 01/01/2016 Incomplete right bundle branch block (RBBB) [I4*09/08/2017 Pre-syncope [R55] 09/08/2017 Premature atrial contraction [I49.1] 09/08/2017 Paroxysmal supraventricular tachycardia (HCC) [*09/08/2017 Encounter for sterilization [Z30.2] 09/08/2017 Tachycardia [R00.0] 04/19/2023 GERD (gastroesophageal reflux disease) [K21.9] 04/19/2023 Encounter Status:Closed by HAZEL DOMINIQUE on 04/21/23 Normal [facility] CBC W Auto Differential pane l (Bld)on 04-19-2023 Basophils (Bld) [#/Vol] 0.07 10*3/uL <0.11 k/uL [facility] Basophils/100 WBC (Bld) 0.7 % [facility] Differential cell count method Nom (Bld) Auto [facility] Eosinophils (Bld) [#/Vol] 0.48 10*3/uL High <0.46 k/uL [facility] Eosinophils/100 WBC (Bld) 5.0 % [facility] Erythrocyte distribution width (RBC) [Ratio] 12.8 % 11.5 - 15.0 % [facility] Hematocrit (Bld) [Volume fraction] 40.0 % 36.0 - 46.0 % [facility] Hemoglobin (Bld) [Mass/Vol] 13.2 g/dL 11.5 - 15.5 g/dL [facility] Immature granulocytes (Bld) [#/Vol] 0.04 10*3/uL <0.10 k/uL [facility] Immature granulocytes/100 WBC (Bld) 0.4 % [facility] Lymphocytes (Bld) [#/Vol] 3.37 10*3/uL 1.00 - 4.00 k/uL [facility] Lymphocytes/100 WBC (Bld) 34.9 % [facility] MCH (RBC) [Entitic mass] 29.3 pg 26.0 - 34.0 pg [facility] MCHC (RBC) [Mass/Vol] 33.0 g/dL 30.5 - 36.0 g/dL [facility] MCV (RBC) [Entitic vol] 88.7 fL 80.0 - 100.0 fL [facility] Monocytes (Bld) [#/Vol] 0.52 10*3/uL <0.87 k/uL [facility] Monocytes/100 WBC (Bld) 5.4 % [facility] Neutrophils (Bld) [#/Vol] 5.17 10*3/uL 1.45 - 7.50 k/uL [facility] Neutrophils/100 WBC (Bld) 53.6 % [facility] Nucleated RBC (Bld) [#/Vol] <0.01 k/uL [facility] Nucleated RBC/100 WBC (Bld) [Ratio] 0.0 /100 WBC [facility] Platelet mean volume (Bld) [Entitic vol] 10.1 fL 9.0 - 12.7 fL [facility] Platelets (Bld) [#/Vol] 285 10*3/uL 150 - 400 k/uL [facility] RBC (Bld) [#/Vol] 4.51 10*6/uL 3.90 - 5.20 m/uL [facility] WBC (Bld) [#/Vol] 9.65 10*3/uL 3.70 - 11.00 k/uL [facility] Basophils (Bld) [#/Vol] 0.07 10*3/uL Normal <0.11 [facility] Comment on above: Order Comment: Speci men Type: BLOOD SPECIMEN Ordering Facility: [facility] Address: [address] [place] [address] Performed By: #### 5 7021-8 #### [facility] CLIA [id number] [address] [place], [place] [address] [address] [place] Basophils/100 WBC (Bld) 0.7 % Normal [facility] Comment on above: Order Comment: Speci men Type: BLOOD SPECIMEN Ordering Facility: [facility] Address: [address] [place] [address] Performed By: #### 5 7021-8 #### [facility] CLIA [id number] [address] [place] [address] [place] Differential cell count method Nom (Bld) Auto Normal [facility] Comment on above: Order Comment: Speci men Type: BLOOD SPECIMEN Ordering Facility: [facility] Address: [address] [place] [address] Performed By: #### 5 7021-8 #### [facility] CLIA [id number] [address] [place] [address] [place] Eosinophils (Bld) [#/Vol] 0.48 10*3/uL High <0.46 [facility] Comment on above: Order Comment: Speci men Type: BLOOD SPECIMEN Ordering Facility: [facility] Address: [address] [place] [address] Performed By: #### 5 7021-8 #### [facility] CLIA [id number] [address] [place] [address] [place] Eosinophils/100 WBC (Bld) 5.0 % Normal [facility] Comment on above: Order Comment: Speci men Type: BLOOD SPECIMEN Ordering Facility: [facility] Address: [address] [place] [address] Performed By: #### 5 7021-8 #### [facility] CLIA [id number] [address] [place] [address] [place] Erythrocyte distribution width (RBC) [Ratio] 12.8 % Normal 11.5-15.0 [facility] Comment on above: Order Comment: Speci men Type: BLOOD SPECIMEN Ordering Facility: [facility] Address: [address] [place] [address] Performed By: #### 5 7021-8 #### [facility] CLIA [id number] [address] [place] [address] [place] Hematocrit (Bld) [Volume fraction] 40.0 % Normal 36.0-46.0 [facility] Comment on above: Order Comment: Speci men Type: BLOOD SPECIMEN Ordering Facility: [facility] Address: [address] [place] [address] Performed By: #### 5 7021-8 #### [facility] CLIA [id number] [address] [place] [address] [place] Hemoglobin (Bld) [Mass/Vol] 13.2 g/dL Normal 11.5-15.5 [facility] Comment on above: Order Comment: Speci men Type: BLOOD SPECIMEN Ordering Facility: [facility] Address: [address] [place] [address] Performed By: #### 5 7021-8 #### [facility] CLIA [id number] [address] [place] [address] [place] Immature granulocytes (Bld) [#/Vol] 0.04 10*3/uL Normal <0.10 [facility] Comment on above: Order Comment: Speci men Type: BLOOD SPECIMEN Ordering Facility: [facility] Address: [address] [place] [address] Performed By: #### 5 7021-8 #### [facility] CLIA [id number] [address] [place] [address] [place] Immature granulocytes/100 WBC (Bld) 0.4 % Normal [facility] Comment on above: Order Comment: Speci men Type: BLOOD SPECIMEN Ordering Facility: [facility] Address: [address] [place] [address] Performed By: #### 5 7021-8 #### [facility] CLIA [id number] [address] [place] [address] [place] Lymphocytes (Bld) [#/Vol] 3.37 10*3/uL Normal 1.00-4.00 [facility] Comment on above: Order Comment: Speci men Type: BLOOD SPECIMEN Ordering Facility: [facility] Address: [address] [place] [address] Performed By: #### 5 7021-8 #### [facility] CLIA [id number] [address] [place] [address] [place] Lymphocytes/100 WBC (Bld) 34.9 % Normal [facility] Comment on above: Order Comment: Speci men Type: BLOOD SPECIMEN Ordering Facility: [facility] Address: [address] [place] [address] Performed By: #### 5 7021-8 #### [facility] CLIA [id number] [address] [place] [address] [place] MCH (RBC) [Entitic mass] 29.3 pg Normal 26.0-34.0 [facility] Comment on above: Order Comment: Speci men Type: BLOOD SPECIMEN Ordering Facility: [facility] Address: [address] [place] [address] Performed By: #### 5 7021-8 #### [facility] CLIA [id number] [address] [place] [address] [place] MCHC (RBC) [Mass/Vol] 33.0 g/dL Normal 30.5-36.0 [facility] Comment on above: Order Comment: Speci men Type: BLOOD SPECIMEN Ordering Facility: [facility] Address: [address] [place] [address] Performed By: #### 5 7021-8 #### [facility] CLIA [id number] [address] [place] [address] [place] MCV (RBC) [Entitic vol] 88.7 fL Normal 80.0-100.0 [facility] Comment on above: Order Comment: Speci men Type: BLOOD SPECIMEN Ordering Facility: [facility] Address: [address] [place] [address] Performed By: #### 5 7021-8 #### [facility] CLIA [id number] [address] [place] [address] [place] Monocytes (Bld) [#/Vol] 0.52 10*3/uL Normal <0.87 [facility] Comment on above: Order Comment: Speci men Type: BLOOD SPECIMEN Ordering Facility: [facility] Address: [address] [place] [address] Performed By: #### 5 7021-8 #### [facility] CLIA [id number] [address] [place] [address] [place] Monocytes/100 WBC (Bld) 5.4 % Normal [facility] Comment on above: Order Comment: Speci men Type: BLOOD SPECIMEN Ordering Facility: [facility] Address: [address] [place] [address] Performed By: #### 5 7021-8 #### [facility] CLIA [id number] [address] [place] [address] [place] Neutrophils (Bld) [#/Vol] 5.17 10*3/uL Normal 1.45-7.50 [facility] Comment on above: Order Comment: Speci men Type: BLOOD SPECIMEN Ordering Facility: [facility] Address: [address] [place] [address] Performed By: #### 5 7021-8 #### [facility] CLIA [id number] [address] [place] [address] [place] Neutrophils/100 WBC (Bld) 53.6 % Normal [facility] Comment on above: Order Comment: Speci men Type: BLOOD SPECIMEN Ordering Facility: [facility] Address: [address] [place] [address] Performed By: #### 5 7021-8 #### [facility] CLIA [id number] [address] [place] [address] [place] Nucleated RBC (Bld) [#/Vol] 10*3/uL Normal <0.01 [facility] Comment on above: Order Comment: Speci men Type: BLOOD SPECIMEN Ordering Facility: [facility] Address: [address] [place] [address] Performed By: #### 5 7021-8 #### [facility] CLIA [id number] [address] [place] [address] [place] Nucleated RBC/100 WBC (Bld) [Ratio] 0.0 /100 WBC Normal [facility] Comment on above: Order Comment: Speci men Type: BLOOD SPECIMEN Ordering Facility: [facility] Address: [address] [place] [address] Performed By: #### 5 7021-8 #### [facility] CLIA [id number] [address] [place] [address] [place] Platelet mean volume (Bld) [Entitic vol] 10.1 fL Normal 9.0-12.7 [facility] Comment on above: Order Comment: Speci men Type: BLOOD SPECIMEN Ordering Facility: [facility] Address: [address] [place] [address] Performed By: #### 5 7021-8 #### [facility] CLIA [id number] [address] [place] [address] [place] Platelets (Bld) [#/Vol] 285 10*3/uL Normal 150-400 [facility] Comment on above: Order Comment: Speci men Type: BLOOD SPECIMEN Ordering Facility: [facility] Address: [address] [place] [address] Performed By: #### 5 7021-8 #### [facility] CLIA [id number] [address] [place] [address] [place] RBC (Bld) [#/Vol] 4.51 10*6/uL Normal 3.90-5.20 [facility] Comment on above: Order Comment: Speci men Type: BLOOD SPECIMEN Ordering Facility: [facility] Address: [address] [place] [address] Performed By: #### 5 7021-8 #### [facility] CLIA [id number] [address] [place] [address] [place] WBC (Bld) [#/Vol] 9.65 10*3/uL Normal 3.70-11.00 [facility] Comment on above: Order Comment: Speci men Type: BLOOD SPECIMEN Ordering Facility: [facility] Address: [address] [place] [address] Performed By: #### 5 7021-8 #### [facility] IA [id number] [address] [place] [address] [place] Comprehensive metabolic 2000 panelon 04-19-2023 Albumin [Mass/Vol] 4.3 g/dL 3.9 - 4.9 g/dL [facility] ALP [Catalytic activity/Vol] 40 U/L 34 - 123 U/L [facility] ALT [Catalytic activity/Vol] 12 U/L 7 - 38 U/L [facility] Anion gap [Moles/Vol] 10 mmol/L 9 - 18 mmol/L [facility] AST [Catalytic activity/Vol] 19 U/L 13 - 35 U/L [facility] Bilirubin [Mass/Vol] 0.3 mg/dL 0.2 - 1 .3 mg/dL [facility] Calcium [Mass/Vol] 9.2 mg/dL 8.5 - 10. 2 mg/dL [facility] Chloride [Moles/Vol] 104 mmol/L 97 - 10 5 mmol/L [facility] CO2 [Moles/Vol] 24 mmol/L 22 - 30 mmol/L [facility] Creatinine [Mass/Vol] 0.80 mg/dL 0.58 - 0.96 mg/dL [facility] Estimated Glomerular Filtration Rate 97 mL/min/1.73m >=60 mL/min/1.7 3m [facility] Glucose [Mass/Vol] 92 mg/dL 74 - 99 mg/dL [facility] Potassium [Moles/Vol] 4.2 mmol/L 3.7 - 5.1 mmol/L [facility] Protein [Mass/Vol] 6.5 g/dL 6.3 - 8.0 g/dL [facility] Sodium [Moles/Vol] 138 mmol/L 136 - 144 mmol/L [facility] Urea nitrogen [Mass/Vol] 11 mg/dL 7 - 21 mg/dL [facility] Albumin [Mass/Vol] 4.3 g/dL Normal 3.9-4.9 [facility] Comment on above: Order Comment: Speci men Type: BLOOD SPECIMEN Ordering Facility: [facility] Address: [address] [place] [address] Performed By: #### 2 4323-8 #### [facility] CLIA [id number] [address] [place] [address] [place] ALP [Catalytic activity/Vol] 40 U/L Normal 34-123 [facility] Comment on above: Order Comment: Speci men Type: BLOOD SPECIMEN Ordering Facility: [facility] Address: [address] [place] [address] Performed By: #### 2 4323-8 #### [facility] CLIA [id number] [address] [place] [address] [place] ALT [Catalytic activity/Vol] 12 U/L Normal 7-38 [facility] Comment on above: Order Comment: Speci men Type: BLOOD SPECIMEN Ordering Facility: [facility] Address: [address] [place] [address] Performed By: #### 2 4323-8 #### [facility] CLIA [id number] [address] [place] [address] [place] Anion gap [Moles/Vol] 10 mmol/L Normal 9-18 [facility] Comment on above: Order Comment: Speci men Type: BLOOD SPECIMEN Ordering Facility: [facility] Address: [address] [place] [address] Performed By: #### 2 4323-8 #### [facility] CLIA [id number] [address] [place] [address] [place] AST [Catalytic activity/Vol] 19 U/L Normal 13-35 [facility] Comment on above: Order Comment: Speci men Type: BLOOD SPECIMEN Ordering Facility: [facility] Address: [address] [id number] Performed By: #### 2 4323-8 #### [facility] CLIA [id number] [address] [place] [address] [place] Bilirubin [Mass/Vol] 0.3 mg/dL Normal 0.2-1.3 [facility] Comment on above: Order Comment: Speci men Type: BLOOD SPECIMEN Ordering Facility: [facility] Address: [address] [place] [address] Performed By: #### 2 4323-8 #### [facility] CLIA [id number] [address] [place] [address] [place] Calcium [Mass/Vol] 9.2 mg/dL Normal 8.5-10.2 [facility] Comment on above: Order Comment: Speci men Type: BLOOD SPECIMEN Ordering Facility: [facility] Address: [address] [place] [address] Performed By: #### 2 4323-8 #### [facility] CLIA [id number] [address] [place] [address] [place] Chloride [Moles/Vol] 104 mmol/L Normal 97-105 [facility] Comment on above: Order Comment: Speci men Type: BLOOD SPECIMEN Ordering Facility: [facility] Address: [address] [place] [address] Performed By: #### 2 4323-8 #### [facility] CLIA [id number] [address] [place] [address] [place] CO2 [Moles/Vol] 24 mmol/L Normal 22-30 [facility] Comment on above: Order Comment: Speci men Type: BLOOD SPECIMEN Ordering Facility: [facility] Address: [address] [place], [place] [address] Performed By: #### 2 4323-8 #### [facility] CLIA [id number] [address] [place] [address] [place] Creatinine [Mass/Vol] 0.80 mg/dL Normal 0.58-0.96 [facility] Comment on above: Order Comment: Uvaldo kinney Type: BLOOD SPECIMEN Ordering Facility: [facility] Address: [address] [place] [address] Performed By: #### 2 4323-8 #### [facility] CLIA [id number] [address] [place] [address] [facility] [place] Creatinine and Glomerular filtration rate.predicted panel (S/P/Bld) 97 mL/min/1.73m??? Normal >=60 [facility] Comment on above: Order Comment: Uvaldo kinney Type: BLOOD SPECIMEN Ordering Facility: [facility] Address: [address] [place] [address] Result Comment: Laura mated Glomerular Filtration Rate (eGFR) is calculated using the 2020 CKD-EPI creatinine equation. This equation utilizes serum creatinine, sex, and age as parameters. The creatinine assay has traceable calibration to isotope dilution-mass spectrometry. Refer to KDIGO guidelines for clinical interpretation. In patients with unstable renal function, e.g. those with acute kidney injury, the eGFR may not accurately reflect actual GFR. Performed By: #### 2 4323-8 #### [facility] CLIA [id number] [address] [place] [address] [place] Glucose [Mass/Vol] 92 mg/dL Normal 74-99 [facility] Comment on above: Order Comment: Uvaldo kinney Type: BLOOD SPECIMEN Ordering Facility: [facility] Address: [address] [place] [address] Result Comment: The [place] Diabetes Association (ADA) provides guidance for cutoff values for fasting glucose and random glucose. The ADA defines fasting as no caloric intake for at least 8 hours. Fasting plasma glucose results between 100 to 125 mg/dL indicate increased risk for diabetes (prediabetes). Fasting plasma glucose results greater than or equal to 126 mg/dL meet the criteria for diagnosis of diabetes. In the absence of unequivocal hyperglycemia, results should be confirmed by repeat testing. In a patient with classic symptoms of hyperglycemia or hyperglycemic crisis, random plasma glucose results greater than or equal to 200 mg/dL meet the criteria for diagnosis of diabetes. Reference: Standards of Medical Care in Diabetes 2016, [place] [employer] Association. Diabetes Care. 2016.39(Suppl 1). Performed By: #### 2 4323-8 #### [facility] CLIA [id number] [address] [place] [address] [place] Potassium [Moles/Vol] 4.2 mmol/L Normal 3.7-5.1 [facility] Comment on above: Order Comment: Speci men Type: BLOOD SPECIMEN Ordering Facility: [facility] Address: [address] [place] [address] Performed By: #### 2 4323-8 #### [facility] CLIA [id number] [address] [place] [address] [place] Protein [Mass/Vol] 6.5 g/dL Normal 6.3-8.0 [facility] Comment on above: Order Comment: Speci men Type: BLOOD SPECIMEN Ordering Facility: [facility] Address: [address] [place] [address] Performed By: #### 2 4323-8 #### [facility] CLIA [id number] [address] [place] [address] [place] Sodium [Moles/Vol] 138 mmol/L Normal 136-144 [facility] Comment on above: Order Comment: Speci men Type: BLOOD SPECIMEN Ordering Facility: [facility] Address: [address] [place] [address] Performed By: #### 2 4323-8 #### [facility] CLIA [id number] [address] [place] [address] [place] Urea nitrogen [Mass/Vol] 11 mg/dL Normal 7-21 [facility] Comment on above: Order Comment: Speci men Type: BLOOD SPECIMEN Ordering Facility: [facility] Address: [address] [place], [place] [address] Performed By: #### 2 4323-8 #### [facility] CLIA [id number] [address] [place] [address] [place] ECG COMPLETEon 04-19-2023 ECG COMPLETE Ventricular Rate : 6 9 BPM Atrial Rate : 69 BPM P-R Interval : 140 ms QRS Duration : 90 ms Q-T Interval : 388 ms QTC Calculation(Bazett) : 415 ms Calculated P Thorndike : 63 degrees Calculated R Thorn[place] : 39 degrees Calculated T Thorn[place] : 62 degrees NORMAL SINUS RHYTHM LEFT ATRIAL ENLARGEMENT RSR' OR QR PATTERN IN V1 SUGGESTS RIGHT VENTRICULAR CONDUCTION DELAY BORDERLINE ECG NO PREVIOUS ECGS AVAILABLE Confirmed by MD FAM QARAB ([id number]) on 04/19/2023 3:43:56 PM NAME : SILVESTRE ELISE PID : [id number] : 1985 Gender : Female Race : ORD : [id number] Procedure Date : Apr 19 2023 13:51:03 Edit Date : Apr 19 2023 15:43:57 Diagnosis: NORMAL SINUS RHYTHM LEFT ATRIAL ENLARGEMENT RSR' OR QR PATTERN IN V1 SUGGESTS RIGHT VENTRICULAR CONDUCTION DELAY BORDERLINE ECG NO PREVIOUS ECGS AVAILABLE Confirmed by MD FAM QARAB ([id number]) on 04/19/2023 3:43:56 PM Test Reason : [facility] Location : 10 : [facility] Overread By : MD FAM QARAB Edited By : MD FAM QARAB Referred By : AMENA DALTON Acquired by : KAYLA [facility] Atrial Rate 69 BPM [facility] Calculated P Thorndike 63 degrees [facility] Calculated R Thorndike 39 degrees [facility] Calculated T Thornd[place] 62 degrees [facility] P-R Interval 140 ms [facility] QRS Duration 90 ms [facility] QT Interval 388 ms [facility] QTC Calculation (Bazett) 415 ms [facility] Ventricular Rate 69 BPM [facility] TYPE AND SCREEN,30 DAYon ABO A Normal [facility] Comment on above: Order Comment: Speci men Type: BLOOD SPECIMEN Ordering Facility: [facility] Address: [address] [place] [address] Performed By: #### T SCR30 #### [facility] CLIA [id number] [address] [place] HISTORICAL AB SCR STATUS Negative Normal [facility] Comment on above: Order Comment: Speci men Type: BLOOD SPECIMEN Ordering Facility: [facility] Address: [address] [place] [address] Performed By: #### T SCR30 #### [facility] CLIA [id number] [address] [place] [address] [place] Rh Nom (Bld) Negative Normal [facility] Comment on above: Order Comment: Speci men Type: BLOOD SPECIMEN Ordering Facility: [facility] Address: [address] [place] [address] Performed By: #### T SCR30 #### [facility] CLIA [id number] [address] [place] [address] [place] HISTORY PHYSICALon HISTORY PHYSICAL HNO ID: [id number] Author: IQRA BAGLEY PA-C Service: ? Author Type: Physician Waiter/Waitress Head Type: H&P Filed: 04/20/2023 08:33 Note Text: HISTORY AND PHYSICAL EXAMINATION SERVICE DATE: 04/19/2023 SERVICE TIME: 2:05 PM PRIMARY CARE PHYSICIAN: Mallory Foster MD, MD Assessment Patient has the following medical conditions which may affect cisco-operative course: Exercise-induced asthma Assessment: Remote hx, no problems in adulthood, no inhalers. Lungs CTAB, SpO2 100% on RA. Anxiety Assessment: Stable, on RX. Bipolar II disorder (HCC) Assessment: Stable, on Lamictal. Follows with outside psych. Chronic interstitial cystitis Assessment: Stable, denies new or worsening sx. Tachycardia Assessment: Stable, managed on propranolol. Follows with outside cardiology, Dr. Burt, JUSTO 02/28/2023 Mallory Marie CNP. RRR on exam today. Records requested for chart completeness, reviewed records on pt's phone. Echo 05/2022 with normal LVEF and no valvular abnormalities, stress test 2019 without ischemia. Incomplete right bundle branch block (RBBB) Assessment: Noted on previous ECGs since 2013. GERD (gastroesophageal reflux disease) Assessment: Stable, sx managed on omeprazole. Hall Activity Status Index: METS: Climb a flight of stairs or walk up a hill (5.50 METs) DASI Score: 5.5 Patient denies any chest pain or undue shortness of breath with the above physical activity. Clinical Frailty Scale: 3. Well, with treated comorbid disease STOP-Bang Score: Snores loudly Denies feeling tired, fatigued, or sleepy during the daytime Has not been observed to stop breathing or choking/gasping during sleep Denies having high blood pressure BMI less than or equal to 35 kg/m2 Patient 50 years old or younger Does not have a large neck Non-male patient STOP-Bang Score: 1 [id number] Score: Age: <65 Sex: female CHF history: No Hypertension history: No Stroke/TIA/thromboembolism history: No Vascular disease history: No Diabetes history: No [id number] Score: 1 ANESTHESIA FINDINGS: Intubation History: No history of difficult intubation. No abnormal airway history Significant Anesthesia Considerations: potential slow emergence Airway History: No history of difficult airway No abnormal airway history I - PHYSICAL EVALUATION AIRWAY Patient intubated: No. Tracheostomy tube not present Mallampati: II. TM distance: >3 FB. Neck ROM: full ROM without neurological symptoms. Mouth opening: adequate. Short neck: no. Thick neck: no Lip Bite Test: II Microretrognathia/Micronagt hia/Recessed Chin: No DENTAL Dental findings: teeth intact. II - ANESTHESIA PLAN Anesthetic Plan: other Anesthetic plan additional comments: *PACC/TCI - anesthesia choice. Beta Lyudmila Monitoring Plan Post Procedure Analgesic Plan Prepared for Surgery: optimally prepared for surgery. CONSULTS: Patient does not require consults for optimization at this time Planned Anesthetic: other anesthesia choice The Following Tests/Procedures Have Been Initiated: Orders Placed This Encounter CBC with Differential Standing Status: Future Standing Expiration Date: 07/19/2023 CMP Standing Status: Future Standing Expiration Date: 07/19/2023 Type and Screen, 30 day Standing Status: Future Standing Expiration Date: 07/19/2023 ECG (IN OFFICE) REASON FOR VISIT: Silvestre Elise is a 37 year old female who is scheduled for Procedure(s) with comments: ARTHRODESIS ANT DISC PREP DISCECTOMY OSTEOPHYTECTOMY DECOMPRES S CORD/NERVE ROOT C' BELOW C2 (N/A) INSERT SPINE FIXATION DEVICE ADDITIONAL PROCEDURE, 2-3 VERTEBRAL SEGMENTS (N/A) SPINE ALLOGRAFT (N/A) - C5-6 anterior cervical discectomy , allograft/anchor C cage fusion at the request of Maggie Monteiro MD for consultation. My final recommendation will be communicated back to the requesting physician by way of shared medical record or letter. Subjective The patient has the following: ACTIVE PROBLEM LIST Migraine Without Aura Attention [...] Pre-Syncope Premature Atrial Contraction Paroxysmal Supraventricular Tachycardia Encounter for Sterilization Tachycardia Gerd (Gastroesophageal Reflux Disease) COVID-19 Immunization Status Overdu (more content not included)... [facility] 04-14-2023 [facility] Office Visit (SPSNAV ) SILVESTRE ELISE ([id number]) 1985 F Date Time Provider Department 04/14/23 9:40 AM MAGGIE GUZMAN SPSNAV During your visit today, we recorded the following information about you: Last Period 03/15/23 Maggie Guzman MD 04/14/2023 12:52 PM Signed SPINE SURGERY ESTABLISHED This is an in-person visit. DATE OF SERVICE: 04/14/2023 DATE OF LAST VISIT: 01/20/2021 SUBJECTIVE: HPI:Silvestre Elise is a 37 year old female presenting with spouse. Silvestre Elise is a pleasant 37 year old female is in spine surgery clinic for follow-up visit. She was evaluated on 01/20/2021 with history of right lateral leg pain, radiate to the lateral part of the right leg up to the big toe. Back pain is there for many years, leg pain started few months ago. She says the pain is constant, it is worse with activity. Has numbness over right L5 distribution. Denies weakness. Denies bowel or bladder dysfunction. Received caudal epidural injection with good pain relief for few months. She also received interlaminar epidural injection with minimal pain relief. Tried gabapentin in the past and stopped it due to intolerance. Her pain management doctor gave prescription for Lyrica yesterday however she is not yet started. No previous spine surgery. Now she has minimal lower back and leg pain. She is continuing conservative treatment for lower back pain. Today major complaint is neck pain radiating down the left shoulder and ending over the thumb. Her pain is aggravated by neck movement and activity. She also noticed numbness over left thumb, index, middle finger area. Numbness constant. Numbness is more bothersome than pain. She also has a difficulty gripping things with her left hand. Denies right arm pain and numbness. Denies imbalance. No bowel or bladder dysfunction. Tried Medrol Dosepak. Tried gabapentin for a day and stopped it due to intolerance. No recent cervical epidural injections. PAIN EVALUATION 04/13/2023 0422 04/14/2023 0924 Pain Level: 5 7 Pain Location: Neck Neck Description: Aching;Burning;Numbness;Tig htness;Tingling Burning;Aching;Dull;Pressur e Duration Amount of Time: 4 3 Duration Units: Months Months Frequency: Continuous Continuous Intervention/Comfort measure: Medication;Reposition;Heat; Pillow support -- Pain Radiation: from the neck to the left shoulder(s) and left finger(s) Aggravating Factors: Movement, Sitting on the bleachers Alleviating Factors: Medications Pain Ratio: Pain in the neck is greater than in the arm AMBULATORY STATUS: Independent Community Distances ANTIPLATELET OR ANTICOAGULATION STATUS: No PREVIOUS CONSERVATIVE TREATMENTS: Gabapentin Baclofen Prednisone Acupuncture REVIEW OF SYSTEMS: GENERAL: No weight loss or malaise MUSCULOSKELETAL: Negative for joint pain, swelling or muscle pain NEURO: No history of headaches, syncope, paralysis, seizures or tremors MEDICATIONS: propranolol (INDERAL) 20 mg tablet lamoTRIgine (LAMICTAL) 200 mg tablet Take 50 mg by mouth once daily. busPIRone (BUSPAR) 10 mg tablet omeprazole (PRILOSEC) 40 mg capsule Take by mouth. vit/iron fum/folic ac ( VITAMIN ORAL) Take by mouth once daily. (Patient not taking: Reported on 01/20/2021 ) RANITIDINE HCL (ZANTAC ORAL) Take by mouth as needed. (Patient not taking: Reported on 01/20/2021 ) albuterol HFA (VENTOLIN HFA) 90 mcg/actuation inhaler Inhale 2 Puffs as instructed every 4 hours as needed for Wheezing/Shortness of Breath. (Patient not taking: Reported on 01/20/2021 ) Patient Entered Questionnaires Spine Questions 04/13/2023 Pain Location: Neck Pain Duration: 3-6 months Pain over last 6 months: Every day or nearly every day in the past 6 months Symptoms from neck/cervical spine: Yes Employment Status: Working now Involved in law suit/legal claim: No Neck Questionnaires 04/13/2023 Benzel Modified CRIS Score 15 (A lower score indicates increased pain and issues.) PROMIS Score Percentiles Physical Health 04/13/2023 Physical Function Percentile 18* Sleep Percentile 14 Fatigue Percentile 16* Pain Interference Percentile 8 PROMIS SOCIAL ROLE SCORE 04/13/2023 Social Role Satisfaction Percentile 31 PROMIS Global Health Scale 04/13/2023 Physical Health Percentile 22* Mental Health Percentile 34 Percentiles provide an indication of how the patient's score ranks in relation to the general population. Higher percentile rankings indicate better function/quality of life. 50th percentile is the average of the general population and indicates half of respondents had a worse score. Depression Screening: PHQ-9 08/12/2010 10/21/2010 04/13/2023 Score 10 11 7 PHQ-9 Self-harm Question 08/12/2010 10/21/2010 04/13/2023 Thoughts that you would be better off , or of hurting yourself in some way 0 0 0 PHQ (more content not included)... Normal [facility] No Panel Informationon 04-14 [facility] XR CERVICAL 4V AP/LAT/FLX/EX Ton 04-14-2023 XR CERVICAL 4V AP/LAT/FLX/EXT * * *Final Report* * * DATE OF EXAM: Apr 14 2023 10:12AM VHX [id number] - XR CERVICAL 4V AP/LAT/FLX/EXT / PROCEDURE REASON: Cervical disc disorder with radiculopathy * * * * Physician Interpretation * * * * EXAMINATION / TECHNIQUE: XR CERVICAL 4V AP/LAT/FLX/EXT PATIENT/TECHNOLOGIST PROVIDED HISTORY: Hx of cervical herniated disc, patient states numbness and tingling of left upper extremity with pain radiating into left scapula CLINICAL INFORMATION ( PROVIDED BY ORDERING CLINICIAN) : Cervical disc disorder with radiculopathy COMPARISON: Outside hospital cervical spine MR 04/05/2023 RESULT: Counting reference: Craniocervical junction. Anatomic Variants: None. Normal cervical lordosis. No significant spondylolisthesis. C1-C2 relationship is preserved. No abnormal translation on flexion or extension views. Vertebral body heights are preserved. No acute fracture is identified. Mild disc height loss at C5-C6. The remaining cervical discs are preserved. Minimal uncovertebral joint arthropathy in the lower cervical spine. IMPRESSION: No acute osseous abnormality. Mild degenerative disc disease at C5-C6. Director Of Gift Planning: TD Transcribe Date/Time: Apr 14 2023 10:25A Dictated by : HOMAR BARBOZA MD This examination was interpreted and the report reviewed and electronically signed by: SOFI MARTINEZ MD on Apr 14 2023 10:54AM EST [id number] Normal [facility] - Drug toxicology Ordered By: Shayla Anton on 11-30-2022 Amphetamines Ql (U) Negative <1000 ng/mL [facility] Benzodiazepines Ql (U) Negative < 200 ng/mL [facility] Cannabinoids Screen Ql (U) Negative < 50 ng/mL [facility] Cocaine Ql (U) Negative < 300 ng/mL [facility] Opiates Ql (U) Negative < 300 ng/mL [facility] No Panel InformationOrdered By: Shayla Anton on 11-30-2022 MDMA (Ecstasy) Screen Negative < 500 ng/mL [facility] Urine Barbiturates Screen Negative < 200 ng/mL [facility] Urine Drug Screen Comment [facility] Comment on above: CONFIRMATORY TESTING FOR ALL POSITIVE URINE DRUG SCREENRESULTS WILL ONLY BE SENT OUT UPON PHYSICIAN ORDER. VISTA Urine Drug Screen methods provide only preliminaryanalytical test results. A more specific alternate chemicalmethod must be used in order to obtain a confirmedanalytical result. Gas chromatography/mass spectrometery(GC/MS) is the preferred confirmatory method. Clinicalconsideration and professional judgement should be appliedto any drug of abuse test result, particularly whenpreliminary positive results are used. URINE TCA TESTING MUST BE ORDERED SEPARATELY. USE TESTMNEMONIC: [facility] Urine Methadone Screen Negative < 300 ng/mL [facility] Urine phencyclidine (PCP) de tectionOrdered By: Shayla Anton on 11-30-2022 Phencyclidine Ql (U) Negative < 25 ng/mL [facility] Absolute lymphocyte countOrd ered By: Fatmata Esquivel on 04-27-2022 Lymphocytes Auto (Unsp spec) [#/Vol] 3.00 10*3/uL 0.83-4.51 [facility] Basophil percentageOrdered B y: Fatmata Esquivel on 04-27-2022 Basophils/100 WBC (Bld) 0.6 % 0-1 [facility] Bilirubin [Mass/Vol] 0.30 mg/dL 0.20-1.00 [facility] Comment on above: For patients on eltr ombopag therapy, use of Dimension [place] TBIL is not recommended. Chloride [Moles/Vol] 108 mmol/L 98-107 [facility] Eosinophils/100 WBC (Bld) 5.4 % 0-5 [facility] Glucose [Mass/Vol] 106 mg/dL 74-106 [facility] Comment on above: Fasting Glucose resu lt from 100 to 125 mg/dL suggests IMPAIRED HOMEOSTASIS per A.D.A. criteria. Neutrophils (Bld) [#/Vol] 5.0 10*3/uL 2.0-7.7 [facility] Neutrophils/100 WBC (Bld) 55.6 % 47-70 [facility] Potassium [Moles/Vol] 4.3 mmol/L 3.5-5.1 [facility] Protein [Mass/Vol] 7.1 g/dL 6.4-8.2 [facility] Sodium [Moles/Vol] 139 mmol/L 136-145 [facility] WBC (Bld) [#/Vol] 8.9 10*3/uL 4.4-11.0 [facility] Blood erythrocytes count (nu mber/volume)Ordered By: Fatmata Esquivel on 04-27-2022 RBC (Bld) [#/Vol] 4.82 10*6/uL 4.2-5.4 [facility] Blood hemoglobin measurement (mass/volume)Ordered By: Fatmata Esquivel on 04-27-2022 Hemoglobin (Bld) [Mass/Vol] 14.0 g/dL 12.0-15.0 [facility] Blood lymphocytes/100 leukoc ytesOrdered By: Fatmata Esquivel on 04-27-2022 Lymphocytes/100 WBC (Bld) 33.6 % 19-41 [facility] Blood monocytes/100 leukocyt esOrdered By: Fatmata Esquivel on 04-27-2022 Monocytes/100 WBC (Bld) 4.5 % 0-10 [facility] Blood platelet mean volumeOr dered By: Fatmata Esquivel on 04-27-2022 Platelet mean volume (Bld) [Entitic vol] 10.1 fL 6.2-12.0 [facility] Determination of erythrocyte mean corpuscular volume (MCV)Ordered By: Fatmata Esquivel on 04-27-2022 MCV (RBC) [Entitic vol] 88.2 fL 81-99 [facility] Hematocrit Auto (Bld) [Volum e fraction]Ordered By: Fatmata Esquivel on 04-27-2022 Hematocrit (Bld) [Volume fraction] 42.5 % 37-47 [facility] Iron measurement (mass/mass) Ordered By: Fatmata Esquivel on 04-27-2022 Iron (Unsp spec) [Mass/Mass] 71 ug/dL 50-170 [facility] Laboratory - Chemistry and C hemistry - challengeOrdered By: Fatmata Esquivel on 04-27-2022 ALP [Catalytic activity/Vol] 39 U/L 45-117 [facility] ALT [Catalytic activity/Vol] 19 U/L 13-56 [facility] CO2 [Moles/Vol] 27.0 mmol/L 21.0-32.0 [facility] Globulin (S) [Mass/Vol] 3.2 g/dL 2.2-4.2 [facility] Magnesium [Mass/Vol] 2.1 mg/dL 1.6-2.6 [facility] Urea nitrogen/Creatinine [Mass ratio] 14.7 mg/mg 10-20 [facility] Laboratory - Hematology and Cell countsOrdered By: Fatmata Esquivel on 04-27-2022 Erythrocyte distribution width (RBC) [Entitic vol] 41.0 fL 35.1-43.9 [facility] Erythrocyte distribution width (RBC) [Ratio] 12.6 % 11.6-14.6 [facility] Immature granulocytes/100 WBC (Bld) 0.300 % 0.0-0.9 [facility] Comment on above: IG% - Immature Granu locytes (promyelocytes, myelocytes and metamyelocytes) > 1% indicates that a LEFT SHIFT is Present. MCH (RBC) [Entitic mass] 29.0 pg 27.0-32.0 [facility] Nucleated RBC/100 WBC (Bld) [Ratio] 0 % 0-5 [facility] MCHC Auto (RBC) [Mass/Vol]Or dered By: Fatmata Esquivel on 04-27-2022 MCHC (RBC) [Mass/Vol] 32.9 g/dL 32-36 [facility] No Panel InformationOrdered By: Fatmata Esquivel on 04-27-2022 Estimated GFR (MDRD) Amer 92 mL/min >60 [facility] Comment on above: GFR Calc Estimated GFR (MDRD) Non-Af Amer 76 mL/min >60 [facility] Comment on above: Non- GFR Calc Thyroid Stimulating Hormone (TSH) 1.87 uIU/mL 0.358-3.74 [facility] Total Iron Binding Capacity 338 ug/dL 250-450 [facility] Platelets bldOrdered By: Wander Esquivel on 04-27-2022 Platelets (Bld) [#/Vol] 284 10*3/uL 150-450 [facility] Serum or plasma albumin crista urement (mass/volume)Ordered By: Fatmata Esquivel on 04-27-2022 Albumin [Mass/Vol] 3.9 g/dL 3.2-5.0 [facility] Serum or plasma albumin/glob ulin mass ratioOrdered By: Famtata Esquivel on 04-27-2022 Albumin/Globulin [Mass ratio] 1.2 {ratio} 0.9-2.4 [facility] Serum or plasma calcium crista urement (mass/volume)Ordered By: Fatmata Esquivel on 04-27-2022 Calcium [Mass/Vol] 9.1 mg/dL 8.5-10.1 [facility] Serum or plasma creatinine m easurement (mass/volume)Ordered By: Fatmata Esquivel on 04-27-2022 Creatinine [Mass/Vol] 0.88 mg/dL 0.55-1.02 [facility] Comment on above: The validity of the calculated GFR & GFRAA in patients over 70 years has not been determined. Clinical correlation is essential. Serum or plasma iron saturat ion measurement (mass fraction)Ordered By: Fatmata Esquivel on 04-27-2022 Iron saturation [Mass fraction] 21.0 % 15.0-55.0 [facility] Serum or plasma urea nitroge n measurement (mass/volume)Ordered By: Fatmata Esquivel on 04-27-2022 Urea nitrogen [Mass/Vol] 13 mg/dL 7-18 [facility] Thin prep Papanicolaou smear with manual screeningOrdered By: Fatmata Esquivel on 04-27-2022 Thin prep Papanicolaou smear with manual screening 16 U/L 15-37 [facility] Thin prep Papanicolaou smear with manual screening 4 5-15 [facility] Cervical or vagninal specime n microscopic examination by cytology stain (reported asOrdered By: Dr. Aguilar on 02-11-2022 Cytology report Cyto stain Doc (Cvx/Vag) Comment . [facility] Comment on above: The Pap smear is a s creening test designed to aid in thedetection of premalignant and malignant conditions of theuterine cervix. It is not a diagnostic procedure andshould not be used as the sole means of detecting cervicalcancer. Both false-positive and false-negative reports dooccur. Detection in cervical specim en of any of human papilloma virus (HPV) 16, 18, 31, 33,Ordered By: Dr. Aguilar on 02-11-2022 HPV 16+18+31+33+35+39+45+5 1+52+56+58+59+66+68 DNA Probe+sig amp Ql (Cvx) Negative Negative [facility] Comment on above: This nucleic acid am plification test detects fourteen high- risk HPV types (16,18,31,33,35,39,45,51,52,56,58,59,66,68)without differentiation. Laboratory - CytologyOrdered By: Dr. Aguilar on 02-11-2022 Management Architect Cyto stain Nom (Cvx/Vag) [ID] Comment . [facility] Comment on above: Jenifer Anaya, [employer] hnologist (ASCP) Laboratory - Miscellaneous t estsOrdered By: Dr. Aguilar on 02-11-2022 Service comment (Unsp spec) [Interp] Comment . [facility] Comment on above: This liquid based Th inPrep(R) pap test was screened withthe use of an image guided system. Service comment (Unsp spec) [Interp] . . [facility] Liquid-based cerv Pap + CT/G C by KERRI w reflex to high-risk HPV for ASCUSOrdered By: Dr. Aguilar on 02-11-2022 Cytology report Cyto stain.thin prep Doc (Cvx/Vag) Comment . [facility] Comment on above: Criteria not met, HP V Genotype not performed.Performed at: - [facility] [id number] Director: Elvia Escobar MD, Phone: [phone] at: =[facility] [id number] Director: Elvia Escobar MD, Phone: [phone] No Panel InformationOrdered By: Dr. Aguilar on 02-11-2022 Pathology report final diagnosis Narrative Comment . [facility] Comment on above: NEGATIVE FOR INTRAEP ITHELIAL LESION OR MALIGNANCY. Absolute lymphocyte counton 08-04-2021 Lymphocytes Auto (Unsp spec) [#/Vol] 2.72 10*3/uL 0.83-4.51 [facility] Work Phone: Basophil percentageon 2021 Basophils/100 WBC (Bld) 0.6 % 0-1 [facility] Work Phone: Bilirubin [Mass/Vol] 0.30 mg/dL 0.20-1.00 [facility] Work Phone: Comment on above: For patients on eltr ombopag therapy, use of Dimension [place] TBIL is not recommended. Chloride [Moles/Vol] 108 mmol/L 98-107 [facility] Work Phone: Eosinophils/100 WBC (Bld) 4.6 % 0-5 [facility] Work Phone: Glucose [Mass/Vol] 98 mg/dL 74-106 [facility] Work Phone: Neutrophils (Bld) [#/Vol] 4.8 10*3/uL 2.0-7.7 [facility] Work Phone: [phone] Neutrophils/100 WBC (Bld) 57.3 % 47-70 [facility] Work Phone: Potassium [Moles/Vol] 3.6 mmol/L 3.5-5.1 [facility] Work Phone: [phone] Protein [Mass/Vol] 7.1 g/dL 6.4-8.2 [facility] Work Phone: [phone] Sodium [Moles/Vol] 141 mmol/L 136-145 [facility] Work Phone: [phone] WBC (Bld) [#/Vol] 8.3 10*3/uL 4.4-11.0 [facility] Work Phone: Blood erythrocytes count (nu mber/volume)on 08-04-2021 RBC (Bld) [#/Vol] 4.74 10*6/uL 4.2-5.4 [facility] Work Phone: [phone] Blood hemoglobin measurement (mass/volume)on 08-04-2021 Hemoglobin (Bld) [Mass/Vol] 13.8 g/dL 12.0-15.0 [facility] Work Phone: [phone] Blood lymphocytes/100 leukoc yteson 08-04-2021 Lymphocytes/100 WBC (Bld) 32.7 % 19-41 [facility] Work Phone: Blood monocytes/100 leukocyt eson 08-04-2021 Monocytes/100 WBC (Bld) 4.4 % 0-10 [facility] Work Phone: Blood platelet mean volumeon 08-04-2021 Platelet mean volume (Bld) [Entitic vol] 10.6 fL 6.2-12.0 [facility] Work Phone: Determination of erythrocyte mean corpuscular volume (MCV)on 08-04-2021 MCV (RBC) [Entitic vol] 88.0 fL 81-99 [facility] Work Phone: Hematocrit Auto (Bld) [Volum e fraction]on 08-04-2021 Hematocrit (Bld) [Volume fraction] 41.7 % 37-47 [facility] Work Phone: Laboratory - Chemistry and C hemistry - challengeon 08-04-2021 ALP [Catalytic activity/Vol] 40 U/L 45-117 [facility] Work Phone: ALT [Catalytic activity/Vol] 22 U/L 13-56 [facility] Work Phone: CO2 [Moles/Vol] 27.0 mmol/L 21.0-32.0 [facility] Work Phone: Globulin (S) [Mass/Vol] 3.1 g/dL 2.2-4.2 [facility] Work Phone: [phone] Magnesium [Mass/Vol] 2.3 mg/dL 1.6-2.6 [facility] Work Phone: Urea nitrogen/Creatinine [Mass ratio] 18.9 mg/mg 10-20 [facility] Work Phone: Laboratory - Hematology and Cell countson 08-04-2021 Erythrocyte distribution width (RBC) [Entitic vol] 40.0 fL 35.1-43.9 [facility] Work Phone: Erythrocyte distribution width (RBC) [Ratio] 12.3 % 11.6-14.6 [facility] Work Phone: Immature granulocytes/100 WBC (Bld) 0.400 % 0.0-0.9 [facility] Work Phone: Comment on above: IG% - Immature Granu locytes (promyelocytes, myelocytes and metamyelocytes) > 1% indicates that a LEFT SHIFT is Present. MCH (RBC) [Entitic mass] 29.1 pg 27.0-32.0 [facility] Work Phone: Nucleated RBC/100 WBC (Bld) [Ratio] 0 % 0-5 [facility] Work Phone: MCHC Auto (RBC) [Mass/Vol]on 08-04-2021 MCHC (RBC) [Mass/Vol] 33.1 g/dL 32-36 [facility] Work Phone: No Panel Informationon 08-04 Estimated GFR (MDRD) Amer 124 mL/min >60 [facility] Work Phone: Comment on above: GFR Calc Estimated GFR (MDRD) Non-Af Amer 102 mL/min >60 [facility] Work Phone: Comment on above: Non- GFR Calc Thyroid Stimulating Hormone (TSH) 1.24 uIU/mL 0.358-3.74 [facility] Work Phone: Platelets bldon 08-04-2021 Platelets (Bld) [#/Vol] 290 10*3/uL 150-450 [facility] Work Phone: Serum or plasma albumin crista urement (mass/volume)on 08-04-2021 Albumin [Mass/Vol] 4.0 g/dL 3.2-5.0 [facility] Work Phone: Serum or plasma albumin/glob ulin mass ratioon 08-04-2021 Albumin/Globulin [Mass ratio] 1.3 {ratio} 0.9-2.4 [facility] Work Phone: Serum or plasma calcium crista urement (mass/volume)on 05-24-2022 Calcium [Mass/Vol] 8.5 mg/dL 8.5-10.1 [facility] Work Phone: Serum or plasma creatinine m easurement (mass/volume)on 08-04-2021 Creatinine [Mass/Vol] 0.69 mg/dL 0.55-1.02 [facility] Work Phone: Comment on above: The validity of the calculated GFR & GFRAA in patients over 70 years has not been determined. Clinical correlation is essential. Serum or plasma urea nitroge n measurement (mass/volume)on 08-04-2021 Urea nitrogen [Mass/Vol] 13 mg/dL 7-18 [facility] Work Phone: Thin prep Papanicolaou smear with manual screeningon 08-04-2021 Thin prep Papanicolaou smear with manual screening 18 U/L 15-37 [facility] Work Phone: Thin prep Papanicolaou smear with manual screening 6 5-15 [facility] Work Phone: Surgical Pathologyon 022 Surgical Pathology [phone] [facility] PATHOLOGY AND LABORATORY MEDICINE [address] [place] [id number] FINAL SURGICAL PATHOLOGY REPORT NAME: SILVESTRE ELISE : 1985 35 Y F BILLING NO.: [id number] LOCATION: [id number] PROCEDURE 07/15/2021 DATE: SURGEON: GUERO AGUILERA MD RECEIVED 07/15/2021 DATE: ATTENDING: GUERO AGUILERA MD REPORT DATE: 07/16/2021 COPIES TO: DIAGNOSIS: A. COLON, RANDOM, BIOPSIES - UNREMARKABLE COLONIC MUCOSA Comment: Negative for microscopic colitis. B. COLON, ASCENDING, POLYPECTOMY - HYPERPLASTIC POLYP Comment: Morphological features of a sessile serrated polyp are not identified. JAW/JAW Signature> NARINDER WHITAKER M.D. CLINICAL INFORMATION: Weight loss SPECIMEN: (A) COLON BIOPSY (B) COLON POLYP, BIOPSY GROSS DESCRIPTION: A. Received in formalin labeled colon, ascending, transverse, descending, random are multiple fragments of pink-mir soft tissue aggregating to 0.8 x 0.8 x 0.2 cm and are submitted in one cassette. B. Received in formalin labeled ascending colon polyps are multiple irregular-shaped fragments of pink-mir soft tissue; the smaller measures 0.2 x 0.2 x <0.1 cm and the larger measures 0.3 x 0.2 x 0.2 cm. All is submitted into one cassette. BSC/0RW Disclaimer: The following statement applies to all immunohistochemistry, in situ hybridization, molecular studies, and immunofluorescence testing. The use of one or more reagents in the above tests is regulated as an analyte specific reagent (ASR). These tests were developed and their performance characteristics determined by the clinical laboratories of [facility]. They have not been cleared by the US Food and Drug Administration (FDA). The FDA has determined that such clearance or approval is not necessary. All the above immunostains were performed on paraffin embedded tissue. Appropriate positive and negative controls (where applicable) were run in parallel with the patient's specimen; these controls showed expected staining pattern, with acceptable intensity of staining. Immunohistochemical assays have not been validated on decalcified tissues. Results should be interpreted with caution given the raised possibility of false negativity on decalcified specimens. Professional Performing Location: [address] [address]. DEPARTMENT OF PATHOLOGY AND LABORATORY MEDICINE [place], [place] [address] [email or web address] Normal [facility] RF Upper GI w/ Small Bowelon 07-07-2021 RF Upper GI w/ Small Bowel Patient Name: SILVESTRE ELISE Fluoroscopy ACCESSION EXAM DATE/TIME PROCEDURE ORDERING PROVIDER [id number] 07/07/2021 13:22 EDT RF Upper GI w/ Small MD WILLY, GUERO [place] Bowel CPT code 99293 Reason For Exam (RF Upper GI w/ Small Bowel) abnormal CT small bowel with symptoms of GI bleed, pain and weight loss Report UPPER GI AND SMALL BOWEL SERIES. CLINICAL INDICATOR: Abdominal pain. GERD. Blood in stool. 12 pound weight loss. Abnormal CT scan. EGD demonstrating gastritis two month ago. COMPARISON: TECHNIQUE: Biphasic upper GI is performed. Two more cups of barium were administered and the small bowel is studied with serial images up to and including 3 hours. Spot images of the terminal ileum were obtained. FLUOROSCOPY TIME: 1.39 minutes FLUOROSCOPIC EXPOSURES: 47 FINDINGS: Barium and air are administered. The esophagus is studied in the upright and recumbent positions. The swallowing mechanism is unremarkable. The esophagus shows normal motility with normal course and caliber. The gastric folds are mildly prominent. The duodenum shows no ulcer or mass. The mucosal pattern is normal. The small bowel is normal in course and caliber. No obvious abnormality of the mucosa pattern is seen. The ileocecal area is unremarkable. There is no stricture and no obstructive changes are seen. IMPRESSION: Findings suggesting mild gastritis. Unremarkable small bowel series. Fluoroscopy Report Report Dictated on Final Dictated: 07/07/2021 3:39 pm Dictating Physician: MD DAVID, DANTE Balderrama Signed Date and Time: 07/07/2021 4:35 pm Signed by: MD HERNANDEZ JONATHAN R Transcribed Date and Time: 07/07/2021 3:45 Normal [facility] Erythrocyte sedimentation ra nhung 06-30-2021 ESR (Bld) [Velocity] 1 mm/h 0-30 [facility] Work Phone: No Panel Informationon 06-30 Endomysial IgA Antibody Negative Negative [facility] Work Phone: Serum or plasma C reactive p rotein measurement (mass/volume)on 06-30-2021 CRP [Mass/Vol] mg/L 0.0-3.0 [facility] Work Phone: Comment on above: C-Reactive Protein ( CRP) provides useful information for thediagnosis, therapy and monitoring of inflammatory processesand associated diseases. For the evaluation of Relative Riskfor Cardiovascular Disease, a High Sensitivity CRP (HSCRP)should be ordered. Serum or plasma IgA measurem ent (mass/volume)on 06-30-2021 IgA [Mass/Vol] 173 mg/dL 87-352 [facility] Work Phone: Comment on above: Performed at: [place] [id number] Director: Guille Ramírez PhD, Phone: [phone] Serum tissue transglutaminas e IgA antibody assay (units/volume)on 06-30-2021 tTG IgA Qn (S) <2 U/mL 0-3 [facility] Work Phone: Comment on above: Negative 0 - 3 Weak Positive 4 - 10 Positive >10 Tissue Transglutaminase (tTG) has been identified as the endomysial antigen. Studies have demonstr- ated that endomysial IgA antibodies have over 99% specificity for gluten sensitive enteropathy. Laboratory - Microbiology an d Antimicrobial susceptibilityon 04-02-2021 SARS-CoV-2 (COVID-19) RNA KERRI+probe Ql (Unsp spec) Not detected Not Detect [facility] Work Phone: Comment on above: Normal Reference Ran ge: Not DetectedMethod:(RT-PCR) real-time reverse transcriptase PCRLuminex ELIS Instrument*The Food and Drug Administration (FDA) has issued an Emergency Use Authorization (EAU) for the ELIS SARS-CoV-2 Assay for the rapid detection of the virus that causes COVID-19. This test has been validated, but the FDAs independent review of this validation is pending.*Negative results do not preclude infection and should not be used as the sole basis for treatment or patient management. Optimum specimen types and timing for peak viral levels during infections caused by SARS-CoV-2 have not been determined. Collection of multiple specimens from the same patient may be necessary to detect the virus. The possibility of a false negative result should be considered if the patient has clinical presentation or has had recent exposure. Absolute lymphocyte counton 03-07-2021 Lymphocytes Auto (Unsp spec) [#/Vol] 2.87 10*3/uL 0.83-4.51 [facility] Work Phone: Basophil percentageon 2020 Basophil percentage 0-5 SEEN /hpf [facility] Work Phone: Bilirubin [Mass/Vol] 0.60 mg/dL 0.20-1.00 [facility] Work Phone: Comment on above: For patients on eltr ombopag therapy, use of Dimension [place] TBIL is not recommended. Chloride [Moles/Vol] 106 mmol/L 98-107 [facility] Work Phone: Eosinophils/100 WBC (Bld) 4.1 % 0-5 [facility] Work Phone: Glucose [Mass/Vol] 100 mg/dL 74-106 [facility] Work Phone: [phone] Comment on above: Fasting Glucose resu lt from 100 to 125 mg/dL suggests IMPAIRED HOMEOSTASIS per A.D.A. criteria.Please note revised GLUCOSE reference range effective 2017. Neutrophils (Bld) [#/Vol] 4.5 10*3/uL 2.0-7.7 [facility] Work Phone: Potassium [Moles/Vol] 3.5 mmol/L 3.5-5.1 [facility]: Protein [Mass/Vol] 7.3 g/dL 6.4-8.2 [facility] Work Phone: Sodium [Moles/Vol] 139 mmol/L 136-145 [facility] Work Phone: WBC (Bld) [#/Vol] 8.3 10*3/uL 4.4-11.0 [facility] Work Phone: Beta hCG serum qualon 2020 Beta HCG ( test) Ql Negative [facility] Work Phone: Bilirubin Test strip Ql (U)o n 03-07-2021 Bilirubin Ql (U) Negative Negative [facility] Work Phone: Blood erythrocytes count (nu mber/volume)on 03-07-2021 RBC (Bld) [#/Vol] 4.68 10*6/uL 4.2-5.4 [facility] Work Phone: Blood hemoglobin measurement (mass/volume)on 03-07-2021 Hemoglobin (Bld) [Mass/Vol] 13.6 g/dL 12.0-15.0 [facility] Work Phone: Blood lymphocytes/100 leukoc yteson 03-07-2021 Lymphocytes/100 WBC (Bld) 34.8 % 19-41 [facility] Work Phone: Blood monocytes/100 leukocyt eson 03-07-2021 Monocytes/100 WBC (Bld) 5.9 % 0-10 [facility] Work Phone: Blood platelet mean volumeon 03-07-2021 Platelet mean volume (Bld) [Entitic vol] 9.5 fL 6.2-12.0 [facility] Work Phone: Determination of erythrocyte mean corpuscular volume (MCV)on 03-07-2021 MCV (RBC) [Entitic vol] 85.7 fL 81-99 [facility] Work Phone: Hematocrit Auto (Bld) [Volum e fraction]on 03-07-2021 Hematocrit (Bld) [Volume fraction] 40.1 % 37-47 [facility] Work Phone: Ketones Test strip Ql (U)on 03-07-2021 Ketones Ql (U) 50 mg/dl Negative [facility] Work Phone: Laboratory - Chemistry and C hemistry - challengeon 03-07-2021 ALP [Catalytic activity/Vol] 38 U/L 45-117 [facility] Work Phone: ALT [Catalytic activity/Vol] 24 U/L 13-56 [facility] Work Phone: CO2 [Moles/Vol] 24.0 mmol/L 21.0-32.0 [facility] Work Phone: Globulin (S) [Mass/Vol] 3.3 g/dL 2.2-4.2 [facility] Work Phone: Lipase [Catalytic activity/Vol] 72 U/L 73-393 [facility] Work Phone: Urea nitrogen/Creatinine [Mass ratio] 11.4 mg/mg 10-20 [facility] Work Phone: Laboratory - Hematology and Cell countson 03-07-2021 Basophils/100 WBC (Unsp spec) 0.5 % 0-1 [facility] Work Phone: Erythrocyte distribution width (RBC) [Entitic vol] 37.7 fL 35.1-43.9 [facility] Work Phone: Erythrocyte distribution width (RBC) [Ratio] 12.0 % 11.6-14.6 [facility] Work Phone: Immature granulocytes/100 WBC (Bld) 0.400 % 0.0-0.9 [facility] Work Phone: Comment on above: IG% - Immature Granu locytes (promyelocytes, myelocytes and metamyelocytes) > 1% indicates that a LEFT SHIFT is Present. MCH (RBC) [Entitic mass] 29.1 pg 27.0-32.0 [facility] Work Phone: Neutrophils/100 WBC (Bld) 54.3 % 47-70 [facility] Work Phone: Nucleated RBC/100 WBC (Bld) [Ratio] 0 % 0-5 [facility] Work Phone: MCHC Auto (RBC) [Mass/Vol]on 03-07-2021 MCHC (RBC) [Mass/Vol] 33.9 g/dL 32-36 [facility] Work Phone: Mucus LM Ql (Urine sed)on Mucus Ql (Urine sed) 2+ /hpf [facility] Work Phone: Nitrite Test strip Ql (U)on 03-07-2021 Nitrite Ql (U) Negative Negative [facility] Work Phone: No Panel Informationon 03-07 Estimated Creatinine Clearance Calc 77.86 ml/min [facility] Work Phone: Estimated GFR (MDRD) Amer 106 mL/min >60 [facility] Work Phone: Comment on above: GFR Calc Estimated GFR (MDRD) Non-Af Amer 88 mL/min >60 [facility] Work Phone: Comment on above: Non- GFR Calc Platelets bldon 03-07-2021 Platelets (Bld) [#/Vol] 319 10*3/uL 150-450 [facility] Work Phone: Protein Test strip Ql (U)on 03-07-2021 Protein Ql (U) 30 mg/dl Negative [facility] Work Phone: Serum or plasma albumin crista urement (mass/volume)on 03-07-2021 Albumin [Mass/Vol] 4.0 g/dL 3.2-5.0 [facility] Work Phone: Serum or plasma albumin/glob ulin mass ratioon 03-07-2021 Albumin/Globulin [Mass ratio] 1.2 {ratio} 0.9-2.4 [facility] Work Phone: Serum or plasma calcium crista urement (mass/volume)on 03-07-2021 Calcium [Mass/Vol] 9.0 mg/dL 8.5-10.1 [facility] Work Phone: Serum or plasma creatinine m easurement (mass/volume)on 03-07-2021 Creatinine [Mass/Vol] 0.79 mg/dL 0.55-1.02 [facility] Work Phone: Comment on above: The validity of the calculated GFR & GFRAA in patients over 70 years has not been determined. Clinical correlation is essential. Serum or plasma urea nitroge n measurement (mass/volume)on 03-07-2021 Urea nitrogen [Mass/Vol] 9 mg/dL 7-18 [facility] Work Phone: Squamous epithelial cells de tection in urine sediment by light microscopyon 03-07-2021 Epithelial cells.squamous LM Ql (Urine sed) 0-5 SEEN /hpf [facility] Work Phone: Thin prep Papanicolaou smear with manual screeningon 03-07-2021 Thin prep Papanicolaou smear with manual screening 17 U/L 15-37 [facility] Work Phone: Thin prep Papanicolaou smear with manual screening 9 5-15 [facility] Work Phone: Urine blood detectionon 02-12 RBC Ql (U) 150 /ul Negative [facility] Work Phone: RBC Ql (U) 0-5 SEEN /hpf [facility] Work Phone: Urine clarityon 03-07-2021 Clarity (U) Clear Clear [facility] Work Phone: Urine color determinationon 03-07-2021 Color (U) Yellow Yellow [facility] Work Phone: Urine glucose detectionon Glucose Ql (U) Normal mg/dl Normal [facility] Work Phone: Urine leukocyte esterase det ection by dipstickon 03-07-2021 Leukocyte esterase Test strip Ql (U) 100 /ul Negative [facility] Work Phone: Urine pHon 03-07-2021 pH (U) 6.0 [pH] [facility] Work Phone: Urine sediment bacteria coun t by microscopy (number/high power field)on 03-07-2021 Bacteria LM.HPF (Urine sed) [#/Area] 1 /[HPF] None Seen [facility] Work Phone: Urine specific gravity measu rementon 03-07-2021 Specific gravity (U) [Rel density] 1.015 [facility] Work Phone: Urobilinogen Auto test strip Ql (U)on 03-07-2021 Urobilinogen Ql (U) 1 mg/dl Normal [facility] Work Phone: Absolute lymphocyte counton 02-26-2021 Lymphocytes Auto (Unsp spec) [#/Vol] 2.47 10*3/uL 0.83-4.51 [facility] Work Phone: Basophil percentageon 2020 Bilirubin [Mass/Vol] 0.50 mg/dL 0.20-1.00 [facility] Work Phone: Comment on above: For patients on eltr ombopag therapy, use of Dimension [place] TBIL is not recommended. Chloride [Moles/Vol] 107 mmol/L 98-107 [facility] Work Phone: Eosinophils/100 WBC (Bld) 3.8 % 0-5 [facility] Work Phone: Glucose [Mass/Vol] 85 mg/dL 74-106 [facility] Work Phone: Comment on above: Please note revised GLUCOSE reference range effective 2017. Neutrophils (Bld) [#/Vol] 5.1 10*3/uL 2.0-7.7 [facility] Work Phone: Potassium [Moles/Vol] 4.1 mmol/L 3.5-5.1 [facility] Work Phone: Protein [Mass/Vol] 7.2 g/dL 6.4-8.2 [facility] Work Phone: Sodium [Moles/Vol] 138 mmol/L 136-145 [facility] Work Phone: WBC (Bld) [#/Vol] 8.3 10*3/uL 4.4-11.0 [facility] Work Phone: Blood erythrocytes count (nu mber/volume)on 02-26-2021 RBC (Bld) [#/Vol] 4.68 10*6/uL 4.2-5.4 [facility] Work Phone: Blood hemoglobin measurement (mass/volume)on 02-26-2021 Hemoglobin (Bld) [Mass/Vol] 13.7 g/dL 12.0-15.0 [facility] Work Phone: Blood lymphocytes/100 leukoc yteson 02-26-2021 Lymphocytes/100 WBC (Bld) 29.7 % 19-41 [facility] Work Phone: Blood monocytes/100 leukocyt eson 02-26-2021 Monocytes/100 WBC (Bld) 4.9 % 0-10 [facility] Work Phone: Blood platelet mean volumeon 02-26-2021 Platelet mean volume (Bld) [Entitic vol] 9.8 fL 6.2-12.0 [facility] Work Phone: Determination of erythrocyte mean corpuscular volume (MCV)on 02-26-2021 MCV (RBC) [Entitic vol] 87.8 fL 81-99 [facility] Work Phone: [phone] Hematocrit Auto (Bld) [Volum e fraction]on 02-26-2021 Hematocrit (Bld) [Volume fraction] 41.1 % 37-47 [facility] Work Phone: Laboratory - Chemistry and C hemistry - challengeon 02-26-2021 ALP [Catalytic activity/Vol] 36 U/L 45-117 [facility] Work Phone: ALT [Catalytic activity/Vol] 20 U/L 13-56 [facility] Work Phone: CO2 [Moles/Vol] 27.0 mmol/L 21.0-32.0 [facility] Work Phone: Globulin (S) [Mass/Vol] 3.4 g/dL 2.2-4.2 [facility] Work Phone: Urea nitrogen/Creatinine [Mass ratio] 21.5 mg/mg 10-20 [facility] Work Phone: Laboratory - Hematology and Cell countson 02-26-2021 Basophils/100 WBC (Unsp spec) 0.5 % 0-1 [facility] Work Phone: Erythrocyte distribution width (RBC) [Entitic vol] 39.9 fL 35.1-43.9 [facility] Work Phone: Erythrocyte distribution width (RBC) [Ratio] 12.4 % 11.6-14.6 [facility] Work Phone: Immature granulocytes/100 WBC (Bld) 0.400 % 0.0-0.9 [facility] Work Phone: Comment on above: IG% - Immature Granu locytes (promyelocytes, myelocytes and metamyelocytes) > 1% indicates that a LEFT SHIFT is Present. MCH (RBC) [Entitic mass] 29.3 pg 27.0-32.0 [facility] Work Phone: Neutrophils/100 WBC (Bld) 60.7 % 47-70 [facility] Work Phone: Nucleated RBC/100 WBC (Bld) [Ratio] 0 % 0-5 [facility] Work Phone: MCHC Auto (RBC) [Mass/Vol]on 02-26-2021 MCHC (RBC) [Mass/Vol] 33.3 g/dL 32-36 [facility] Work Phone: [phone] No Panel Informationon 02-26 Estimated GFR (MDRD) Amer 113 mL/min >60 [facility] Work Phone: Comment on above: GFR Calc Estimated GFR (MDRD) Non-Af Amer 94 mL/min >60 [facility] Work Phone: Comment on above: Non- GFR Calc Vitamin D 25-Hydroxy 24.2 ng/mL [facility] Work Phone: Comment on above: Vitamin D 25(OH) Sta tus Range Deficiency <20 ng/mL (50nmol/L) Insufficiency 20 - 30 ng/mL (50 - 75 nmol/L) Sufficiency 30 - 100 ng/mL (75 - 250 nmol/L) Toxicity >100 ng/mL (>250 nmol/L) Platelets bldon 02-26-2021 Platelets (Bld) [#/Vol] 286 10*3/uL 150-450 [facility] Work Phone: Serum or plasma albumin crista urement (mass/volume)on 02-26-2021 Albumin [Mass/Vol] 3.8 g/dL 3.2-5.0 [facility] Work Phone: Serum or plasma albumin/glob ulin mass ratioon 02-26-2021 Albumin/Globulin [Mass ratio] 1.1 {ratio} 0.9-2.4 [facility] Work Phone: Serum or plasma calcium crista urement (mass/volume)on 02-26-2021 Calcium [Mass/Vol] 9.2 mg/dL 8.5-10.1 [facility] Work Phone: Serum or plasma creatinine m easurement (mass/volume)on 02-26-2021 Creatinine [Mass/Vol] 0.74 mg/dL 0.55-1.02 [facility] Work Phone: Comment on above: The validity of the calculated GFR & GFRAA in patients over 70 years has not been determined. Clinical correlation is essential. Serum or plasma urea nitroge n measurement (mass/volume)on 02-26-2021 Urea nitrogen [Mass/Vol] 16 mg/dL 7-18 [facility] Work Phone: Thin prep Papanicolaou smear with manual screeningon 02-26-2021 Thin prep Papanicolaou smear with manual screening 17 U/L 15-37 [facility] Work Phone: Thin prep Papanicolaou smear with manual screening 4 5-15 [facility] Work Phone: Basophil percentageon 2020 Basophil percentage 0 SEEN /hpf [facility] Work Phone: Bilirubin [Mass/Vol] 0.30 mg/dL 0.20-1.00 [facility] Work Phone: Comment on above: For patients on eltr ombopag therapy, use of Dimension [place] TBIL is not recommended. Chloride [Moles/Vol] 107 mmol/L 98-107 [facility] Work Phone: Glucose [Mass/Vol] 121 mg/dL 74-106 [facility] Work Phone: Comment on above: Fasting Glucose resu lt from 100 to 125 mg/dL suggests IMPAIRED HOMEOSTASIS per A.D.A. criteria.Please note revised GLUCOSE reference range effective 2017. Potassium [Moles/Vol] 3.6 mmol/L 3.5-5.1 [facility] Work Phone: Protein [Mass/Vol] 7.2 g/dL 6.4-8.2 [facility] Work Phone: Sodium [Moles/Vol] 139 mmol/L 136-145 [facility] Work Phone: WBC (Bld) [#/Vol] 8.6 10*3/uL 4.4-11.0 [facility] Work Phone: Beta hCG serum qualon 2020 Beta HCG ( test) Ql Negative [facility] Work Phone: Bilirubin Test strip Ql (U)o n 02-21-2021 Bilirubin Ql (U) Negative Negative [facility] Work Phone: Blood erythrocytes count (nu mber/volume)on 02-21-2021 RBC (Bld) [#/Vol] 4.66 10*6/uL 4.2-5.4 [facility] Work Phone: Blood hemoglobin measurement (mass/volume)on 02-21-2021 Hemoglobin (Bld) [Mass/Vol] 13.6 g/dL 12.0-15.0 [facility] Work Phone: Blood platelet mean volumeon 02-21-2021 Platelet mean volume (Bld) [Entitic vol] 10.0 fL 6.2-12.0 [facility] Work Phone: Determination of erythrocyte mean corpuscular volume (MCV)on 02-21-2021 MCV (RBC) [Entitic vol] 85.6 fL 81-99 [facility] Work Phone: Hematocrit Auto (Bld) [Volum e fraction]on 02-21-2021 Hematocrit (Bld) [Volume fraction] 39.9 % 37-47 [facility] Work Phone: Ketones Test strip Ql (U)on 02-21-2021 Ketones Ql (U) Negative Negative [facility] Work Phone: Laboratory - Chemistry and C hemistry - challengeon 02-21-2021 ALP [Catalytic activity/Vol] 40 U/L 45-117 [facility] Work Phone: ALT [Catalytic activity/Vol] 22 U/L 13-56 [facility] Work Phone: CO2 [Moles/Vol] 23.0 mmol/L 21.0-32.0 [facility] Work Phone: Globulin (S) [Mass/Vol] 3.4 g/dL 2.2-4.2 [facility] Work Phone: Urea nitrogen/Creatinine [Mass ratio] 17.2 mg/mg 10-20 [facility] Work Phone: Laboratory - Hematology and Cell countson 02-21-2021 Erythrocyte distribution width (RBC) [Entitic vol] 37.7 fL 35.1-43.9 [facility] Work Phone: Erythrocyte distribution width (RBC) [Ratio] 12.1 % 11.6-14.6 [facility] Work Phone: MCH (RBC) [Entitic mass] 29.2 pg 27.0-32.0 [facility] Work Phone: MCHC Auto (RBC) [Mass/Vol]on 02-21-2021 MCHC (RBC) [Mass/Vol] 34.1 g/dL 32-36 [facility] Work Phone: Mucus LM Ql (Urine sed)on Mucus Ql (Urine sed) 0 SEEN /hpf [facility] Work Phone: Nitrite Test strip Ql (U)on 02-21-2021 Nitrite Ql (U) Negative Negative [facility] Work Phone: No Panel Informationon 02-21 Troponin I High Sensitivity 4 pg/mL 3.0-54.0 [facility] Work Phone: Comment on above: Please Note: New Digna t Units and Gender Specific Reference Ranges. For more information see Policy Stat Procedure [place] High Sensitivity Troponin (TNIH) and attachments. Estimated Creatinine Clearance Calc 70.70 ml/min [facility] Work Phone: Estimated GFR (MDRD) Amer 95 mL/min >60 [facility] Work Phone: Comment on above: GFR Calc Estimated GFR (MDRD) Non-Af Amer 78 mL/min >60 [facility] Work Phone: Comment on above: Non- GFR Calc Platelets bldon 02-21-2021 Platelets (Bld) [#/Vol] 273 10*3/uL 150-450 [facility] Work Phone: Protein Test strip Ql (U)on 02-21-2021 Protein Ql (U) 15 mg/dl Negative [facility] Work Phone: Serum or plasma albumin crista urement (mass/volume)on 02-21-2021 Albumin [Mass/Vol] 3.8 g/dL 3.2-5.0 [facility] Work Phone: Serum or plasma albumin/glob ulin mass ratioon 02-21-2021 Albumin/Globulin [Mass ratio] 1.1 {ratio} 0.9-2.4 [facility] Work Phone: Serum or plasma calcium crista urement (mass/volume)on 02-21-2021 Calcium [Mass/Vol] 9.1 mg/dL 8.5-10.1 [facility] Work Phone: Serum or plasma creatinine m easurement (mass/volume)on 02-21-2021 Creatinine [Mass/Vol] 0.87 mg/dL 0.55-1.02 [facility] Work Phone: Comment on above: The validity of the calculated GFR & GFRAA in patients over 70 years has not been determined. Clinical correlation is essential. Serum or plasma urea nitroge n measurement (mass/volume)on 02-21-2021 Urea nitrogen [Mass/Vol] 15 mg/dL 7-18 [facility] Work Phone: Squamous epithelial cells de tection in urine sediment by light microscopyon 02-21-2021 Epithelial cells.squamous LM Ql (Urine sed) 0 SEEN /hpf [facility] Work Phone: Thin prep Papanicolaou smear with manual screeningon 02-21-2021 Thin prep Papanicolaou smear with manual screening 16 U/L 15-37 [facility] Work Phone: Thin prep Papanicolaou smear with manual screening 9 5-15 [facility] Work Phone: Urine blood detectionon 02-11 RBC Ql (U) 25 /ul Negative [facility] Work Phone: RBC Ql (U) 0 SEEN /hpf [facility] Work Phone: Urine clarityon 02-21-2021 Clarity (U) Clear Clear [facility] Work Phone: Urine color determinationon 02-21-2021 Color (U) Yellow Yellow [facility] Work Phone: Urine glucose detectionon Glucose Ql (U) Normal mg/dl Normal [facility] Work Phone: Urine leukocyte esterase det ection by dipstickon 02-21-2021 Leukocyte esterase Test strip Ql (U) Negative Negative [facility] Work Phone: Urine pHon 02-21-2021 pH (U) 8.0 [pH] [facility] Work Phone: Urine sediment bacteria coun t by microscopy (number/high power field)on 02-21-2021 Bacteria LM.HPF (Urine sed) [#/Area] 0 /[HPF] None Seen [facility] Work Phone: Urine specific gravity measu rementon 02-21-2021 Specific gravity (U) [Rel density] 1.010 [facility] Work Phone: Urobilinogen Auto test strip Ql (U)on 02-21-2021 Urobilinogen Ql (U) Normal mg/dl Normal [facility] Work Phone: MA MAMMOGRAM DIAGNOSTIC BILA TERAL W/TOMOon 05-29-2019 MA MAMMOGRAM DIAGNOSTIC BILATERAL W/BOB ORIGINAL FROM: [address] [address] PROCEDURE FOR: SILVESTRE ELISE [address] [place] [address] Home: PID#: [id number] Exam#: [id number] : 1985 Age: 33 TO: RYANNE [place] [address] #[id number] BILATERAL DIGITAL DIAGNOSTIC MAMMOGRAM 3D/2D WITH CAD WITH MEDIOLATERAL MEDIOLATERAL OBLIQUE CRANIOCAUDAL: 05/29/2019 CLINICAL: PALPABLE LUMPS RIGHT BREAST. Comparison is made to exam dated: 01/30/2019 mammogram - [facility]. The tissue of both breasts is heterogeneously dense. Current study was also evaluated with a Computer Aided Detection (CAD) system. No significant masses, calcifications, or other findings are seen in either breast. IMPRESSION: INCOMPLETE: NEEDS ADDITIONAL IMAGING EVALUATION There is no mammographic abnormality seen in the right breast to correspond with the reported palpable abnormality; however, further workup with ultrasound is recommended. An ultrasound will be performed today and reported separately. 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 Comparison is made to exams dated: 05/29/2019 mammogram - [facility] and 01/30/2019 mammogram - [facility]. Color flow and real-time ultrasound of the right breast outer aspect were performed. There is no sonographic abnormality to correspond to a reported palpable lesion. IMPRESSION: BENIGN No significant abnormality. Clinical correlation advised. There is no sonographic evidence of malignancy. 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 Work Phone: [phone] Protein mass conc Done [facility] Work Phone: [phone] Clinical Lists Update: Prelo junior estimator 10-21-2016 Tobacco smoking status NHIS Never smoker [facility] Work Phone: [phone] Tobacco use CPHS Never smoker Invalid Interpretation Code [facility] Work Phone: [phone] Vital Signs Date Time Vital Sign Value Performing Clinician Faci lity 12-03-2024 08:59-0400 Body height 157.[address] Mallory Foster MD Work Phone: [facility] 12-03-2024 08:59-0400 Body mass index (BMI) [Ratio] 22.8 kg/m2 Dr. Mallory Foster MD Work Phone: [facility] 12-03-2024 08:59-0400 Body weight 56.[address] Mallory Foster MD Work Phone: [facility] 12-03-2024 08:59-0400 Diastolic blood pressure 81 mm[Hg] Dr. Mallory Foster MD Work Phone: [facility] 12-03-2024 08:59-0400 Heart rate 71 /min Dr. Mallory Foster MD Work Phone: [facility] 12-03-2024 08:59-0400 Systolic blood pressure 106 mm[Hg] Dr. Mallory Foster MD Work Phone: [facility] 04-30-2024 10:17-0500 Diastolic blood pressure 86 mm[Hg] Dr. Mallory Foster MD Work Phone: [facility] 04-30-2024 10:17-0500 Heart rate 93 /min Dr. Mallory Foster MD Work Phone: [facility] 04-30-2024 10:17-0500 Systolic blood pressure 118 mm[Hg] Dr. Mallory Foster MD Work Phone: [facility] 04-30-2024 10:00-0500 Body height 157.[address] Mallory Foster MD Work Phone: [facility] 04-30-2024 10:00-0500 Body mass index (BMI) [Ratio] 22.8 kg/m2 Dr. Mallory Foster MD Work Phone: [facility] 04-30-2024 10:00-0500 Body weight 56.[address] Mallory Foster MD Work Phone: [facility] 04-30-2024 10:00-0500 Respiratory rate 16 /min Dr. Mallory Foster MD Work Phone: [facility] 04-23-2024 08:50-0500 Body mass index (BMI) [Ratio] 23 kg/m2 Dr. Mallory Foster MD Work Phone: [facility] 04-23-2024 08:50-0500 Body weight 57.[address] Mallory Foster MD Work Phone: [facility] 04-23-2024 08:50-0500 Diastolic blood pressure 82 mm[Hg] Dr. Mallory Foster MD Work Phone: [facility] 04-23-2024 08:50-0500 Systolic blood pressure 138 mm[Hg] Dr. Mallory Foster MD Work Phone: [facility] 04-06-2024 10:57-0500 Body height 157.5 cm Nickie Mckeon PA-C Work Phone: [facility] 04-06-2024 10:57-0500 Body mass index (BMI) [Ratio] 23.06 kg/m2 Nickie Mckeon PA-C Work Phone: [facility] 04-06-2024 10:57-0500 Body weight 57.2 kg Nickie Mckeon PA-C Work Phone: [facility] 04-06-2024 10:57-0500 Diastolic blood pressure 56 mm[Hg] Nickie Mckeon PA-C Work Phone: [facility] 04-06-2024 10:57-0500 Heart rate 65 /min Nickie Mckeon PA-C Work Phone: [facility] 04-06-2024 10:57-0500 Systolic blood pressure 111 mm[Hg] Nickie Mckeon PA-C Work Phone: [facility] 09-27-2023 11:09-0400 Body height 157.5 cm Maggie Guzman MD Work Phone: [facility] 09-27-2023 11:09-0400 Body mass index (BMI) [Ratio] 22.64 kg/m2 Maggie Guzman MD Work Phone: [facility] 09-27-2023 11:09-0400 Body temperature 97.39 [degF] Maggie Guzman MD Work Phone: [facility] 09-27-2023 11:09-0400 Body weight 56.16 kg Maggie Guzman MD Work Phone: [facility] 09-27-2023 11:09-0400 Diastolic blood pressure 65 mm[Hg] Maggie Guzman MD Work Phone: [facility] 09-27-2023 11:09-0400 Heart rate 71 /min Maggie Guzman MD Work Phone: [facility] 09-27-2023 11:09-0400 SaO2% (BldA) [Mass fraction] 100 % Maggie Guzman MD Work Phone: [facility] 09-27-2023 11:09-0400 Systolic blood pressure 106 mm[Hg] Maggie Guzman MD Work Phone: [facility] 05-31-2023 10:59-0400 Body weight 57.15 kg Maggie Guzman MD Work Phone: [facility] 05-31-2023 10:59-0400 Diastolic blood pressure 63 mm[Hg] Maggie Guzman MD Work Phone: [facility] 05-31-2023 10:59-0400 Heart rate 82 /min Maggie Guzman MD Work Phone: [facility] 05-31-2023 10:59-0400 SaO2% (BldA) [Mass fraction] 99 % Maggie Guzman MD Work Phone: [facility] 05-31-2023 10:59-0400 Systolic blood pressure 99 mm[Hg] Maggie Guzman MD Work Phone: [facility] 04-19-2023 13:54-0500 Body height 157.5 cm Pacc 1 Work Phone: [facility] 04-19-2023 13:54-0500 Body temperature 98.29 [degF] Pacc 1 Work Phone: [facility] 04-19-2023 13:54-0500 Body weight 53.98 kg Pacc 1 Work Phone: [facility] 04-19-2023 13:54-0500 Diastolic blood pressure 72 mm[Hg] Pacc 1 Work Phone: [facility] 04-19-2023 13:54-0500 Heart rate 70 /min Pacc 1 Work Phone: [facility] 04-19-2023 13:54-0500 Respiratory rate 16 /min Pacc 1 Work Phone: [facility] 04-19-2023 13:54-0500 SaO2% (BldA) [Mass fraction] 100 % Pacc 1 Work Phone: [facility] 04-19-2023 13:54-0500 Systolic blood pressure 116 mm[Hg] [facility] 1 Work Phone: [facility] 04-01-2023 14:09-0500 Body height 157.[address] Mallory Foster Work Phone: [facility] 03-01-2023 08:55-0500 Body mass index (BMI) [Ratio] 22.3 kg/m2 Dr. Mallory Foster Work Phone: [facility] 03-01-2023 08:55-0500 Body weight 55.[address] Mallory Foster Work Phone: [facility] 03-01-2023 08:55-0500 Diastolic blood pressure 79 mm[Hg] Dr. Mallory Foster Work Phone: [facility] 03-01-2023 08:55-0500 Heart rate 85 /min Dr. Mallory Foster Work Phone: [facility] 03-01-2023 08:55-0500 Respiratory rate 20 /min Dr. Mallory Foster Work Phone: [facility] 03-01-2023 08:55-0500 Systolic blood pressure 114 mm[Hg] Dr. Mallory Foster Work Phone: [facility] 02-21-2023 13:56-0500 Body mass index (BMI) [Ratio] 22.4 kg/m2 Dr. Mallory Foster Work Phone: [facility] 02-21-2023 13:56-0500 Body weight 55.[address] Mallory Foster Work Phone: [facility] 02-21-2023 13:56-0500 Diastolic blood pressure 74 mm[Hg] Dr. Mallory Foster Work Phone: [facility] 02-21-2023 13:56-0500 Systolic blood pressure 115 mm[Hg] Dr. Mallory Foster Work Phone: [facility] 08-31-2022 15:01-0400 Body height 157.[address] Mallory Foster Work Phone: [facility] 08-31-2022 14:57-0400 Body mass index (BMI) [Ratio] 22.3 kg/m2 Dr. Mallory Foster Work Phone: [facility] 08-31-2022 14:57-0400 Body weight 55.[address] Mallory Foster Work Phone: [facility] 08-31-2022 14:57-0400 Diastolic blood pressure 75 mm[Hg] Dr. Mallory Foster Work Phone: [facility] 08-31-2022 14:57-0400 Heart rate 71 /min Dr. Mallory Foster Work Phone: [facility] 08-31-2022 14:57-0400 Respiratory rate 18 /min Dr. Mallory Foster Work Phone: [facility] 08-31-2022 14:57-0400 SaO2% (BldA) [Mass fraction] 100 % Dr. Mallory Foster Work Phone: [facility] 08-31-2022 14:57-0400 Systolic blood pressure 113 mm[Hg] Dr. Mallory Foster Work Phone: [facility] 04-27-2022 15:00-0500 Diastolic blood pressure 80 mm[Hg] Dr. Mallory Foster Work Phone: [facility] 04-27-2022 15:00-0500 Heart rate 100 /min Dr. Mallory Foster Work Phone: [facility] 04-27-2022 15:00-0500 Systolic blood pressure 108 mm[Hg] Dr. Mallory Foster Work Phone: [facility] 04-27-2022 14:32-0500 Body height 157.[address] Mallory Foster Work Phone: [facility] 04-27-2022 14:29-0500 Body mass index (BMI) [Ratio] 21.5 kg/m2 Dr. Mallory Foster Work Phone: [facility] 04-27-2022 14:29-0500 Body weight 53.[address] Mallory Foster Work Phone: [facility] 04-27-2022 14:29-0500 Respiratory rate 18 /min Dr. Malolry Foster Work Phone: [facility] 04-27-2022 14:29-0500 SaO2% (BldA) [Mass fraction] 99 % Dr. Mallory Foster Work Phone: [facility] 02-11-2022 09:04-0500 Body height 157.[address] Mallory Foster Work Phone: [facility] Work Phone: 02-11-2022 09:04-0500 Body mass index (BMI) [Ratio] 21.5 kg/m2 Dr. Mallory Foster Work Phone: [facility] 02-11-2022 09:04-0500 Body weight 53.[address] Mallory Foster Work Phone: [facility] 02-11-2022 09:04-0500 Diastolic blood pressure 75 mm[Hg] Dr. Mallory Foster Work Phone: [facility] 02-11-2022 09:04-0500 Systolic blood pressure 111 mm[Hg] Dr. Mallory Foster Work Phone: [facility] 06-02-2021 15:59-0400 Body temperature 98.2 [degF] Dr. Mallory Foster Work Phone: [facility] Work Phone: 06-02-2021 15:59-0400 Diastolic blood pressure 71 mm[Hg] Dr. Mallory Foster Work Phone: [facility] Work Phone: 06-02-2021 15:59-0400 Heart rate 69 /min Dr. Mallory Foster Work Phone: [facility] Work Phone: 06-02-2021 15:59-0400 Respiratory rate 16 /min Dr. Mallory Foster Work Phone: [facility] Work Phone: 06-02-2021 15:59-0400 SaO2% (BldA) [Mass fraction] 100 % Dr. Mallory Foster Work Phone: [facility] Work Phone: 06-02-2021 15:59-0400 Systolic blood pressure 100 mm[Hg] Dr. Mallory Foster Work Phone: [facility] Work Phone: 06-02-2021 14:02-0400 Body height 157.[address] Mallory Foster Work Phone: [facility] Work Phone: 06-02-2021 14:02-0400 Body mass index (BMI) [Ratio] 21.2 kg/m2 Dr. Mallory Foster Work Phone: [facility] Work Phone: 06-02-2021 14:02-0400 Body weight 52.[address] Mallory Foster Work Phone: [facility] Work Phone: 03-07-2021 05:25-0500 Diastolic blood pressure 74 mm[Hg] Dr. Mallory Foster Work Phone: [facility] Work Phone: 03-07-2021 05:25-0500 Heart rate 81 /min Dr. Mallory Foster Work Phone: [facility] Work Phone: 03-07-2021 05:25-0500 Respiratory rate 16 /min Dr. Mallory Foster Work Phone: [facility] Work Phone: 03-07-2021 05:25-0500 SaO2% (BldA) [Mass fraction] 99 % Dr. Mallory Foster Work Phone: [facility] Work Phone: 03-07-2021 05:25-0500 Systolic blood pressure 124 mm[Hg] Dr. Mallory Foster Work Phone: [facility] Work Phone: 03-07-2021 03:51-0500 Body mass index (BMI) [Ratio] 23.4 kg/m2 Dr. Mallory Foster Work Phone: [facility] Work Phone: 03-07-2021 03:51-0500 Body temperature 97.2 [degF] Dr. Mallory Foster Work Phone: [facility] Work Phone: 03-07-2021 03:51-0500 Body weight 58.[address] Mallory Foster Work Phone: [facility] Work Phone: 02-21-2021 07:24-0500 Diastolic blood pressure 65 mm[Hg] Dr. Mallory Foster Work Phone: [facility] Work Phone: 02-21-2021 07:24-0500 Heart rate 75 /min Dr. Mallory Foster Work Phone: [facility] Work Phone: 02-21-2021 07:24-0500 Respiratory rate 16 /min Dr. Mallory Foster Work Phone: [facility] Work Phone: 02-21-2021 07:24-0500 SaO2% (BldA) [Mass fraction] 100 % Dr. Mallory Foster Work Phone: [facility] Work Phone: 02-21-2021 07:24-0500 Systolic blood pressure 98 mm[Hg] Dr. Mallory Foster Work Phone: [facility] Work Phone: 02-21-2021 03:31-0500 Body mass index (BMI) [Ratio] 22.4 kg/m2 Dr. Mallory Foster Work Phone: [facility] Work Phone: 02-21-2021 03:31-0500 Body temperature 98.2 [degF] Dr. Mallory Foster Work Phone: [facility] Work Phone: 02-21-2021 03:31-0500 Body weight 55.[address] Mallory Foster Work Phone: [facility] Work Phone: 11-18-2016 14:34-0400 BMI (Body Mass Index) 21.76 kg/m2 [facility] Work Phone: 11-18-2016 14:34-0400 BP Diastolic 42 mm[Hg] [facility] Work Phone: 11-18-2016 14:34-0400 BP Diastolic 60 mm[Hg] [facility] Work Phone: 11-18-2016 14:34-0400 BP Systolic 100 mm[Hg] [facility] Work Phone: 11-18-2016 14:34-0400 BP Systolic 110 mm[Hg] [facility] Work Phone: 11-18-2016 14:34-0400 Height 157.48 cm [facility] Work Phone: 11-18-2016 14:34-0400 Pulse (Heart Rate) 80 /min [facility] Work Phone: 11-18-2016 14:34-0400 Respiratory Rate 20 /min [facility] Work Phone: 11-18-2016 14:34-0400 Weight 53.98 kg [facility] Work Phone: Encounters Encounter Date Encounter Type Care Provider Facility Start: 12-27-2024 ambulatory [facility] Facility: [facility] Start: 12-26-2024 Encounter for other preprocedural examination [facility] Start: 12-21-2024 End: 12-21-2024 ambulatory Mallory Foster Facility:[facility] Start: 12-21-2024 ambulatory Mallory Foster Facilit y:[facility] Start: 12-20-2024 ambulatory [facility] Facility: [facility] Start: 12-03-2024 End: 12-03-[address] Brissa Huerta MD -[facility] Work Phone: Start: 12-03-2024 End: 12-03-[address] Mallory Foster MD Work Phone: -[facility] Start: 09-19-2024 End: 09-19-[address] Mallory Foster MD Work Phone: -Laboratory Start: 09-19-2024 End: 09-19-2024 Patient encounter procedure Kalen Wright LEAD COOK-C -Laboratory Work Phone: Start: 09-19-2024 End: 09-19-2024 ambulatory Mallory Foster Facility:[facility] Start: 06-22-2024 End: 06-22-[address] Mallory Foster MD Work Phone: [facility] Work Phone: Start: 06-22-2024 End: 06-22-[address] Mallory Foster MD -Laboratory, [facility] Start: 06-22-2024 End: 06-22-2024 ambulatory Mallory Foster Facility:[facility] Start: 06-18-2024 End: 06-18-[address] Mallory Foster MD Work Phone: [facility] Work Phone: Start: 06-18-2024 End: 06-18-2024 Patient encounter procedure Mallory Marie LEAD COOK-C -Sleep Lab Work Phone: Start: 06-18-2024 End: 06-18-2024 ambulatory Mallory Marie Facility:[facility] Start: 06-15-2024 ambulatory Mallory Vicente Frank Facility:[facility] Start: 06-15-2024 Non-patient / Non-visit Dr. Jerrell Burt MD -[facility] Start: 06-15-2024 End: 06-15-[address] Mallory Foster MD Work Phone: [facility] Work Phone: Start: 06-15-2024 End: 06-15-2024 Patient encounter procedure Mallory Vicente Frank LEAD COOK-C -Cat Scan, [facility] Work Phone: Start: 06-15-2024 End: 06-15-2024 ambulatory Mallory Marie Facility:[facility] Start: 05-01-2024 End: 05-01-[address] Raisa Galeas DO -Outpatient Breast Imaging Work Phone: Start: 04-30-2024 End: 04-30-2024 Patient encounter procedure Mallory Marie LEAD COOK-C -[facility] Work Phone: Start: 04-30-2024 End: 05-01-2024 ambulatory Raisa Galeas Facility:[facility] Start: 04-23-2024 End: 04-23-[address] Raisa Galeas DO -Laboratory, Specimen Work Phone: Start: 04-23-2024 End: 04-23-[address] Raisa Galeas DO -[facility] Work Phone: Start: 04-23-2024 End: 04-23-[address] Raisa Galeas DO [facility] Start: 04-23-2024 End: 04-23-2024 ambulatory Mallory Foster Facility:[facility] Start: 04-23-2024 End: 04-23-2024 ambulatory Raisa Galeas Facility:[facility] Start: 04-06-2024 End: 04-06-2024 Office outpatient visit 10 minutes Nickie Mckeon PA-C Work Phone: Neurosurgery Comment on above: Cervical disc disord er with radiculopathy (Primary Dx) Start: 04-02-2024 End: 04-02-2024 ambulatory MALLORY FOSTER Facility:[facility] Start: 04-02-2024 End: 04-02-2024 Subsequent hospital visit by physician Xr [facility] Gilma Mob Work Phone: Radiology Comment on above: S/P spinal surgery [ Z98.890] Start: 09-27-2023 End: 09-27-2023 Patient encounter procedure Maggie Guzman MD Work Phone: Neurosurgery Comment on above: Cervical vertebral f usion (Primary Dx) Start: 09-27-2023 End: 09-27-2023 ambulatory MAGGIE GUZMAN Facility: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 Mallory Foster Work Phone: [facility] Work Phone: Start: 07-05-2023 End: 07-05-[address] Mallory Foster Work Phone: [facility]-Physical Therapy Work Phone: Start: 06-28-2023 Telephone encounter Amena Dalton APRN.RADIO ENGINEERING TEACHER Work Phone: Neurosurgery Comment on above: Refill Request Start: 06-28-2023 End: 06-28-2023 ambulatory [facility] Facility:[facility] Start: 06-28-2023 End: 06-28-2023 Subsequent hospital visit by physician [facility] Gilma Almanza Work Phone: Radiology Comment on above: Status post cervical spinal fusion [Z98.1] Start: 06-27-2023 Telephone encounter Aria Guzman MD Work Phone: Neurology Start: 05-31-2023 End: 05-31-2023 Patient encounter procedure Maggie Guzman MD Work Phone: Neurosurgery Comment on above: Cervical vertebral f usion (Primary Dx) Start: 05-31-2023 End: 05-31-2023 ambulatory MAGGIE GUZMAN Facility:[facility] Start: 05-18-2023 Telephone encounter Aria Guzman MD Work Phone: Neurology Comment on above: Post op complication s Start: 05-18-2023 End: 05-18-2023 Emergency department patient visit [facility] Facility:[facility] Start: 05-11-2023 Admission to [facility] Maggie Guzman MD Work Phone: [facility] Comment on above: Questions regarding my upcoming surgery Start: 05-11-2023 ambulatory Maggie Guzman MD Work Phone: [facility] Start: 05-10-2023 End: 05-10-2023 ambulatory [facility] Facility:[facility] Start: 04-21-2023 Telephone encounter Aria Guzman MD Work Phone: [facility] Comment on above: outside imaging repo rt Start: 04-19-2023 Encounter for other preprocedural examination [facility] Start: 04-19-2023 End: 04-19-2023 [place] [id number] Work Phone: Pre Anesthesia Comment on above: Preoperative examina tion (Primary Dx); Pre-op evaluation; Exercise-induced asthma; Anxiety; Bipolar II disorder (HCC); Chronic interstitial cystitis; Tachycardia; Incomplete right bundle branch block (RBBB); Gastroesophageal reflux disease, unspecified whether esophagitis present Start: 04-19-2023 End: 04-19-2023 [facility] Work Phone: [facility] Work Phone: Start: 04-15-2023 ambulatory Maggie Guzman MD Work Phone: Neurosurgery Start: 04-15-2023 Preprocedural examination done Maggie Guzman MD Work Phone: [facility] Start: 04-14-2023 ambulatory MALLORY FOSTER Facilit y:[facility] Start: 04-14-2023 End: 04-14-2023 Subsequent hospital visit by physician Xr [facility] Work Phone: [facility] Radiology General Comment on above: Cervical disc disord er with radiculopathy [M50.10] Start: 04-14-2023 End: 04-14-2023 ambulatory MALLORY FOSTER Facility:[facility] Start: 04-14-2023 End: 04-14-2023 Patient encounter procedure Maggie Guzman MD Work Phone: [facility] Comment on above: Cervical disc disord er with radiculopathy (Primary Dx) Start: 04-13-2023 End: 04-13-[address] Mallory Foster Work Phone: [facility] Work Phone: Start: 04-08-2023 End: 04-08-[address] Mallory Foster Work Phone: [facility] Work Phone: Start: 04-05-2023 End: 04-05-[address] Mallory Foster Work Phone: [facility] Work Phone: Start: 04-05-2023 End: 04-05-[address] Mallory Foster Work Phone: [facility]-MRI - [facility] Work Phone: Start: 03-11-2023 End: 03-11-[address] Mallory Foster Work Phone: [facility] Work Phone: Start: 03-01-2023 End: 03-01-[address] Mallory Foster Work Phone: [facility] Work Phone: Start: 03-01-2023 End: 03-01-[address] Mallory Foster Work Phone: [facility] Work Phone: Start: 02-21-2023 End: 02-21-[address] Mallory Foster Work Phone: [facility] Work Phone: Start: 11-30-2022 End: 11-30-[address] Mallory Foster Work Phone: [facility] Work Phone: Start: 11-30-2022 End: 11-30-[address] Mallory Foster Work Phone: [facility]-Laboratory Work Phone: Start: 08-31-2022 End: 08-31-[address] Mallory Foster Work Phone: [facility] Work Phone: Start: 06-29-2022 End: 06-29-[address] Mallory Foster Work Phone: [facility] Work Phone: Start: 06-29-2022 End: 06-29-[address] Mallory Foster Work Phone: [facility]-Ultrasound, [facility] Start: 05-24-2022 Non-patient / Non-visit Dr. Mallory Foster Work Phone: [facility] Start: 05-24-2022 End: 05-24-[address] Mallory Foster Work Phone: [facility] Work Phone: Start: 05-24-2022 End: 05-24-[address] Mallory Foster Work Phone: [facility]-Cardiovascular Services Start: 04-27-2022 End: 04-27-[address] Mallory Foster Work Phone: [facility] Start: 03-23-2022 End: 03-23-[address] Mallory Foster Work Phone: [facility] Work Phone: Start: 03-23-2022 End: 03-23-[address] Mallory Foster Work Phone: [facility] Start: 02-11-2022 End: 02-11-[address] Mallory Foster Work Phone: [facility] Work Phone: Start: 02-11-2022 End: 02-11-[address] Mallory Foster Work Phone: [facility]-Laboratory, Specimen Start: 02-11-2022 End: 02-11-[address] Mallory Foster Work Phone: [facility] Start: 09-08-2021 Non-patient / Non-visit Dr. Mallory Foster Work Phone: [facility] Start: 09-08-2021 End: 09-08-[address] Mallory Foster Work Phone: [facility] Start: 08-04-2021 End: 08-04-[address] [facility] F[facility]oter [facility] Start: 06-30-2021 End: 06-30-[address] Mall[facility] Foster [facility] Start: 06-10-2021 Non-patient / Non-[facility] Start: 06-02-2021 Non-patient / Non-visit [facility]. Mallory Foster [facility] Start: 06-02-2021 End: 06-02-2021 Admission to same day surgery center Dr. Mallory Foster Work Phone: [facility]-Endoscopy Start: 04-28-2021 End: 04-28-[address] Mallory Foster Work Phone: [facility] Start: 04-02-2021 End: 04-02-[address] Mallory Foster [facility] Start: 03-17-2021 End: 03-17-[address] Mallory Foster Work Phone: [facility]-Outpatient Breast Imaging Start: 03-07-2021 End: 03-07-2021 Emergency department patient visit Dr. Mallory Foster Work Phone: [facility]-Emergency Department Start: 03-03-[address] Mallory Foster [facility] Start: 02-26-[address] Mallory Foster Work Phone: [facility] Start: 02-21-2021 End: 02-21-2021 Emergency department patient visit Dr. Mallory Foster Work Phone: [facility] Start: 02-17-[address] Mallory Foster Work Phone: [facility]-Radiology, [facility] Procedures Date Procedure Procedure Detail Performing Clinician Start: 09-19-2024 Follicle stimulating hormone measurement Dr. Mallory Foster MD Work Phone: Comment on above: FEMALE:Follicular: 1.4 - 18.1 mIU/mLMidc ycle: 3.4 - 33.4 mIU/mLLuteal: 1.5 - 9.1 mIU/mLPost Menopause: 23.0 - 116.3 mIU/mLMALE: 1.4 - 18.1 mIU/mL Start: 06-22-2024 Vitamin D, 25-hydroxy measurement Dr. Le Foster MD Work Phone: Comment on above: Vitamin D StatusDeficiency: <20 ng/mL (5 0nmol/L)Insufficiency: 20-30 ng/mL (50-75 nmol/L)Sufficiency: 30-100 ng/mL (75-250 nmol/L)Toxicity: >100 ng/mL (>250 nmol/L) Start: 06-15-2024 CT angiography of coronary arteries Dr. Mallory Foster MD Work Phone: Start: 05-01-[address] Mallory Foster MD Work Phone: Start: 05-01-[address] Mallory ruiz MD Work Phone: Start: 04-23-[address] Mallory Foster MD Work Phone: Start: 04-23-[address] Mallory balderrama MD Work Phone: Start: 04-02-2024 Radex spine cervical 2 or 3 views Karo Aj PA-C Work Phone: Start: 09-27-2023 Follow-up visit Follow Up MAGGIE GUZMAN Start: 06-28-2023 Radex spine cervical 2 or 3 views Sveta Dalton APRN.CNP Work Phone: Start: 04-19-2023 Antibody screen MALLORY FOSTER Comment on above: Order Comment: Specimen Type: BLOOD SPEC IMEN Ordering Facility: [facility] Address: [address] [place] [address] Performed By: #### T [id number] #### [facility]LOOD [facility] CLIA [id number] [address] [place] [address] Start: 04-19-2023 Ecg routine ecg w/least 12 lds i&r only Iqra Bagley PA-C Work Phone: Start: 04-14-2023 Radex spine cervical 4 or 5 views Davion Guzamn MD Work Phone: Start: 04-13-2023 Plain x-ray of hand Dr. Mallory Foster Work Phone: Start: 04-05-2023 MRI of cervical spine Dr. Mallory Foster Work Phone: Start: 03-01-2023 X-ray of cervical spine Dr. Mallory baledrrama Work Phone: Start: 06-29-[address] Mallory Foster Work Phone: Start: 03-23-[address] Mallory Foster Work Phone: Start: 03-23-2022 End: 03-23-[address] Mallory ruiz Work Phone: Start: 06-02-[address] Mallory real Work Phone: Start: 03-17-[address] Mallory Foster Work Phone: Start: 03-17-[address] Mallory ruiz Work Phone: Start: 03-07-2021 Computed tomography of abdomen and pelvis with intravenous contrast Dr. Mallory Foster Work Phone: Start: 03-03-2021 Diagnostic radiography of abdomen, decubitus and erect Dr. Mallory Foster Work Phone: Start: 02-21-[address] Mallory balderrama Work Phone: Start: 02-21-2021 CT Chest, Abd, Pel w/Contrast Dr. Mallory sanches Work Phone: Start: 02-21-2021 CT of head without contrast Dr. Mallory prado Work Phone: Start: 02-17-[address] Mallory Herring er Work Phone: Start: 11-18-2016 End: 12-08-2016 Echocardiography Jerrell Burt MD Start: 11-18-2016 End: 11-18-2016 Follow Up Appt 4 months Michelle Bautista Start: 11-18-2016 End: 11-18-2016 MMM Jerrell Burt MD H/O: surgery Status post bilateral salpingectomy Dr. Mallory Foster Work Phone: Plan of Treatment Date Care Activity Detail Author Start: 06-12-2024 End: 06-12-2024 Patient encounter procedure 06/12/2024 10:40 AM EDT Office Visit Neurosurgery [address] [place] [address] [place] [address] [place] [address] follow up in 2-3 mos (no Wed, Thuirs) Neurosurgery Comment on above: follow up in 2-3 mos (no Wed, Thuirs) Start: 02-18-2025 Digital breast tomosynthesis bilateral BREAST TOMOSYNTHESIS [facility] Start: 04-16-2024 End: 04-16-2024 Patient encounter procedure 04/16/2024 9:30 AM EST Office Visit Urology [address] [address] Ketty Ochoa MD [address] [place] [address] IC (Interstitial Cystitis) Urology Comment on above: IC (Interstitial Cystitis) Start: 04-06-2024 End: 04-06-2024 Patient encounter procedure 04/06/2024 11:30 AM EST Office Visit Neurosurgery [address] [place] [address] Nickie Mckeon PA-C [address] [place] [address] 6 MONTH FOLLOW UP Neurosurgery Comment on above: 6 MONTH FOLLOW UP Start: 04-03-2024 End: 04-03-2024 Patient encounter procedure 04/03/2024 11:40 AM EST Office Visit Neurosurgery [address] [place] [address] [place] [address] [place] [address] 6 MONTH FOLLOW UP Neurosurgery Comment on above: 6 MONTH FOLLOW UP Start: 11-13-2023 Covid-19 Vaccine ( season) Covid-19 Vaccine ( season) [facility] Start: 11-13-2023 Influenza vaccination [facility] Start: 09-27-2023 End: 09-27-2023 Patient encounter procedure 09/27/2023 11:40 AM EDT Office Visit Neurosurgery [address] [place] [place] [address] [place] [address] [place] [address] Follow Up Neurosurgery Comment on above: Follow Up Start: 04-19-2023 End: 07-19-2023 TYPE AND SCREEN,30 DAY [facility] Work Phone: Comment on above: Expected: 04/19/2023, Expires: Start: 11-12-2022 Covid-19 Vaccine ( season) Covid-19 Vaccine () [facility] Start: 11-12-2022 Influenza vaccination Influenza Vaccine (#1) [facility] Start: 05-23-2022 Screening for malignant neoplasm of cervix [facility] Start: 03-23-2022 Digital breast tomosynthesis bilateral BREAST TOMOSYNTHESIS BI [facility] Start: 02-11-2022 Liquid based cervical cytology screening [facility] Work Phone: Start: 06-02-2021 Egd transoral biopsy single/multiple EGD BIOPSY SINGLE/MULTIPLE [facility] Work Phone: Start: 06-02-2021 Gastroesophag reflx test w/telemtry ph eltrd G-ESOPH REFLX TST W/ELECTROD [facility] Work Phone: Start: 06-02-[address] [facility] Work Phone: Start: 04-02-2021 Sars-cov-2 detection by dna/rna SARS-COV-2 COVID-[address] [facility] Work Phone: Start: 06-04-2020 Urine microalbumin profile DTaP,Tdap,Td Vaccine (7 - Td or Tdap) [facility] Start: 03-28-2017 End: 03-28-2017 Appointment [facility] Work Phone: Start: 11-18-2016 End: 11-18-2016 Appointment Appointment [facility] Work Phone: Start: 11-18-2016 End: 11-18-2016 Echocardiography Echocardiogram (complete) [facility] Work Phone: Start: 11-18-2016 End: 11-18-2016 Follow Up Appt 4 months Follow Up Appt 4 months [facility] Work Phone: Start: 11-18-2016 End: 11-18-2016 MMM MMM [facility] Work Phone: Start: 10-27-2016 End: 10-27-2016 Appointment Appointment [facility] Work Phone: Start: 2002 Annual PCP Team Chronic Disease Visit Annual PCP Team Chronic Disease Visit [facility] Start: 2002 Hepatitis C screening Hepatitis C Screening [facility] Start: 2002 HIV screening HIV Screening [facility] Start: 1990 Pneumococcal vaccination Pneumococcal Vaccine (1 of 2 - PCV) [facility] MG Breast - bilatera l Diagnostic [facility] Path report.final Dx Spec [facility] Work Phone: Patient Education [facility] Work Phone: Patient referral [facility] Work Phone: US Breast limited [facility] Work Phone: US Breast [facility] US Pelvis [facility] Pelvis transvaginal [facility] End: 06-29-2024 XR Cervical spine AP and Lateral XR CERV GENERAL 2V AP/LAT Radiology Routine Cervical vertebral fusion 1 Occurrences starting 05/31/2023 until 06/29/2024 [facility] Work Phone: Comment on above: 1 Occurrences starting 05/31/2023 until 06/29/2024 End: 07-26-2024 XR Cervical spine AP and Lateral XR CERV GENERAL 2V AP/LAT Radiology Routine Status post cervical spinal fusion 1 Occurrences starting 06/27/2023 until 07/26/2024 [facility] Work Phone: Comment on above: 1 Occurrences starting 06/27/2023 until 07/26/2024 XR Cervical spine AP and Lateral XR CERV GENERAL 2V AP/LAT Radiology Routine Cervical vertebral fusion 09/20/2023 1:33 PM EDT [facility] Work Phone: [facility] BASIL OR [facility] Immunizations Immunization Date Immunization Notes Care Provider Les barth 01-11-[address] Mallory Foster Work Phone: [facility] 01-11-2017 influenza, seasonal, injectable Maggie Guzman MD Work Phone: [facility] 01-11-2017 influenza virus vaccine, unspecified formulation Maggie Guzman MD Work Phone: [facility] 07-07-2011 hepatitis B vaccine, adult dosage Maggie Guzman MD Work Phone: [facility] 06-04-2010 tetanus toxoid, reduced diphtheria toxoid, and acellular pertussis vaccine, adsorbed Maggie Guzman MD Work Phone: [facility] Work Phone: 11-20-2001 hepatitis B vaccine, adult dosage Maggie Guzman MD Work Phone: [facility] 04-14-2000 hepatitis B vaccine, adult dosage Maggie Guzman MD Work Phone: [facility] 03-14-1998 diphtheria and tetan us toxoids, adsorbed for pediatric use Maggie Guzman MD Work Phone: [facility] 03-14-1998 hepatitis B vaccine, adult dosage Maggie Guzman MD Work Phone: [facility] 07-17-1997 measles, mumps and rubella virus vaccine Maggie Guzman MD Work Phone: [facility] 06-19-1986 DTP-Haemophilus influenzae type b conjugate vaccine Maggie Guzman MD Work Phone: [facility] 03-14-1986 measles, mumps and rubella virus vaccine Maggie Guzman MD Work Phone: [facility] 08-17-1985 DTP-Haemophilus influenzae type b conjugate vaccine Maggie Guzman MD Work Phone: [facility] 04-19-1985 DTP-Haemophilus influenzae type b conjugate vaccine Maggie Guzman MD Work Phone: [facility] 02-15-1985 DTP-Haemophilus influenzae type b conjugate vaccine Maggie Guzman MD Work Phone: [facility] Payers Date Payer Category Payer Self-pay [id number] 2024 Unknown [id number] 2024 Self-pay [id number] 2022 Medicaid [employer] [facility] [id number] 2022-Present [phone] [address] [place] [address] Medicaid [id number] 2016 Unknown [id number] 2016 Unknown [id number] Unknown [id number] Unknown [id number] Unknown [id number] Unknown [id number] Unknown [id number] Unknown [id number] [id number] Unknown [id number] Unknown [id number] Unknown [id number] Unknown [id number] Unknown [id number] Unknown [id number] Unknown [id number] Unknown [id number] Social History Date Type Detail Facility [facility] Work Phone: Start: 05-29-2021 End: 04-08-2023 Tobacco smoking status [facility] Unknown if ever smoked [facility] Start: 1985 Sex Assigned At Female W [facility] Start: 12-10-2010 End: 04-23-2024 Tobacco smoking status RIIS Never smoked tobacco [facility] Start: 12-10-2010 Tobacco use and exposure Smokeless tobacco non-user [facility] Start: 04-14-2023 Alcohol intake Current drinke r of alcohol (finding) [facility] Start: 04-14-2023 End: 04-06-2024 History of Social function [facility] Start: 04-14-2023 End: 04-06-2024 Tobacco use panel [facility] Adult Depression Screening Assessment 1 [facility] Start: 01-01-2016 Alcohol Comment 2-3 drinks per year, not while [facility] Start: 01-19-2021 Sexual orientation Heterosexual (fin aure) [facility] Start: 04-19-2023 End: 04-06-2024 Alcohol intake Ex-drinker (finding) [facility] Start: 04-19-2023 Alcohol Comment 2-3 drinks per year [facility] Start: 06-21-2024 End: 06-25-2024 Sex Female (finding) [facility] Medical Equipment Procedure Code Equipment Code Equipment Origin al Text Equipment Identifier Dates EGD, with monitored anesthesia care PROBE,PH CAPSULE WITH DEL SYS FDA Start: 06-02-2021 EGD, with monitored anesthesia care PROBE,PH CAPSULE WITH DEL SYS FDA Start: 06-02-2021 EGD, with monitored anesthesia care PROBE,PH CAPSULE WITH DEL SYS FDA Start: 06-02-2021 EGD, with monitored anesthesia care PROBE,PH CAPSULE WITH DEL SYS FDA Start: 06-02-2021 EGD, with monitored anesthesia care PROBE,PH CAPSULE WITH DEL SYS FDA Start: 06-02-2021 EGD, with monitored anesthesia care PROBE,PH CAPSULE WITH DEL SYS FDA Start: 06-02-2021 EGD, with monitored anesthesia care PROBE,PH CAPSULE WITH DEL SYS FDA Start: 06-02-2021 EGD, with monitored anesthesia care PROBE,PH CAPSULE WITH DEL SYS FDA Start: 06-02-2021 EGD, with monitored anesthesia care PROBE,PH CAPSULE WITH DEL SYS FDA Start: 06-02-2021 EGD, with monitored anesthesia care PROBE,PH CAPSULE WITH DEL SYS FDA Start: 06-02-2021 EGD, with monitored anesthesia care PROBE,PH CAPSULE WITH DEL SYS FDA Start: 06-02-2021 EGD, with monitored anesthesia care PROBE,PH CAPSULE WITH DEL SYS FDA Start: 06-02-2021 EGD, with monitored anesthesia care PROBE,PH CAPSULE WITH DEL SYS FDA Start: 06-02-2021 EGD, with monitored anesthesia care PROBE,PH CAPSULE WITH DEL SYS FDA Start: 06-02-2021 EGD, with monitored anesthesia care PROBE,PH CAPSULE WITH DEL SYS FDA Start: 06-02-2021 Spacer Avs 4d 7m m Spinal Bone Plug - [id number] Start: 05-16-2023 Plate Aviator Titanium 12x17.4x2.5mm Bone Level 1 Automatic Lock System - [id number] Start: 05-16-2023 Screw Aviator 4m m Titanium 14mm Bone Variable Angle Self Drill Nonsterile - [id number] Start: 03-04-2024 Goals Date Patient Goal Desired Activity /State Mental Status Date Assessment Result Facility 06-02-2021 Cognitive function Voice/Name [facility] Work Phone: 06-02-2021 Cognitive function Patient Rena raza Person;Place;Time [facility] Work Phone: 02-21-2021 Cognitive function Level Of Cons ciousness Awake;Alert;Appropriate;Follow s Commands [facility] Work Phone: Clinical Notes 06-07-2014 to 12-03-2024 Note Date & Type Note Facility 12-03-2024 Progress note [facility] Services 06-15-2024 Radiology Diagnostic study note [facility] Imaging Services [address] [address] 06/15/24 1305 MR#: [id number] Acct: [id number] Name: SILVESTRE ELISE Rep # :[id number] : 1985 38 From: Jerrell Burt MD PCP: Dr. Mallory Foster MD Status:AMANDA Pennington CLI Y Location: CT Calcium Scoring Date of Study:: 06/15/24 Indications Indications: Dyspnea on exertion Coronary Calcium Scoring: High-resolution Computed Tomographic imaging of the chest was performed on [06/15/2024], with particular attention paid to the coronary arteries. Images from the examination were analyzed for the presence and extent of coronary artery calcification , using coronary calcium quantification software. The patient tolerated the procedure well and there were no complications. The results of the coronary calcification analysis are provided below. Findings Coronary Artery Left Main (LM): 0 Left Anterior Descending (LAD): 0 Left Circumflex (LCX): 0 Right Coronary Artery (RCA): 0 Total Agatston Score: 0 Percentile Rankinth Calcium Scoring Interpretation: Different methods to categorize the overall amount of coronary plaque. Overall amount CAC SIS Visual of coronary plaque P1 Mild -100 <2 1-2 vessels with mild amount of plaque P2 Moderate 101-300 3-4 1-2 vessels with moderate amount, 3 vessels with mild amount of plaque P3 Severe 301-999 5-7 3 vessels with moderate amount, 1 vessel with severe amount of plaque P4 Extensive >1000 >8 2-3 vessels with severe amount of plaque Conclusion: No atherosclerotic plaquing noted 06/15/24 1306 Date _ Jerrell Burt MD Cosigner Signature (if applicable): Date CC: LEAD COOK-C Mallory Marie; Dr. Jerrell Burt MD; Dr. Mallory Foster MD ~ Signed [facility] Work Phone: 06-15-2024 Radiology Diagnostic study note [facility] Imaging Services [address] [place], [place] [address] Limited Chest CT Cardiac Only MR#: [id number] Acct: [id number] Name: SILVESTRE ELISE Rep #: [id number] : 1985 F 38 From: Narayan Pulido MD PCP: Dr. Mallory Foster MD Status: RE G CLI Study:Limited Chest CT Cardiac Only Date of E xam: 06/15/24 Exam# [id number] Ordering Dr: Chance Maire NP [facility]AD COOK-C PROCEDURE: LIMITED CHEST CT CARDIAC ONLY REASON FOR EXAM: FAMILY HX OF CAD, DIEHL TECHNIQUE: Prone and supine chest CT without contrast, high resolution CT (HRCT) protocol. Coronal and Sagittal reconstruction series were provided. One or more dose reduction techniques were used (e.g., Automated exposure control, adjustment of the mA and/or kV according to patient size, use of iterative reconstruction technique). COMPARISON: None FINDINGS: Hardware: None Lymph nodes: No mediastinal hilar or axillary lymphadenopathy. Heart and Vasculature: Normal heart size. No pericardial effusion. Coronary Artery Calcifications: Absent Lungs and Airways: The lungs are normally expanded and clear. No septal thickening nodules or abnormal pulmonary opacities. Pleura: Unremarkable Upper Abdomen: Unremarkable Bones: Bone windows are unremarkable. CT/Limited Chest CT Cardiac Only IMPRESSION: Coronary artery calcification (CAC) is is absent Reading Location: [facility] CC: DOTTIE Marie; Dr. Mallory Foster MD ~ Director Of Gift Planning: Signed [facility] 04-23-[address] [facility] Pap Smear Specimen Adequacy April 23, 2024 12:54pm Comment . Satisfactory for evaluation. Endocervical and/or squamous metaplasticcells (endocervical component) are present. Comment on above: Satisfactory for rick luation. Endocervical and/or squamous metaplasticcells (endocervical component) are present. 04-23-[address] [facility] Pap Smear Specimen Adequacy April 23, 2024 12:54pm Comment . Satisfactory for evaluation. Endocervical and/or squamous metaplasticcells (endocervical component) are present. Comment on above: Satisfactory for rick luation. Endocervical and/or squamous metaplasticcells (endocervical component) are present. 04-23-[address] [facility] Pap Smear Specimen Adequacy April 23, 2024 12:54pm Comment . Satisfactory for evaluation. Endocervical and/or squamous metaplasticcells (endocervical component) are present. Comment on above: Satisfactory for rick luation. Endocervical and/or squamous metaplasticcells (endocervical component) are present. 04-23-2024 Evaluation note Diagnosis Onset Date Resolution Encounter for routine gynecological examination noneactive Februa 2024 8:43am Hypersomnolence acute April 30, 2024 9:55am DIEHL (dyspnea on exertion) chronic April 30, 2024 9:55am Family history of coronary artery disease chronic April 30, 2024 9:55am Fatigue chronic April 30, 2024 9:55am Lightheadedness chronic April 30, 2024 9:55am Near syncope chronic April 9:55am Tachycardia chronic April 9:55am [facility] Work Phone: 1(744) 583-598801-24-2025 History of Present illness Narrative* Nickie Mckeon PA-C - 04/06/2024 11:32 AM EST 04/06/2024 PROMIS Global Health Physical Health Summary Physical health: Fair Everyday physical activity, ability: Mostly Fatigue: Moderate Pain level: 5 General health: Very good Social activities/roles, ability: Very good Physical Health T-Score 39.8 (Fair) Physical Health Percentile 15 PROMIS Global Health Mental Health Summary Quality of life: Good Mental health (mood,thinking): Very good Social satisfaction: Very good Emotional problems (anxious,depressed): Sometimes Mental Health T-Score 48.3 (Very Good) Mental Health Percentile 43 PHQ-9 Score: 5(Mild Depression) PHQ-9 Self-Harm: Not at all PROMIS Physical Function T-Score 45(Within Normal Limits) PROMIS Physical Function Percentile 31 PROMIS Pain Interference T-Score 58(Mild) PROMIS Pain Interference Percentile 21 Percentiles provide an indication of how a patient's score ranks in relation to the [place] general population. > 31st percentile is within normal limits or better *< 31st percentile is at least SD worse than population, which may be clinically relevant < 16th percentile is at least 1 SD worse than population and warrants attention * Nickie Mckeon PA-C - 04/06/2024 11:17 AM EST Images from the original note were not included. 04/06/2024 PROMIS Global Health Physical Health Summary Physical health: Fair Everyday physical activity, ability: Mostly Fatigue: Moderate Pain level: 5 General health: Very good Social activities/roles, ability: Very good Physical Health T-Score 39.8 (Fair) Physical Health Percentile 15 PROMIS Global Health Mental Health Summary Quality of life: Good Mental health (mood,thinking): Very good Social satisfaction: Very good Emotional problems (anxious,depressed): Sometimes Mental Health T-Score 48.3 (Very Good) Mental Health Percentile 43 PHQ-9 Score: 5(Mild Depression) PHQ-9 Self-Harm: Not at all PROMIS Physical Function T-Score 45(Within Normal Limits) PROMIS Physical Function Percentile 31 PROMIS Pain Interference T-Score 58(Mild) PROMIS Pain Interference Percentile 21 Percentiles provide an indication of how a patient's score ranks in relation to the [place] general population. > 31st percentile is within normal limits or better *< 31st percentile is at least SD worse than population, which may be clinically relevant < 16th percentile is at least 1 SD worse than population and warrants attention SPINE SURGERY ESTABLISHED This is an in-person visit. DATE OF SERVICE: 04/06/2024 DATE OF LAST VISIT: 09/27/2023 SUBJECTIVE: HPI:Silvestre Elise is a 38 year old female presenting alone. She underwent C5-6 ACDF on 05/16/23. Her pain has been resolved up until one month ago she began having pain in her right elbow radiating to her 4th and 5th fingers. She attributes the pain to her sleeping positions. She also has some right sided muscular neck pain. She is wearing an elbow brace to bed. PAIN EVALUATION 04/06/2024 0805 04/06/2024 1056 Pain Level: 5 5 Pain Location: Arm-Right Neck-Posterior right arm Description: Aching;Numbness;Radiating;Stiffness Numbness;Radiating Duration Amount of Time: 1 -- Duration Units: Months Unknown Frequency: Continuous Continuous Pain Radiation: right elbow to right 4th and 5th digits AMBULATORY STATUS: Independent Community Distances ANTIPLATELET OR ANTICOAGULATION STATUS: No PREVIOUS CONSERVATIVE TREATMENTS: Muscle Relaxants Analgesics injections REVIEW OF SYSTEMS: GENERAL: No weight loss or malaise MUSCULOSKELETAL: Negative for joint pain, swelling or muscle pain NEURO: No history of headaches, syncope, paralysis, seizures or tremors MEDICATIONS: hyoscyamine (LEVSIN) 0.125 mg tablet Take 0.125 mg by mouth as needed. propranolol (INDERAL) 20 mg tablet Take 20 mg by mouth once daily. omeprazole (PRILOSEC) 40 mg capsule Take 40 mg by mouth once daily. gabapentin (NEURONTIN) 100 mg capsule Take 1 capsule by mouth two times a day for 90 days. LAMOTRIGINE ORAL Take 50 mg by mouth once daily. busPIRone (BUSPAR) 10 mg tablet Take 10 mg by mouth once daily. Patient Entered Questionnaires 05/31/2023 09/22/2023 04/06/2024 Spine Questions Pain Location: Neck Neck Neck Pain Duration: 1-3 months Symptoms from neck/cervical spine: Yes Yes No Employment Status: Working now Working now 04/13/2023 09/22/2023 04/06/2024 Neck Questionnaires Benzel Modified CRIS Score 15 (Mild Myelopathy Symptoms) 16 (Mild Myelopathy Symptoms) 16 (Mild Myelopathy Symptoms) PROMIS Score Percentiles 04/13/2023 09/22/2023 04/06/2024 Physical Health Physical Function Percentile 18* 27* 31 Sleep Percentile 14 21* 18* Fatigue Percentile 16* 8 58 Pain Interference Percentile 8 38 21* 04/13/2023 09/22/2023 04/06/2024 PROMIS SOCIAL ROLE SCORE Social Role Satisfaction Percentile 31 31 42 04/13/2023 09/22/2023 04/06/2024 PROMIS Global Health Scale Physical Health Percentile 22* 41 15 Mental Health Percentile 34 43 43 Percentiles provide an indication of how the patient's score ranks in relation to the general population. Higher percentile rankings indicate better function/quality of life. 50th percentile is the average of the general population and indicates half of respondents had a worse score. Descriptive Summary for PROMIS Physical Function T-score = 45 (Percentile 31) Little difficulty - Walk more than a mile (1.6 km). Little difficulty - Do chores such as vacuuming or yard work. Depression Screenin04/13/2023 09/22/2023 04/06/2024 PHQ-9 Score 7 3 5 04/13/2023 09/22/2023 04/06/2024 PHQ-9 Self-harm Question Question 9 Not at all Not at all Not at all PHQ-9 Self-Harm (Item 9) response options: 0 Not at all 1 Several days 2 More than half the days 3 Nearly every day PHQ-9 Levels: 0-4 No to mild depression 5-9 Mild depression 10-14 Moderate depression 15-19 Moderately severe depression 20-27 Severe depression OBJECTIVE: PHYSICAL EXAM: BP 111/56 Pulse 65 Ht 5' 2 (1.58m) Wt 126 lb 1.7 oz (57.2kg) LMP 05/04/2023 BMI 23.06 kg/(m^2). GENERAL APPEARANCE: Well nourished, well developed, and no apparent distress. NEURO PSYCH: Patient oriented to person, place, and time. Mood pleasant. Benign affect. MUSCULOSKELETAL VISUAL INSPECTION CERVICAL: WNL THORACIC: WNL LUMBAR: WNL MOTOR: 5/5 in all muscle groups. SENSORY: Normal sensory exam GAIT: Normal. Pain over right lateral elbow. NEURO TESTS: None DATA REVIEW:Diagnostic tests reviewed for today's visit, films/specimens were personally reviewed by me: [facility] records independently reviewed ASSESSMENT/PLAN (M50.10) Cervical disc disorder with radiculopathy (primary encounter diagnosis) Silvestre Elise will continue with medical management of his/her condition. 1. Physical therapy for right elbow pain 2. Follow up: 2-3 months 3. Patient points to pain at lateral elbow and muscular pain across biceps tendon vs brachioradialis. 4. If pain does not resolve, we can consider MRI cervical spine. Imaging Ordered: None I spent a total of 18 minutes on the date of the service which included preparing to see the patient, [id number] patient care, completing clinical documentation, obtaining and/or reviewing separately obtained history, performing a medically appropriate examination, counseling and educating the pat ient/family/caregiver, and ordering medications, tests, or procedures. SIGNATURE: Nickie Mckeon PA-C PATIENT NAME: Silvestre Elise DATE: April 06, 2024 TIME: 11:35 AM PAGER: documented in this encounterHolzer [facility]07-16-2024 NoteHNO ID: [id number] Author: MAGGIE GUZMAN MD Service: ? Author Type: Physician Type: Progress Notes Filed: 09/27/2023 11:32 Note Text: 09/22/2023 PROMIS Global Health Physical Health Summary Physical health: Good Everyday physical activity, ability: Completely Fatigue: Moderate Pain level: 2 General health: Good Social activities/roles, ability: Good Physical Health T-Score 47.7 (Good) Physical Health Percentile 41 PROMIS Global Health Mental Health Summary Quality of life: Good Mental health (mood,thinking): Very good Social satisfaction: Very good Emotional problems (anxious,depressed): Sometimes Mental Health T-Score 48.3 (Very Good) Mental Health Percentile 43 PHQ-9 Score: 3(Minimal Depression) PHQ-9 Self-Harm: Not at all PROMIS Physical Function T-Score 44(Mild Dysfunction) PROMIS Physical Function Percentile 27 PROMIS Pain Interference T-Score 53(Within Normal Limits) PROMIS Pain Interference Percentile 38 Percentiles provide an indication of how a patient's score ranks in relation to the [place] general population. > 31st percentile is within normal limits or better *< 31st percentile is at least ? SD worse than population, which may be clinically relevant < 16th percentile is at least 1 SD worse than population and warrants attention SPINE SURGERY FOLLOW UP This is an in-person visit. SERVICE DATE: 09/27/2023 SURGERY DATE: 05/16/2023 Silvestre Elise is a pleasant 37-year-old female is here in spine surgery clinic for 4 months post operative follow up. She underwent C5-C6 anterior cervical discectomy, allograft and instrumented fusion on 05/16/2023. Prior to surgery she was complaining of neck pain radiating down the left shoulder and ending over the thumb. Her pain is aggravated by neck movement and activity. She also noticed numbness over left thumb, index, middle finger area. Numbness was constant. Numbness is more bothersome than pain. Since surgery her neck and arm pain completely improved. Numbness also improved. She noticed some right upper extremity pain after surgery which was improved during last clinic visit. She had minimal swallowing difficulty after surgery which improved with Medrol Dosepak. Today she states doing better. She occasionally minimal neck pain. Still has very minimal numbness denies weakness. Denies swallowing difficulty. ANTIPLATELET OR ANTICOAGULATION STATUS: No Patient Entered Questionnaires 04/13/2023 05/31/2023 09/22/2023 Spine Questions Pain Location: Neck Neck Neck Pain Duration: 3-6 months Pain over last 6 months: Every day or nearly every day in the past 6 months Symptoms from neck/cervical spine: Yes Yes Yes Employment Status: Working now Working now Involved in law suit/legal claim: No 04/13/2023 09/22/2023 Neck Questionnaires Benzel Modified CRIS Score 15 (Mild Myelopathy Symptoms) 16 (Mild Myelopathy Symptoms) PROMIS Score Percentiles 04/13/2023 09/22/2023 Physical Health Physical Function Percentile 18* 27* Sleep Percentile 14 21* Fatigue Percentile 16* 8 Pain Interference Percentile 8 38 04/13/2023 09/22/2023 PROMIS SOCIAL ROLE SCORE Social Role Satisfaction Percentile 31 31 04/13/2023 09/22/2023 PROMIS Global Health Scale Physical Health Percentile 22* 41 Mental Health Percentile 34 43 Percentiles provide an indication of how the patient's score ranks in relation to the general population. Higher percentile rankings indicate better function/quality of life. 50th percentile is the average of the general population and indicates half of respondents had a worse score. Descriptive Summary for PROMIS Physical Function T-score = 44 (Percentile 27) Little difficulty - Walk more than a mile (1.6 km). Little difficulty - Do chores such as vacuuming or yard work. Depression Screenin10/21/2010 04/13/2023 09/22/2023 PHQ-9 Score 11 7 3 10/21/2010 04/13/2023 09/22/2023 PHQ-9 Self-harm Question Question 9 Not at all Not at all Not at all PHQ-9 Self-Harm (Item 9) response options: 0 Not at all 1 Several days 2 More than half the days 3 Nearly every day PHQ-9 Levels: 0-4 No to mild depression 5-9 Mild depression 10-14 Moderate depression 15-19 Moderately severe depression 20-27 Severe depression PHYSICAL EXAM: [facility] 05/04/2023 (Approximate) GENERAL APPEARANCE: Well nourished, well developed, and no apparent distress. NEURO PSYCH: Patient oriented to person, place, and time. Mood pleasant. Benign affect. MUSCULOSKELETAL VISUAL INSPECTION CERVICAL: Anterior cervical scar is healthy THORACIC: WNL LUMBAR: WNL MOTOR: 5/5 in all muscle groups. SENSORY: Normal sensory exam GAIT: Normal. REFLEXES: +2 to bilateral U/L extremities. PROPRIOCEPTION: Normal. LONG TRACT SIGNS: No clonus. No Hoffmans. STRAIGHT LEG TEST: Ipsilateral: Negative. Contralateral: Negative. L'HERMITTES SIGN: Not tested. SPURLING'S TEST: Not tested. DATA REVIEW (more content not included)...[id number] History of Present illness Narrative* Maggie Guzman MD - 09/27/2023 10:56 AM EDT Images from the original note were not included. 09/22/2023 PROMIS Global Health Physical Health Summary Physical health: Good Everyday physical activity, ability: Completely Fatigue: Moderate Pain level: 2 General health: Good Social activities/roles, ability: Good Physical Health T-Score 47.7 (Good) Physical Health Percentile 41 PROMIS Global Health Mental Health Summary Quality of life: Good Mental health (mood,thinking): Very good Social satisfaction: Very good Emotional problems (anxious,depressed): Sometimes Mental Health T-Score 48.3 (Very Good) Mental Health Percentile 43 PHQ-9 Score: 3(Minimal Depression) PHQ-9 Self-Harm: Not at all PROMIS Physical Function T-Score 44(Mild Dysfunction) PROMIS Physical Function Percentile 27 PROMIS Pain Interference T-Score 53(Within Normal Limits) PROMIS Pain Interference Percentile 38 Percentiles provide an indication of how a patient's score ranks in relation to the [place] general population. > 31st percentile is within normal limits or better *< 31st percentile is at least SD worse than population, which may be clinically relevant < 16th percentile is at least 1 SD worse than population and warrants attention SPINE SURGERY FOLLOW UP This is an in-person visit. SERVICE DATE: 09/27/2023 SURGERY DATE: 05/16/2023 Silvestre Elise is a pleasant 37-year-old female is here in spine surgery clinic for 4 months post operative follow up. She underwent C5-C6 anterior cervical discectomy, allograft and instrumented fusion on 05/16/2023. Prior to surgery she was complaining of neck pain radiating down the left shoulder and ending over the thumb. Her pain is aggravated by neck movement and activity. She also noticed numbness over leftthumb, index, middle finger area. Numbness was constant. Numbness is more bothersome than pain. Since surgery her neck and arm pain completely improved. Numbness also improved. She noticed some right upper extremity pain after surgery which was improved during last clinic visit. She had minimalswallowing difficulty after surgery which improved with Medrol Dosepak. Today she states doing better. She occasionally minimal neck pain. Still has very minimal numbness denies weakness. Denies swallowing difficulty. ANTIPLATELET OR ANTICOAGULATION STATUS: No Patient Entered Questionnaires 04/13/2023 05/31/2023 09/22/2023 Spine Questions Pain Location: Neck Neck Neck Pain Duration: 3-6 months Pain over last 6 months: Every day or nearly every day in the past 6 months Symptoms from neck/cervical spine: Yes Yes Yes Employment Status: Working now Working now Involved in law suit/legal claim: No 04/13/2023 09/22/2023 Neck Questionnaires Benzel Modified CRIS Score 15 (Mild Myelopathy Symptoms) 16 (Mild Myelopathy Symptoms) PROMIS Score Percentiles 04/13/2023 09/22/2023 Physical Health Physical Function Percentile 18* 27* Sleep Percentile 14 21* Fatigue Percentile 16* 8 Pain Interference Percentile 8 38 04/13/2023 09/22/2023 PROMIS SOCIAL ROLE SCORE Social Role Satisfaction Percentile 31 31 04/13/2023 09/22/2023 PROMIS Global Health Scale Physical Health Percentile 22* 41 Mental Health Percentile 34 43 Percentiles provide an indication of how the patient's score ranks in relation to the general population. Higher percentile rankings indicate better function/quality of life. 50th percentile is the average of the general population and indicates half of respondents had a worse score. Descriptive Summary for PROMIS Physical Function T-score = 44 (Percentile 27) Little difficulty - Walk more than a mile (1.6 km). Little difficulty - Do chores such as vacuuming or yard work. Depression Screenin10/21/2010 04/13/2023 09/22/2023 PHQ-9 Score 11 7 3 10/21/2010 04/13/2023 09/22/2023 PHQ-9 Self-harm Question Question 9 Not at all Not at all Not at all PHQ-9 Self-Harm (Item 9) response options: 0 Not at all 1 Several days 2 More than half the days 3 Nearly every day PHQ-9 Levels: 0-4 No to mild depression 5-9 Mild depression 10-14 Moderate depression 15-19 Moderately severe depression 20-27 Severe depression PHYSICAL EXAM: [facility] 05/04/2023 (Approximate) GENERAL APPEARANCE: Well nourished, well developed, and no apparent distress. NEURO PSYCH: Patient oriented to person, place, and time. Mood pleasant. Benign affect. MUSCULOSKELETAL VISUAL INSPECTION CERVICAL: Anterior cervical scar is healthy THORACIC: WNL LUMBAR: WNL MOTOR: 5/5 in all muscle groups. SENSORY: Normal sensory exam GAIT: Normal. REFLEXES: +2 to bilateral U/L extremities. PROPRIOCEPTION: Normal. LONG TRACT SIGNS: No clonus. No Hoffmans. STRAIGHT LEG TEST: Ipsilateral: Negative. Contralateral: Negative. L'HERMITTES SIGN: Not tested. SPURLING'S TEST: Not tested. DATA REVIEW [facility] records independently reviewed Images independently reviewed with the patient DATE OF EXAM: Sep 20 2023 1:33PM [id number] [id number] - XR CERVICAL 2V AP/LAT / PROCEDURE REASON: Cervical vertebral fusion * * * * Physician Interpretation * * * * EXAMINATION / TECHNIQUE: XR CERVICAL 2V AP/LAT HISTORY: PT STATES FUSION IN MAY OF 2023 POST OP FILMS TODAYS VISIT Cervical vertebral fusion COMPARISON: 06/28/2023. RESULT: Counting reference: Craniocervical junction. Anatomic Variants: None. Status post C5-C6 ACDF with intact hardware. Vertebral body heights, sagittal alignment, and disc spaces are unchanged. Prevertebral soft tissues are normal. ASSESSMENT/PLAN Silvestre Elise is a pleasant 37-year-old female is here in spine surgery clinic for 4 months post operative follow up. She underwent C5-C6 anterior cervical discectomy, allograft and instrumented fusion on 05/16/2023. Prior to surgery she was complaining of neck pain radiating down the left shoulder and ending over the thumb. Her pain is aggravated by neck movement and activity. She also noticed numbness over leftthumb, index, middle finger area. Numbness was constant. Numbness is more bothersome than pain. Since surgery her neck and arm pain completely improved. Numbness also improved. She noticed some right upper extremity pain after surgery which was improved during last clinic visit. She had minimalswallowing difficulty after surgery which improved with Medrol Dosepak. Today she states doing better. She occasionally minimal neck pain. Still has very minimal numbness denies weakness. Denies swallowing difficulty. Examination showed well-healed anterior cervical scar. No motor weakness. Stable gait. Range of neck motion is full. X-ray cervical spine showed stable C5-6 anterior cervical discectomy, allograft and instrumented fusion. No obvious instrument failure. Discussed clinical, imaging finding. Showed images and explained detail. Recommended to continue isometric neck exercise, increase activities as tolerated. Follow-up in spine surgery clinic at 6 months with x-ray cervical spine. X-ray cervical spine ordered for follow-up visit. The majority of the visit was spent counseling and/or coordinating care for the patient. The patient was counseled regarding neck pain, arm pain, arm numbness, cervical spondylosis, cervical disc herniation, cervical discectomy and fusion, neck exercises. Total face to face time was 20 minutes. SIGNATURE: Maggie Guzman MD PATIENT NAME: Silvestre Elise DATE: September 27, 2023 TIME: 10:56 AM PAGER: documented in this encounterHolzer [facility]05-01-2024 Telephone encounter Note * Telephone Encounter - Selena Olea RN - 07/13/2023 2:22 PM EDT noted [facility] Miscellaneous Notes* Telephone Encounter - Selena Olea RN - 07/13/2023 2:22 PM EDT noted * Telephone Encounter - Kassidy Marquez - 07/13/2023 1:41 PM EDT [facility] summary scanned to chart documented in this encounterHolzer Hospital05-01-2024 Telephone encounter Note * Telephone Encounter - Kassidy Marquez - 07/13/2023 1:41 PM EDT [facility] summary scanned to chart [facility]04-[facility]24 Discharge summary Author Mahad Samuels [facility] July 05, 2023 2:51pm Note Date/Time July 05, 2023 9:[address] [facility] [address] [place] [address]. [address] [place] [address] / REHABILITATION SERVICES DISCHARGE SUMMARY MR#: [id number] Acct: [id number] Name: BREShilpaGAGE,SILVESTRE ZAZUETA Rep #: [id number] : 1985 37 From: Cert. SERENA Veras, DENZEL Referring DrArielle: Status: REG RCR Insurance: [facility] SELF PAY INSURANCE Discharge Summary D/C summary: It has been my pleasure to treat SILVESTRE ELISE referred by MAGGIE GUZMAN, with the diagnosis of CERVICAL VERTEBRAL FUSION for a total of 6 visit(s). Discharge Date: 07/05/23 Please see the following information for a summary of their discharge status. Subjective Subjective: Doing well able to do ex's on own Pain Bilateral Lower Extremity: Pain Intensity (Out of 10): 1 Overall Improvement % Improvement: 90 Objective Objective/Function: POSTURE: mild forward posture NEURO: denies paresthesia/tingling improved from surgery ,reflexes C5-6-7 2/3 PALPATION: tender UT/levator AROM: BUE WFL STRENGTH: 4/5 ,shoulders 4/5 CERVICAL ROM: flexion WGFL loss ,lateral flexion min loss ,rotation WFL loss ,extension min loss ( progressed well) Goals Goal 1:: Patient to be I with HEP for cervical spine Goal Progress: Goal Met Goal 2:: Patient to demonstrate 60% improvement with function and ADLS Goal Progress: Goal Met Goal 3:: Patient to improve cervical ROM for function of recovery and driving toturn neck and job demands Goal Progress: Goal Met Goal 4:: Patient to improve neck oswestry score by 5 points to improve QOL and function Goal Progress: Goal Met Goal 5:: Patient be able to perform ADL and job demands without limitations. Goal Progress: Goal Met Plan Plan: D/C D/C Information Discharge Comments: HEP d/c sentence: If there are questions or concerns regarding this patient's physical therapy, please feel free to call me at [phone]. Thank you for the referral of thispatient. Sincerely, Mahad Samuels PT, Shyanne FERRERAT, OCS Balance/Gait/Functional tests Balance/Special Test Scores Oswestry Neck Score: 3 Improvement % Improvement: 90 <Electronically signed by Cert. SERENA Knight PT, OCS> 07/05/23 0341 CC: Dr. Mallory Foster MD; MAGGIE GUZMAN ~ TRACEE Signed [facility] Work Phone: [phone]) 897-674004-16-2024 Miscellaneous Notes* Telephone Encounter - Amena Dalton APRN.CNP - 06/28/2023 3:50 PM EDT Spoke with Rondelfino over the phone and updated her regarding cervical x-ray imaging. States her left arm numbness is about the same, she continues to work with therapy. Discussed starting gabapentin for which she is receptive to, will start 100 mg twice daily, prescription sent to her pharmacy. Advised to continue monitoring her symptoms and if they continue to worsen or do not improve to contactthe office to further discuss. She verbalizes understanding and is grateful for the call. Amena Dalton APRN.QIANA documented in this encounterHolzer Hospital04-16-2024 History of Present illness Narrative* Idalia Deng RT(R) - 06/28/2023 12:20 PM EDT Radiology Service Progress Note PATIENT NAME: Silvestre Elise DATE OF SERVICE: June 28, 2023 TIME: 12:27 PM PATIENT IDENTITY VERIFICATION COMPLETED USING TWO (2) IDENTIFIERS: Name and Date of confirmedby patient verbally. FALL SCREENING: Has the patient had 2 falls in the last year or 1 fall with injury or currently using an Ambulatory Assistive Device (Walker, Cane, Wheelchair, Crutches, etc.)? No PATIENT GENDER DATA: Female. status: : No status: NO. PATIENT RELEVANT IMPLANT DATA REVIEWED: Not Applicable PATIENT PRESENTS WITH AN IMPLANTABLE OR ATTACHED MORTGAGE PROTECTION SALES: No RADIOLOGY DEPARTMENT: General X-ray: Exam(s) Completed: Spine X-Ray(s): Cervical AP / LAT PERIPHERAL IV DATA: Not applicable SIGNED BY: RT Ross(R) June 28, 2023 12:27 PM documented in this encounterHolzer Hospital04-16-2024 NoteHNO ID: [id number] Author: IDALIA DENG RT(R) Service: ? Author Type: Technologist Type: Progress Notes Filed: 06/28/2023 12:27 Note Text: Radiology Service Progress Note PATIENT NAME: Silvestre Elise DATE OF SERVICE: June 28, 2023 TIME: 12:27 PM PATIENT IDENTITY VERIFICATION COMPLETED USING TWO (2) IDENTIFIERS: Name and Date of confirmed by patient verbally. FALL SCREENING: Has the patient had 2 falls in the last year or 1 fall with injury or currently using an Ambulatory Assistive Device (Walker, Cane, Wheelchair, Crutches, etc.)? No PATIENT GENDER DATA: Female. status: : No status: NO. PATIENT RELEVANT IMPLANT DATA REVIEWED: Not Applicable PATIENT PRESENTS WITH AN IMPLANTABLE OR ATTACHED MORTGAGE PROTECTION SALES: No RADIOLOGY DEPARTMENT: General X-ray: Exam(s) Completed: Spine X-Ray(s): Cervical AP / LAT PERIPHERAL IV DATA: Not applicable SIGNED BY: RT Ross(R) June 28, 2023 12:27 [facility]04-15-2024 Miscellaneous Notes * Telephone Encounter - Amena Dalton APRN.RADIO ENGINEERING TEACHER - 06/27/2023 4:21 PM EDT Spoke with Ms Elise over the phone, states she has been experiencing left arm numbness and tingling as well as neck pain similar to prior before surgery. She is approximately 6 weeks postoperative from C5-6 ACDF. She states she has been progressing well and all her symptoms were resolved. Whileat work on this previous she went to sit on a chair which was lower than what she thought and landed harder than anticipated, jolting her. States she developed the neck pain and left arm tingling and numbness gradually after that. She has been taking all with some relief. States the pain is not as severe as it was prior to surgery but was concerned given that the symptoms had completely r esolved. She denies other symptoms, no fevers, chills, shortness of breath, incisional drainage. States she is still able to do everything, is back to work and taking care of her kids without issue. Cervical x-ray ordered. Encouraged to continue using Tylenol, avoid NSAIDs, heat and ice as needed. She verbalizes understanding is thankful for the call. Amena Dalton APRN.CNP * Telephone Encounter - Adriana Pena - 06/27/2023 4:07 PM EDT Patient calling she is 6 weeks post-op, is experiencing numbness in her left arm and neck, states sensation is returning. She can be reached at [phone] documented in this encounterHolzer Hospital03-19-2024 NoteHNO ID: [id number] Author: MAGGIE GUZMAN MD Service: ? Author Type: Physician Type: Progress Notes Filed: 05/31/2023 12:38 Note Text: SPINE SURGERY FOLLOW UP This is an in-person visit. SERVICE DATE: 05/31/2023 SURGERY DATE: 05/16/2023 Silvestre Elise is a pleasant 37-year-old female is here in spine surgery clinic for 2 week post operative follow up. She underwent C5-C6 anterior cervical discectomy, allograft and instrumented fusion on 05/16/2023. Prior to surgery she was complaining of neck pain radiating down the left shoulder and ending over the thumb. Her pain is aggravated by neck movement and activity. She also noticed numbness over left thumb, index, middle finger area. Numbness was constant. Numbness is more bothersome than pain. Since surgery her neck and arm pain completely improved. Numbness also completely improved. She noticed some right upper extremity pain after surgery which is improved now. She had minimal swallowing difficulty after surgery which improved with Medrol Dosepak. Today she states doing better. She has minimal neck pain. PAIN EVALUATION 05/31/2023 0815 05/31/2023 1059 Pain Level: 3 3 Pain Location: Neck Neck Description: Aching;Dull Aching Duration Amount of Time: 4 -- Duration Units: Days Unknown Frequency: Continuous Intermittent Intervention/Comfort measure: Medication;Relaxation;Pillow support -- Comments: Due to post-op -- Aggravating Factors: Intermittent Alleviating Factors: Medications ANTIPLATELET OR ANTICOAGULATION STATUS: No Patient Entered Questionnaires 04/13/2023 05/31/2023 Spine Questions Pain Location: Neck Neck Pain Duration: 3-6 months Pain over last 6 months: Every day or nearly every day in the past 6 months Symptoms from neck/cervical spine: Yes Yes Employment Status: Working now Involved in law suit/legal claim: No 04/13/2023 Neck Questionnaires Benzel Modified CRIS Score 15 (A lower score indicates increased pain and issues.) 04/13/2023 05/31/2023 Spine Questions Pain Location: Neck Neck Pain Duration: 3-6 months Pain over last 6 months: Every day or nearly every day in the past 6 months Symptoms from neck/cervical spine: Yes Yes Employment Status: Working now Involved in law suit/legal claim: No 04/13/2023 Neck Questionnaires Benzel Modified CRIS Score 15 (A lower score indicates increased pain and issues.) PROMIS Score Percentiles 04/13/2023 Physical Health Physical Function Percentile 18* Sleep Percentile 14 Fatigue Percentile 16* Pain Interference Percentile 8 04/13/2023 PROMIS SOCIAL ROLE SCORE Social Role Satisfaction Percentile 31 04/13/2023 Physical Health Physical Function Percentile 18* Sleep Percentile 14 Fatigue Percentile 16* Pain Interference Percentile 8 04/13/2023 PROMIS SOCIAL ROLE SCORE Social Role Satisfaction Percentile 31 Percentiles provide an indication of how the patient's score ranks in relation to the general population. Higher percentile rankings indicate better function/quality of life. 50th percentile is the average of the general population and indicates half of respondents had a worse score. Depression Screenin04/13/2023 10/21/2010 08/12/2010 PHQ-9 Score 7 11 10 08/12/2010 10/21/2010 04/13/2023 PHQ-9 Self-harm Question Question 9 Not at all Not at all Not at all 08/12/2010 10/21/2010 04/13/2023 PHQ-9 Score 10 11 7 08/12/2010 10/21/2010 04/13/2023 PHQ-9 Self-harm Question Question 9 Not at all Not at all Not at all PHQ-9 Self-Harm (Item 9) response options: 0 Not at all 1 Several days 2 More than half the days 3 Nearly every day PHQ-9 Levels: 0-4 No to mild depression 5-9 Mild depression 10-14 Moderate depression 15-19 Moderately severe depression 20-27 Severe depression PHYSICAL EXAM: BP 99/63 Pulse 82 Wt 57.2 kg (126 lb) LMP 05/04/2023 (Approximate) SpO2 99% BMI 23.05 kg/m? GENERAL APPEARANCE: Well nourished, well developed, and no apparent distress. NEURO PSYCH: Patient oriented to person, place, and time. Mood pleasant. Benign affect. MUSCULOSKELETAL VISUAL INSPECTION CERVICAL: Incision is healing well. No drainage. THORACIC: WNL LUMBAR: WNL MOTOR: 5/5 in all muscle groups. SENSORY: Normal sensory exam GAIT: Normal. REFLEXES: +2 to bilateral U/L extremities. DATA REVIEW [facility] records independently reviewed Images independently reviewed with the patient ASSESSMENT/PLAN Silvestre Elise is a pleasant 37-year-old female is here in spine surgery clinic for 2 week post operative follow up. She underwent C5-C6 anterior cervical discectomy, allograft and instrumented fusion on 05/16/2023. Prior to surgery she was complaining of neck pain radiating down the left shoulder and ending over the thumb. Her pain is aggravated by neck movement and activity. She also noticed numbness over left thumb, index, middle finger area. Numbness was constant. Numbness is more b (more content not included)...[facility] [id number] History of Present illness Narrative* Maggie Guzman MD - 05/31/2023 11:17 AM EDT Images from the original note were not included. SPINE SURGERY FOLLOW UP This is an in-person visit. SERVICE DATE: 05/31/2023 SURGERY DATE: 05/16/2023 Silvestre Elise is a pleasant 37-year-old female is here in spine surgery clinic for 2 week post operative follow up. She underwent C5-C6 anterior cervical discectomy, allograft and instrumentedfusion on 05/16/2023. Prior to surgery she was complaining of neck pain radiating down the left shoulder and ending over the thumb. Her pain is aggravated by neck movement and activity. She also noticed numbness over leftthumb, index, middle finger area. Numbness was constant. Numbness is more bothersome than pain. Since surgery her neck and arm pain completely improved. Numbness also completely improved. She noticed some right upper extremity pain after surgery which is improved now. She had minimal swallowingdifficulty after surgery which improved with Medrol Dosepak. Today she states doing better. She has minimal neck pain. PAIN EVALUATION 05/31/2023 0815 05/31/2023 1059 Pain Level: 3 3 Pain Location: Neck Neck Description: Aching;Dull Aching Duration Amount of Time: 4 -- Duration Units: Days Unknown Frequency: Continuous Intermittent Intervention/Comfort measure: Medication;Relaxation;Pillow support -- Comments: Due to post-op -- Aggravating Factors: Intermittent Alleviating Factors: Medications ANTIPLATELET OR ANTICOAGULATION STATUS: No Patient Entered Questionnaires 04/13/2023 05/31/2023 Spine Questions Pain Location: Neck Neck Pain Duration: 3-6 months Pain over last 6 months: Every day or nearly every day in the past 6 months Symptoms from neck/cervical spine: Yes Yes Employment Status: Working now Involved in law suit/legal claim: No 04/13/2023 Neck Questionnaires Benzel Modified CRIS Score 15 (A lower score indicates increased pain and issues.) 04/13/2023 05/31/2023 Spine Questions Pain Location: Neck Neck Pain Duration: 3-6 months Pain over last 6 months: Every day or nearly every day in the past 6 months Symptoms from neck/cervical spine: Yes Yes Employment Status: Working now Involved in law suit/legal claim: No 04/13/2023 Neck Questionnaires Benzel Modified CRIS Score 15 (A lower score indicates increased pain and issues.) PROMIS Score Percentiles 04/13/2023 Physical Health Physical Function Percentile 18* Sleep Percentile 14 Fatigue Percentile 16* Pain Interference Percentile 8 04/13/2023 PROMIS SOCIAL ROLE SCORE Social Role Satisfaction Percentile 31 04/13/2023 Physical Health Physical Function Percentile 18* Sleep Percentile 14 Fatigue Percentile 16* Pain Interference Percentile 8 04/13/2023 PROMIS SOCIAL ROLE SCORE Social Role Satisfaction Percentile 31 Percentiles provide an indication of how the patient's score ranks in relation to the general population. Higher percentile rankings indicate better function/quality of life. 50th percentile is the average of the general population and indicates half of respondents had a worse score. Depression Screenin04/13/2023 10/21/2010 08/12/2010 PHQ-9 Score 7 11 10 08/12/2010 10/21/2010 04/13/2023 PHQ-9 Self-harm Question Question 9 Not at all Not at all Not at all 08/12/2010 10/21/2010 04/13/2023 PHQ-9 Score 10 11 7 08/12/2010 10/21/2010 04/13/2023 PHQ-9 Self-harm Question Question 9 Not at all Not at all Not at all PHQ-9 Self-Harm (Item 9) response options: 0 Not at all 1 Several days 2 More than half the days 3 Nearly every day PHQ-9 Levels: 0-4 No to mild depression 5-9 Mild depression 10-14 Moderate depression 15-19 Moderately severe depression 20-27 Severe depression PHYSICAL EXAM: BP 99/63 Pulse 82 Wt 57.2 kg (126 lb) LMP 05/04/2023 (Approximate) SpO2 99% BMI 23.05 kg/m GENERAL APPEARANCE: Well nourished, well developed, and no apparent distress. NEURO PSYCH: Patient oriented to person, place, and time. Mood pleasant. Benign affect. MUSCULOSKELETAL VISUAL INSPECTION CERVICAL: Incision is healing well. No drainage. THORACIC: WNL LUMBAR: WNL MOTOR: 5/5 in all muscle groups. SENSORY: Normal sensory exam GAIT: Normal. REFLEXES: +2 to bilateral U/L extremities. 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 She underwent C5-C6 anterior cervical discectomy, allograft and instrumentedfusion on 05/16/2023. Prior to surgery she was complaining of neck pain radiating down the left shoulder and ending over the thumb. Her pain is aggravated by neck movement and activity. She also noticed numbness over leftthumb, index, middle finger area. Numbness was constant. Numbness is more bothersome than pain. Since surgery her neck and arm pain completely improved. Numbness also completely improved. She noticed some right upper extremity pain after surgery which is improved now. She had minimal swallowingdifficulty after surgery which improved with Medrol Dosepak. Today she states doing better. She has minimal neck pain. Examination showed well-healed anterior cervical incision, no signs of infection. No motor weakness. Stable gait. Range of neck motion is full. Discussed clinical finding. Recommended physical therapy, which is ordered. Recommended to increaseher activities as tolerated, avoid lifting weight more than 15 to 20 pounds for another 4 weeks. All open spine surgery clinic at 6 months with x-ray cervical spine. X-ray cervical spine ordered for follow-up visit. The majority of the visit was spent counseling and/or coordinating care for the patient. The patient was counseled regarding neck pain, arm pain, hand numbness, walking difficulty, cervical spondylosis, cervical disc herniation, cervical discectomy and fusion, swallowing difficulty, neck exercises,physical therapy. Total face to face time was [address] Guzman by Ramez Oneal, Manager Employee Relations, on 05/31/2023. SIGNATURE: Maggie Guzman MD PATIENT NAME: Silvestre Elise DATE: May 31, 2023 TIME: 11:18 AM PAGER: documented in this encounterHolzer Hospital03-06-2024 Miscellaneous Notes* Telephone Encounter - Selena Olea RN - 05/18/2023 1:07 PM EST Spoke to pt Advised medrol sent to pharmacy She states that symptoms are slightly improved this afternoon . Advised if any worsening of difficulty swallowing or mobilizing secretions to seek evaluation in the ED She is agreeable * Telephone Encounter - Reyna Angelo - 05/18/2023 8:17 AM EST Patient called stating she had surgery on 05/15 and is not able to go 6 hours between pain pills. Perpatient, she ended up in the ED yesterday where she was given a valium and a lidocaine patch. Patient says that she woke up today with the worst headache and difficulty swallowing. Please give her a call at [phone]. documented in this encounterHolzer Hospital02-08-2024 Miscellaneous Notes* Telephone Encounter - Hazel DominiqueCHADD - 04/21/2023 2:19 PM EST Received outside imaging report from [facility] on 04/21/23. Sent to be scanned. Hazel QureshiCHADD adan April 21, 2023 2:20 PM documented in this encounterHolzer Hospital02-06-2024 Instructions* Patient Instructions* Iqra Bagley PA-C - 04/19/2023 2:33 PM EST PATIENT PREOPERATIVE INSTRUCTIONS [facility]: [phone] --[address] [place] [address]. On your scheduled day of surgery, please report to Patient Registration, ground floor Please read below carefully for your personalized instructions. Dietary Restrictions: - No solid food after midnight. - You may have 12 ounces of clear liquids (water, clear juices such as apple juice or gatorade, carbonated beverages, clear tea, black coffee, jello) until 2 hours before scheduled arrival at facility. Medications: Unless instructed differently below, stay on all of your medications until your surgery. If you start any new medications after today's visit, please contact your surgeon. Pre-Surgery Med Instructions Medication Instructions hyoscyamine (LEVSIN) 0.125 mg tablet Do not take the day of surgery mupirocin (BACTROBAN) 2 % ointment Use as prescribed. propranolol (INDERAL) 20 mg tablet Continue - take as you normally do. LAMOTRIGINE ORAL Continue - take as you normally do. busPIRone (BUSPAR) 10 mg tablet Continue - take as you normally do. omeprazole (PRILOSEC) 40 mg capsule Take the day of surgery with a small sip of water Blood Thinning Medications: - Stop NSAIDS (Ibuprofen, Advil, Aleve, Motrin, Celebrex, Mobic, etc.) 7 days before surgery, as directed by your surgeon. - Stop Aspirin 7 days before surgery, as directed by your surgeon. - Stop Vitamin E, ALL multi-vitamins, herbals and dietary supplements 14 days before surgery. - You may take Tylenol (Acetaminophen) or any of your pain medications that do not contain aspirin or NSAIDS as needed. Important Reminders: - Candy, mints, and tobacco products are NOT permitted the morning of surgery. - Hearing aids, dentures and glasses may be worn the morning of surgery. - NO jewelry, body piercings, makeup, hairpins or contacts are to be worn the day of surgery. If you develop symptoms such as a fever, cold, or flu, or have other changes to your health within TWO DAYS of scheduled surgery or the morning of surgery, please contact the surgery center above. Personal Belongings: -Please have photo ID and insurance cards. -If you do not have a copy of advance directives on file with us, please bring a copy with you on the day of surgery. - Leave ALL valuables and money at home or with family members. For Outpatient Procedures: - YOU MUST HAVE A RESPONSIBLE MEDICAL RESEARCH SCIENTIST TAKE YOU HOME. A LINUX SUPPORT ENGINEER OR EMERGENCY MEDICAL TECHNICIAN BASIC CANNOT BE MADE A RESPONSIBLE MEDICAL RESEARCH SCIENTIST. - We recommend that a responsible person stays with you overnight to take care of you. - You cannot stay in a hotel alone after outpatient surgery. You will not be permitted to have yoursurgery, if you do not have someone to take care of you. Arrival Time for Surgery: - The Surgery Center or hospital where you are having surgery will call the afternoon before surgery (or Tuesday for Tuesday surgery) with a scheduled arrival time. - If you have not heard by 4 pm, please contact the surgery center above. Please be aware that emergency situations arise, which may delay or change your surgical time. If this happens, we will notify you as soon as possible and regret any inconvenience. If you already have an Advance Directive, please fax a copy to [phone] or email to for it to be added to your chart. If you do not have an Advance Directive, you can find the appropriate form and more information at [email or web address]. We recommend that youcomplete the Advance Directive form found on the website and bring it with you the day of your surgery. It can be witnessed and scanned into your chart that day. documented in this encounterHolzer Hospital02-05-2024 History and physical note * Iqra Bagley PA-C - 04/18/2023 4:35 PM EST Images from the original note were not included. HISTORY AND PHYSICAL EXAMINATION SERVICE DATE: 04/19/2023 SERVICE TIME: 2:05 PM PRIMARY CARE PHYSICIAN: Mallory Foster MD, MD Assessment Patient has the following medical conditions which may affect cisco-operative course: Exercise-induced asthma Assessment: Remote hx, no problems in adulthood, no inhalers. Lungs CTAB, SpO2 100% on RA. Anxiety Assessment: Stable, on RX. Bipolar II disorder (HCC) Assessment: Stable, on Lamictal. Follows with outside psych. Chronic interstitial cystitis Assessment: Stable, denies new or worsening sx. Tachycardia Assessment: Stable, managed on propranolol. Follows with outside cardiology, Dr. Burt, JUSTO 02/28/2023 Mallory Marie CNP. RRR on exam today. Records requested for chart completeness, reviewed records onpt's phone. Echo 05/2022 with normal LVEF and no valvular abnormalities, stress test 2019 without ischemia. Incomplete right bundle branch block (RBBB) Assessment: Noted on previous ECGs since 2013. GERD (gastroesophageal reflux disease) Assessment: Stable, sx managed on omeprazole. Hall Activity Status Index: METS: Climb a flight of stairs or walk up a hill (5.50 METs) DASI Score: 5.5 Patient denies any chest pain or undue shortness of breath with the above physical activity. Clinical Frailty Scale: 3. Well, with treated comorbid disease STOP-Bang Score: Snores loudly Denies feeling tired, fatigued, or sleepy during the daytime Has not been observed to stop breathing or choking/gasping during sleep Denies having high blood pressure BMI less than or equal to 35 kg/m^2 Patient 50 years old or younger Does not have a large neck Non-male patient STOP-Bang Score: 1 [id number] Score: Age: <65 Sex: female CHF history: No Hypertension history: No Stroke/TIA/thromboembolism history: No Vascular disease history: No Diabetes history: No [id number] Score: 1 ANESTHESIA FINDINGS: Intubation History: No history of difficult intubation. No abnormal airway history Significant Anesthesia Considerations: potential slow emergence Airway History: No history of difficult airway No abnormal airway history I - PHYSICAL EVALUATION AIRWAY Patient intubated: No. Tracheostomy tube not present Mallampati: II. TM distance: >3 FB. Neck ROM: full ROM without neurological symptoms. Mouth opening: adequate. Short neck: no. Thick neck: no Lip Bite Test: II Microretrognathia/Micronagthia/Recessed Chin: No DENTAL Dental findings: teeth intact. II - ANESTHESIA PLAN Anesthetic Plan: other Anesthetic plan additional comments: *PACC/TCI - anesthesia choice. Beta Lyudmila Monitoring Plan Post Procedure Analgesic Plan Prepared for Surgery: optimally prepared for surgery, pending [see comment]. LABS and ECG. CONSULTS: Patient does not require consults for optimization at this time Planned Anesthetic: other anesthesia choice The Following Tests/Procedures Have Been Initiated: Orders Placed This Encounter CBC with Differential Standing Status: Future Standing Expiration Date: 07/19/2023 CMP Standing Status: Future Standing Expiration Date: 07/19/2023 Type and Screen, 30 day Standing Status: Future Standing Expiration Date: 07/19/2023 ECG (IN OFFICE) REASON FOR VISIT: Silvestre Elise is a 37 year old female who is scheduled for Procedure(s) with comments: ARTHRODESIS ANT DISC PREP DISCECTOMY OSTEOPHYTECTOMY DECOMPRES S CORD/NERVE ROOT C' BELOW C2 (N/A) INSERT SPINE FIXATION DEVICE ADDITIONAL PROCEDURE, 2-3 VERTEBRAL SEGMENTS (N/A) SPINE ALLOGRAFT (N/A) - C5-6 anterior cervical discectomy , allograft/anchor C cage fusion at the request of Maggie Monteiro MD for consultation. My final recommendation will be communicated back to the requesting physician by way of shared medical record or letter. Subjective The patient has the following: ACTIVE PROBLEM LIST Migraine Without Aura Attention [...] Pre-Syncope Premature Atrial Contraction Paroxysmal Supraventricular Tachycardia Encounter for Sterilization Tachycardia Gerd (Gastroesophageal Reflux Disease) COVID-19 Immunization Status Overdue - Covid-19 Vaccine (2022- season) Overdue since 11/12/2022 02/19/2021 Imm Admin: COVID-19 original vaccine, full dose, monovalent (MODERNA) 04/16/2020 Imm Admin: COVID-19 original vaccine, full dose, monovalent (MODERNA) 03/19/2020 Imm Admin: COVID-19 original vaccine, full dose, monovalent (MODERNA) Only the first 3 history entries have been loaded, but more history exists. CHIEF COMPLAINT: cervical disc disorder with radiculopathy HPI: Silvestre Elise is a 37 year old female presenting for pre-anesthesia consultation. Pt has history of neck pain radiating down the left shoulder and ending over the thumb. Her pain is aggravated by neck movement and activity. She also noticed numbness over left thumb, index, middle fingerarea. Numbness is constant. She c/o difficulty gripping things with her left hand. Above procedure recommended to manage symptoms. Procedure scheduled on 05/16/2023 at . REVIEW OF SYSTEMS: General: No weight loss, malaise or fevers. Neurological: No history of TIA's, stroke, TEST CENTER MANAGER tumor, impaired sensorium, hemiplegia, paraplegia orquadraplegia. No neurological symptoms or problems. Respiratory: Positive for: asthma (remote h/o exercise-induced asthma - no problems in adulthood, no inhalers). Negative for: current cough, dyspnea, home oxygen, pneumonia within 6 weeks, tobacco use, URI < 2 weeks and obstructive sleep apnea. Cardiovascular: +Tachycardia - on propranolol, follows with outside cardiology, Dr. Burt, JUSTO 03/01/23 Mallory Marie CNP Negative for: AICD/PPM, atrial fibrillation, CHF, DVT/PE, hyperlipidemia, hypertension, recent AR, murmur/valvular heart disease, open heart surgery and valve surgery. GI: Positive for: GERD and irritable bowel syndrome Negative for: hepatitis, inflammatory bowel disease, liver disease and ETOH >2 drinks/day. : +Chronic interstitial cystitis Negative for: dysuria, hematuria and renal failure. Endocrine: No history of diabetes. Has not taken steroids within the past 30 days. No history of endocrinological symptoms or problems. Hematology: No history of bleeding or clotting disorder. Patient is not taking anti-coagulation or platelet medications. No history of hematological symptoms or problems. Oncology: No history of CA metastasis, chemo within 30 days, or radiotherapy within 90 days. No history of oncological symptoms or problems. Psych: Positive for: ADHD, anxiety, bipolar disorder and depression. Musculoskeletal: See HPI. Skin: Negative for lesions, rash and itching. PAST MEDICAL HISTORY Diagnosis Date Abnormal glandular Papanicolaou smear of cervix 10/2005 Abn. Pap smear (cervix) Acute asthmatic bronchitis 06/07/2014 Bipolar 2 disorder (HCC) 04/01/2015 Bipolar II disorder (HCC) 04/10/2015 Exercise-induced asthma 06/18/2014 Hypoglycemia Hypoglycemia, unspecified Interstitial cystitis 11/2013 PMDD (premenstrual dysphoric disorder) 12/14/2012 Pneumonia Sleep disorder Surveillance of previously prescribed intrauterine contraceptive device 01/12/08 Mirena Tinea versicolor 10/06/2009 PAST SURGICAL HISTORY Procedure Laterality Date COLONOSCOPY SCREENING COLPOSCOPY CERVIX UPPER/ADJACENT VAGINA Colposcopy CYSTOSCOPY Interstitial cystitis EGD W/O [facility] SPEC VARICIES INJ x 2 LEEP PROCEDURE ([employer])_*[place] 2007 Severe squamous dysplasia (JESSI 3) SALPINGECTOMY 06/09/2017 Laparoscopic bilateral--[facility] FAMILY HISTORY Problem Relation Age of Onset Heart Father Heart Maternal Grandmother Hypertension Maternal Grandmother Diabetes Maternal Grandmother Lipids Maternal Grandmother Arthritis Maternal Grandmother Hands other (pacemaker) Maternal Grandmother Miscarriages / Stillbirths Maternal Grandfather 34 Breast Cancer Paternal Grandmother Arthritis Paternal Grandmother Unknown type- hands like claws other (neurofibromatosis) Son Diabetes Maternal Uncle Diabetes Paternal Aunt Anesthesia Problems No Family History Social History Tobacco Use Smoking status: Never Smokeless tobacco: Never Substance Use Topics Alcohol use: Not Currently Comment: 2-3 drinks per year Drug use: No Prior to Admission medications as of 04/19/23 1412 Medication Sig Last Dose Taking hyoscyamine (LEVSIN) 0.125 mg tablet Take 0.125 mg by mouth as needed. Taking Yes mupirocin (BACTROBAN) 2 % ointment Apply 1/2 ointment with a cotton swap in each nostril 2x daily for five days preop Taking Yes propranolol (INDERAL) 20 mg tablet Take 20 mg by mouth once daily. Taking Yes LAMOTRIGINE ORAL Take 50 mg by mouth once daily. Taking Yes busPIRone (BUSPAR) 10 mg tablet Take 10 mg by mouth once daily. Taking Yes omeprazole (PRILOSEC) 40 mg capsule Take 40 mg by mouth once daily. Taking Yes No medication comments found. ALLERGIES No Known Allergies Objective PHYSICAL EXAM: General: alert and oriented and healthy appearance. Pertinent negatives noted - not distressed. Skin: normal color, no rash or lesions. HEENT: EOM intact and pupils equal round. Pertinent negatives noted - no carotid bruit. Cardiovascular: regular rate and rhythm, normal S1 and S2, no rub, murmurs, or gallop. Pulse characterized as regular.No radial pulse abnormalities. Respiratory: normal breath sounds, no wheezes or crackles. Abdomen: Pertinent negatives noted - not distended. Extremities: no deformity, no edema or tenderness, no joint swelling or clubbing. Neurological: normal cognition and motor skills. Gait normal. No weakness or sensory deficit. PAIN ASSESSMENT: Pain Pain Level: 3 Pain Location: Arm-Left Description: Numbness, Tingling Frequency: Intermittent VITALS: BP 116/72 Pulse 70 Temp 98.3 Resp 16 Ht 5' 2 (1.58m) Wt 119 lb (54.0kg) SpO2 100% LMP 03/15/2023 BMI 21.76 kg/(m^2). Diagnostic tests reviewed for today's visit: Lab Value Units Date High Low HB No results within date range. HCT No results within date range. WBC No results within date range. PLT No results within date range. NA No results within date range. K No results within date range. GLUC No results within date range. BUN No results within date range. CREAT No results within date range. PTSEC No results within date range. INR No results within date range. APTT No results within date range. ALT No results within date range. AST No results within date range. TBILI No results within date range. TSH No results within date range. Lab Value Units Date High Low HCGQT No results within date range. UHCG No results within date range. HCG, BODY* No results within date range. Lab Value Units Date High Low ABORHD No results within date range. ABSCREEN No results within date range. No results found for: HBA1C No results found for this or any previous visit (from the past 8760 hour(s)). Echo 05/24/2022 (scanned in Epic) Instructions Given to Patient: Instructions located in the after visit summary. Patient given verbal and written preop instructions and voices comprehension and compliance. SIGNATURE: Iqra Bagley PA-C PATIENT NAME: Silvestre Elise DATE: April 19, 2023 TIME: 2:05 PM PAGER/CONTACT #: documented in this encounterHolzer Hospital02-01-2024 NoteHNO ID: [id number] Author: LORETTA BANEGAS RT(R) Service: Radiology Author Type: Acid Blower Type: Progress Notes Filed: 04/14/2023 10:10 Note Text: Radiology Service Progress Note PATIENT NAME: Silvestre Elise DATE OF SERVICE: April 14, 2023 TIME: 10:01 AM PATIENT IDENTITY VERIFICATION COMPLETED USING TWO [...] PATIENT RELEVANT IMPLANT DATA REVIEWED: Not Applicable PATIENT PRESENTS WITH AN IMPLANTABLE OR ATTACHED MORTGAGE PROTECTION SALES: No RADIOLOGY DEPARTMENT: General X-ray: Exam(s) Completed: Spine X-Ray(s): Cervical AP / LAT / FLEX-EXT PERIPHERAL IV DATA: Not applicable SIGNED BY: RT Christopher(Tacos) April 14, 2023 10:01 [id number] History of Present illness Narrative* Loretta Banegas RT(R) - 04/14/2023 10:00 AM EST Radiology Service Progress Note PATIENT NAME: Silvestre Elise DATE OF SERVICE: April 14, 2023 TIME: 10:01 AM PATIENT IDENTITY VERIFICATION COMPLETED USING TWO (2) IDENTIFIERS: Name and Date of confirmedby patient verbally and Name and Date of confirmed by identification band. FALL SCREENING: Has the patient had 2 falls in the last year or 1 fall with injury or currently using an Ambulatory Assistive Device (Walker, Cane, Wheelchair, Crutches, etc.)? No PATIENT GENDER DATA: Female. status: : No status: NO. PATIENT RELEVANT IMPLANT DATA REVIEWED: Not Applicable PATIENT PRESENTS WITH AN IMPLANTABLE OR ATTACHED MORTGAGE PROTECTION SALES: No RADIOLOGY DEPARTMENT: General X-ray: Exam(s) Completed: Spine X-Ray(s): Cervical AP / LAT / FLEX-EXT PERIPHERAL IV DATA: Not applicable SIGNED BY: RT Christopher(R) April 14, 2023 10:01 AM documented in this encounterHolzer Hospital02-01-2024 NoteHNO ID: [id number] Author: MAGGIE GUZMAN MD Service: ? Author Type: Physician Type: Progress Notes Filed: 04/14/2023 12:52 Note Text: SPINE SURGERY ESTABLISHED This is an in-person visit. DATE OF SERVICE: 04/14/2023 DATE OF LAST VISIT: 01/20/2021 SUBJECTIVE: HPI:Silvestre Elise is a 37 year old female presenting with spouse. Silvestre Elise is a pleasant 37 year old female is in spine surgery clinic for follow-up visit. She was evaluated on 01/20/2021 with history of right lateral leg pain, radiate to the lateral part of the right leg up to the big toe. Back pain is there for many years, leg pain started few months ago. She says the pain is constant, it is worse with activity. Has numbness over right L5 distribution. Denies weakness. Denies bowel or bladder dysfunction. Received caudal epidural injection with good pain relief for few months. She also received interlaminar epidural injection with minimal pain relief. Tried gabapentin in the past and stopped it due to intolerance. Her pain management doctor gave prescription for Lyrica yesterday however she is not yet started. No previous spine surgery. Now she has minimal lower back and leg pain. She is continuing conservative treatment for lower back pain. Today major complaint is neck pain radiating down the left shoulder and ending over the thumb. Her pain is aggravated by neck movement and activity. She also noticed numbness over left thumb, index, middle finger area. Numbness constant. Numbness is more bothersome than pain. She also has a difficulty gripping things with her left hand. Denies right arm pain and numbness. Denies imbalance. No bowel or bladder dysfunction. Tried Medrol Dosepak. Tried gabapentin for a day and stopped it due to intolerance. No recent cervical epidural injections. PAIN EVALUATION 04/13/2023 0422 04/14/2023 0924 Pain Level: 5 7 Pain Location: Neck Neck Description: Aching;Burning;Numbness;Tightness;Tingling Burning;Aching;Dull;Pressure Duration Amount of Time: 4 3 Duration Units: Months Months Frequency: Continuous Continuous Intervention/Comfort measure: Medication;Reposition;Heat;Pillow support -- Pain Radiation: from the neck to the left shoulder(s) and left finger(s) Aggravating Factors: Movement, Sitting on the bleachers Alleviating Factors: Medications Pain Ratio: Pain in the neck is greater than in the arm AMBULATORY STATUS: Independent Community Distances ANTIPLATELET OR ANTICOAGULATION STATUS: No PREVIOUS CONSERVATIVE TREATMENTS: Gabapentin Baclofen Prednisone Acupuncture REVIEW OF SYSTEMS: GENERAL: No weight loss or malaise MUSCULOSKELETAL: Negative for joint pain, swelling or muscle pain NEURO: No history of headaches, syncope, paralysis, seizures or tremors MEDICATIONS: propranolol (INDERAL) 20 mg tablet lamoTRIgine (LAMICTAL) 200 mg tablet Take 50 mg by mouth once daily. busPIRone (BUSPAR) 10 mg tablet omeprazole (PRILOSEC) 40 mg capsule Take by mouth. vit/iron fum/folic ac ( VITAMIN ORAL) Take by mouth once daily. (Patient not taking: Reported on 01/20/2021 ) RANITIDINE HCL (ZANTAC ORAL) Take by mouth as needed. (Patient not taking: Reported on 01/20/2021 ) albuterol HFA (VENTOLIN HFA) 90 mcg/actuation inhaler Inhale 2 Puffs as instructed every 4 hours as needed for Wheezing/Shortness of Breath. (Patient not taking: Reported on 01/20/2021 ) Patient Entered Questionnaires Spine Questions 04/13/2023 Pain Location: Neck Pain Duration: 3-6 months Pain over last 6 months: Every day or nearly every day in the past 6 months Symptoms from neck/cervical spine: Yes Employment Status: Working now Involved in law suit/legal claim: No Neck Questionnaires 04/13/2023 Benzel Modified CRIS Score 15 (A lower score indicates increased pain and issues.) PROMIS Score Percentiles Physical Health 04/13/2023 Physical Function Percentile 18* Sleep Percentile 14 Fatigue Percentile 16* Pain Interference Percentile 8 PROMIS SOCIAL ROLE SCORE 04/13/2023 Social Role Satisfaction Percentile 31 PROMIS Global Health Scale 04/13/2023 Physical Health Percentile 22* Mental Health Percentile 34 Percentiles provide an indication of how the patient's score ranks in relation to the general population. Higher percentile rankings indicate better function/quality of life. 50th percentile is the average of the general population and indicates half of respondents had a worse score. Depression Screening: PHQ-9 08/12/2010 10/21/2010 04/13/2023 Score 10 11 7 PHQ-9 Self-harm Question 08/12/2010 10/21/2010 04/13/2023 Thoughts that you would be better off , or of hurting yourself in some way 0 0 0 PHQ-9 Self-Harm (Item 9) response options: 0 Not at all 1 Several days 2 More than half the days 3 Nearly every day PHQ-9 Levels: 0-4 No to mild depression 5-9 Mild depression 10-14 Moderate depression 15-19 Moderate (more content not included)...[facility] 04-14-2023 History of Present illness Narrative* Maggie Guzman MD - 04/14/2023 9:34 AM EST Images from the original note were not included. SPINE SURGERY ESTABLISHED This is an in-person visit. DATE OF SERVICE: 04/14/2023 DATE OF LAST VISIT: 01/20/2021 SUBJECTIVE: HPI:Silvestre Elise is a 37 year old female presenting with spouse. Silvestre Elise is a pleasant 37 year old female is in spine surgery clinic for follow-up visit. She was evaluated on 01/20/2021 with history of right lateral leg pain, radiate to the lateral part of the right leg up to the big toe. Back pain is there for many years, leg pain started few monthsago. She says the pain is constant, it is worse with activity. Has numbness over right L5 distribution. Denies weakness. Denies bowel or bladder dysfunction. Received caudal epidural injection with good pain relief for few months. She also received interlaminar epidural injection with minimal pain relief. Tried gabapentin in the past and stopped it due tointolerance. Her pain management doctor gave prescription for Lyrica yesterday however she is not yet started. No previous spine surgery. Now she has minimal lower back and leg pain. She is continuing conservative treatment for lower back pain. Today major complaint is neck pain radiating down the left shoulder and ending over the thumb. Her pain is aggravated by neck movement and activity. She also noticed numbness over left thumb, index, middle finger area. Numbness constant. Numbness is more bothersome than pain. She also has a difficulty gripping things with her left hand. Denies right arm pain and numbness. Denies imbalance. No bowel or bladder dysfunction. Tried Medrol Dosepak. Tried gabapentin for a day and stopped it due to intolerance. No recent cervical epidural injections. PAIN EVALUATION 04/13/2023 0422 04/14/2023 0924 Pain Level: 5 7 Pain Location: Neck Neck Description: Aching;Burning;Numbness;Tightness;Tingling Burning;Aching;Dull;Pressure Duration Amount of Time: 4 3 Duration Units: Months Months Frequency: Continuous Continuous Intervention/Comfort measure: Medication;Reposition;Heat;Pillow support -- Pain Radiation: from the neck to the left shoulder(s) and left finger(s) Aggravating Factors: Movement, Sitting on the bleachers Alleviating Factors: Medications Pain Ratio: Pain in the neck is greater than in the arm AMBULATORY STATUS: Independent Community Distances ANTIPLATELET OR ANTICOAGULATION STATUS: No PREVIOUS CONSERVATIVE TREATMENTS: Gabapentin Baclofen Prednisone Acupuncture REVIEW OF SYSTEMS: GENERAL: No weight loss or malaise MUSCULOSKELETAL: Negative for joint pain, swelling or muscle pain NEURO: No history of headaches, syncope, paralysis, seizures or tremors MEDICATIONS: propranolol (INDERAL) 20 mg tablet lamoTRIgine (LAMICTAL) 200 mg tablet Take 50 mg by mouth once daily. busPIRone (BUSPAR) 10 mg tablet omeprazole (PRILOSEC) 40 mg capsule Take by mouth. vit/iron fum/folic ac ( VITAMIN ORAL) Take by mouth once daily. (Patient not taking: Reported on 01/20/2021 ) RANITIDINE HCL (ZANTAC ORAL) Take by mouth as needed. (Patient not taking: Reported on 01/20/2021 ) albuterol HFA (VENTOLIN HFA) 90 mcg/actuation inhaler Inhale 2 Puffs as instructed every 4 hours asneeded for Wheezing/Shortness of Breath. (Patient not taking: Reported on 01/20/2021 ) Patient Entered Questionnaires Spine Questions 04/13/2023 Pain Location: Neck Pain Duration: 3-6 months Pain over last 6 months: Every day or nearly every day in the past 6 months Symptoms from neck/cervical spine: Yes Employment Status: Working now Involved in law suit/legal claim: No Neck Questionnaires 04/13/2023 Benzel Modified CRIS Score 15 (A lower score indicates increased pain and issues.) PROMIS Score Percentiles Physical Health 04/13/2023 Physical Function Percentile 18* Sleep Percentile 14 Fatigue Percentile 16* Pain Interference Percentile 8 PROMIS SOCIAL ROLE SCORE 04/13/2023 Social Role Satisfaction Percentile 31 PROMIS Global Health Scale 04/13/2023 Physical Health Percentile 22* Mental Health Percentile 34 Percentiles provide an indication of how the patient's score ranks in relation to the general population. Higher percentile rankings indicate better function/quality of life. 50th percentile is the average of the general population and indicates half of respondents had a worse score. Depression Screening: PHQ-9 08/12/2010 10/21/2010 04/13/2023 Score 10 11 7 PHQ-9 Self-harm Question 08/12/2010 10/21/2010 04/13/2023 Thoughts that you would be better off , or of hurting yourself in some way 0 0 0 PHQ-9 Self-Harm (Item 9) response options: 0 Not at all 1 Several days 2 More than half the days 3 Nearly every day PHQ-9 Levels: 0-4 No to mild depression 5-9 Mild depression 10-14 Moderate depression 15-19 Moderately severe depression 20-27 Severe depression OBJECTIVE: PHYSICAL EXAM: [facility] 03/15/2023 GENERAL APPEARANCE: Well nourished, well developed, and no apparent distress. NEURO PSYCH: Patient oriented to person, place, and time. Mood pleasant. Benign affect. MUSCULOSKELETAL VISUAL INSPECTION CERVICAL: WNL THORACIC: WNL LUMBAR: WNL MOTOR: 5/5 in all muscle groups. SENSORY: Normal sensory exam except decreased sensation over left C6 dermatomal distribution GAIT: Normal. Tandem walking is possible NEURO TESTS: Cranial Nerves: Normal mood and affect. CNII-XII grossly intact. 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 She was evaluated on 01/20/2021 with history of right lateral leg pain, radiate to the lateral part of the right leg up to the big toe. Back pain is there for many years, leg pain started few monthsago. She says the pain is constant, it is worse with activity. Has numbness over right L5 distribution. Denies weakness. Denies bowel or bladder dysfunction. Received caudal epidural injection with good pain relief for few months. She also received interlaminar epidural injection with minimal pain relief. Tried gabapentin in the past and stopped it due tointolerance. Her pain management doctor gave prescription for Lyrica yesterday however she is not yet started. No previous spine surgery. Now she has minimal lower back and leg pain. She is continuing conservative treatment for lower back pain. Today major complaint is neck pain radiating down the left shoulder and ending over the thumb. Her pain is aggravated by neck movement and activity. She also noticed numbness over left thumb, index, middle finger area. Numbness constant. Numbness is more bothersome than pain. She also has a difficulty gripping things with her left hand. Denies right arm pain and numbness. Denies imbalance. No bowel or bladder dysfunction. Tried Medrol Dosepak. Tried gabapentin for a day and stopped it due to intolerance. No recent cervical epidural injections. Neurological examination showed range of neck motion is minimally restricted. Decreased sensation over left C6 dermatomal distribution. No motor weakness. Stable gait. MRI cervical spine showed degenerative changes more at C5-6 level. Central, left paracentral disc herniation causing mild cord compression as well as severe impingement for left-sided foraminal/root.No myelomalacia changes. MRI lumbar spine showed small right paracentral disc herniation at L4-5 level with mild impingement over right L5 root. Discussed clinical, imaging finding. Showed images and explained in detail. Discussed treatment option for cervical disc herniation with radiculopathy which includes continued conservative treatment with neck exercise, physical therapy, pain medication, left C5-6 transforaminal epidural injection and surgical intervention. Considering failed conservative treatment, daily activity is limited due to pain, I think surgery is a good option. Discussed in detail about C5-6 anterior cervical discectomy, allograft/ Dennis C cage fusion surgical procedure, its advantages and risks. Risks of surgery includes infection, bleeding, hematoma formation, nonhealing of wound, wound dehiscence, superficial infection, CSF leak, nerve damage, spinal cord injury, spinal cord damage, nonimprovement of pain, nonimprovement of numbness, quadriparesis/limb weakness, shoulder abduction weakness, screw malposition, vertebral body fracture, screw loosening, screw pullout, pseudoarthrosis/nonhealing of bone graft, adjacent segment disc disease, requirement of further surgery, swallowing difficulty, hoarseness of voice, carotid injury, tracheoesophageal injury, visual dysfunction, vision loss, stroke, pneumonia, DVT, heart attack, pulmonary embolism, bowel/bladder dysfunction and . All questions were answered. Silvestre Elise is clinically indicated and wishes to pursue C5-6 anterior cervical discectomy, allograft/ Dennis C cage fusion The risks, benefits, and anticipated outcomes of the procedure/treatment/test, the alternatives to the procedure/treatment/test and their risks and benefits, and the roles and tasks of the personnel to be involved were discussed with the patient or the patient s personal publications sales representative. The patient has elected to schedule surgery at this time or intends to call the office with a surgical date. Shared decision making occurred while obtaining informed consent. The majority of the visit was spent counseling and/or coordinating care for the patient. The patient was counseled regarding neck pain, left arm pain, left arm numbness, hand master lay out specialist weakness, cervical disc herniation, cervical foraminal stenosis, cervical discectomy and fusion. Total face to face time was 25 minutes. SIGNATURE: Maggie Guzman MD PATIENT NAME: Silvestre Elise DATE: April 14, 2023 TIME: 9:34 AM [facility] NotePap Smear Specimen AdequacyDecember 2021 11:59amComment.Satisfactory for evaluation. Endocervical and/or squamous metaplasticcells (endocervical component)are present.[facility] A[facility][id number][facility] Work Phone: Comment on above:Satisfactory for evaluation. Endocervical and/or squamous metaplasticcells (endocervical component)are present.02-11-2022 NotePap Smear Specimen AdequacyDecember 2021 12:59pm Comment.Satisfactory for evaluation. Endocervical and/or squamous metaplasticcells (endocervical component)are present.[facility] A#[id number]. Charles HospitalComment on above:Satisfactory for evaluation. Endocervical and/or squamous metaplasticcells (endocervical component)are present.06-07-2014 History of Past illness Narrative* Problem Noted Date Diagnosed Date Resolved Date Acute asthmatic bronchitis 06/07/2014 0 08/19/2014 Right renal mass 11/09/2013 06/07/2014 Tinea versicolor 10/06/2009 08/19/2014 Anxiety 05/28/2009 12/14/2012 Adjustment disorder with depressed mood 08/22/2008 12/14/2012 Pityriasis versicolor 07/26/20052014 documented as of this encounter (statuses as of 04/15/2023) [facility] of Past illness Narrative* Problem Noted Date Diagnosed Date Resolved Date Acute asthmatic bronchitis 06/07/2014 0 08/19/2014 Right renal mass 11/09/2013 06/07/2014 Tinea versicolor 10/06/2009 08/19/2014 Anxiety 05/28/2009 12/14/2012 Adjustment disorder with depressed mood 08/22/2008 12/14/2012 Pityriasis versicolor 07/26/20052014 documented as of this encounter (statuses as of 04/15/2023) [facility] of Past illness Narrative* Problem Noted Date Diagnosed Date Resolved Date Acute asthmatic bronchitis 06/07/2014 0 08/19/2014 Right renal mass 11/09/2013 06/07/2014 Tinea versicolor 10/06/2009 08/19/2014 Anxiety 05/28/2009 12/14/2012 Adjustment disorder with depressed mood 08/22/2008 12/14/2012 Pityriasis versicolor 07/26/20052014 documented as of this encounter (statuses as of 04/20/2023) [facility] of [facility] illness Narrative* Problem Noted Date Diagnosed Date Resolved Date Acute asthmatic bronchitis 06/07/2014 0 08/19/2014 Right renal mass 11/09/2013 06/07/2014 Tinea versicolor 10/06/2009 08/19/2014 Anxiety 05/28/2009 12/14/2012 Adjustment disorder with depressed mood 08/22/2008 12/14/2012 Pityriasis versicolor 07/26/20052014 documented as of this encounter (statuses as of 04/21/2023) [facility] of [facility] illness Narrative* Problem Noted Date Diagnosed Date Resolved Date Acute asthmatic bronchitis 06/07/2014 0 08/19/2014 Right renal mass 11/09/2013 06/07/2014 Tinea versicolor 10/06/2009 08/19/2014 Anxiety 05/28/2009 12/14/2012 Adjustment disorder with depressed mood 08/22/2008 12/14/2012 Pityriasis versicolor 07/26/20052014 documented as of this encounter (statuses as of 05/12/2023) [facility] illness Narrative* Problem Noted Date Diagnosed Date Resolved Date Acute asthmatic bronchitis 06/07/2014 0 08/19/2014 Right renal mass 11/09/2013 06/07/2014 Tinea versicolor 10/06/2009 08/19/2014 Anxiety 05/28/2009 12/14/2012 Adjustment disorder with depressed mood 08/22/2008 12/14/2012 Pityriasis versicolor 07/26/20052014 documented as of this encounter (statuses as of 05/18/2023) [place] [id number] History of Past illness Narrative* Problem Noted Date Diagnosed Date Resolved Date Acute asthmatic bronchitis 06/07/2014 0 08/19/2014 Right renal mass 11/09/2013 06/07/2014 Tinea versicolor 10/06/2009 08/19/2014 Anxiety 05/28/2009 12/14/2012 Adjustment disorder with depressed mood 08/22/2008 12/14/2012 Pityriasis versicolor 07/26/20052014 documented as of this encounter (statuses as of 05/31/2023) [facility] Narrative* Problem Noted Date Diagnosed Date Resolved Date Acute asthmatic bronchitis 06/07/2014 0 08/19/2014 Right renal mass 11/09/2013 06/07/2014 Tinea versicolor 10/06/2009 08/19/2014 Anxiety 05/28/2009 12/14/2012 Adjustment disorder with depressed mood 08/22/2008 12/14/2012 Pityriasis versicolor 07/26/20052014 documented as of this encounter (statuses as of 06/28/2023) [facility] Narrative* Problem Noted Date Diagnosed Date Resolved Date Acute asthmatic bronchitis 06/07/2014 0 08/19/2014 Right renal mass 11/09/2013 06/07/2014 Tinea versicolor 10/06/2009 08/19/2014 Anxiety 05/28/2009 12/14/2012 Adjustment disorder with depressed mood 08/22/2008 12/14/2012 Pityriasis versicolor 07/26/20052014 documented as of this encounter (statuses as of 06/29/2023) [facility] Narrative* Problem Noted Date Diagnosed Date Resolved Date Acute asthmatic bronchitis 06/07/2014 0 08/19/2014 Right renal mass 11/09/2013 06/07/2014 Tinea versicolor 10/06/2009 08/19/2014 Anxiety 05/28/2009 12/14/2012 Adjustment disorder with depressed mood 08/22/2008 12/14/2012 Pityriasis versicolor 07/26/20052014 documented as of this encounter (statuses as of 06/29/2023) [facility] Narrative* Problem Noted Date Diagnosed Date Resolved Date Acute asthmatic bronchitis 06/07/2014 0 08/19/2014 Right renal mass 11/09/2013 06/07/2014 Tinea versicolor 10/06/2009 08/19/2014 Anxiety 05/28/2009 12/14/2012 Adjustment disorder with depressed mood 08/22/2008 12/14/2012 Pityriasis versicolor 07/26/20052014 documented as of this encounter (statuses as of 06/29/2023) [facility] note* Diagnosis Onset Date Resolution Status GERD (gastroesophageal reflux disease) acute Intestinal angina acute Ischemic colitis acute [facility] Work Phone: evaluation note* Diagnosis Onset Date Resolution Status GERD (gastroesophageal reflux disease) acute Intestinal angina acute Ischemic colitis acute GERD (gastroesophageal reflux disease) acute Abdominal pain acute Altered bowel function acute Gastritis acute GERD (gastroesophageal reflux disease) acute [facility] Work Phone: Evaluation note* Diagnosis Onset Date Resolution Status GERD (gastroesophageal reflux disease) acute Abdominal pain acute Altered bowel function acute Gastritis acute GERD (gastroesophageal reflux disease) acute [facility] Work Phone: Evaluation note* Diagnosis Onset Date Resolution Status Encounter for routine gynecological examination noneactive [facility] Work Phone: evaluation note* Diagnosis Onset Date Resolution Status Encounter for routine gynecological examination noneactive Chest pain acute Tachycardia acute Near syncope resolved [facility] Work Phone: Evaluation note* Diagnosis Onset Date Resolution Status Chest pain acute Tachycardia acute Near syncope resolved [facility] Work Phone: evaluation note* Diagnosis Onset Date Resolution Status Tachycardia acute Near syncope resolved [facility] Work Phone: evaluation note* Diagnosis Onset Date Resolution Status Breast lump acute Pelvic pain acute Well woman exam with routine gynecological exam acute Tachycardia acute Near syncope resolved Herniated nucleus pulposus, C5-[address] [facility] Work Phone: Evaluation note* Diagnosis Cervical disc disorder with radiculopathy- Primary Brachial neuritis or radiculitis nos documented in this encounter [facility] note* Diagnosis Cervical disc disorder with radiculopathy Brachial neuritis or radiculitis nos documented in this encounter [facility] note* Diagnosis Pre-op evaluation- Primary Preoperative examination, unspecified Cervical disc disorder with radiculopathy Brachial neuritis or radiculitis nos [facility] Diagnosis Preoperative examination- Primary Preoperative examination, unspecified Pre-op evaluation Preoperative examination, unspecified Exercise-induced asthma Exercise induced bronchospasm Anxiety Anxiety state, unspecified Bipolar II disorder (HCC) Other bipolar disorders Chronic interstitial cystitis Tachycardia Tachycardia, unspecified Incomplete right bundle branch block (RBBB) Gastroesophageal reflux disease, unspecified whether esophagitis present Cervical disc disorder with radiculopathy Brachial neuritis or radiculitis nos [facility] Diagnosis Cervical vertebral fusion- Primary Other unspecified back disorder documented in this encounter [facility] note* Diagnosis Status post cervical spinal fusion- Primary Arthrodesis status documented in this encounter [facility] note* Diagnosis Status post cervical spinal fusion Arthrodesis status documented in this encounter [facility] note* Diagnosis Onset Date Resolution Status Herniated nucleus pulposus, C5-6 acute Herniated nucleus pulposus, C5-[address] [facility] Work Phone: evaluation note* Diagnosis Cervical vertebral fusion Other unspecified back disorder documented in this encounter [facility] note* Diagnosis Cervical vertebral fusion- Primary Other unspecified back disorder documented in this encounter [facility] note* Diagnosis Preoperative examination- Primary Preoperative examination, unspecified Pre-op evaluation Preoperative examination, unspecified Exercise-induced asthma Exercise induced bronchospasm Anxiety Anxiety state, unspecified Bipolar II disorder (HCC) Other bipolar disorders Chronic interstitial cystitis Tachycardia Tachycardia, unspecified Incomplete right bundle branch block (RBBB) Gastroesophageal reflux disease, unspecified whether esophagitis present S/P spinal surgery Other postprocedural status documented in this encounter [facility] note* Diagnosis Preoperative examination- Primary Preoperative examination, unspecified Pre-op evaluation Preoperative examination, unspecified Exercise-induced asthma Exercise induced bronchospasm Anxiety Anxiety state, unspecified Bipolar II disorder (HCC) Other bipolar disorders Chronic interstitial cystitis Tachycardia Tachycardia, unspecified Incomplete right bundle branch block (RBBB) Gastroesophageal reflux disease, unspecified whether esophagitis present Cervical disc disorder with radiculopathy- Primary Brachial neuritis or radiculitis nos documented in this encounter [facility] noteNo assessment information availableWProMed[facility] Work Phone: Evaluation note* Diagnosis Onset Date Resolution Status Admit Date Abdominal pain acute December 03, 2024 8:43am Dyspareunia, female acute Septe mber 2024 8:43am Mixed incontinence acute Septem preston 2024 8:43am Nocturia acute November 8:43am Interstitial cystitis (chronic) with hematuria chronic Septemb er 2024 8:43am [facility] Work Phone: Progress note Author Brissa Huerta [facility] Services Note Date/Time December 03, 2024 9:35am [facility] [address], [address] [place] [address] OFFICE VISIT Date of Service: 12/03/24 MR#: [id number] Acct: [id number] Name: SILVESTRE ELISE CARLITA Thorne p #: [id number] : 1985 Provider: Dr. Marguerite Huerta MD Age/Sex: 38/F Location: [facility] [place] Status: Signed Intake Vital Signs 04/30/24 10:00 12/03/24 08:59 Height 5 ft 2 in 5 ft 2 in Weight: 125 lb BMI 22.8 BP 106/81 H Pulse 71 Intake Visit Reasons: urinary frequency Chief Complaint: new patient- IC and urinary frequency, history and physical exam Commercial Illustrator Required: No Accompanied by: self Is patient in pain?: Yes (heavy tenderness in her pelvis constantly. ) Pain scale (1-10): 5 Allergies No Known Allergies Allergy (Verified 12/03/24 08:58) Medications ?Medication ?Instructions ?Recorded ?Confirmed ?Type omeprazole 40 mg capsule,delayed 40 mg PO DAILY PRN 12/03/24 History release lamotrigine 100 mg tablet 100 mg PO QDAY 04/30/2411/13 History propranolol 20 mg tablet 20 mg PO DAILY #90 tabs 05/0 12/0612/03/24 Rx ascorbate calcium (vitamin C) 500 500 mg PO QDAY 12/0312/03/24 History mg tablet Nurse's Note: diagnosed with IC several years ago and has never followed a urologist. Having hematuria on Dip at PCP office. urinary frequency. Bladder scan PVR 2CC [facility] Medical History (Updated 12/03/24 @ 09:[address] Brissa Huerta MD) Mixed incontinence Nocturia Interstitial cystitis (chronic) with hematuria Dyspareunia, female Interstitial cystitis Hematuria Chronic right lower quadrant pain Wears contact lenses Anxiety Back pain History of IBS Non-smoker History of pain when walking Cardiology follow-up encounter History of echocardiogram Hypotension History of stress test Ischemic colitis Intestinal angina Vasovagal syncope Interstitial cystitis Asthma Migraines Fatigue History of palpitations Incomplete right bundle branch block Supraventricular tachycardia, paroxysmal Other chest pain Premature atrial contractions Near syncope Dizziness Surgical History H/O LEEP History of wisdom tooth extraction History of esophagogastroduodenoscopy (EGD) History of cystoscopy History of dilatation and curettage History of salpingectomy Family History Father Paroxysmal atrial fibrillation Alcoholism Grandmother Heart disease CAD (coronary artery disease) CABG Pacemaker Breast cancer Grandfather , Age 37 Myocardial infarction Mother Rheumatoid arthritis Glaucoma Arthritis Depression Social History household members: spouse and children housing: house number of children: 5 current occupational status: employed 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 She is here for evaluation and management of interstitial cystitis. She was diagnosed with this and management previously by who has sinceleft. This was at [facility], she was seen once at the [facility], did not have a great experience with it. She has had hydrodistention, instillations etc. She was on one previous oral medication for the frequency, but she is not great with pills. She had DMSO, other instillations and even did them on her own at home. She has blood on dipstick but not visible. She has issues with urgency and frequency. She has been following IC diet elimination. She reports that her symptoms are not as bad as they were previously. She is voiding at least 10 times during the day, 1-2 or more times at night. Wastested for sleep apnea that was negative. 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 She has lots of pain when she works and is not able to void when she needs to. 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 There is urge incontinence where she cannot make it to the bathroom. There is stress incontinence with cough, laugh, sneeze, lifting, etc. She is using liner pads in 24 hours. She has had no urinary tract infections in the last year. She has not had visible blood in her urine. She is sexually active. There is pain with intercourse. She has chronic continuous right lower pinpoint abdominal pain. Fallopian tubes have been removed, she doesn't know if it is scar tissue, intercourse increases this pain. There is no sensation of vaginal bulging. She has the following issues with chronic bowel function: occasionally is splinting. This is since childbirth. No actual constipation. She has no history of smoking. There is no history of blood clots or easy bleeding. She did have a neck injury that required surgical intervention. She rolled over in bed funny and then stretched funny getting son out of car once. Not sure how it actually happened. ROS Const Constitutional: Positive for abnormal sleep pattern (light sleeper, no sleep apnea on sleep study); No chills, fatigue, fever(s), headache(s), night sweats, weakness, weight changeor change in appetite Eyes Eyes: No change in vision ENT ENT: No headache(s) or dry mouth Resp Respiratory: No cough, chest congestion, shortness of breath or wheezing Cardio Cardiology: Positive for other (No chest pain.); No shortness of breath, irregular heart rhythm or lightheadedness Gastro GI: Positive for abdominal pain (right lower quadrant see above) and other (significant GERD); No change in bowel habits, constipation, diarrhea or vomiting Musc Musculoskeletal: No abnormal gait Skin Skin: No yellowing of the eye, lesions, itchy eyes, rash or skin ulcer Neuro Neurology: No abnormal gait, confusion, dizziness, weakness, headache(s) or memory loss Psych Psychiatric: Positive for abnormal sleep pattern (light sleeper, no sleep apnea on sleep study), No change in appetite, No confusion and No memory loss Endo Endocrine: No fatigue, increased thirst/drinking or weight change Aller/Imm Allergy/Immunologic: No itchy eyes or wheezing Stefan/Lymp Hematologic/Lymphatic: No easy bleeding, easy bruising or enlarged lymph nodes Exam Const General: cooperative, healthy appearing, comfortable and no acute distress [facility] Head: normocephalic and atraumatic Ears: hearing grossly normal bilaterally and external ears normal Nose: external nose normal Eyes General: appearance normal, both eyes and all related structures Neck Neck: normal visual inspection and trachea midline Chest Chest palpation & inspection: normal inspection of the chest Resp Effort & Inspection: normal respiratory effort, able to speak in complete sentences and symmetric chest movement Cardio Rate: regular rate GI Inspection: normal to inspection Palpation: soft and nontender General: No CVA tenderness Skin General: no rashes or lesions noted Neuro General: patient alert, patient awake, patient oriented x3 and CN's II-XI intactbilaterally Extrem General: normal to inspection Psych Appearance: grossly normal and well kempt Mental Status: mental status grossly normal Office Procedures Post Void Residual Post Void Residual: 2cc Results POC Urinalysis w/Micro Office Urine Color Last Edit by Elaine Taylor on 12/03/24 09:04 Office Urine Clarity Last Edit by Elaine Taylor on 12/03/24 09:04 Office Urine Glucose Negative Last Edit by Elaine Taylor on 12/03/24 09:0 4 Office Urine Ketones Negative Last Edit by Elaine Taylor on 12/03/24 09:0 4 Office Urine Bilirubin Small (1+) Last Edit by Elaine Taylor on 12/03/24 09:04 Office Urine Urobilinogen 0.2 mg/dL Last Edit by Elaine Taylor on 5 09:04 Off Ur Spec Howe 1.025 Last Edit by Elaine Taylor on 12/03/24 09:04 Office Urine pH 5.5 Last Edit by Elaine Taylor on 12/03/24 09:04 Office Urine Protein Trace Last Edit by Elaine Taylor on 12/03/24 09:04 Office Urine Blood Moderate Last Edit by Elaine Taylor on 12/03/24 09:04 Office Urine Blood Hemolyzed Negative Last Edit by Elaine Taylor on 12/03 09:04 Office Urine Nitrate Negative Last Edit by Elaine Taylor on 12/03/24 09:0 4 Off Ur Leukocytes Negatve Last Edit by Elaine Taylor on 12/03/24 09:04 Off Ur WBC Microscopic Last Edit by Elaine Taylor on 12/03/24 09:04 Off Ur RBC Microscopic Last Edit by Elaine Taylor on 12/03/24 09:04 Off Ur Bacteria Microscopic Last Edit by Elaine Taylor on 12/03/24 09:[address] done in 2020 negative for urologic pathology pics of previous hydrodistention with extensive glomerulations and injection Coding Level of Care Code Off vis,new,level 4 Diagnoses Interstitial cystitis (chronic) with hematuria N30.11 Abdominal pain R10.9 Dyspareunia, female N94.10 Nocturia R35.1 Mixed incontinence N39.46 Assessment and Plan Assessment and Plan (1) Interstitial cystitis (chronic) with hematuria: Status: Chronic (2) Abdominal pain: Status: Acute (3) Dyspareunia, female: Status: Acute (4) Nocturia: Status: Acute (5) Mixed incontinence: Status: Acute Orders: Orders POC UA Automated w/Microscopy Today R31.9 - Hematuria, unspecified PVR Today R35.1 - Nocturia Plan IC diet elimination/level one management Gemtesa trial 75mg daily, side effects discussed voiding diary schedule for cystoscopy with possible bladder biopsy with fulguration, possible hydrodistention famotide 20mg BID pelvic floor physical therapy after cystoscopy is completed The procedure, recovery and expectations were explained. The risks, benefits andalternatives were discussed, including but not limited to, the risks of anesthesia, bleeding, infection, injury, pain and the need for further intervention. We have discussed the risk of exposure to and/or potential harm posed by the COVID-19 virus with having a surgery/procedure at this time. A joint decision was made at this time to proceed with the scheduled surgery/procedure as indicated on the consent form. Plan Details Follow Up: 4 Weeks (med and post op f/u) Comments Comments: Gemtesa samples 12/03/24 0941 <Electronically signed by Brissa Huerta MD> Date _ Brissa Huerta MD Cosigner Signature: Date (if applicable) CC: Dr. Mallory Foster MD ~ [facility] Work Phone: [employer] for referral (narrative)* Diagnostic Procedure Only (Routine) - Closed Specialty Diagnoses / Procedures Referred By Contac t Referred To Contact XR IMAGING Diagnoses Cervical disc disorder with radiculopathy Procedures XR CERV OTHER 4V AP/LAT/FLX/EXT RADEX SPINE CERVICAL 4 [place] [address] [place] [address] [facility] [place] [address] Referral ID Status Reason Start Date Expiration Date V isits Requested Visits Authorized [id number] Closed Auto-Generate d Referral 04/14/2023 05/13/2024 1 1 [facility] for referral (narrative)* Diagnostic Procedure Only (Routine) - Closed Specialty Diagnoses / Procedures Referred By Contac t Referred To Contact XR IMAGING Diagnoses Cervical disc disorder with radiculopathy Procedures XR CERV OTHER 4V AP/LAT/FLX/EXT RADEX SPINE CERVICAL 4 [place] [address] [place] [address] [facility] [place] [address] Referral ID Status Reason Start Date Expiration Date V isits Requested Visits Authorized [id number] Closed Auto-Generate d Referral 04/14/2023 05/13/2024 1 1 [facility] for referral (narrative)* Outpatient Procedure (Routine) - Pending Review Specialty Diagnoses / Procedures Referred By Contac t Referred To Contact [facility] Diagnoses Preoperative examination Procedures ECG COMPLETE ECG ROUTINE ECG W/LEAST 12 LDS W/I&R Iqra Bagley PA-C [address] [address] [facility] [address] [place] [address] Referral ID Status Reason Start Date Expiration Date Visits Requested Visits Authorized [id number] Pending Review Auto-Generat ed Referral 04/19/2023 04/18/2024 1 1 [facility] for referral (narrative)* Diagnostic Procedure Only (Routine) - Pending Review Specialty Diagnoses / Procedures Referred By Contac t Referred To Contact XR IMAGING Diagnoses Status post cervical spinal fusion Procedures XR CERV GENERAL 2V AP/LAT RADEX SPINE CERVICAL 2 OR 3 VIEWS Amena Dalton APRN.RADIO ENGINEERING TEACHER [address] [place] [id number] X[facility] Referral ID Status Reason Start Date Expiration Date Visits Requested Visits Authorized [id number] Pending Review Auto-Generat ed Referral 06/27/2023 07/26/2024 1 1 [facility] for referral (narrative)* Diagnostic Procedure Only (Routine) - Closed Specialty Diagnoses / Procedures Referred By Contac t Referred To Contact XR IMAGING Diagnoses Status post cervical spinal fusion Procedures XR CERV GENERAL 2V AP/LAT RADEX SPINE CERVICAL 2 OR 3 VIEWS Amena Dalton GREEN INSPECTOR.RADIO ENGINEERING TEACHER [address] [place] [address] [place] [address] Referral ID Status Reason Start Date Expiration Date V isits Requested Visits Authorized [id number] Closed Auto-Generate d Referral 06/27/2023 07/26/2024 1 1 [facility] for referral (narrative)* Diagnostic Procedure Only (Routine) - Closed Specialty Diagnoses / Procedures Referred By Contac t Referred To Contact XR IMAGING Diagnoses S/P spinal surgery Procedures XR CERV GENERAL 2V AP/LAT RADEX SPINE CERVICAL 2 OR 3 VIEWS Иван Aj PA-C [address] [place] [address] Xr Imaging [facility] Referral ID Status Reason Start Date Expiration Date V isits Requested Visits Authorized [id number] Closed Auto-Generate d Referral 04/02/2024 05/02/2025 1 1 [facility] for referral (narrative)No reason for referral information availableWPro[facility] Work Phone: Reason for visit Narrative* Diagnostic Procedure Only (Routine) - Closed Specialty Diagnoses / Procedures Referred By Contac t Referred To Contact XR IMAGING Diagnoses Status post cervical spinal fusion Procedures XR CERV GENERAL 2V AP/LAT RADEX SPINE CERVICAL 2 OR 3 VIEWS Amena Dalton, GREEN INSPECTOR.RADIO ENGINEERING TEACHER [address] [place] [address] X[facility] [place] [address] Referral ID Status Reason Start Date Expiration Date V isits Requested Visits Authorized [id number] Closed Auto-Generate d Referral 06/27/2023 07/26/2024 1 1 [facility] for visit Narrative* Diagnostic Procedure Only (Routine) - Closed Specialty Diagnoses / Procedures Referred By Contac t Referred To Contact XR IMAGING Diagnoses Cervical vertebral fusion Procedures XR CERV GENERAL 2V AP/LAT RADEX SPINE CERVICAL 2 [place] [address] [place] [id number] X[facility] Referral ID Status Reason Start Date Expiration Date V isits Requested Visits Authorized [id number] Closed Auto-Generate d Referral 05/31/2023 06/29/2024 1 1 [facility] for visit Narrative* Diagnostic Procedure Only (Routine) - Closed Specialty Diagnoses / Procedures Referred By Contac t Referred To Contact XR IMAGING Diagnoses S/P spinal surgery Procedures XR CERV GENERAL 2V AP/LAT RADEX SPINE CERVICAL 2 OR 3 VIEWS Иван Aj PA-C [address] [place] [address] [place] [address] Referral ID Status Reason Start Date Expiration Date V isits Requested Visits Authorized [id number] Closed Auto-Generate d Referral 04/02/2024 05/02/2025 1 1 [facility] Summary Purpose Family History No Family History Records Found Relationship Condition Age at Onset Recorded Date/T gracie father Paroxysmal atrial fibrillation Unknown Alcoholism Unknown grandmother Cardiac disease Unknown Coronary artery disease Unknown Presence of cardiac pacemaker Unknown Malignant neoplasm of breast Unknown grandfather Myocardial infarction Unknown mother Rheumatoid arthritis Unknown Glaucoma Unknown Arthritis Unknown Depression Unknown Advance Directives No Advanced Directives Records Found Advance Directive Response Recorded Date/ Time Living Will No May 29, 2021 8:38am Power of Snow Groomer No May 29 8:38am Advance Directive Response Recorded Date/ Time Living Will No May 29, 2021 7:38am Power of Snow Groomer No May 29 7:38am Advance Directive Response Recorded Date/ Time Living Will No April 01 2:09pm Power of Snow Groomer No April 01, 2023 2:09pm Advance Directive Response Recorded Date/ Time Living Will No April 01 3:09pm Power of Snow Groomer No April 01, 2023 3:09pm Advance Directive Response Recorded Date/ Time Living Will No April 01 3:09pm Do you have a Healthcare Power of Snow Groomer? No April 01, 2023 3:09pm Living Will No February 23 10:44am Do you have a Healthcare Power of Snow Groomer? No February 23, 2023 10:44am Chief Complaint and Reason for Visit Chief Complaint REFLUX patient passed out Unspecified abdominal pain abd SCREENING ABDOMINAL PAIN/VOMITING Reason for Visit GERD (gastroesophage al reflux disease) Intestinal angina Ischemic colitis Chief Complaint abd SCREENING ABDOMINAL PAIN/VOMITING 3 MO FU E ORDERS Reason for Visit GERD (gastroesophage al reflux disease) Intestinal angina Ischemic colitis GERD (gastroesophageal reflux disease) Abdominal pain Altered bowel function Gastritis GERD (gastroesophageal reflux disease) Chief Complaint ABDOMINAL PAIN/VOMIT ING 3 MO FU E ORDERS Reason for Visit GERD (gastroesophage al reflux disease) Intestinal angina Ischemic colitis GERD (gastroesophageal reflux disease) Abdominal pain Altered bowel function Gastritis GERD (gastroesophageal reflux disease) Chief Complaint 3 MO FU E ORDERS ORTHOSTATIC HYPOTENSION ORTHOSTATIC HYPOTENSION Reason for Visit GERD (gastroesophage al reflux disease) Abdominal pain Altered bowel function Gastritis GERD (gastroesophageal reflux disease) Chief Complaint Annual (MODEL MAKER PLASTIC) Reason for Visit Encounter for routin e gynecological examination Chief Complaint Annual (MODEL MAKER PLASTIC) LUMP OF RT BREAST Reason for Visit Encounter for routin e gynecological examination Chief Complaint Annual (MODEL MAKER PLASTIC) LUMP OF RT BREAST overdue for OV/ increase in POTS like symptoms E ORDER CHEST PAIN, TACHYCARDIA R/O POTS Reason for Visit Encounter for routin e gynecological examination Chest pain Tachycardia Near syncope Chief Complaint LUMP OF RT BREAST overdue for OV/ increase in POTS like symptoms E ORDER CHEST PAIN, TACHYCARDIA R/O POTS PELVIC PAIN Reason for Visit Chest pain Tachycardia Near syncope Chief Complaint 3 M FU Reason for Visit Tachycardia Near syncope Chief Complaint Annual (MODEL MAKER PLASTIC) 6 M FU Numbness in left arm, and neck pain CERVICAL SPINE CERVICAL PAIN Reason for Visit Breast lump Pelvic pain Well woman exam with routine gynecological exam Tachycardia Near syncope Herniated nucleus pulposus, C5-6 Chief Complaint CERVICAL SPINE CERVICAL PAIN CERVICAL SPINE CERVICAL FUSION RX HERE Reason for Visit Herniated nucleus pu lposus, C5-6 Herniated nucleus pulposus, C5-6 Chief Complaint Admit Date Annual (MODEL MAKER PLASTIC) April 23, 2024 8:43am 1 Y FU April 30, 2024 9:55am LUMP RT BREAST May 01, 2024 9:18am R06.09 Other forms of dyspnea June 15, 2024 7:21am R06.09 Other forms of dyspnea June 15, 2024 1:05pm hypersomnolance June 18, 2024 3:16 pm Reason for Visit Admit Date Encounter for routine gynecological exam ination April 23, 2024 8:43am Hypersomnolence April 30, 2024 9:55am DIEHL (dyspnea on exertion) April 30, 2024 9:55am Family history of coronary artery diseas e April 30, 2024 9:55am Fatigue April 30, 2024 9:55am Lightheadedness April 30, 2024 9:55am Near syncope April 30, 2024 9:55am Tachycardia April 30, 2024 9:55am Chief Complaint Admit Date R06.09 Other forms of dyspnea June 15, 2024 7:21am R06.09 Other forms of dyspnea June 15, 2024 1:05pm hypersomnolance June 18, 2024 3:16 pm INT LABS September 19, 2024 7:00a m Chief Complaint Admit Date INT LABS September 19, 2024 7:00a m urinary frequency December 03, 2024 8:43am Reason for Visit Admit Date Abdominal pain December 03, 2024 8:43am Dyspareunia, female December 03, 2024 8:43am Mixed incontinence December 03, 2024 8:43am Nocturia December 03, 2024 8:43am Interstitial cystitis (chronic) with hem aturia December 03, 2024 8:43am Reason for Referral Specialty Diagnoses / Procedures Referred By Contac t Referred To Contact Diagnoses Pre-op evaluation Procedures REFER TO PACC - PRE ANESTHESIA CONSULTATION CLINIC OFFICE/OUTPATIENT [facility] 60 MINUTES Amena Dalton, GREEN INSPECTOR.RADIO ENGINEERING TEACHER [address] [place] [address] Referral ID Status Reason Start Date Expiration Date Visits Requested Visits Authorized [id number] Authorized PCP Requested Referral 04/15/2023 04/14/2024 1 1 Specialty Diagnoses / Procedures Referred By Contac t Referred To Contact [facility] Diagnoses Cervical vertebral fusion Procedures CONSULT TO PHYSICAL THERAPY PHYSICAL THERAPY EVALUATION HIGH COMPLEX 45 [place] [address] [place] [id number] [facility] [address] [place] [address] Referral ID Status Reason Start Date Expiration Date Visits Requested Visits Authorized [id number] Pending Review Auto-Generat ed Referral 05/31/2023 05/30/2024 1 1 Specialty Diagnoses / Procedures Referred By Contac t Referred To Contact XR IMAGING Diagnoses Cervical vertebral fusion Procedures XR CERV GENERAL 2V AP/LAT RADEX SPINE CERVICAL 2 OR [place] [address] [place] [address] [place] [address] Referral ID Status Reason Start Date Expiration Date Visits Requested Visits Authorized [id number] Pending Review Auto-Generat ed Referral 05/31/2023 06/29/2024 1 1 Specialty Diagnoses / Procedures Referred By Contstefanie t Referred To Contact [facility] Diagnoses Cervical disc disorder with radiculopathy Procedures CONSULT TO PHYSICAL THERAPY PHYSICAL THERAPY EVALUATION HIGH COMPLEX 45 MINS Nickie Mckeon PA-C [address] [place] [address] [facility] [place] [address] [place] [address] Referral ID Status Reason Start Date Expiration Date Visits Requested Visits Authorized [id number] Pending Review Auto-Generat ed Referral 04/06/2024 04/06/2025 1 1 Additional Source Comments INFORMATION SOURCE (unrecogn ized section and content) DATE CREATED AUTHOR 05/30/2019 [facility] ([place]) DATE CREATED AUTHOR AUTHOR'S ORGANIZ ATION 07/22/2021 [facility] DATE CREATED AUTHOR AUTHOR'S ORGANIZ ATION 04/15/2023 [facility] DATE CREATED AUTHOR AUTHOR'S ORGANIZ ATION 04/20/2023 [facility] DATE CREATED AUTHOR AUTHOR'S ORGANIZ ATION 05/20/2023 [facility] DATE CREATED AUTHOR AUTHOR'S ORGANIZ ATION 04/03/2024 [facility] DATE CREATED AUTHOR AUTHOR'S ORGANIZ ATION 04/03/2024 [facility] DATE CREATED AUTHOR AUTHOR'S ORGANIZ ATION 12/27/2024 [facility] Goals (unrecognized section and content) Goals may be documented in a n alternate sectionGoals may be documented in an alternate sectionGoals may be documented in an alternate sectionGoals may be documented in an alternate sectionGoals may be documented in an alternate sectionGoals may be documented in an alternate sectionGoals may be documented in an alternate sectionGoals may be documented in an alternate sectionGoals may be documented in an alternate sectionGoals may be documented in an alternate sectionGoals may be documented in an alternate sectionGoals may be documented in an alternate sectionGoals may be documented in an alternate sectionGoals may be documented in an alternate sectionGoals may be documented in an alternate section Care Teams (unrecognized sec tion and content) Team Status: Active Member Role Status Dates Dr. Mallory Foster MD Family Provider Active Dr. Mallory Foster MD Primary Care Provider Active Team Status: Inactive Member Role Status Dates Dr. Mallory Foster MD Primary Care Provider, Referr ing Provider Active Dr. Raisa Galeas DO Attending Provider Activ e Team Status: Inactive Member Role Status Dates Dr. Mallory Foster MD Primary Care Provider, Referr ing Provider Active Fatmata Esquivel PA, PA Attending Provider Active Team Status: Active Member Role Status Dates Dr. Mallory Foster MD Primary Care Provider Active Dr. Jerrell Burt MD Attending Provider Active Team Status: Inactive Member Role Status Dates Dr. Mallory Foster MD Primary Care Provider Active Dr. Raisa Galeas DO Attending Provider Activ e Team Status: Inactive Member Role Status Dates Dr. Mallory Foster MD Primary Care Provider Active Fatmata Esquivel PA, PA Attending Provider Active Team Status: Inactive Member Role Status Dates Dr. Mallory Foster MD Primary Care Provider Active Fatmata Esquivel PA, PA Attending Provider, Referr ing Provider Active Team Status: Inactive Member Role Status Dates Dr. Mallory Foster MD Primary Care Provider, Referr ing Provider Active Montse Cabrera LEAD COOK, LEAD COOK-C Attending Provider Active Team Status: Inactive Member Role Status Dates Dr. Mallory Foster MD Primary Care Provider Active Shayla Anton NP-C Attending Provider, Referring Provi dhruv Active Team Status: Inactive Member Role Status Dates Dr. Mallory Foster MD Primary Care Provider, Referr ing Provider Active Mallory Marie LEAD COOK, LEAD COOK-C Attending Provider Active Team Status: Inactive Member Role Status Dates Dr. Mallory Foster MD Primary Care Provider, Referr ing Provider Active Dr. Bijan George DO Attending Provider Active Team Status: Inactive Member Role Status Dates Marilyn Young MD Attending Provider, Referring Provide r Active Dr. Mallory Foster MD Primary Care Provider Active Team Status: Inactive Member Role Status Dates Dr. Mallory Foster MD Primary Care Provider Active Dr. Bijan George DO Attending Provider, Referring P harjit Active Wool Hat Hydraulicker Relationship Specialty Start Date End Date Mallory Foster MD [address] [place] [address] PCP - General Family Medicine 01/20/21 Wool Hat Hydraulicker Relationship Specialty Start Date End Date Mallory Foster MD [address] [place] [address] PCP - General Family Medicine 01/20/21 Wool Hat Hydraulicker Relationship Specialty Start Date End Date Mallory Foster MD [address] [place] [address] PCP - General Family Medicine 01/20/21 Wool Hat Hydraulicker Relationship Specialty Start Date End Date Mallory Foster MD [address] [place] [address] PCP - General Family Medicine 01/20/21 Wool Hat Hydraulicker Relationship Specialty Start Date End Date Mallory Foster MD [address] [place] [address] PCP - General Family Medicine 01/20/21 Wool Hat Hydraulicker Relationship Specialty Start Date End Date Mallory Foster MD [address] [place] [address] PCP - General Family Medicine 01/20/21 Wool Hat Hydraulicker Relationship Specialty Start Date End Date Mallory Foster MD [address] [place] [address] PCP - General Family Medicine 01/20/21 Wool Hat Hydraulicker Relationship Specialty Start Date End Date Mallory Foster MD [address] [place] [address] PCP - General Family Medicine 01/20/21 Wool Hat Hydraulicker Relationship Specialty Start Date End Date Mallory Foster MD [address] [place] [address] PCP - General Family Medicine 01/20/21 Wool Hat Hydraulicker Relationship Specialty Start Date End Date Mallory Foster MD [address] [place] [address] PCP - General Family Medicine 01/20/21 Wool Hat Hydraulicker Relationship Specialty Start Date End Date Mallory Foster MD [address] [place] [address] PCP - General Family Medicine 01/20/21 Team Status: Inactive Member Role Status Dates Dr. Mallory Foster MD Primary Care Provider Active Marilyn Young MD Attending Provider, Referring Provide r Active Team Status: Inactive Member Role Status Dates Dr. Mallory Foster MD Primary Care Provider Active HECTOR MICHAELSRAMANIAM Attending Provider, Referring Provider Active Wool Hat Hydraulicker Relationship Specialty Start Date End Date Mallory Foster MD [address] [place] [address] PCP - General Family Medicine 01/20/21 Wool Hat Hydraulicker Relationship Specialty Start Date End Date Mallory Foster MD [address] [place] [address] PCP - General Family Medicine 01/20/21 Wool Hat Hydraulicker Relationship Specialty Start Date End Date Mallory Foster MD [address] [place] [address] PCP - General Family Medicine 01/20/21 Team Status: Active Member Role Status Dates Dr. Mallory Foster MD Primary Care Provider Active Team Status: Inactive Member Role Status Dates Dr. Mallory Foster MD Primary Care Provider Active Start: April 23, 2024 End: April 23, 2024 Dr. Mallory Foster MD Referring Provider Active Start: April 23, 2024 End: April 23, 2024 Dr. Raisa Galeas DO Attending Provider Activ e Start: April 23, 2024 End: April 23, 2024 Team Status: Inactive Member Role Status Dates Dr. Mallory Foster MD Primary Care Provider Active Start: April 23, 2024 End: April 23, 2024 Dr. Raisa Galeas DO Attending Provider Activ e Start: April 23, 2024 End: April 23, 2024 Dr. Raisa Galeas DO Referring Provider Activ e Start: April 23, 2024 End: April 23, 2024 Team Status: Inactive Member Role Status Dates Dr. Mallory Foster MD Primary Care Provider Active Start: April 30, 2024 End: April 30, 2024 Dr. Mallory Foster MD Referring Provider Active Start: April 30, 2024 End: April 30, 2024 Mallory Marie LEAD COOK, LEAD COOK-C Attending Provider Active S tart: April 30, 2024 End: April 30, 2024 Team Status: Inactive Member Role Status Dates Dr. Mallory Foster MD Primary Care Provider Active Start: May 01, 2024 End: May 01, 2024 Dr. Raisa Galeas DO Attending Provider Activ e Start: May 01, 2024 End: May 01, 2024 Dr. Raisa Galeas DO Referring Provider Activ e Start: May 01, 2024 End: May 01, 2024 Team Status: Inactive Member Role Status Dates Dr. Mallory Foster MD Primary Care Provider Active Start: June 15, 2024 End: June 15, 2024 Mallory Mraie LEAD COOK, LEAD COOK-C Attending Provider Active S tart: June 15, 2024 End: June 15, 2024 Mallory Marie LEAD COOK, LEAD COOK-C Referring Provider Active S tart: June 15, 2024 End: June 15, 2024 Team Status: Active Member Role Status Dates Dr. Mallory Fostre MD Primary Care Provider Active Start: June 15, 2024 Mallory Marie LEAD COOK, LEAD COOK-C Referring Provider Active S tart: June 15, 2024 Mallory Marie LEAD COOK, LEAD COOK-C Other Provider Active Start : June 15, 2024 Dr. Jerrell Burt MD Attending Provider Active S tart: June 15, 2024 Team Status: Active Member Role Status Dates Dr. Mallory Foster MD Primary Care Provider Active Start: June 18, 2024 Mallory Marie LEAD COOK, LEAD COOK-C Attending Provider Active S tart: June 18, 2024 Team Status: Inactive Member Role Status Dates Dr. Mallory Foster MD Primary Care Provider Active Start: June 18, 2024 End: June 18, 2024 Mallory Marie LEAD COOK, LEAD COOK-C Attending Provider Active S tart: June 18, 2024 End: June 18, 2024 Team Status: Inactive Member Role Status Dates Dr. Mallory Foster MD Primary Care Provider Active Start: June 22, 2024 End: June 22, 2024 Dr. Mallory Foster MD Attending Provider Active Start: June 22, 2024 End: June 22, 2024 Dr. Mallory Foster MD Referring Provider Active Start: June 22, 2024 End: June 22, 2024 Team Status: Active Member Role/Relationship Status Dates Dr. Mallory Foster MD Primary Care Provider Active Team Status: Inactive Member Role/Relationship Status Dates Dr. Mallory Foster MD Primary Care Provider Active Start: June 15, 2024 End: June 15, 2024 Mallory Marie LEAD COOK, LEAD COOK-C Attending Provider Active S tart: June 15, 2024 End: June 15, 2024 Mallory Marie LEAD COOK, LEAD COOK-C Referring Provider Active S tart: June 15, 2024 End: June 15, 2024 Team Status: Active Member Role/Relationship Status Dates Dr. Mallory Foster MD Primary Care Provider Active Start: June 15, 2024 Mallory Marie LEAD COOK, LEAD COOK-C Referring Provider Active S tart: June 15, 2024 Mallory Marie LEAD COOK, LEAD COOK-C Other Provider Active Start : June 15, 2024 Dr. Jerrell Burt MD Attending Provider Active S tart: June 15, 2024 Team Status: Inactive Member Role/Relationship Status Dates Dr. Mallory Foster MD Primary Care Provider Active Start: June 18, 2024 End: June 18, 2024 Mallory Marie LEAD COOK, LEAD COOK-C Attending Provider Active S tart: June 18, 2024 End: June 18, 2024 Team Status: Inactive Member Role/Relationship Status Dates Dr. Mallory Foster MD Primary Care Provider Active Start: June 22, 2024 End: June 22, 2024 Dr. Mallory Foster MD Attending Provider Active Start: June 22, 2024 End: June 22, 2024 Dr. Mallory Foster MD Referring Provider Active Start: June 22, 2024 End: June 22, 2024 Team Status: Inactive Member Role/Relationship Status Dates Dr. Mallory Foster MD Primary Care Provider Active Start: September 19, 2024 End: September 19, 2024 Kalen Wright LEAD COOK, LEAD COOK-C Attending Provider Active Start: September 19, 2024 End: September 19, 2024 Kalen Wright LEAD COOK, LEAD COOK-C Referring Provider Active Start: September 19, 2024 End: September 19, 2024 Team Status: Active Member Role/Relationship Status Dates Dr. Mallory Foster MD Primary care physician Active Team Status: Inactive Member Role/Relationship Status Dates Dr. Mallory Foster MD Primary care physician Active Start: September 19, 2024 End: September 19, 2024 Kalen Wright LEAD COOK, LEAD COOK-C Attending physician Active Start: September 19, 2024 End: September 19, 2024 Kalen Wright LEAD COOK, LEAD COOK-C Referring Provider Active Start: September 19, 2024 End: September 19, 2024 Team Status: Inactive Member Role/Relationship Status Dates Dr. Mallory Foster MD Primary care physician Active Start: December 03, 2024 End: December 03, 2024 Dr. Mallory Foster MD Referring Provider Active Start: December 03, 2024 End: December 03, 2024 Dr. Brissa Huerta MD Attending physician Active Start: December 03, 2024 End: December 03, 2024 Source Comments (unrecognize d section and content) In the event this informatio n is protected by the Federal Confidentiality of Alcohol and Drug Abuse Patient Records regulations: The Federal rules restrict any use of the information to criminally investigate or prosecute any alcohol or drug abuse patient.[facility] the event this information is protected by the Federal Confidentiality of Alcohol and Drug Abuse Patient Records regulations: The Federal rules restrict any use of the information to criminally investigate or prosecute any alcohol or drug abuse patient.[facility] HospitalIn the event this information is protected by the Federal Confidentiality of Alcohol and Drug Abuse Patient Records regulations: The Federal rules restrict any use of the information to criminally investigate or prosecute any alcohol or drug abuse patient.[facility] the event this information is protected by the Federal Confidentiality of Alcohol and Drug Abuse Patient Records regulations: The Federal rules restrict any use of the information to criminally investigate or prosecute any alcohol or drug abuse patient.[facility] HospitalIn the event this information is protected by the Federal Confidentiality of Alcohol and Drug Abuse Patient Records regulations: The Federal rules restrict any use of the information to criminally investigate or prosecute any alcohol or drug abuse patient.[facility]In the event this information is protected by the Federal Confidentiality of Alcohol and Drug Abuse Patient Records regulations: The Federal rules restrict any use of the information to criminally investigate or prosecute any alcohol or drug abuse patient.[facility] HospitalIn the event this information is protected by the Federal Confidentiality of Alcohol and Drug Abuse Patient Records regulations: The Federal rules restrict any use of the information to criminally investigate or prosecute any alcohol or drug abuse patient.[facility] HospitalIn the event this information is protected by the Federal Confidentiality of Alcohol and Drug Abuse Patient Records regulations: The Federal rules restrict any use of the information to criminally investigate or prosecute any alcohol or drug abuse patient.[facility] the event this information is protected by the Federal Confidentiality of Alcohol and Drug Abuse Patient Records regulations: The Federal rules restrict any use of the information to criminally investigate or prosecute any alcohol or drug abuse patient.[facility] the event this information is protected by the Federal Confidentiality of Alcohol and Drug Abuse Patient Records regulations: The Federal rules restrict any use of the information to criminally investigate or prosecute any alcohol or drug abuse patient.[facility] HospitalIn the event this information is protected by the Federal Confidentiality of Alcohol and Drug Abuse Patient Records regulations: The Federal rules restrict any use of the information to criminally investigate or prosecute any alcohol or drug abuse patient.[facility] HospitalIn the event this information is protected by the Federal Confidentiality of Alcohol and Drug Abuse Patient Records regulations: The Federal rules restrict any use of the information to criminally investigate or prosecute any alcohol or drug abuse patient.[facility] HospitalIn the event this information is protected by the Federal Confidentiality of Alcohol and Drug Abuse Patient Records regulations: The Federal rules restrict any use of the information to criminally investigate or prosecute any alcohol or drug abuse patient.[facility] HospitalIn the event this information is protected by the Federal Confidentiality of Alcohol and Drug Abuse Patient Records regulations: The Federal rules restrict any use of the information to criminally investigate or prosecute any alcohol or drug abuse patient.[facility] HospitalIn the event this information is protected by the Federal Confidentiality of Alcohol and Drug Abuse Patient Records regulations: The Federal rules restrict any use of the information to criminally investigate or prosecute any alcohol or drug abuse patient.[facility] HospitalIn the event this information is protected by the Federal Confidentiality of Alcohol and Drug Abuse Patient Records regulations: The Federal rules restrict any use of the information to criminally investigate or prosecute any alcohol or drug abuse patient.[facility] HospitalIn the event this information is protected by the Federal Confidentiality of Alcohol and Drug Abuse Patient Records regulations: The Federal rules restrict any use of the information to criminally investigate or prosecute any alcohol or drug abuse patient.[facility] Reason for Visit (unrecogniz ed section and content) Reason Comments Established Patient Eval - Herniated cer vical disc Reason Comments Radio Gen RMP Specialty Diagnoses / Procedures Referred By Contac t Referred To Contact XR IMAGING Diagnoses Cervical disc disorder with radiculopathy Procedures XR CERV OTHER 4V AP/LAT/FLX/EXT RADEX SPINE CERVICAL 4 [place] [address] [place] [address] Xr Imaging [place] [id number] Referral ID Status Reason Start Date Expiration Date V isits Requested Visits Authorized [id number] Closed Auto-Generate d Referral 04/14/2023 05/13/2024 1 1 Reason Comments Anesthesia Consult Specialty Diagnoses / Procedures Referred By Contac t Referred To Contact Diagnoses Pre-op evaluation Procedures REFER TO PACC - PRE ANESTHESIA CONSULTATION CLINIC OFFICE/OUTPATIENT [facility] HIGH MDM 60 MINUTES Amena Dalton, GREEN INSPECTOR.RADIO ENGINEERING TEACHER [id number] [place] [address] Referral ID Status Reason Start Date Expiration Date V isits Requested Visits Authorized [id number] Closed PCP Requested Referral 04/15/2023 04/14/2024 1 1 Reason Comments outside imaging report Reason Comments Post op complications Reason Comments Post Op Reason Onset Date Comments Refill Request 06/28/2023 Reason Comments Director 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 [facility]. provides no warranty or guarantee of the accuracy or completeness of information in this document.
[2024-12-27] MEDS: Lactated Ringers 1,000 ML 15 ML IV (06:58)
--- NOTE | 2024-12-27 07:48 | PCM.PRE.AN2 ---
ASA Classification* ASA Classification ASA Classification: 2 Assessment & Plan Anesthesia* Anesthesia Assessment Anesthesia Assessment: Discussed sedation and/or anesthesia options, risks, benefits, and alternatives with patient/parents/legal guardian/POA. Questions invited. The patient/parents/legal guardian/POA seems to understand and agrees to proceed with anesthesia plan. Reviewed the physical assessment, medical history, allergy history and patient home medications list prior to surgery/procedure/anesthetic and documented any changes. Performed airway and anesthesia risk assessments. Anesthesia Type Anesthesia Type: General History Source History Obtained from:: Patient and Chart Anesthesia Focused Assessment* Temperature: 97.6 F Pulse Rate: 76 Blood Pressure: 104/72 Respiratory Rate: 16 Pulse Ox: 100 Oxygen Delivery Method: Room Air Airway Assessment Mouth opens: >3 cm Mallampati Score: II Teeth Condition: Intact Neck Range of motion (ROM): Full ROM Labs Anesthesia Preop lab: CBC WBC, (4.4-11.0) 8.6 K/mm3 12/20/24, 11:37 RBC, (4.2-5.4) 4.52 M/mm3 12/20/24, 11:37 Hgb, (12.0-15.0) 13.2 g/dL 12/20/24, 11:37 Hct, (37-47) 38.9 % 12/20/24, 11:37 Plt Count, (150-450) 300 K/mm3 12/20/24, 11:37 CHEMISTRY Potassium, (3.3-5.1) 4.0 mmol/L 12/20/24, 11:37 Sodium, (133-145) 136 mmol/L 12/20/24, 11:37 Magnesium, (1.5-2.2) 2.0 mg/dL 06/22/24, 08:13 BUN, (4-19) 11 mg/dL 12/20/24, 11:37 Creatinine, (0.70-1.20) 0.73 mg/dL 12/20/24, 11:37 Glucose, (70-99) 85 mg/dL 12/20/24, 11:37 TSH, (0.300-4.200) 2.040 uIU/mL 06/22/24, 08:13 COAG PT, (11.7-14.9) 12.6 SECONDS 06/07/17, 14:34 HCG, Quant, (<9 non-preg) 5170 mIU/mL H 08/15/16, 16:34 Urine Test Negative Negative 06/09/17, 05:35 Pre-Assessment Diagnosis/Proposed Procedure Planned Operative Procedure(s): Cysto, Possible biopsy with fulguration. 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 When Was Last Pacemaker Check QUESTION #4 FULL TEXT: You/Your Family Experience fever (hyperthermia) with Anesthesia Last Oral Intake Last Oral intake: Last Oral Intake NPO since 00:00 12/27/24 06:54 Meds taken in AM with sips of No 12/27/24 06:54 water? Meds patient instructed to take am of surgery PONV PONV - art objects salesperson: PONV - art objects salesperson Female Yes 12/17/24 14:17 HX of Motion Sickness No 12/17/24 14:17 HX of N/V After Surgery No 12/17/24 14:17 Non-Smoker Yes 12/17/24 14:17 Duration of Surgery greater No 12/17/24 14:17 than 60 minutes Number of Risk Factors 2 12/17/24 14:17 PONV Score Moderate Risk 12/17/24 14:17 Height & Weight Height & Weight: Anesthesia: Height & Weight Height 5 ft 2 in 12/27/24 06:54 Weight: 57 kg 12/27/24 06:54 Body Mass Index (BMI) 22.9 12/27/24 06:54 Respiratory Assessment Respiratory Assessment - art objects salesperson: Respiratory Tract Infection Hx - art objects salesperson Hx Respiratory Tract Infection No 12/17/24 14:17 STOP Sleep Apnea STOP Sleep Apnea - art objects salesperson: STOP Sleep Apnea - art objects salesperson Hx Hypertension No 12/17/24 14:17 Hx Sleep Apnea No 12/17/24 14:17 CPAP BIPAP Do you snore loudly (louder No 12/17/24 14:17 than talking or can be heard Do you often feel tired/ No 12/17/24 14:17 fatigued/ sleepy during daytime? Has anyone observed you stop No 12/17/24 14:17 breathing during sleep? STOP Results Negative 12/17/24 14:17 QUESTION #5 FULL TEXT : Do you snore loudly (louder than talking or can be heard through closed doors)? 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 Specify any problems Hx of Preganancy in last 3 No 12/17/24 14:17 Months Nurse Filling Out Transfusion VCHRISTIN 12/17/24 14:17 & Questions: Date: 12/17/24 12/17/24 14:17 Time: 14:18 12/17/24 14:17 Patient unable to answer at this time (ie. confused, unrespo /Reproduction History /Reproductive History - art objects salesperson: /Reproductive Hx- art objects salesperson Hx Now Yes 12/17/24 14:17 Gestational Age (in weeks): EDC: Hx Hx Para Hx Section SAB No 12/17/24 14:17 Active Medications Active Medications: Current Medications Generic Name Dose Route Start Last Admin Trade Name Freq PRN Reason Stop Dose Admin Cefazolin Sodium 2 gm/ Sodium 110 mls @ 200 mls/hr 12/27/24 08:30 Chloride IV 12/27/24 09:02 INTRAOP ONE Lactated Ringer's 1,000 mls @ 15 mls/hr 12/27/24 06:45 12/27/24 06:58 IV 15 mls/hr .Q48H JOI Administration PFSH Medical History Wears glasses Injury of head and neck Gastric reflux History of Holter monitoring Mixed incontinence Nocturia Interstitial cystitis (chronic) with hematuria Dyspareunia, female Interstitial cystitis Hematuria Chronic right lower quadrant pain Wears contact lenses Anxiety Back pain History of IBS Non-smoker History of pain when walking Cardiology follow-up encounter History of echocardiogram Hypotension History of stress test Ischemic colitis Intestinal angina Vasovagal syncope Interstitial cystitis Asthma Migraines Fatigue History of palpitations Incomplete right bundle branch block Supraventricular tachycardia, paroxysmal Other chest pain Premature atrial contractions Near syncope Dizziness Home Medications ?Medication ?Instructions ?Recorded ?Last Taken ?Type lamotrigine 100 mg tablet 100 mg PO QDAY 04/30/24 12/26/24 History propranolol 20 mg tablet 20 mg PO DAILY #90 tabs 07/20/24 12/26/24 Rx famotidine 20 mg tablet (Acid 20 mg PO DAILY 12/17/24 12/26/24 History Controller) Allergy/AdvReac Type Severity Reaction Status Date / Time No Known Allergies Allergy Verified 12/27/24 06:53 Family History Father Paroxysmal atrial fibrillation Alcoholism Grandmother Heart disease CAD (coronary artery disease) CABG Pacemaker Breast cancer Grandfather , Age 37 Myocardial infarction Mother Rheumatoid arthritis Glaucoma Arthritis Depression Surgical History Hx of cervical spine surgery H/O LEEP History of wisdom tooth extraction History of esophagogastroduodenoscopy (EGD) History of cystoscopy History of dilatation and curettage History of salpingectomy Social History household members: spouse and children housing: house number of children: 5 current occupational status: employed 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
--- NOTE | 2024-12-27 08:04 | PCM.HP.BLA ---
History and Physical Date of Admission: 12/27/24 Date of Service: 12/03/24 MR#: [id number] Acct: [id number] Name: GABRIEL YUSUF Rep #: [id number] : 1985 Provider: Dr. Brissa Huerta MD Age/Sex: 38/F Location: [facility] [email or web address] Status: Signed Intake Vital Signs 04/30/2509:00 12/04/2507:59 Height 5 ft 2 in 5 ft 2 in Weight: 125 lb BMI 22.8 BP 106/81 H Pulse 71 Intake Visit Reasons: urinary frequency Chief Complaint: new patient- IC and urinary frequency, history and physical exam [place] Required: No Accompanied by: self Is patient in pain?: Yes (heavy tenderness in her pelvis constantly. ) Pain scale (1-10): 5 Allergies No Known Allergies Allergy (Verified 12/03/24 08:58) Medications ?Medication ?Instructions ?Recorded ?Confirmed ?Type omeprazole 40 mg capsule,delayed 40 mg PO DAILY PRN 03/01/23 12/03/24 History release lamotrigine 100 mg tablet 100 mg PO QDAY 04/30/24 12/03/24 History propranolol 20 mg tablet 20 mg PO DAILY #90 tabs 07/20/24 12/03/24 Rx ascorbate calcium (vitamin C) 500 500 mg PO QDAY 12/03/24 12/03/24 History mg tablet Nurse's Note: diagnosed with IC several years ago and has never followed a urologist. Having hematuria on Dip at PCP office. urinary frequency. Bladder scan PVR 2CC PFSH Medical History (Updated 12/03/24 @ 09:[address] Brissa Huerta MD) Mixed incontinence Nocturia Interstitial cystitis (chronic) with hematuria Dyspareunia, female Interstitial cystitis Hematuria Chronic right lower quadrant pain Wears contact lenses Anxiety Back pain History of IBS Non-smoker History of pain when walking Cardiology follow-up encounter History of echocardiogram Hypotension History of stress test Ischemic colitis Intestinal angina Vasovagal syncope Interstitial cystitis Asthma Migraines Fatigue History of palpitations Incomplete right bundle branch block Supraventricular tachycardia, paroxysmal Other chest pain Premature atrial contractions Near syncope Dizziness Surgical History H/O LEEP History of wisdom tooth extraction History of esophagogastroduodenoscopy (EGD) History of cystoscopy History of dilatation and curettage History of salpingectomy Family History Father Paroxysmal atrial fibrillation Alcoholism Grandmother Heart disease CAD (coronary artery disease) CABG Pacemaker Breast cancer Grandfather , Age 37 Myocardial infarction Mother Rheumatoid arthritis Glaucoma Arthritis Depression Social History household members: spouse and children housing: house number of children: 5 current occupational status: employed 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 She is here for evaluation and management of interstitial cystitis. She was diagnosed with this and management previously by who has since left. This was at [facility], she was seen once at the [facility], did not have a great experience with it. She has had hydrodistention, instillations etc. She was on one previous oral medication for the frequency, but she is not great with pills. She had DMSO, other instillations and even did them on her own at home. She has blood on dipstick but not visible. She has issues with urgency and frequency. She has been following IC diet elimination. She reports that her symptoms are not as bad as they were previously. She is voiding at least 10 times during the day, 1-2 or more times at night. Was tested for sleep apnea that was negative. 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 She has lots of pain when she works and is not able to void when she needs to. 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 There is urge incontinence where she cannot make it to the bathroom. There is stress incontinence with cough, laugh, sneeze, lifting, etc. She is using liner pads in 24 hours. She has had no urinary tract infections in the last year. She has not had visible blood in her urine. She is sexually active. There is pain with intercourse. She has chronic continuous right lower pinpoint abdominal pain. Fallopian tubes have been removed, she doesn't know if it is scar tissue, intercourse increases this pain. There is no sensation of vaginal bulging. She has the following issues with chronic bowel function: occasionally is splinting. This is since childbirth. No actual constipation. She has no history of smoking. There is no history of blood clots or easy bleeding. She did have a neck injury that required surgical intervention. She rolled over in bed funny and then stretched funny getting son out of car once. Not sure how it actually happened. ROS Const Constitutional: Positive for abnormal sleep pattern (light sleeper, no sleep apnea on sleep study); No chills, fatigue, fever(s), headache(s), night sweats, weakness, weight change or change in appetite Eyes Eyes: No change in vision ENT ENT: No headache(s) or dry mouth Resp Respiratory: No cough, chest congestion, shortness of breath or wheezing Cardio Cardiology: Positive for other (No chest pain.); No shortness of breath, irregular heart rhythm or lightheadedness Gastro GI: Positive for abdominal pain (right lower quadrant see above) and other (significant GERD); No change in bowel habits, constipation, diarrhea or vomiting Musc Musculoskeletal: No abnormal gait Skin Skin: No yellowing of the eye, lesions, itchy eyes, rash or skin ulcer Neuro Neurology: No abnormal gait, confusion, dizziness, weakness, headache(s) or memory loss Psych Psychiatric: Positive for abnormal sleep pattern (light sleeper, no sleep apnea on sleep study), No change in appetite, No confusion and No memory loss Endo Endocrine: No fatigue, increased thirst/drinking or weight change Aller/Imm Allergy/Immunologic: No itchy eyes or wheezing Stefan/Lymp Hematologic/Lymphatic: No easy bleeding, easy bruising or enlarged lymph nodes Exam Const General: cooperative, healthy appearing, comfortable and no acute distress [facility] Head: normocephalic and atraumatic Ears: hearing grossly normal bilaterally and external ears normal Nose: external nose normal Eyes General: appearance normal, both eyes and all related structures Neck Neck: normal visual inspection and trachea midline Chest Chest palpation & inspection: normal inspection of the chest Resp Effort & Inspection: normal respiratory effort, able to speak in complete sentences and symmetric chest movement Cardio Rate: regular rate GI Inspection: normal to inspection Palpation: soft and nontender General: No CVA tenderness Skin General: no rashes or lesions noted Neuro General: patient alert, patient awake, patient oriented x3 and CN's II-XI intact bilaterally Extrem General: normal to inspection Psych Appearance: grossly normal and well kempt Mental Status: mental status grossly normal Office Procedures Post Void Residual Post Void Residual: 2cc Results POC Urinalysis w/Micro Office Urine Color ? Last Edit by Elaine Taylor on 12/03/24 09:04 Office Urine Clarity ? Last Edit by Elaine Taylor on 12/03/24 09:04 Office Urine Glucose Negative Last Edit by Elaine Taylor on 12/03/24 09:04 Office Urine Ketones Negative Last Edit by Elaine Taylor on 12/03/24 09:04 Office Urine Bilirubin Small (1+) Last Edit by Elaine Taylor on 12/03/24 09:04 Office Urine Urobilinogen 0.2 mg/dL Last Edit by Elaine Taylor on 12/03/24 09:04 Off Ur Spec [place] 1.025 Last Edit by Elaine Taylor on 12/03/24 09:04 Office Urine pH 5.5 Last Edit by Elaine Taylor on 12/03/24 09:04 Office Urine Protein Trace Last Edit by Elaine Taylor on 12/03/24 09:04 Office Urine Blood Moderate Last Edit by Elaine Taylor on 12/03/24 09:04 Office Urine Blood Hemolyzed Negative Last Edit by Elaine Taylor on 12/03/24 09:04 Office Urine Nitrate Negative Last Edit by Elaine Taylor on 12/03/24 09:04 Off Ur Leukocytes Negatve Last Edit by Elaine Taylor on 12/03/24 09:04 Off Ur WBC Microscopic ? Last Edit by Elaine Taylor on 12/03/24 09:04 Off Ur RBC Microscopic ? Last Edit by Elaine Taylor on 12/03/24 09:04 Off Ur Bacteria Microscopic ? Last Edit by Elaine Taylor on 12/03/24 09:[address] done in 2020 negative for urologic pathology pics of previous hydrodistention with extensive glomerulations and injection Coding Level of Care Code Off vis,new,level 4 Diagnoses Interstitial cystitis (chronic) with hematuria N30.11 Abdominal pain R10.9 Dyspareunia, female N94.10 Nocturia R35.1 Mixed incontinence N39.46 Assessment and Plan Assessment and Plan (1) Interstitial cystitis (chronic) with hematuria: Status: Chronic (2) Abdominal pain: Status: Acute (3) Dyspareunia, female: Status: Acute (4) Nocturia: Status: Acute (5) Mixed incontinence: Status: Acute Orders: Orders POC UA Automated w/Microscopy Today R31.9 - Hematuria, unspecified PVR Today R35.1 - Nocturia Plan IC diet elimination/level one management Gemtesa trial 75mg daily, side effects discussed voiding diary schedule for cystoscopy with possible bladder biopsy with fulguration, possible hydrodistention famotide 20mg BID pelvic floor physical therapy after cystoscopy is completed The procedure, recovery and expectations were explained. The risks, benefits and alternatives were discussed, including but not limited to, the risks of anesthesia, bleeding, infection, injury, pain and the need for further intervention. We have discussed the risk of exposure to and/or potential harm posed by the COVID-19 virus with having a surgery/procedure at this time. A joint decision was made at this time to proceed with the scheduled surgery/procedure as indicated on the consent form. Plan Details Follow Up: 4 Weeks (med and post op f/u) Comments Comments: Gemtesa samples 12/03/24 0941 <Electronically signed by Brissa Huerta MD> Date Brissa Huerta MD
--- NOTE | 2024-12-27 08:29 | DCINST_ITS ---
Discharge Instructions Diet Discharge Diet: No restrictions Activity Discharge Activity: Return to Normal Activity Dressing / Incision Call your doctor if you observe: Fever of 101 or Higher, Inability to urinate and Inability to have a bowel movement Follow Up Care Please Follow Up With: Brissa Huerta MD Test Results: Test results from this visit will be discussed in further detail at your follow- up appointment, if applicable. Discharge Plan Admission Attending Provider: Brissa Huerta Primary Care Provider: Vinny Foster Instructions Print Language: Bulgarian Discharge Orders/Prescriptions Prescriptions: New phenazopyridine 200 mg tablet 200 mg PO TID PRN (Reason: pain) Qty: 30 3RF cephalexin 500 mg capsule 500 mg PO Q12 3 Days Qty: 6 0RF ondansetron 4 mg tablet,disintegrating 4 mg PO Q8H PRN (Reason: nausea and vomiting) Qty: 10 0RF oxycodone-acetaminophen 5-325 mg tablet 1 tab PO Q8H PRN (Reason: pain) 3 Days Qty: 10 0RF Continued lamotrigine 100 mg tablet 100 mg PO QDAY famotidine [Acid Controller] 20 mg tablet 20 mg PO DAILY propranolol 20 mg tablet 20 mg PO DAILY Qty: 90 3RF Referrals / Follow Up: Vinny Foster MD [Primary Care Provider, Family Practice] Disposition Disposition (needs filled in before D/C Order can be placed): Home, Self Care
--- NOTE | 2024-12-27 08:33 | OP.PCM_ITS ---
Multi Select Codes Urology Urology Charge Forwarding-multi code: Attention Absorption And Adsorption Engineer Operative Report (Standard) Operative Information Date of Procedure: 12/27/24 Pre-Operative Diagnosis: Interstitial cystitis Post-Operative Diagnosis: same Surgery/Procedure Performed: Cystoscopy with hydrodistention logistics planner: No Type of Anesthesia: MAC RN Documented Start/Stop Times: Operation Date: 12/27/24 08:30 Case Time Into Pre-Op 12/27/24 06:39 Anesthesia Start 12/27/24 08:46 Into Room 12/27/24 08:46 Out of Pre-Op 12/27/24 08:46 Procedure Start 12/27/24 08:59 Procedure End 12/27/24 09:07 Anesthesia End 12/27/24 09:11 Out of Room 12/27/24 09:11 Into Recovery 12/27/24 09:13 Procedure Start Time: 08:59 Procedure Stop Time: 09:07 Select all DRAINS/GRAFTS/IMPLANTS that apply: None Estimated Blood Loss: <5cc Specimen collected: No Description of surgery: The patient is a 39-year-old female with interstitial cystitis who presents for cystoscopy under anesthesia for further evaluation and management. Informed consent was obtained. She was taken to the operating room placed on operating room table. Anesthesia monitored the head, neck, airway, IV access and vital signs throughout the case. Once anesthesia was appropriate ministered, she was placed into dorsolithotomy position was prepped and draped in usual sterile fashion. The cystoscope was inserted through the urethra under direct visualization into the urinary bladder. The bladder mucosa was visualized in its entirety finding no evidence of ulceration, erythema, mass or foreign body. The bladder was then filled to capacity and allowed to sit for 2 minutes. On emptying there was no terminal hematuria and a volume of 450 cc was collected. On reentry with the cystoscope, there is obvious diffuse glomerulations with blood. Once again her bladder was filled to capacity and allowed to sit for 2 minutes. On emptying, there was terminal hematuria and the capacity was measured at 500 cc. There were no trigger points in the pelvic floor at this time. She was then awakened and taken to the recovery room in good condition. There were no complications during this procedure. Surgical Findings: Consistent with interstitial cystitis, capacity at 500 cc, glomerulations and hematuria Complications Complications: No Admit VTE Documentation VTE Present on Admission: Yes VTE Mechan Device Prophylaxis: SCD's VTE Pharm Prophylaxis ordered?: No Reason prophylaxis not ordered: Treatment Not Indicated
[2024-12-27] MEDS: Lactated Ringers 1,000 ML 1000 ML IV (08:46)
[2024-12-27] MEDS: Midazolam 2 MG/2 ML Syringe IV (08:46)
[2024-12-27] MEDS: Cefazolin 1 GM/5 ML Vial 2 GM IV (08:47)
[2024-12-27] MEDS: Lidocaine 1% (5 ml sdv) 5 ML Vial IV (08:52)
[2024-12-27] MEDS: fentaNYL 100 MCG/2 ML Ampul IV (08:52)
--- NOTE | 2024-12-27 09:16 | PCM.POST.ANE ---
Anesthesia: Postop Eval I Current Vital Signs Temperature: 97.1 F Pulse Rate: 70 Blood Pressure: 95/63 Respiratory Rate: 16 Pulse Ox: 98 Oxygen Delivery Method: Room Air Assessment Airway patent: Yes Spontaneous unlabored respirations: Yes Mental status: Asleep nausea: No Vomiting: No Anesthesia Complication: No Fluid Hydration Crystalloid volume administer (ml): 800 Total IV fluid infused: 800 Progress Note Anesthesia document: Postop Eval 1 completed: Yes
--- NOTE | 2024-12-27 14:10 | POSTOPAN2_ITS ---
Anesthesia Postop Eval I Sum Postop Eval Completion status Anesthesia document: Postop Eval 1 completed: Yes Anesthesia Postop Eval I Summary Anesthesia Postop Eval I Summary: Anesthesia Postop Eval I: Assessment Summary Airway patent Yes 12/27/24 09:17 [email or web address] Spontaneous unlabored Yes 12/27/24 09:17 [email or web address] respirations Mental status Asleep 12/27/24 09:17 [email or web address] nausea No 12/27/24 09:17 [email or web address] Vomiting No 12/27/24 09:17 [email or web address] Anesthesia Postop Eval I: Fluid Summary Crystalloid volume administer 800 12/27/24 09:17 [email or web address] (ml) Colloids volume administered ( ml) Blood Product volume administered (ml) Total IV fluid infused 800 12/27/24 09:17 [email or web address] Anesthesia Postop Eval I: Summary Notes Anesthesia Complication No 12/27/24 09:17 [email or web address] Anesthesia Complication Comment: Post-operative progress note Anesthesia: Postop Eval II Evaluation Mental status: Awake and Calm Pain Level: 1 nausea: No Vomiting: No Complications Anesthesia Complication: No
--- NOTE | 2024-12-27 14:10 | PCM.POSTANE2 ---
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 Vomiting No 12/27/24 09:17 [email or web address] Anesthesia Postop Eval I: Fluid Summary Crystalloid volume administer 800 12/27/24 09:17 [email or web address] (ml) Colloids volume administered ( ml) Blood Product volume administered (ml) Total IV fluid infused 800 12/27/24 09:17 [email or web address] Anesthesia Postop Eval I: Summary Notes Anesthesia Complication No 12/27/24 09:17 [email or web address] Anesthesia Complication Comment: Post-operative progress note Anesthesia: Postop Eval II Evaluation Mental status: Awake and Calm Pain Level: 1 nausea: No Vomiting: No Complications Anesthesia Complication: No
== END 2024-12-27 09:58 | disposition home or self-care (01) ==
LOC: SDC 06:35 → AC 06:38
PROVIDERS: PCP Family Medicine; Referring Provider Urology; Visit Provider Urology
PROC: 0TBB8ZX Excision of Bladder, Via Natural or Artificial Opening Endoscopic, Diagnostic (ICD-10-PCS; CPT 52260; principal; 2024-12-27 08:20)
DX: N30.11 Interstitial cystitis (chronic) with hematuria (principal); N39.46 Mixed incontinence; R35.1 Nocturia; N94.10 Unspecified dyspareunia; R10.9 Unspecified abdominal pain; R35.0 Frequency of micturition; J45.909 Unspecified asthma, uncomplicated; K21.9 Gastro-esophageal reflux disease without esophagitis; Z79.899 Other long term (current) drug therapy
CPT/HCPCS: 52260; 00910; J2405

== ENCOUNTER → 2025-02-05 | Outpatient (CLI) | payer OTHER, SELFPAY ==
[2025-02-05 13:27] LABS: AST(SGOT) 21 U/L (<=31); Alanine Aminotransfer ALT/SGPT 17 U/L (<=34); Albumin, Serum 4.4 g/dL (3.5-5.0); Alkaline Phosphatase 38 U/L (35-104); Anion Gap 11 (5-15); BUN 14 mg/dL (4-19); BUN/Creat Ratio 18.3 RATIO (10-20); Calcium,Total 9.4 mg/dL (7.6-11.0); Carbon Dioxide 25.0 mmol/L (21.0-32.0); Chloride 103 mmol/L (98-108); Cholesterol 261 mg/dL (<=200); Globulin 2.6 g/dL (2.2-4.2); Glucose 88 mg/dL (70-99); Low Density Lipoprotein Calc. 186 mg/dL; Potassium 4.3 mmol/L (3.3-5.1); Triglycerides 104 mg/dL; Very Low Density Lipoprotein 21 mg/dL (5-40); Vitamin D,25 Hydroxy 61.5 ng/mL (30-100); cholesterol:hdl ratio screen 4.58
== END | disposition home or self-care (01) ==
LOC: MFPLAB 09:25
PROVIDERS: PCP Family Medicine; Visit Provider Family Medicine
DX: E78.5 Hyperlipidemia, unspecified (principal); E55.9 Vitamin D deficiency, unspecified
CPT/HCPCS: 36415; 80053; 80061; 82306